=== PATIENT | female | born 1955 | race Caucasian/White ===

== ENCOUNTER → 2017-04-25 | Outpatient (CLI) | payer MEDICARE, SELFPAY | PROVIDERS: Visit Provider Nurse Practitioner Acute Care | DX: K74.60 Unspecified cirrhosis of liver (principal) | CPT/HCPCS: 76705 ==

== ENCOUNTER 2017-05-02 10:56 | Outpatient (CLI) | payer MEDICARE, SELFPAY | END 2017-05-02 13:00 | disposition home or self-care (01) | PROVIDERS: Visit Provider Internal Medicine | DX: D50.9 Iron deficiency anemia, unspecified; K74.60 Unspecified cirrhosis of liver; K76.6 Portal hypertension; T45.4X5A Adverse effect of iron and its compounds, initial encounter | CPT/HCPCS: 96365; J1756 ==

== ENCOUNTER 2017-05-08 11:00 | Outpatient (CLI) | payer MEDICARE, SELFPAY ==
[2017-05-08 13:15] VITALS: BMI 82.7
[2017-05-08 14:08] VITALS: BP 111/56; PULSE 83; RESP 18; TEMP 37.4; O2SAT 94
[2017-05-08 14:38] VITALS: BP 119/56; PULSE 84; RESP 18; O2SAT 95
[2017-05-08 15:00] VITALS: BP 105/57; PULSE 84; RESP 20; O2SAT 94
== END 2017-05-08 15:00 | disposition home or self-care (01) ==
LOC: INF 13:09
PROVIDERS: Family Provider Family Medicine; PCP Family Medicine; Visit Provider Internal Medicine
DX: D50.9 Iron deficiency anemia, unspecified (principal); K74.60 Unspecified cirrhosis of liver; T45.4X5A Adverse effect of iron and its compounds, initial encounter
CPT/HCPCS: 96365; J1756

== ENCOUNTER 2017-05-15 08:40 | Outpatient (CLI) | payer MEDICARE, SELFPAY ==
[2017-05-15 08:56] VITALS: BMI 37.5
[2017-05-15 09:00] VITALS: BP 114/60; PULSE 81; RESP 16; TEMP 37.1; O2SAT 98
[2017-05-15 09:30] VITALS: BP 129/55; PULSE 82; RESP 16
[2017-05-15 10:00] VITALS: BP 113/56; PULSE 79; RESP 18
[2017-05-15 10:15] VITALS: BP 123/55; PULSE 76; RESP 18
== END 2017-05-15 10:15 | disposition home or self-care (01) ==
PROVIDERS: Family Provider Family Medicine; PCP Family Medicine; Visit Provider Internal Medicine
DX: K74.69 Other cirrhosis of liver (principal); K76.6 Portal hypertension; T45.4X5A Adverse effect of iron and its compounds, initial encounter; D50.9 Iron deficiency anemia, unspecified
CPT/HCPCS: 96365; J1756

== ENCOUNTER 2017-05-22 11:05 | Outpatient (CLI) | payer MEDICARE, SELFPAY ==
[2017-05-22 12:00] VITALS: BP 134/75; PULSE 74; RESP 18; TEMP 36.6; O2SAT 93
[2017-05-22 12:25] VITALS: BP 136/76; PULSE 82; RESP 18; O2SAT 96
== END 2017-05-22 12:25 | disposition home or self-care (01) ==
LOC: INF 14:16
PROVIDERS: Family Provider Family Medicine; PCP Family Medicine; Visit Provider Internal Medicine
DX: K74.60 Unspecified cirrhosis of liver (principal); K76.6 Portal hypertension; D50.9 Iron deficiency anemia, unspecified
CPT/HCPCS: 96365; J1756

== ENCOUNTER 2017-05-30 10:20 | Outpatient (CLI) | payer MEDICARE, SELFPAY ==
--- NOTE | 2017-05-30 10:28 | MM_ITS ---
MM Dig screening mamm BI w/CAD CAD Screening COMPARISON: Digital mammograms 05/13/2014 and 05/28/2016 INDICATION: There is a history of breast cancer patient's sister diagnosed after menopause. TECHNIQUE: Standard CC and MLO images were obtained. R2 CAD reviewed. FINDINGS: The breasts are composed primarily of fat with minimal scattered fibroglandular densities throughout each breast. There is no suspicious lesion and there are no suspicious microcalcifications. There are small nodes in both axilla. IMPRESSION: Fatty type breast parenchyma with no suspicious lesion seen BI-RADS Category: 1 Negative RECOMMENDED FOLLOW-UP: 1YR - 1 YEAR FOLLOW-UP (A letter has been sent to the patient regarding results of the study.)
[2017-05-30 11:41] VITALS: BP 114/82; PULSE 93; RESP 18; TEMP 36.7; O2SAT 99
[2017-05-30 12:11] VITALS: BP 118/80; PULSE 91; RESP 18; O2SAT 98
[2017-05-30 12:20] VITALS: BP 116/80; PULSE 89; RESP 18; O2SAT 98
== END 2017-05-30 16:15 | disposition home or self-care (01) ==
LOC: RAD 10:22 → INF 13:02
PROVIDERS: Family Provider Family Medicine; PCP Family Medicine; Visit Provider Internal Medicine
DX: Z12.31 Encounter for screening mammogram for malignant neoplasm of breast (principal); K74.69 Other cirrhosis of liver; D50.0 Iron deficiency anemia secondary to blood loss (chronic); D61.818 Other pancytopenia
CPT/HCPCS: 77067; 96365; J1756

== ENCOUNTER 2017-06-03 13:10 | Day surgery (SDC) | payer MEDICARE, SELFPAY ==
[2017-05-30 11:33] VITALS: BMI 37.4
[2017-05-30 12:42] VITALS: BMI 37.4
[2017-06-03] VITALS (11 sets, daily range): BP systolic 90–157; BP diastolic 46–84; PULSE 63–83; RESP 16–20; TEMP 36.4–36.6; O2SAT 93–98
--- NOTE | 2017-06-03 13:44 | HMH.ANESCL ---
[facility] Anesthesia Checklist - Patient Identification Patient Identification: Arm Band, Verbal (Name & ) - Structural Data Admitted From: Home Planned Operative Procedure/s: egd Consent for Planned Operative Procedure(s) Verified: Yes Verified Documents: Surgical Consent - NPO Status Verified Time NPO: 00:00 - Chart Verification Results Verified: None, CBC, BMP - Additional verifications Patient : No Anesthesia Reactions: No Hx Blood Transfusions: No Blood Transfusion Reaction: No Cephalosporin Allergy: No Previous Colonoscopy: No - Cardiovascular Assessment Heart Sounds: S1 & S2 Pulse Strength: Strong Pulse Rhythm: Regular Peripheral Edema: No - Airway Assessment C-Spine Mobility Assessed: Yes TMJ Mobility Assessed: Yes Dentition: Good Dentition - Neurological Assessment Level of Consciousness: Awake, Alert, Appropriate Hx Seizures: No Numbness or tingling in extremities: No - Anesthesia Plan Anesthesia Risk discussed: Yes Anesthesia Plan: Verified ASA Class: III Anesthesia Type: MAC [facility] Anesthesia HX I have reviewed the patient's past medical history: Yes Medical History: Reports:: Depression, Diabetes Mellitus Type 2 (niddm), Hypertension, Lung Disease (asthma/emphesema), Kidney Stones, Migraine Denies:: Diabetes Mellitus Type 1, Internal Pacemaker, Seizures Other Medical History: Reports: Anemia, Arthritis, Fibromyalgia Laterality Cases: Right: Arthroscopy Shoulder, Bilateral: Carpal Tunnel Release, Tonsillectomy Other Surgeries: Yes: Appendectomy, Hysterectomy-Total, Other (kidney stone, back ). No: Pacemaker Amputation: No Fractures: No *Family Hx:: Cancer, Diabetes, Heart Attack
[2017-06-03 13:51] LABS: POC Glucose,Bedside 93 mg/dL
--- NOTE | 2017-06-03 14:12 | HMH.PROC ---
[facility] Procedure Note Procedure Note:: Upper Endoscopy Procedure Report: Esophagogastroduodenoscopy with cold biopsies Endoscopost: Dionisio Arzate II, MD Referring Physician: Sebas Sebastian MD Date of Procedure: June 03, 2017 Equipment: Olympus GIF 180 standard upper endoscope Sedation: MAC sedation Indications: Mrs. Aguilera is a 62-year-old female with dyspepsia. She reports discomfort across the upper abdomen with bloating, nausea and frequent functional diarrhea. The patient also has cirrhosis presumably secondary to FREGOSO. The patient also has thrombocytopenia secondary to portal hypertension. Her CT scan of the abdomen did show splenomegaly and cirrhotic liver with enlarged portal vein and enlarged splenic vein. There was portal venous collaterals and varicosities. EGD is performed to exclude esophageal varices but also to assess dyspepsia. Procedure: Prior to the procedure, a history and physical exam was performed, and patient's medications and allergies were reviewed. The risks, benefits and alternatives of the sedation and procedure were discussed with the patient. All questions were answered and informed consent was obtained. The patient was brought to the procedure room. Patient identification and proposed procedure were verified by the physician and the nurse. The patient was placed in a left lateral decubitus position and the scope was passed under direct vision. Throughout the procedure, the patient's blood pressure, pulse, and oxygen saturations were monitored continuously. The upper GI endoscopy was accomplished without difficulty. The patient tolerated the procedure well. Findings: The scope was passed directly into the upper esophagus and advanced to the third portion of the duodenum. The post bulbar duodenum and duodenal bulb were normal with normal mucosa and conniventes. The scope was withdrawn through a normal duodenal bulb and pylorus into the stomach. There was evidence of mosaic pattern to the mucosa in the body and fundus consistent with mild portal gastropathy. Upon retroflexion there was no gastric varices. There was moderate bowel reflux with evidence of linear reactive gastritis of the antrum and body. Cold biopsies were taken along the lesser curvature for histology. Upon retroflexion there was no hiatal hernia. The scope was then withdrawn into the esophagus. There was evidence of grade 1 esophageal varices without stigmata. There was no evidence of reflux esophagitis. The remainder of the esophageal mucosa was normal. Impression: 1. Bowel reflux with linear reactive gastritis 2. Mild portal gastropathy 3. Grade 1 esophageal sees Plan: I do feel that the patient has functional dyspepsia and we will discuss additional treatment options. The patient also has evidence of portal hypertension with small varices. I would recommend nonselective beta-clyde (nadolol) and will discuss additional evaluation. The patient does have microcytic anemia and I would like to determine etiology and will discuss colonoscopy. She has had intermittent bright red blood per rectum.
== END 2017-06-03 15:30 | disposition home or self-care (01) ==
LOC: OUTP 13:11
PROVIDERS: Family Provider Family Medicine; PCP Family Medicine; Visit Provider Internal Medicine Gastroenterology
PROC: 0DJ08ZZ Inspection of Upper Intestinal Tract, Via Natural or Artificial Opening Endoscopic (ICD-10-PCS; CPT 43235; principal; 2017-06-03 14:00)
DX: K92.1 Melena (principal); D50.9 Iron deficiency anemia, unspecified; K75.81 Nonalcoholic steatohepatitis (NASH); K76.6 Portal hypertension; K31.89 Other diseases of stomach and duodenum; I85.00 Esophageal varices without bleeding; R10.13 Epigastric pain
CPT/HCPCS: 43239; 82962; 88305; 96365; J1756

== ENCOUNTER → 2017-06-11 14:06 | Outpatient (CLI) | payer MEDICARE, SELFPAY ==
[2017-06-11 14:52] LABS: Basophils % 0.4 % (0.1-2.0); Eosinophils % 0.6 % (0.1-12.0); Hematocrit 41.1 % (37.0-47.0); Hemoglobin 12.6 g/dL (12.2-16.2); Lymphocytes # 0.7 K/mm3 (0.7-4.5); Lymphocytes % 26.9 K/mm3 (10-50); Mean Corpuscular HGB Conc 30.6 g/dL (31.8-35.4); Mean Corpuscular Hemoglobin 24.9 pg (27.0-31.2); Mean Corpuscular Volume 81.6 fl (81-99); Mean Platelet Volume 10.9 fl (7.4-10.4); Monocytes # 0.2 K/mm3 (0.1-1.0); Monocytes % 6.9 % (1.7-9.3); Neutrophils # 1.6 K/mm3 (1.8-7.8); Neutrophils % 65.2 % (37.0-80.0); Platelet Count 51 K/mm3 (142-424); Red Blood Count 5.03 M/mm3 (4.20-5.40); Red Cell Distribution Width 21.4 % (11.5-17.5); White Blood Count 2.5 K/mm3 (4.8-10.8)
[2017-06-11 15:59] LABS: Anion Gap 10.9 mEq/L (5-15); Blood Urea Nitrogen 5 mg/dL (7-18); Carbon Dioxide 33 mmol/L (21.0-32.0); Chloride 105 mmol/L (98-107); Creatinine,Serum 0.55 mg/dL (0.55-1.02); Estimated Glomerular Filt Rate 112 ml/min (>60); Ferritin 116 ng/mL (8-388); GFR (African American) 136 ML/MIN (>60); Glucose 68 mg/dL (74-106); Sodium 145 mmol/L (136-145)
[2017-06-11 16:07] LABS: Potassium 3.9 mmoL/L (3.5-5.1)
[2017-06-13 08:29] LABS: UIBC 262 ug/dL (118-369)
[2017-06-13 12:34] LABS: Iron 52 ug/dL (27-139); Iron Saturation 17 % (15-55)
== END ==
PROVIDERS: PCP Family Medicine; Visit Provider Nurse Practitioner
DX: D50.9 Iron deficiency anemia, unspecified (principal); D61.818 Other pancytopenia; K74.60 Unspecified cirrhosis of liver
CPT/HCPCS: 36415; 80048; 82728; 83550; 85025

== ENCOUNTER → 2017-08-26 13:12 | Outpatient (CLI) | payer MEDICARE, SELFPAY ==
--- NOTE | 2017-08-26 13:19 | XR_ITS ---
XR foot RT min 3V HISTORY: Lateral foot and ankle pain following injury ITS.REASON: FALL,RT ANKLE INJURY ORDERING PHYSICIAN: Say Sebastian MD PATIENT AGE: 62 years COMPARISON: None FINDINGS: There is a nondisplaced oblique fracture of the distal fibula. No obvious foot fracture or dislocation evident. A prominent osteophyte at the plantar surface of the calcaneus at 10 mm. IMPRESSION: Nondisplaced oblique fracture distal fibula. Otherwise negative right foot
--- NOTE | 2017-08-26 13:19 | XR_ITS ---
XR ankle RT min 3V HISTORY: ITS.REASON: FALL,RT ANKLE INJURY ORDERING PHYSICIAN: Say Sebastian MD PATIENT AGE: 62 years FINDINGS: Moderate soft tissue swelling is present. There is a nondisplaced oblique fracture present involving the distal aspect of the fibula best seen on the lateral view through the tibia. There is moderate soft tissue swelling of the lateral ankle. IMPRESSION: Nondisplaced oblique fracture of the distal fibula
== END ==
PROVIDERS: PCP Family Medicine; Visit Provider Family Medicine
DX: M79.671 Pain in right foot (principal); M25.571 Pain in right ankle and joints of right foot
CPT/HCPCS: 73610; 73630

== ENCOUNTER → 2017-08-28 11:51 | Outpatient (CLI) | payer MEDICARE, SELFPAY ==
--- NOTE | 2017-08-28 11:59 | XR_ITS ---
XR knee RT 3V HISTORY: ITS.REASON: RT KNEE PAIN ORDERING PHYSICIAN: Say Sebastian MD PATIENT AGE: 62 years FINDINGS: Mild osteoarthritic changes involving all 3 compartments greatest at the patellofemoral joint. No fracture or dislocation. No lytic or blastic change. There is a 1 cm calcific density along the posterior aspect of the distal the more at the proximal popliteal region and may represent a loose body. Otherwise negative. IMPRESSION: Osteoarthritis suspected loose body along the superior aspect of the popliteal fossa
== END ==
PROVIDERS: PCP Family Medicine; Visit Provider Family Medicine
DX: M25.561 Pain in right knee (principal)
CPT/HCPCS: 73562

== ENCOUNTER → 2017-09-19 10:38 | Outpatient (CLI) | payer MEDICARE, SELFPAY ==
--- NOTE | 2017-09-19 10:46 | XR_ITS ---
XR tibia fibula RT 2V CLINICAL INDICATION: ITS.REASON: right knee pain ORDERING PHYSICIAN: Liam Richey MD PATIENT AGE: 62 years Comparison: None FINDINGS: There are mild osteoarthritic changes of the knee joint. A nondisplaced oblique fracture involves the distal fibula as described in the ankle report. The proximal and mid aspect of the tibia and fibula have an unremarkable appearance. IMPRESSION: 1. Nondisplaced distal fibular fracture. 2. Mild osteoarthritis of the knee
--- NOTE | 2017-09-19 10:46 | XR_ITS ---
XR hip RT 2-3V w/pelvis HISTORY: ITS.REASON: right hip pain ORDERING PHYSICIAN: Liam Richey MD PATIENT AGE: 62 years COMPARISON: None FINDINGS: No fracture or dislocation is evident. Minimal osteoarthritic changes are present involving the right hip. No lytic or blastic change. IMPRESSION: Mild osteoarthritis of the right hip, no acute finding
--- NOTE | 2017-09-19 10:46 | XR_ITS ---
XR ankle RT min 3V HISTORY: Follow-up fracture ITS.REASON: right ankle pain ORDERING PHYSICIAN: Liam Richey MD PATIENT AGE: 62 years COMPARISON: 08/26/2017 FINDINGS: There is a nondisplaced oblique fracture involving the distal aspect of the fibula exiting medially at the level of the ankle joint. Ankle mortise is not widened. The fracture line is somewhat more prominent but may be due to underlying bony resorption from hyperemia. Calcaneal spur is present. Soft tissue swelling has reduced laterally IMPRESSION: 1. Overall no change nondisplaced fibular fracture. 2. Decreased soft tissue swelling laterally
--- NOTE | 2017-09-19 10:46 | XR_ITS ---
XR knee LT 4V HISTORY: ITS.REASON: left knee pain ORDERING PHYSICIAN: Liam Richey MD PATIENT AGE: 62 years COMPARISON: None FINDINGS: There are mild tricompartmental osteoarthritic changes. There is spurring along the superior aspect of the patella, tibial spines, and at the distal femur laterally. Calcification is present along the lateral aspect of the distal femur at the patellofemoral junction. No acute fracture or dislocation. No lytic or blastic change. IMPRESSION: Tricompartmental osteoarthritis with bony spurs as described above. No acute finding
== END ==
PROVIDERS: PCP Family Medicine; Visit Provider Orthopaedic Surgery
DX: M25.571 Pain in right ankle and joints of right foot (principal); M25.551 Pain in right hip; M25.562 Pain in left knee
CPT/HCPCS: 73502; 73564; 73590; 73610

== ENCOUNTER → 2017-10-04 14:01 | Outpatient (CLI) | payer MEDICARE, SELFPAY | PROVIDERS: Family Provider Family Medicine; PCP Family Medicine; Visit Provider Orthopaedic Surgery | DX: M25.561 Pain in right knee (principal) ==

== ENCOUNTER → 2017-11-12 13:49 | Outpatient (CLI) | payer MEDICARE, SELFPAY ==
--- NOTE | 2017-11-12 13:50 | MR_ITS ---
MR knee RT wo con HISTORY: Right knee pain, abnormal radiograph suggesting a loose body with osteoarthritis ITS.REASON: loose body/ rt knee pain ORDERING PHYSICIAN: Liam Richey MD PATIENT AGE: 62 years Comparison: None TECHNIQUE: Standard multiplanar multiecho sequences are performed without contrast. FINDINGS: The cruciate ligaments are intact. The collateral ligaments also appear intact. The patellar tendon and quadriceps tendon have an unremarkable appearance. No meniscal tear.. There are moderate osteoarthritic changes involving all 3 compartments with decrease in the joint spaces and osteophyte formation. Moderate osteoarthritic changes are present involving the patellofemoral joint with marked thinning of the patellar cartilage and bony hypertrophic change. Slight increased T2 signal involves the posterior patella superiorly. There is an oval hypointense region along the superior aspect of the popliteal fossa measuring 9 x 5 mm corresponding to the radiographic abnormality consistent with a loose body. This is dorsal medial aspect of the popliteal fossa and lies along the superior, posterior, and lateral aspect of the medial femoral condyle. A small amount of loculated fluid around this area. There is a small osteochondral defect involving the articular surface of the lateral femoral condyle measuring 6 mm. No other osteochondral defects are apparent. IMPRESSION: 1. Tricompartmental osteoarthritis. 2. 9 mm loose body in the superior popliteal region as described above associated with some small septated cystic areas and may be small bursa. 2. No internal derangement Moderate osteoarthritic changes
== END ==
PROVIDERS: Family Provider Family Medicine; PCP Family Medicine; Visit Provider Orthopaedic Surgery
DX: M25.561 Pain in right knee (principal)
CPT/HCPCS: 73721

== ENCOUNTER → 2018-01-01 10:47 | Outpatient (CLI) | payer MEDICARE, SELFPAY ==
--- NOTE | 2018-01-01 10:49 | XR_ITS ---
XR DEXA axial skeleton HISTORY: ITS.REASON: POST MENOPAUSAL HX FX ORDERING PHYSICIAN: Say Sebastian MD PATIENT AGE: 62 years COMPARISON: 04/22/2014 FINDINGS: The BMD measured at the Right femoral neck is 0.877 g/cm squared with a T score of -1.2. This is considered Osteopenic according to the World Health Organization criteria. Fracture risk is Moderate. Treatment is advised. L1 L4 density has a T score of 0.3 and has increased by approximately 3%. The hip density has decreased by 1% IMPRESSION: Osteopenia with moderate fracture risk. Treatment suggested. Recommend follow-up exam December 2019
== END ==
PROVIDERS: Family Provider Family Medicine; PCP Family Medicine; Visit Provider Family Medicine
DX: D50.9 Iron deficiency anemia, unspecified (principal); D61.818 Other pancytopenia; K74.60 Unspecified cirrhosis of liver; Z78.0 Asymptomatic menopausal state; Z87.81 Personal history of (healed) traumatic fracture
CPT/HCPCS: 77080

== ENCOUNTER → 2018-01-21 14:22 | Outpatient (CLI) | payer MEDICARE, SELFPAY ==
--- NOTE | 2018-01-21 14:27 | CA_ITS ---
PROCEDURE: 2-D M-mode and color Doppler study INDICATIONS FOR THE TEST: Chest pain COPD Heart Murmur Tobacco Smoking+ Palpitations Fatigue Syncope Edema+ Hypertension+Diabetes Mellitus+ Rheumatic Fever SOB+ABDUL Obesity+Hyperlipidemia Family History HD Additional History CIRRHOSIS PATIENT INFORMATION HEIGHT: 65 WEIGHT:241 GENDER: Female B/P:102/57 2-D/M-MODE INTERPRETATION: 2-D MEASUREMENTS OBSERVED VALUES IN CMS Right Ventricular Dimension (RVDd) 3.0 Interventricular Septum (Thickness)(IVsd) 1.3 Left Ventricular Internal Dimensions(LVIDd) 4.7 Left Ventricular Posterior Wall (Thickness)(LVPWd) 1.2 Aortic Root 3.2 Aortic Cusp Separation 2.0 Left Atrial Dimensions (LAD) 4.2 2D 1. Left atrium is mildly enlarged, left ventricle is normal size, mild concentric left ventricular hypertrophy, visually estimated ejection fraction of 55% with no obvious regional wall motion abnormality. 2. The right atrium and right ventricle are mildly enlarged with normal contractility. 3. The aortic valve is minimally thickened and fibrosed. 4. The mitral and tricuspid valve leaflets are minimally thickened. 5. The pulmonic valve is poorly visualized. 6. No significant pericardial effusion noted. DOPPLER INTERROGATION: Doppler interrogation of the aortic, mitral and tricuspid valvular presence of mild mitral and tricuspid regurgitation, tricuspid regurgitation jet velocity is insufficient for calculation of the right ventricular systolic pressure, diastolic parameters consistent with grade 1, with tissue Doppler evidence of raised left atrial pressure. CONCLUSION: 1. Mildly enlarged left atrium, normal left ventricular size, mild concentric left ventricular hypertrophy, visually estimated ejection fraction 55% with no obvious regional wall motion abnormality, grade 1 diastolic dysfunction seen with tissue Doppler evidence of raised left atrial pressure. 2. Mild mitral and tricuspid regurgitation 3. Mildly enlarged right ventricle with normal contractility. 4. No significant pericardial effusion noted.
== END ==
PROVIDERS: Family Provider Family Medicine; PCP Family Medicine; Visit Provider Emergency Medicine
DX: R06.02 Shortness of breath (principal); M79.89 Other specified soft tissue disorders; R53.83 Other fatigue
CPT/HCPCS: 93306

== ENCOUNTER → 2018-03-10 12:59 | Outpatient (CLI) | payer MEDICARE, SELFPAY ==
--- NOTE | 2018-03-10 13:01 | XR_ITS ---
XR knee LT 4V HISTORY: Knee pain ITS.REASON: 4 views weightbearing ORDERING PHYSICIAN: Kartik Bhakta MD PATIENT AGE: 63 years COMPARISON: 09/19/2017 FINDINGS: There are mild tricompartmental osteoarthritic changes. There is spurring along the superior aspect of the patella, tibial spines, and at the distal femur laterally. Calcification is present along the lateral aspect of the distal femur at the patellofemoral junction. No acute fracture or dislocation. No lytic or blastic change. Rounded calcific densities noted along the distal aspect of the femur posteriorly and anteriorly as seen on the lateral view which could be related to loose bodies. IMPRESSION: Tricompartmental osteoarthritis with bony spurs as described above. No acute finding with no significant change
== END ==
PROVIDERS: PCP Emergency Medicine; Visit Provider Orthopaedic Surgery
DX: M25.562 Pain in left knee (principal)
CPT/HCPCS: 73564

== ENCOUNTER → 2018-03-13 08:27 | Outpatient (CLI) | payer MEDICARE, SELFPAY ==
[2018-03-13 08:52] LABS: Blood Urea Nitrogen 6 mg/dL (7-18); Estimated Glomerular Filt Rate 101 ml/min (>60); GFR (African American) 123 ML/MIN (>60)
--- NOTE | 2018-03-13 09:29 | CT_ITS ---
CT abdomen pelvis wo/w con CLINICAL INDICATION: ITS.REASON: EPIGASTRIC PAIN,LYMPHADENOPATHY,WEIGHT LOSS ORDERING PHYSICIAN: Prabha Barajas MD PATIENT AGE: 63 years COMPARISON: None TECHNIQUE: Axial images obtained without and with contrast. Sagittal and coronal reformats. All CT scans at the facility use one or more dose reduction, viz: automated exposure control, ma/kV adjustment per patient size (including targeted exams where dose is matched to indication, i.e. head remains, or iterative reconstruction technique. PROCEDURE: Oral Contrast: None IV Contrast: 75 mL's Isovue-370. FINDINGS: Atelectatic or fibrotic changes are present in the lung bases. There are old fractures of the right ninth, eighth, and seventh ribs posteriorly. There is diffuse fatty liver infiltration. There is marked splenomegaly at 25 cm in AP dimension. Previously the spleen measured 22 cm AP. The liver has an irregular margin consistent with cirrhosis. There has been prior cholecystectomy. A small amount of perihepatic and perisplenic fluid. No biliary dilatation is evident. No space-occupying lesions of the liver are evident. No evidence of portal vein thrombosis. The portal vein is prominent at 1.9 cm transverse dimension. Scattered small perigastric and perisplenic varices are present. The adrenal glands, pancreas, and kidneys have an unremarkable appearance. There is stranding of the fat in the right paracolic gutter. This is of questionable etiology, which may be due to varices. No evidence of appendicitis or diverticulitis. No intestinal obstruction or free air. There is a mild amount of ascites in the pelvis. No pelvic mass abnormal fluid collection or focal inflammatory change. Prior hysterectomy. 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 Celiac lymph node once again noted at approximately 2 cm not significantly changed. No acute bony anomalies.. IMPRESSION: 1. The findings are consistent with portal hypertension with marked splenomegaly. The spleen does appear larger than when compared to the previous exam. There is ascites and enlarged portal vein with irregularity of the liver margin consistent with cirrhosis with scattered collateral vessels. 2. Persistent stranding of the mesenteric fat in the right lower quadrant and celiac region which could be due to sequela from portal hypertension. 3. No change small celiac lymph node 2 cm. 4. 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 The stenosis while incompletely evaluated is felt to be severe and may be better evaluated with CT angiography.
== END ==
PROVIDERS: Visit Provider Emergency Medicine
DX: R10.13 Epigastric pain (principal); R59.1 Generalized enlarged lymph nodes; R63.4 Abnormal weight loss
CPT/HCPCS: 36415; 74170; 74178; 82565; 84520; Q9967

== ENCOUNTER → 2018-03-24 09:54 | Outpatient (CLI) | payer MEDICARE, SELFPAY ==
--- NOTE | 2018-03-24 09:58 | CT_ITS ---
CT angio abdomen CLINICAL INDICATION: Abdominal pain ITS.REASON: STENOSIS OF CELIAC ARTERY ORDERING PHYSICIAN: Prabha Barajas MD PATIENT AGE: 63 years COMPARISON: CT abdomen and pelvis 03/13/2018 TECHNIQUE: Axial images obtained with sagittal and coronal reformats. All CT scans at the facility use one or more dose reduction, viz: automated exposure control, ma/kV adjustment per patient size (including targeted exams where dose is matched to indication, i.e. head), or iterative reconstruction technique. PROCEDURE: 100 cc Isovue-370 bolus followed x 40 mL normal saline CTA technique.No oral contrast utilized . Additional reconstruction images performed by Dr. Garber on the radiologist workstation including 3-D volume images with & CTA imaging. CTA or 77 CPT . FINDINGS: Excellent opacification of a slender of modest caliber aorta. Diffuse atherosclerotic calcification throughout the lower abdominal aorta and common iliac arteries. There is a high-grade stenosis at the celiac artery origin. Estimate estimate 80-90% diameter stenosis on sagittal views. Residual diameter measuring of this proximal narrowed celiac artery = 1.7 mm on sagittal image. Only slightly more generous diameter on axial slices. The remainder of the celiac artery and is branches appear satisfactory. Although would note hepatic artery is modest caliber appears to have some collateral circulation to the SMA branches. Larger caliber splenic artery remains robust. The SMA is widely patent and generous caliber throughout. It again noting the right subhepatic collaterals. The renal arteries widely patent bilaterally with minimal calcified plaque no high-grade stenosis. Good perfusion of kidneys. . Calcified plaque yield minor less than 15-20% stenosis at the common iliac arteries. External iliac artery is widely patent proximally. Very large spleen. Prominent splenomegaly again noted . Suspect developing cirrhotic changes of liver with prominent portal vein. Cholecystectomy. Pancreas unremarkable. Only would note prominent portal vein confluence just posterior to the head of pancreas.. Hazy appearance to the mesentery most evident towards right abdomen is again noted as seen on recent CT. There is a small umbilical hernia again noted slight hazy appearance in bleeding to this area but also seen throughout the mesentery, omentum.. Pelvis not included on today's study. Generous wall thickness at stomach. Appendix normal. Old posterior right rib lower fractures. IMPRESSION 1. 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 (Origin of celiac artery narrows to 1.7 mm on sagittal view and only slightly more generous caliber on axial slices). . Modest caliber hepatic artery branch from the celiac artery. This vessel receives additional collateral supply from SMA branches. 2. SMA generous caliber and widely patent 3.. Diffuse atherosclerotic calcification aorta & common iliac vessels, but no flow-limiting stenosis through these latter regions 4.. Other observations in text were noted on recent CT abdomen 03/13/2018 . These include including the marked splenomegaly and the hazy appearance of the mesentery element on particular towards the right lower quadrant
== END ==
PROVIDERS: PCP Emergency Medicine; Visit Provider Emergency Medicine
DX: I77.79 Dissection of other specified artery (principal); I77.4 Celiac artery compression syndrome
CPT/HCPCS: 74175; Q9967

== ENCOUNTER → 2018-05-26 12:59 | Outpatient (POV) | payer MEDICARE, SELFPAY | PROVIDERS: Visit Provider Nurse Practitioner Acute Care | DX: Z00.00 Encounter for general adult medical examination without abnormal findings (principal) ==

== ENCOUNTER → 2018-05-29 12:23 | Outpatient (CLI) | payer MEDICARE, SELFPAY ==
--- NOTE | 2018-05-29 | US_ITS ---
US abdomen limited History:Cirrhosis Ordering Physician:Moriah Tavera Patient Age: 63 years Comparison:None Findings: Pancreas:Unremarkable. No obvious mass or abnormal fluid collection. No ductal dilatation Liver:There is slight heterogeneous echogenicity of the liver with some minimal nodularity of the liver surface best detected on previous CT scan of 03/24/2018. No space-occupying lesions of the liver evident. There is appropriate directional blood flow within the portal vein. Portal vein is slightly prominent at 16 mm. There is splenomegaly at 23 cm. Right Kidney:Unremarkable. Normal size and echogenicity. No hydronephrosis Gallbladder: Status post cholecystectomy. Common bile duct normal 4 mm. Impression: Splenomegaly with heterogeneous echogenicity of the liver and mild nodular contour with prominent portal vein consistent with portal hypertension and cirrhosis
== END ==
PROVIDERS: PCP Emergency Medicine; Visit Provider Nurse Practitioner Acute Care
DX: K74.60 Unspecified cirrhosis of liver (principal); R19.4 Change in bowel habit
CPT/HCPCS: 76705

== ENCOUNTER 2018-08-25 11:26 | Observation (INO) ==
[2018-08-25 12:13] LABS: ABG Base Excess 3.3 mmol/L (-2.4-2.3); ABG HCO3 27.6 mmhg (22.0-26.0); ABG Oxygen Saturation 94 % (90-100); ABG PCO2 41.9 mmhg (35.0-45.0); ABG PH 7.44 mmol/L (7.35-7.45); ABG PO2 71.7 mmhg (80-100); ABG TCO2 28.9 mmhg (23-27)
[2018-08-25 12:15] LABS: Allen's Test Acceptable; Oxygen 2L %
--- NOTE | 2018-08-25 13:23 | History & Physical Report ---
*Admission Date: 08/25/18 <SamiaLuanne - 08/25/18 13:23> *Chief complaint: cough and shortness of breath <Luanne Gracia 08/25/18 13:23> *History of present illness: Ms. Aguilera is a 63-year-old female with a history of hypertension, neuropathy, fibromyalgia, collagen disease, asthma, COPD, depression, GERD, cirrhosis/fatty liver, type 2 diabetes mellitus and tobacco use disorder who presented to the office of [facility] with 5 days of worsening cough and shortness of breath. Patient was seen in the emergency room at [facility] 08/02/2018 with fever. Chest x-ray at that time revealed probable right perihilar right upper lobe bronchopneumonia lung with minimal left lower lobe atelectasis. She was noted to be 1 day post colonoscopy. She was placed on Levaquin at discharge to home. With evaluation in the office she was found to be hypoxic with a low-grade temperature of 99.5. Patient does have a history of neutropenia and thrombocytopenia as well. CBC in the office of [facility] revealed a white blood cell count 3.4 with 76.3% granulocytes and 19% lymphocytes. Hemoglobin and hematocrit were 11.8 and 37.1 respectively; platelet count was 35,000. She received a DuoNeb treatment while in the office. She demonstrated a frequent nonproductive cough. Due to her failure of improvement as an outpatient, she was admitted for further evaluation and treatment. <Luanne Gracia 08/25/18 14:01> [facility] History Medical History: Reports:: Anxiety, Asthma, Chronic Obstructive Pulmonary Disease (COPD), Depression, Diabetes Mellitus Type 2, Gastroesophageal Reflux Disease(GERD), Hepatitis, Hypertension, Lung Disease (copd), Kidney Stones, Migraine Denies:: Cancer, Diabetes Mellitus Type 1, Internal Pacemaker, MRSA, Seizures <Luanne Gracia 08/25/18 14:01> *Have you ever received a pneumonia vaccine?: Yes <Luanne Gracia 08/25/18 13:23> *Have you received a flu vaccine this season?: Yes <Luanne Gracia 08/25/18 13:23> Other Medical History: Reports: Anemia, Arthritis, Fibromyalgia, Other. Denies: Blood Transfusion Reaction <Luanne Gracia 08/25/18 13:23> Laterality Cases: Right: Arthroscopy Shoulder, Bilateral: Carpal Tunnel Release, Tonsillectomy <GraciauLanne 08/25/18 13:23> Other Surgeries: Yes: Appendectomy, Cholecystectomy, Hysterectomy-Total, Other (kidney stone, back ). No: Pacemaker <GraciaLuanne 08/25/18 14:01> Amputation: No <GraciaLuanne 08/25/18 13:23> Fractures: Yes <GraciaLuanne steele 08/25/18 13:23> - *Social History Educational Level: Completed High School <Gracia,Luanne 08/25/18 13:23> Smoking Status: Current every day smoker <Gracia,Luanne 08/25/18 13:23> Tobacco Type: cigarettes <GraciaLuanne steele 08/25/18 13:23> # Packs/Day (cigarettes): 1 <GraciaLuanne 08/25/18 13:23> #Yrs smoked (if former smoker): 45 <Gracia,Luanne 08/25/18 13:23> Alcohol Intake: never <GraciaLuanne 08/25/18 13:23> Substance Use Type: denies use <GraciaLuanne 08/25/18 13:23> *Occupational Status:: retired <Gracia,Luanne 08/25/18 13:23> Housing: house <SamiaLuanne 08/25/18 13:23> Household Members: significant other <GraciaLuanne steele 08/25/18 13:23> *Travel in the last 8 weeks: None <Luanne Gracia 08/25/18 13:23> - Psychiatric History Expresses thoughts of harming self/others: None <Luanne Gracia 08/25/18 13:23> Suicide Plan Description: No Plan <Luanne Gracia 08/25/18 13:23> Pschychiatric History:: Reports:: Anxiety, Depression <Luanne Gracia 08/25/18 13:23> Family Hx:: Cancer, Diabetes, Heart Attack <Luanne Gracia 08/25/18 13:23> Review of Systems - Constitutional Reports fever(s) <Luanne Gracia 08/25/18 14:01> - ENT Denies ear pain, Denies sore throat <GraciaLuanne 08/25/18 14:01> - *Cardiovascular Reports shortness of breath, Denies irregular heart rhythm <GraciaLuanne 08/25/18 14:01> Comments: Chest tightness <GraciaLuanne 08/25/18 14:01> - *Respiratory Reports cough, Reports shortness of breath, Reports wheezing, Denies coughing up blood <GraciaLuanne 08/25/18 14:01> - *Gastrointestinal Denies loose stools, Denies nausea, Denies vomiting <GraciaLuanne 08/25/18 14:01> - *Genitourinary Denies difficulty urinating <GraciaLuanne 08/25/18 14:01> - *Musculoskeletal Comments: Has been able to walk around in her house with some difficulty. She uses a walker or cane as needed. She presented to the office [facility] in a wheelchair. <SamiaLuanne 08/25/18 14:01> - Integumentary/Breasts Reports changing lesions <GraciaLuanne 08/25/18 14:01> Comments: Difficulty with walking due to shortness of breath <Gracia,Luanne 08/25/18 14:01> - *Neurologic Denies abnormal speech <GraciaLuanne 08/25/18 14:01> Meds Home Medications Medication Instructions Recorded Confirmed Type Albuterol Sulfate [Proair Hfa 2 puffs IH QID PRN 05/08/17 08/25/18 History 90mcg/puff Inh] Donepezil HCl [Donepezil HCl Odt] 10 mg PO HS 05/08/17 08/25/18 History Ipratropium/Albuterol Sulfate 3 ml INHALATION TID PRN 05/08/17 08/25/18 History [Duoneb 3mL neb] Metformin HCl [Metformin 500mg 500 mg PO BID 05/08/17 08/25/18 History Tablet] Quetiapine Fumarate [Quetiapine 150 mg PO HS 05/08/17 08/25/18 History Fumarate ER] RX: Duloxetine HCl 60 mg PO BID 05/08/17 08/25/18 History RX: Fluticasone/Vilanterol [Breo 1 pow INHALATION DAILY 05/08/17 08/25/18 History Ellipta 100-25 Mcg INH] Sucralfate [Carafate 1gm Tab] 1 gm PO BID 05/08/17 08/25/18 History fluticasone furoate 100 1 inh INHALATION ONCE 09/19/17 08/25/18 History mcg-vilanterol 25 mcg/dose inhalation powder Insulin Aspart [Novolog] 6 units SQ TID 07/29/18 08/25/18 History Montelukast Sodium [Montelukast 10 mg PO PM 07/29/18 08/25/18 History 10mg Tab] RX: Amiloride HCl [Midamor 5mg 5 mg PO DAILY 07/29/18 08/25/18 History tablet] RX: Pregabalin [Lyrica 225mg Cap] 225 mg PO BID 07/29/18 08/25/18 History RX: Losartan Potassium 100 mg PO DAILY 08/02/18 08/25/18 History RX: Nadolol [Corgard 20mg tablet] 10 mg PO DAILY 08/02/18 08/25/18 History Rifaximin [Xifaxan] 550 mg PO BID 08/02/18 08/25/18 History RX: levoFLOXacin [Levaquin 500mg 500 mg PO DAILY 08/07/18 08/25/18 History tab] Cholecalciferol (Vitamin D3) 5,000 unit PO DAILY 08/25/18 08/25/18 History [Vitamin D3] Insulin Degludec [Tresiba 20 units SQ HS 08/25/18 08/25/18 History Flextouch U-100] Pantoprazole Sodium [Protonix 40mg 40 mg PO DAILY 08/25/18 08/25/18 History tablet] Sitagliptin Phosphate [Januvia 100 mg PO DAILY 08/25/18 08/25/18 History 100mg tablet] Varenicline Tartrate [Chantix 1mg 1 mg PO DIRECTED 08/25/18 08/25/18 History tablet] <Prabha Talamantes - 08/25/18 16:05> Allergies Allergy/AdvReac Type Severity Reaction Status Date / Time salicylates Allergy Unknown AFFECTS Verified 08/12/18 08:29 CIRROHSIS Sulfa (Sulfonamide Allergy Unknown I-HIVES Verified 08/12/18 08:29 Antibiotics) [SULFA (SULFONAMIDE ANTIBIOTICS)] acetaminophen [From Tylenol] AdvReac Verified 08/12/18 08:29 <Prabha Talamantes - 08/25/18 16:05> Exam Vital signs and Labs for Last 24 Hours: Temp Pulse Resp BP Pulse Ox 98.3 F 78 17 154/76 H 93 L 08/25/18 15:05 08/25/18 15:05 08/25/18 15:05 08/25/18 15:05 08/25/18 15:05 Laboratory Results - last 24 hr 08/25/18 11:58: Specimen Source Left brachial, O2 % 2l, ABG pH 7.44, ABG pCO2 41.9, ABG pO2 71.7 L, ABG HCO3 27.6 H, ABG Total CO2 28.9 H, ABG O2 Saturation 94, ABG Base Excess 3.3 H, Kavin Test Acceptable 08/25/18 12:27: Magnesium 1.8, Triglycerides 74, Cholesterol 131 L, LDL Cholesterol 81, VLDL Cholesterol 15, HDL Cholesterol 35, Cholesterol/HDL Ratio 3.7 H 08/25/18 12:27: Mycoplasma pneumon IgM Reactive A 08/25/18 12:27: Lactate 2.3 H 08/25/18 12:27: Hemoglobin A1c 5.2 <Prabha Talamantes - 08/25/18 16:05> Temp Pulse Resp BP Pulse Ox 98.8 F 80 20 120/72 93 L 08/25/18 11:52 08/25/18 11:52 08/25/18 11:52 08/25/18 11:52 08/25/18 11:52 Laboratory Results - last 24 hr 08/25/18 11:58: Specimen Source Left brachial, O2 % 2l, ABG pH 7.44, ABG pCO2 41.9, ABG pO2 71.7 L, ABG HCO3 27.6 H, ABG Total CO2 28.9 H, ABG O2 Saturation 94, ABG Base Excess 3.3 H, Kavin Test Acceptable <Luanne Gracia - 08/25/18 13:23> I & O for Last 24 hours: Intake & Output 08/23/18 08/24/18 08/25/18 08/26/18 11:59 11:59 11:59 11:59 Weight 221 lb 7 oz <Prabha Talamantes 08/25/18 16:05> Intake & Output 08/23/18 08/24/18 08/25/18 08/26/18 11:59 11:59 11:59 11:59 Weight 221 lb 7 oz <Luanne Gracia 08/25/18 13:23> Radiology Reports for the Last 24 Hours: 08/25/2018 CXR Suggestion of minimal airspace disease and infiltrate at left lower lobe and left infrahilar region. Slight coarsening markings otherwise seen bilaterally mainly reflecting chronic changes. <GraciaLuanne 08/25/18 14:01> - Constitutional mild distress <GraciaLuanne 08/25/18 14:01> Comments: Sitting in wheelchair taking a neb treatment. Frequent dry cough noted <GraciaLuanen 08/25/18 14:01> - *Routine HEENT Exam Head: Present: normocephalic, atraumatic <GraciaLuanne 08/25/18 14:01> Eye: Present: PERRL. Absent: conjunctival icterus, scleral injection <GraciaLuanne 08/25/18 14:01> ENT: Present: mucous membranes moist, oropharynx clear <GraciaLuanne 08/25/18 14:01> - *Routine Neck Exam Present: supple. Absent: carotid bruit, lymphadenopathy, thyromegaly <GraciaLuanne 08/25/18 14:01> - *Routine Respiratory Exam Present: diminished air movement (In all lobes anteriorly and posteriorly) <GraciaLuanne 08/25/18 14:01> - *Routine Cardiovascular Exam Present: RRR <GraciaLuanne - 08/25/18 14:01> - *Routine Abdominal Exam Present: soft, normoactive bowel sounds. Absent: tenderness <GraciaLuanne 08/25/18 14:01> - *Routine Extremities Exam Absent: edema, calf tenderness <GraciaLuanne - 08/25/18 14:01> - *Routine Neurological Exam Present: alert, oriented X3 <GraciaLuanne 08/25/18 14:01> Assessment and Plan (1) Pneumonia Current visit: Yes Status: Acute Category: Medical Code(s): J18.9 - Pneumonia, unspecified organism (2) Acute respiratory failure with hypoxia Current visit: Yes Status: Acute Category: Medical Code(s): J96.01 - Acute respiratory failure with hypoxia (3) Hypertension Current visit: Yes Status: Acute Category: Medical Code(s): I10 - Essential (primary) hypertension (4) Type 2 diabetes mellitus Current visit: Yes Status: Acute Category: Medical Code(s): E11.9 - Type 2 diabetes mellitus without complications (5) Neutropenia Current visit: Yes Status: Acute Category: Medical Code(s): D70.9 - Neutropenia, unspecified (6) Thrombocytopenia Current visit: Yes Status: Acute Category: Medical Code(s): D69.6 - Thrombocytopenia, unspecified (7) COPD (chronic obstructive pulmonary disease) Current visit: Yes Status: Acute Category: Medical Code(s): J44.9 - Chronic obstructive pulmonary disease, unspecified <Luanne Gracia - 08/25/18 13:35> (1) Pneumonia Current visit: Yes Status: Acute Category: Medical Code(s): J18.9 - Pneumonia, unspecified organism (2) Acute respiratory failure with hypoxia Current visit: Yes Status: Acute Category: Medical Code(s): J96.01 - Acute respiratory failure with hypoxia (3) Hypertension Current visit: Yes Status: Acute Category: Medical Code(s): I10 - Essential (primary) hypertension (4) Type 2 diabetes mellitus Current visit: Yes Status: Acute Category: Medical Code(s): E11.9 - Type 2 diabetes mellitus without complications (5) Neutropenia Current visit: Yes Status: Acute Category: Medical Code(s): D70.9 - Neutropenia, unspecified (6) Thrombocytopenia Current visit: Yes Status: Acute Category: Medical Code(s): D69.6 - Thrombocytopenia, unspecified (7) COPD (chronic obstructive pulmonary disease) Current visit: Yes Status: Acute Category: Medical Code(s): J44.9 - Chronic obstructive pulmonary disease, unspecified <Prabha Talamantes - 08/25/18 16:05> - Assessment and plan all Dx Assessment and Plan for all problems:: patient is growing mycoplasma pneumonia - will continue cefepime and azithromycin given her thrombocytopenia. continue neb tx, steroids and oxygen. continue to f/u clinically. possible d/c 2-3 days. <Prabha Talamantes - 08/25/18 16:05> Patient has been admitted to acute care with IV fluids at 75 an hour, antibiotics of vancomycin and cefepime, duo nebs, steroids and oxygen. Home meds have been ordered. Smoking cessation was discussed with the patient <Luanne Gracia - 08/25/18 14:01>
[2018-08-25 13:24] LABS: Chol/HDL Ratio 3.7 (1-3.5)
--- NOTE | 2018-08-25 13:30 | Pharmacy Consult Notes ---
- Pharmacy Consult Date: 08/25/18 Time: 13:29 Referring provider: DR. HARRIS Reason for Consult:: VANCOMYCIN DOSING Allergies and ADEs:: Allergies Allergy/AdvReac Type Severity Reaction Status Date / Time salicylates Allergy Unknown AFFECTS Verified 08/12/18 08:29 CIRROHSIS Sulfa (Sulfonamide Allergy Unknown I-HIVES Verified 08/12/18 08:29 Antibiotics) [SULFA (SULFONAMIDE ANTIBIOTICS)] acetaminophen [From Tylenol] AdvReac Verified 08/12/18 08:29 Home Medications:: Home Medications Medication Instructions Recorded Confirmed Type Albuterol Sulfate [Proair Hfa 2 puffs IH QID PRN 05/08/17 08/25/18 History 90mcg/puff Inh] Cholecalciferol (Vitamin D3) 1,000 unit PO DAILY 05/08/17 08/25/18 History [Vitamin D3 1,000 Unit Tab] Donepezil HCl [Donepezil HCl Odt] 10 mg PO DAILY 05/08/17 08/25/18 History Duloxetine HCl 60 mg PO BID 05/08/17 08/25/18 History Fluticasone/Vilanterol [Breo 1 pow INHALATION DAILY 05/08/17 08/25/18 History Ellipta 100-25 Mcg INH] Ipratropium/Albuterol Sulfate 3 ml INHALATION TID PRN 05/08/17 08/25/18 History [Duoneb 3mL neb] Metformin HCl [Metformin 500mg 500 mg PO BID 05/08/17 08/25/18 History Tablet] Quetiapine Fumarate [Quetiapine 150 mg PO HS 05/08/17 08/25/18 History Fumarate ER] Sucralfate [Carafate 1gm Tab] 1 gm PO BID 05/08/17 08/25/18 History fluticasone furoate 100 1 inh INHALATION ONCE 09/19/17 08/25/18 History mcg-vilanterol 25 mcg/dose inhalation powder Amiloride HCl [Midamor 5mg tablet] 5 mg PO DAILY 07/29/18 08/25/18 History Insulin Aspart [Novolog] 6 units SQ TID 07/29/18 08/25/18 History Montelukast Sodium [Montelukast 10 mg PO DAILY 07/29/18 08/25/18 History 10mg Tab] Pregabalin [Lyrica 225mg Cap] 225 mg PO DAILY 07/29/18 08/25/18 History Insulin Glargine,Hum.rec.anlog 20 units PO DAILY 08/02/18 08/25/18 History [Insulin Glargine 100 Units/mL 3mL flexpen] Losartan Potassium 100 mg PO DAILY 08/02/18 08/25/18 History Nadolol [Corgard 20mg tablet] 10 mg PO DAILY 08/02/18 08/25/18 History Rifaximin [Xifaxan] 550 mg PO BID 08/02/18 08/25/18 History levoFLOXacin [Levaquin 500mg 500 mg PO DAILY 08/07/18 08/25/18 History tab] Height: 1.65 m Weight: 100.442 kg Laboratory Results:: Laboratory Results - last 24 hr 08/25/18 11:58: Specimen Source Left brachial, O2 % 2l, ABG pH 7.44, ABG pCO2 41.9, ABG pO2 71.7 L, ABG HCO3 27.6 H, ABG Total CO2 28.9 H, ABG O2 Saturation 94, ABG Base Excess 3.3 H, Kavin Test Acceptable 08/25/18 12:27: Magnesium 1.8, Triglycerides 74, Cholesterol 131 L, LDL Cholesterol 81, VLDL Cholesterol 15, HDL Cholesterol 35, Cholesterol/HDL Ratio 3.7 H Medical History: Reports:: Anxiety, Asthma, Chronic Obstructive Pulmonary Disease (COPD), Depression, Gastroesophageal Reflux Disease(GERD), Hepatitis, Hypertension, Lung Disease (copd), Kidney Stones, Migraine Denies:: Cancer, Diabetes Mellitus Type 1, Diabetes Mellitus Type 2, Internal Pacemaker, MRSA, Seizures Assessment and Plan - Assessment and plan all Dx Assessment and Plan for all problems:: BASED ON PATIENT'S FACTORS, RECOMMEND STARTING WITH VANCOMYCIN 2000 MG Q24H AT THIS TIME. PHARMACY WILL FOLLOW DAILY AND ADJUST APPROPRIATE. LARRY ROACH, KALPESHD
--- NOTE | 2018-08-25 14:44 | Pharmacy Consult Notes ---
[facility] [place] Pharmacy VTE Monitoring - Patient Demographics Admission date: 08/25/18 Report Date: 08/25/18 Time: 14:44 Allergies/Adverse Reactions: Patient Allergies salicylates Allergy (Unknown, Verified 08/12/18 08:29) AFFECTS CIRROHSIS Sulfa (Sulfonamide Antibiotics) [SULFA (SULFONAMIDE ANTIBIOTICS)] Allergy (Unknown, Verified 08/12/18 08:29) I-HIVES acetaminophen [From Tylenol] Adverse Reaction (Verified 08/12/18 08:29) Height: 1.65 m Weight: 100.442 kg Patient Problems: Current Active Problems (Updated 08/25/18 @ 14:01 by Luanne Gracia APRN) Pneumonia (Acute) Acute respiratory failure with hypoxia (Acute) Hypertension (Acute) Type 2 diabetes mellitus (Acute) Neutropenia (Acute) Thrombocytopenia (Acute) COPD (chronic obstructive pulmonary disease) (Acute) - VTE Risk Was VTE Risk Assessment Performed: Yes VTE Score: 6 VTE Risk Level: Moderate Risk Clinical Trial Participant: No - Prophylaxis VTE Prophylaxis Ordered?: Yes Types of VTE Prophylaxis: TEDS Knee High Location of Applied Device: Bilateral Lower Extremeties
[2018-08-26 06:30] LABS: Basophils % 0.4 % (0.1-2.0); Eosinophils % 0.4 % (0.1-12.0); Hematocrit 33.2 % (37.0-47.0); Hemoglobin 10.3 g/dL (12.2-16.2); Lymphocytes # 0.5 K/mm3 (0.7-4.5); Lymphocytes % 28.1 % (10-50); Mean Corpuscular HGB Conc 31.1 g/dL (31.8-35.4); Mean Corpuscular Hemoglobin 25.1 pg (27.0-31.2); Mean Corpuscular Volume 80.6 fl (81-99); Mean Platelet Volume 11.4 fl (7.4-10.4); Monocytes # 0.1 K/mm3 (0.1-1.0); Monocytes % 7.6 % (1.7-9.3); Neutrophils # 1.2 K/mm3 (1.8-7.8); Neutrophils % 63.6 % (37.0-80.0); Red Blood Count 4.12 M/mm3 (4.20-5.40); Red Cell Distribution Width 16.5 % (11.5-17.5); White Blood Count 1.8 K/mm3 (4.8-10.8)
[2018-08-26 06:53] LABS: Albumin Level 2.8 gm/dL (3.4-5.0); Albumin/Globulin Ratio 0.8 (1.1-1.8); Anion Gap 8.6 mEq/L (5-15); Bilirubin,Total 0.6 mg/dL (0.2-1.0); Calcium 8.6 mg/dL (8.5-10.1); Globulin 3.6 gm/dl (1.3-3.2); Potassium 4.6 mmoL/L (3.5-5.1); Total Protein,Serum 6.4 gm/dL (6.4-8.2)
[2018-08-26 07:19] LABS: Platelet Count 38 K/mm3 (142-424)
--- NOTE | 2018-08-26 08:10 | Progress Note ---
<Luanne Gracia - Last Filed: 08/26/18 08:07> Internal Medicine - PN: Subj *Date: 08/26/18 *Time: 08:07 Interval history: Patient felt better yesterday p.m. after admission. She then developed some lower abdominal discomfort and nausea. Denies reflux. She had some diarrhea early this a.m. She has not been able to eat due to the nausea. She never did vomit. Zofran did help. Breathing is better this a.m. A cough is less than yesterday in the office. The cough is nonproductive. She continues with shortness of breath. She denies chest pain. Exam Vital signs and Labs for Last 24 Hours: Temp Pulse Resp BP Pulse Ox 97.9 F 76 18 109/38 L 92 L 08/26/18 03:47 08/26/18 05:45 08/26/18 03:47 08/26/18 03:47 08/26/18 07:48 Laboratory Results - last 24 hr 08/25/18 11:58: Specimen Source Left brachial, O2 % 2l, ABG pH 7.44, ABG pCO2 41.9, ABG pO2 71.7 L, ABG HCO3 27.6 H, ABG Total CO2 28.9 H, ABG O2 Saturation 94, ABG Base Excess 3.3 H, Kavin Test Acceptable 08/25/18 12:27: Magnesium 1.8, Triglycerides 74, Cholesterol 131 L, LDL Cholesterol 81, VLDL Cholesterol 15, HDL Cholesterol 35, Cholesterol/HDL Ratio 3.7 H 08/25/18 12:27: Mycoplasma pneumon IgM Reactive A 08/25/18 12:27: Lactate 2.3 H 08/25/18 12:27: Hemoglobin A1c 5.2 08/25/18 16:28: POC Glucose 170 H 08/25/18 17:05: Lactate 2.7 H 08/25/18 19:30: Lactate 2.8 H 08/25/18 20:22: POC Glucose 246 H 08/26/18 06:05: WBC 1.8 L*, RBC 4.12 L, Hgb 10.3 L, Hct 33.2 L, MCV 80.6 L, MCH 25.1 L, MCHC 31.1 L, RDW 16.5, Plt Count 38 L*, MPV 11.4 H, Neut % (Auto) 63.6, Lymph % (Auto) 28.1, [place] % (Auto) 7.6, Eos % (Auto) 0.4, Baso % (Auto) 0.4, Neut # (Auto) 1.2 L, Lymph # (Auto) 0.5 L, [place] # (Auto) 0.1, Eos # (Auto) 0.0, Baso # (Auto) 0.0 08/26/18 06:05: Sodium 143, Potassium 4.6, Chloride 109 H, Carbon Dioxide 30, Anion Gap 8.6, BUN 9, Creatinine 0.61, Estimated Creat Clear 95, Estimated GFR 99, Est GFR ( Amer) 120, Glucose 133 H, Calcium 8.6, Total Bilirubin 0.6, AST 12 L, ALT 21, Alkaline Phosphatase 107, Total Protein 6.4, Albumin 2.8 L, Globulin 3.6 H, Albumin/Globulin Ratio 0.8 L 08/26/18 06:05: POC Glucose 142 H I & O for Last 24 hours: Intake & Output 08/23/18 08/24/18 08/25/18 08/26/18 11:59 11:59 11:59 11:59 Intake Total 3090 / 3090 Output Total 800 / 800 Balance 2290 / 2290 Weight 221 lb 7 oz 228 lb 1 oz Radiology Reports for the Last 24 Hours: 08/25/2018 chest x-ray IMPRESSION...... Suggestion of minimal airspace disease & infiltrate- at left lower lobe & left infrahilar region., Slight coarsening markings otherwise seen bilaterally mainly reflecting chronic changes, similar to previous studies - Constitutional no acute distress Comments: Respiratory effort less labored - *Routine Respiratory Exam Comments: Bilateral wheezing anteriorly. Diminished breath sounds in bases with faint wheezing and crackles on the left - *Routine Cardiovascular Exam Present: RRR - *Routine Abdominal Exam Present: soft, normoactive bowel sounds, tenderness (Left lower quadrant) - *Routine Extremities Exam Present: calf tenderness (Bilaterally sore calves). Absent: edema - *Routine Neurological Exam Present: alert, oriented X3 Assessment and Plan (1) Pneumonia Current visit: Yes Status: Acute Category: Medical Code(s): J18.9 - Pneumonia, unspecified organism (2) Acute respiratory failure with hypoxia Current visit: Yes Status: Acute Category: Medical Code(s): J96.01 - Acute respiratory failure with hypoxia (3) Hypertension Current visit: Yes Status: Acute Category: Medical Code(s): I10 - Essential (primary) hypertension (4) Type 2 diabetes mellitus Current visit: Yes Status: Acute Category: Medical Code(s): E11.9 - Type 2 diabetes mellitus without complications (5) Neutropenia Current visit: Yes Status: Acute Category: Medical Code(s): D70.9 - Neutropenia, unspecified (6) Thrombocytopenia Current visit: Yes Status: Acute Category: Medical Code(s): D69.6 - Thrombocytopenia, unspecified (7) COPD (chronic obstructive pulmonary disease) Current visit: Yes Status: Acute Category: Medical Code(s): J44.9 - Chronic obstructive pulmonary disease, unspecified (8) Nausea Current visit: Yes Status: Acute Category: Medical Code(s): R11.0 - Nausea (9) Diarrhea Current visit: Yes Status: Acute Category: Medical Code(s): R19.7 - Diarrhea, unspecified - Assessment and plan all Dx Assessment and Plan for all problems:: We will continue with antibiotics, duo nebs, and steroids. We will add a PPI. <Prabha Talamantes - Last Filed: 08/26/18 10:35> Internal Medicine - PN: Subj *Date: 08/26/18 *Time: 10:32 Exam Vital signs and Labs for Last 24 Hours: Temp Pulse Resp BP Pulse Ox 97.8 F 72 20 146/72 H 98 08/26/18 08:00 08/26/18 09:49 08/26/18 08:00 08/26/18 08:00 08/26/18 08:00 Laboratory Results - last 24 hr 08/25/18 11:58: Specimen Source Left brachial, O2 % 2l, ABG pH 7.44, ABG pCO2 41.9, ABG pO2 71.7 L, ABG HCO3 27.6 H, ABG Total CO2 28.9 H, ABG O2 Saturation 94, ABG Base Excess 3.3 H, Kavin Test Acceptable 08/25/18 12:27: Magnesium 1.8, Triglycerides 74, Cholesterol 131 L, LDL Cholesterol 81, VLDL Cholesterol 15, HDL Cholesterol 35, Cholesterol/HDL Ratio 3.7 H 08/25/18 12:27: Mycoplasma pneumon IgM Reactive A 08/25/18 12:27: Lactate 2.3 H 08/25/18 12:27: Hemoglobin A1c 5.2 08/25/18 16:28: POC Glucose 170 H 08/25/18 17:05: Lactate 2.7 H 08/25/18 19:30: Lactate 2.8 H 08/25/18 20:22: POC Glucose 246 H 08/26/18 06:05: WBC 1.8 L*, RBC 4.12 L, Hgb 10.3 L, Hct 33.2 L, MCV 80.6 L, MCH 25.1 L, MCHC 31.1 L, RDW 16.5, Plt Count 38 L*, MPV 11.4 H, Neut % (Auto) 63.6, Lymph % (Auto) 28.1, [place] % (Auto) 7.6, Eos % (Auto) 0.4, Baso % (Auto) 0.4, Neut # (Auto) 1.2 L, Lymph # (Auto) 0.5 L, [place] # (Auto) 0.1, Eos # (Auto) 0.0, Baso # (Auto) 0.0 08/26/18 06:05: Sodium 143, Potassium 4.6, Chloride 109 H, Carbon Dioxide 30, Anion Gap 8.6, BUN 9, Creatinine 0.61, Estimated Creat Clear 95, Estimated GFR 99, Est GFR ( Amer) 120, Glucose 133 H, Calcium 8.6, Total Bilirubin 0.6, AST 12 L, ALT 21, Alkaline Phosphatase 107, Total Protein 6.4, Albumin 2.8 L, Globulin 3.6 H, Albumin/Globulin Ratio 0.8 L 08/26/18 06:05: POC Glucose 142 H I & O for Last 24 hours: Intake & Output 08/23/18 08/24/18 08/25/18 08/26/18 11:59 11:59 11:59 11:59 Intake Total 3330 / 3330 Output Total 800 / 800 Balance 2530 / 2530 Weight 221 lb 7 oz 228 lb 1 oz Assessment and Plan (1) Sepsis Current visit: Yes Status: Acute Category: Medical Code(s): A41.9 - Sepsis, unspecified organism (2) Pneumonia Current visit: Yes Status: Acute Category: Medical Code(s): J18.9 - Pneumonia, unspecified organism (3) Acute respiratory failure with hypoxia Current visit: Yes Status: Acute Category: Medical Code(s): J96.01 - Acute respiratory failure with hypoxia (4) Hypertension Current visit: Yes Status: Acute Category: Medical Code(s): I10 - Essential (primary) hypertension (5) Type 2 diabetes mellitus Current visit: Yes Status: Acute Category: Medical Code(s): E11.9 - Type 2 diabetes mellitus without complications (6) Neutropenia Current visit: Yes Status: Acute Category: Medical Code(s): D70.9 - Neutropenia, unspecified (7) Thrombocytopenia Current visit: Yes Status: Acute Category: Medical Code(s): D69.6 - Throm bocytopenia, unspecified (8) COPD (chronic obstructive pulmonary disease) Current visit: Yes Status: Acute Category: Medical Code(s): J44.9 - Chronic obstructive pulmonary disease, unspecified (9) Nausea Current visit: Yes Status: Acute Category: Medical Code(s): R11.0 - Nausea (10) Diarrhea Current visit: Yes Status: Acute Category: Medical Code(s): R19.7 - Diarrhea, unspecified - Assessment and plan all Dx Assessment and Plan for all problems:: sepsis 2/2 mycoplasma pneumonia - sepsis resolved; pt doing well on abx; await blood Cx before de-escalating abx thrombocytopenia - will stop protonix and switch to pepid for now acute resp failure w/ hypoxia - will continue supplemental oxygen, neb tx, incentive spirometry and steroids continue home meds for other diagnosis Dvt prophylaxis: scd/teds
[2018-08-27 07:01] LABS: Basophils % 0.4 % (0.1-2.0); Eosinophils % 0.7 % (0.1-12.0); Hematocrit 32.9 % (37.0-47.0); Lymphocytes # 0.6 K/mm3 (0.7-4.5); Lymphocytes % 30.5 % (10-50); Mean Corpuscular HGB Conc 30.5 g/dL (31.8-35.4); Mean Corpuscular Hemoglobin 24.8 pg (27.0-31.2); Mean Corpuscular Volume 81.1 fl (81-99); Mean Platelet Volume 8.5 fl (7.4-10.4); Monocytes # 0.1 K/mm3 (0.1-1.0); Monocytes % 7.7 % (1.7-9.3); Neutrophils # 1.1 K/mm3 (1.8-7.8); Neutrophils % 60.7 % (37.0-80.0); Red Blood Count 4.05 M/mm3 (4.20-5.40); Red Cell Distribution Width 16.5 % (11.5-17.5); White Blood Count 1.8 K/mm3 (4.8-10.8)
[2018-08-27 07:19] LABS: Albumin Level 2.8 gm/dL (3.4-5.0); Albumin/Globulin Ratio 0.7 (1.1-1.8); Anion Gap 9.1 mEq/L (5-15); Bilirubin,Total 0.8 mg/dL (0.2-1.0); Calcium 8.4 mg/dL (8.5-10.1); Globulin 3.8 gm/dl (1.3-3.2); Potassium 4.1 mmoL/L (3.5-5.1); Total Protein,Serum 6.6 gm/dL (6.4-8.2)
--- NOTE | 2018-08-27 07:40 | Progress Note ---
<Luanne Gracia - Last Filed: 08/27/18 07:46> Internal Medicine - PN: Subj *Date: 08/27/18 *Time: 07:47 Interval history: Patient states she did not sleep well last night. She does have DuoNebs every 4 hours ordered. She feels her breathing is about the same. She continues with a nonproductive cough and has coughing spasms. She feels herself wheeze. She was out of bed to the bathroom yesterday without difficulty. She is voiding QS. She said no further diarrhea. She is nauseated and did not eat well yesterday. She is always nauseated in the morning. She will consider eating breakfast later. Patient was craving a cigarette. Discussed smoking cessation Exam Vital signs and Labs for Last 24 Hours: Temp Pulse Resp BP Pulse Ox 98.0 F 70 18 117/46 L 95 08/27/18 04:00 08/27/18 05:46 08/27/18 04:00 08/27/18 04:00 08/27/18 05:46 Laboratory Results - last 24 hr 08/26/18 10:52: POC Glucose 180 H 08/26/18 16:33: POC Glucose 276 H 08/26/18 20:03: POC Glucose 169 H 08/27/18 06:10: Sodium 143, Potassium 4.1, Chloride 109 H, Carbon Dioxide 29, Anion Gap 9.1, BUN 8, Creatinine 0.64, Estimated Creat Clear 96, Estimated GFR 94, Est GFR ( Amer) 114, Glucose 102, Calcium 8.4 L, Total Bilirubin 0.8, AST 13 L, ALT 22, Alkaline Phosphatase 88, Total Protein 6.6, Albumin 2.8 L, Globulin 3.8 H, Albumin/Globulin Ratio 0.7 L 08/27/18 06:37: POC Glucose 126 H I & O for Last 24 hours: Intake & Output 08/24/18 08/25/18 08/26/18 08/27/18 11:59 11:59 11:59 11:59 Intake Total 3330 / 3330 2783 / 2783 Output Total 800 / 800 600 / 600 Balance 2530 / 2530 2183 / 2183 Weight 221 lb 7 oz 228 lb 1 oz 229 lb 2 oz - Constitutional no acute distress Comments: Awakened for assessment - *Routine Respiratory Exam Comments: Scattered wheezing anteriorly and posteriorly. Poor inspiratory sounds - *Routine Cardiovascular Exam Present: RRR - *Routine Abdominal Exam Present: soft, normoactive bowel sounds. Absent: tenderness - *Routine Extremities Exam Absent: edema, calf tenderness Comments: BRANDON mickie on - *Routine Neurological Exam Present: alert, oriented X3 Assessment and Plan (1) Sepsis Current visit: Yes Status: Acute Category: Medical Code(s): A41.9 - Sepsis, unspecified organism (2) Pneumonia Current visit: Yes Status: Acute Category: Medical Code(s): J18.9 - Pneumonia, unspecified organism (3) Acute respiratory failure with hypoxia Current visit: Yes Status: Acute Category: Medical Code(s): J96.01 - Acute respiratory failure with hypoxia (4) Hypertension Current visit: Yes Status: Acute Category: Medical Code(s): I10 - Essential (primary) hypertension (5) Type 2 diabetes mellitus Current visit: Yes Status: Acute Category: Medical Code(s): E11.9 - Type 2 diabetes mellitus without complications (6) Neutropenia Current visit: Yes Status: Acute Category: Medical Code(s): D70.9 - Neutropenia, unspecified (7) Thrombocytopenia Current visit: Yes Status: Acute Category: Medical Code(s): D69.6 - Thrombocytopenia, unspecified (8) COPD (chronic obstructive pulmonary disease) Current visit: Yes Status: Acute Category: Medical Code(s): J44.9 - Chronic obstructive pulmonary disease, unspecified (9) Nausea Current visit: Yes Status: Acute Category: Medical Code(s): R11.0 - Nausea (10) Diarrhea Current visit: Yes Status: Acute Category: Medical Code(s): R19.7 - Diarrhea, unspecified - Assessment and plan all Dx Assessment and Plan for all problems:: Continue with antibiotics. Mycoplasma IgM was reactive and patient was started on Zithromax. Will start on NicoDerm pain which <Prabha Talamantes - Last Filed: 08/27/18 09:04> Internal Medicine - PN: Subj *Date: 08/27/18 *Time: 09:03 Exam Vital signs and Labs for Last 24 Hours: Temp Pulse Resp BP Pulse Ox 98.2 F 79 18 129/64 95 08/27/18 08:00 08/27/18 08:00 08/27/18 08:00 08/27/18 08:00 08/27/18 08:00 Laboratory Results - last 24 hr 08/26/18 10:52: POC Glucose 180 H 08/26/18 16:33: POC Glucose 276 H 08/26/18 20:03: POC Glucose 169 H 08/27/18 06:10: WBC 1.8 L*, RBC 4.05 L, Hgb 10.0 L, Hct 32.9 L, MCV 81.1, MCH 24.8 L, MCHC 30.5 L, RDW 16.5, Plt Count 37 L*, MPV 8.5, Neut % (Auto) 60.7, Lymph % (Auto) 30.5, [place] % (Auto) 7.7, Eos % (Auto) 0.7, Baso % (Auto) 0.4, Neut # (Auto) 1.1 L, Lymph # (Auto) 0.6 L, [place] # (Auto) 0.1, Eos # (Auto) 0.0, Baso # (Auto) 0.0 08/27/18 06:10: Sodium 143, Potassium 4.1, Chloride 109 H, Carbon Dioxide 29, Anion Gap 9.1, BUN 8, Creatinine 0.64, Estimated Creat Clear 96, Estimated GFR 94, Est GFR ( Amer) 114, Glucose 102, Calcium 8.4 L, Total Bilirubin 0.8, AST 13 L, ALT 22, Alkaline Phosphatase 88, Total Protein 6.6, Albumin 2.8 L, Globulin 3.8 H, Albumin/Globulin Ratio 0.7 L 08/27/18 06:37: POC Glucose 126 H I & O for Last 24 hours: Intake & Output 08/24/18 08/25/18 08/26/18 08/27/18 11:59 11:59 11:59 11:59 Intake Total 3330 / 3330 3023 / 3023 Output Total 800 / 800 600 / 600 Balance 2530 / 2530 2423 / 2423 Weight 221 lb 7 oz 228 lb 1 oz 229 lb 2 oz Assessment and Plan (1) Sepsis Current visit: Yes Status: Acute Category: Medical Code(s): A41.9 - Sepsis, unspecified organism (2) Pneumonia Current visit: Yes Status: Acute Category: Medical Code(s): J18.9 - Pneumonia, unspecified organism (3) Acute respiratory failure with hypoxia Current visit: Yes Status: Acute Category: Medical Code(s): J96.01 - Acute respiratory failure with hypoxia (4) Hypertension Current visit: Yes Status: Acute Category: Medical Code(s): I10 - Essential (primary) hypertension (5) Type 2 diabetes mellitus Current visit: Yes Status: Acute Category: Medical Code(s): E11.9 - Type 2 diabetes mellitus without complications (6) Neutropenia Current visit: Yes Status: Acute Category: Medical Code(s): D70.9 - Neutropenia, unspecified (7) Thrombocytopenia Current visit: Yes Status: Acute Category: Medical Code(s): D69.6 - Thrombocytopenia, unspecified (8) COPD (chronic obstructive pulmonary disease) Current visit: Yes Status: Acute Category: Medical Code(s): J44.9 - Chronic obstructive pulmonary disease, unspecified (9) Nausea Current visit: Yes Status: Acute Category: Medical Code(s): R11.0 - Nausea (10) Diarrhea Current visit: Yes Status: Acute Category: Medical Code(s): R19.7 - Diarrhea, unspecified - Assessment and plan all Dx Assessment and Plan for all problems:: will await blood cx, but so far her acute resp failure with hypoxia is due to mycoplasma. will get home oxygen approved today if necessary. Possible d/c tomorrow.
[2018-08-27 07:43] LABS: Platelet Count 37 K/mm3 (142-424)
[2018-08-28 06:35] LABS: Basophils % 0.4 % (0.1-2.0); Eosinophils % 0.8 % (0.1-12.0); Hematocrit 31.9 % (37.0-47.0); Lymphocytes # 0.6 K/mm3 (0.7-4.5); Lymphocytes % 38.5 % (10-50); Mean Corpuscular HGB Conc 31.2 g/dL (31.8-35.4); Mean Corpuscular Hemoglobin 25.1 pg (27.0-31.2); Mean Corpuscular Volume 80.3 fl (81-99); Mean Platelet Volume 10.4 fl (7.4-10.4); Monocytes # 0.1 K/mm3 (0.1-1.0); Monocytes % 7.7 % (1.7-9.3); Neutrophils # 0.8 K/mm3 (1.8-7.8); Neutrophils % 52.6 % (37.0-80.0); Red Blood Count 3.97 M/mm3 (4.20-5.40); Red Cell Distribution Width 16.7 % (11.5-17.5); White Blood Count 1.5 K/mm3 (4.8-10.8)
[2018-08-28 06:55] LABS: Albumin Level 2.7 gm/dL (3.4-5.0); Albumin/Globulin Ratio 0.8 (1.1-1.8); Anion Gap 11.6 mEq/L (5-15); Bilirubin,Total 0.7 mg/dL (0.2-1.0); Calcium 8.4 mg/dL (8.5-10.1); Globulin 3.6 gm/dl (1.3-3.2); Potassium 3.6 mmoL/L (3.5-5.1); Total Protein,Serum 6.3 gm/dL (6.4-8.2)
[2018-08-28 07:35] LABS: Platelet Count 34 K/mm3 (142-424)
--- NOTE | 2018-08-28 07:38 | Progress Note ---
Internal Medicine - PN: Subj *Date: 08/28/18 *Time: 07:38 Exam Vital signs and Labs for Last 24 Hours: Temp Pulse Resp BP Pulse Ox 97.4 F L 80 18 120/52 L 89 L 08/28/18 04:00 08/28/18 06:27 08/28/18 04:00 08/28/18 04:00 08/28/18 06:27 Laboratory Results - last 24 hr 08/27/18 06:10: WBC 1.8 L*, RBC 4.05 L, Hgb 10.0 L, Hct 32.9 L, MCV 81.1, MCH 24.8 L, MCHC 30.5 L, RDW 16.5, Plt Count 37 L*, MPV 8.5, Neut % (Auto) 60.7, Lymph % (Auto) 30.5, [place] % (Auto) 7.7, Eos % (Auto) 0.7, Baso % (Auto) 0.4, Neut # (Auto) 1.1 L, Lymph # (Auto) 0.6 L, [place] # (Auto) 0.1, Eos # (Auto) 0.0, Baso # (Auto) 0.0 08/27/18 11:11: POC Glucose 124 H 08/27/18 17:00: POC Glucose 264 H 08/27/18 21:31: POC Glucose 126 H 08/28/18 05:17: POC Glucose 124 H 08/28/18 05:58: WBC 1.5 L*, RBC 3.97 L, Hgb 10.0 L, Hct 31.9 L, MCV 80.3 L, MCH 25.1 L, MCHC 31.2 L, RDW 16.7, Plt Count 34 L*, MPV 10.4, Neut % (Auto) 52.6, Lymph % (Auto) 38.5, [place] % (Auto) 7.7, Eos % (Auto) 0.8, Baso % (Auto) 0.4, Neut # (Auto) 0.8 L*, Lymph # (Auto) 0.6 L, [place] # (Auto) 0.1, Eos # (Auto) 0.0, Baso # (Auto) 0.0 08/28/18 05:58: Sodium 143, Potassium 3.6, Chloride 107, Carbon Dioxide 28, Anion Gap 11.6, BUN 8, Creatinine 0.60, Estimated Creat Clear 96, Estimated GFR 101, Est GFR ( Amer) 123, Glucose 125 H D, Calcium 8.4 L, Total Bilirubin 0.7, AST 15, ALT 23, Alkaline Phosphatase 87, Total Protein 6.3 L, Albumin 2.7 L , Globulin 3.6 H, Albumin/Globulin Ratio 0.8 L I & O for Last 24 hours: Intake & Output 08/25/18 08/26/18 08/27/18 08/28/18 23:59 23:59 23:59 23:59 Intake Total 360 / 360 4204 / 4204 3298 / 3298 807 / 807 Output Total 800 / 1400 1200 / 1200 1300 / 1300 Balance 360 / 360 3404 / 2804 2098 / 2098 -493 / -493 Weight 100.442 kg 103.447 kg 103.929 kg 103.929 kg Microbiology Reports for the Last 24 Hours: Microbiology 08/25/18 12:27 Blood Blood Culture - Preliminary NO GROWTH AFTER 48 HOURS 08/25/18 12:27 Blood Blood Culture - Preliminary NO GROWTH AFTER 48 HOURS Assessment and Plan (1) Sepsis Current visit: Yes Status: Acute Category: Medical Code(s): A41.9 - Sepsis, unspecified organism (2) Pneumonia Current visit: Yes Status: Acute Category: Medical Code(s): J18.9 - Pneumonia, unspecified organism (3) Acute respiratory failure with hypoxia Current visit: Yes Status: Acute Category: Medical Code(s): J96.01 - Acute respiratory failure with hypoxia (4) Hypertension Current visit: Yes Status: Acute Category: Medical Code(s): I10 - Essential (primary) hypertension (5) Type 2 diabetes mellitus Current visit: Yes Status: Acute Category: Medical Code(s): E11.9 - Type 2 diabetes mellitus without complications (6) Neutropenia Current visit: Yes Status: Acute Category: Medical Code(s): D70.9 - Neutropenia, unspecified (7) Thrombocytopenia Current visit: Yes Status: Acute Category: Medical Code(s): D69.6 - Thrombocytopenia, unspecified (8) COPD (chronic obstructive pulmonary disease) Current visit: Yes Status: Acute Category: Medical Code(s): J44.9 - Chronic obstructive pulmonary disease, unspecified (9) Nausea Current visit: Yes Status: Acute Category: Medical Code(s): R11.0 - Nausea (10) Diarrhea Current visit: Yes Status: Acute Category: Medical Code(s): R19.7 - Diarrhea, unspecified The patient's infection will respond to the chosen ABx?: Yes Is the patient receiving the right drug, dose, and route?: Yes Could a more targeted ABx be ordered?: No
--- NOTE | 2018-08-28 10:01 | Progress Note ---
Internal Medicine - PN: Subj *Date: 08/28/18 *Time: 08:45 Interval history: Patient doing well compared to yesterday. She was off of her oxygen and is able to tolerate oxygen saturation > 90% on RA at rest. She was complaining of headache this am. Exam Vital signs and Labs for Last 24 Hours: Temp Pulse Resp BP Pulse Ox 98.3 F 79 20 151/79 H 93 L 08/28/18 07:55 08/28/18 07:55 08/28/18 07:55 08/28/18 07:55 08/28/18 07:55 Laboratory Results - last 24 hr 08/27/18 11:11: POC Glucose 124 H 08/27/18 17:00: POC Glucose 264 H 08/27/18 21:31: POC Glucose 126 H 08/28/18 05:17: POC Glucose 124 H 08/28/18 05:58: WBC 1.5 L*, RBC 3.97 L, Hgb 10.0 L, Hct 31.9 L, MCV 80.3 L, MCH 25.1 L, MCHC 31.2 L, RDW 16.7, Plt Count 34 L*, MPV 10.4, Neut % (Auto) 52.6, Lymph % (Auto) 38.5, [place] % (Auto) 7.7, Eos % (Auto) 0.8, Baso % (Auto) 0.4, Neut # (Auto) 0.8 L*, Lymph # (Auto) 0.6 L, [place] # (Auto) 0.1, Eos # (Auto) 0.0, Baso # (Auto) 0.0 08/28/18 05:58: Sodium 143, Potassium 3.6, Chloride 107, Carbon Dioxide 28, Anion Gap 11.6, BUN 8, Creatinine 0.60, Estimated Creat Clear 96, Estimated GFR 101, Est GFR ( Amer) 123, Glucose 125 H D, Calcium 8.4 L, Total Bilirubin 0.7, AST 15, ALT 23, Alkaline Phosphatase 87, Total Protein 6.3 L, Albumin 2.7 L , Globulin 3.6 H, Albumin/Globulin Ratio 0.8 L I & O for Last 24 hours: Intake & Output 08/25/18 08/26/18 08/27/18 08/28/18 11:59 11:59 11:59 11:59 Intake Total 3330 / 3330 3023 / 3023 2316 / 2316 Output Total 800 / 800 600 / 600 2200 / 2200 Balance 2530 / 2530 2423 / 2423 116 / 116 Weight 221 lb 7 oz 228 lb 1 oz 229 lb 2 oz 229 lb 2 oz Microbiology Reports for the Last 24 Hours: Microbiology 08/25/18 12:27 Blood Blood Culture - Preliminary NO GROWTH AFTER 48 HOURS 08/25/18 12:27 Blood Blood Culture - Preliminary NO GROWTH AFTER 48 HOURS - *Routine HEENT Exam Head: Present: normocephalic Eye: Present: EOMI, PERRL ENT: Present: mucous membranes moist - *Routine Neck Exam Present: supple. Absent: lymphadenopathy - *Routine Respiratory Exam Present: CTA bilaterally - *Routine Cardiovascular Exam Present: RRR - *Routine Abdominal Exam Present: soft, normoactive bowel sounds. Absent: tenderness - *Routine Extremities Exam Absent: cyanosis, clubbing, edema - *Routine Skin Exam Present: warm. Absent: rash - *Routine Neurological Exam Present: alert, oriented X3 Assessment and Plan (1) Sepsis Current visit: Yes Status: Acute Category: Medical Code(s): A41.9 - Sepsis, unspecified organism (2) Pneumonia Current visit: Yes Status: Acute Category: Medical Code(s): J18.9 - Pneumonia, unspecified organism (3) Acute respiratory failure with hypoxia Current visit: Yes Status: Acute Category: Medical Code(s): J96.01 - Acute respiratory failure with hypoxia (4) Hypertension Current visit: Yes Status: Acute Category: Medical Code(s): I10 - Essential (primary) hypertension (5) Type 2 diabetes mellitus Current visit: Yes Status: Acute Category: Medical Code(s): E11.9 - Type 2 diabetes mellitus without complications (6) Neutropenia Current visit: Yes Status: Acute Category: Medical Code(s): D70.9 - Neutropenia, unspecified (7) Thrombocytopenia Current visit: Yes Status: Acute Category: Medical Code(s): D69.6 - Thrombocytopenia, unspecified (8) COPD (chronic obstructive pulmonary disease) Current visit: Yes Status: Acute Category: Medical Code(s): J44.9 - Chronic obstructive pulmonary disease, unspecified (9) Nausea Current visit: Yes Status: Acute Category: Medical Code(s): R11.0 - Nausea (10) Diarrhea Current visit: Yes Status: Acute Category: Medical Code(s): R19.7 - Diarrhea, unspecified - Assessment and plan all Dx Assessment and Plan for all problems:: sepsis resolved; will dc cefepime given negative blood cultures at 48 hrs. possible dc today if maintains oxygen on RA.
[2018-08-29 06:45] LABS: Albumin Level 2.8 gm/dL (3.4-5.0); Albumin/Globulin Ratio 0.8 (1.1-1.8); Anion Gap 10.9 mEq/L (5-15); Bilirubin,Total 0.7 mg/dL (0.2-1.0); Calcium 8.2 mg/dL (8.5-10.1); Globulin 3.6 gm/dl (1.3-3.2); Potassium 3.9 mmoL/L (3.5-5.1); Total Protein,Serum 6.4 gm/dL (6.4-8.2)
[2018-08-29 06:49] LABS: Basophils % 0.4 % (0.1-2.0); Eosinophils % 0.5 % (0.1-12.0); Hematocrit 30.7 % (37.0-47.0); Hemoglobin 9.9 g/dL (12.2-16.2); Lymphocytes # 0.6 K/mm3 (0.7-4.5); Lymphocytes % 35.4 % (10-50); Mean Corpuscular HGB Conc 32.2 g/dL (31.8-35.4); Mean Corpuscular Hemoglobin 25.5 pg (27.0-31.2); Mean Corpuscular Volume 79.2 fl (81-99); Mean Platelet Volume 9.9 fl (7.4-10.4); Monocytes # 0.1 K/mm3 (0.1-1.0); Monocytes % 8.8 % (1.7-9.3); Neutrophils # 0.9 K/mm3 (1.8-7.8); Neutrophils % 54.9 % (37.0-80.0); Red Blood Count 3.87 M/mm3 (4.20-5.40); Red Cell Distribution Width 16.7 % (11.5-17.5); White Blood Count 1.6 K/mm3 (4.8-10.8)
[2018-08-29 07:44] LABS: Platelet Count 39 K/mm3 (142-424)
--- NOTE | 2018-08-29 08:38 | Progress Note ---
<Kayce Steven - Last Filed: 08/29/18 08:35> Internal Medicine - PN: Subj *Date: 08/29/18 *Time: 08:35 Interval history: Patient states she is feeling better today and wants to go home. She denies any pain and states she ate a decent breakfast. She did not rest well and thinks she was sleep better when she gets home. Her oxygen has been stable on room air. Exam Vital signs and Labs for Last 24 Hours: Temp Pulse Resp BP Pulse Ox 98.4 F 72 18 117/58 L 96 08/29/18 07:37 08/29/18 07:37 08/29/18 07:37 08/29/18 07:37 08/29/18 07:37 Laboratory Results - last 24 hr 08/27/18 06:10: Legionella pneumophila Ab 1.36 H 08/28/18 12:10: POC Glucose 107 08/28/18 16:55: POC Glucose 197 H 08/28/18 20:26: POC Glucose 154 H 08/29/18 05:53: WBC 1.6 L*, RBC 3.87 L, Hgb 9.9 L, Hct 30.7 L, MCV 79.2 L, MCH 25.5 L, MCHC 32.2, RDW 16.7, Plt Count 39 L*, MPV 9.9, Neut % (Auto) 54.9, Lymph % (Auto) 35.4, Kidder % (Auto) 8.8, Eos % (Auto) 0.5, Baso % (Auto) 0.4, Neut # (Auto) 0.9 L*, Lymph # (Auto) 0.6 L, Kidder # (Auto) 0.1, Eos # (Auto) 0.0, Baso # (Auto) 0.0 08/29/18 05:53: Sodium 144, Potassium 3.9, Chloride 108 H, Carbon Dioxide 29, Anion Gap 10.9, BUN 9, Creatinine 0.59, Estimated Creat Clear 97, Estimated GFR 103, Est GFR ( Amer) 125, Glucose 103, Calcium 8.2 L, Total Bilirubin 0.7, AST 21 D, ALT 29 D, Alkaline Phosphatase 90, Total Protein 6.4, Albumin 2.8 L, Globulin 3.6 H, Albumin/Globulin Ratio 0.8 L 08/29/18 06:12: POC Glucose 96 I & O for Last 24 hours: Intake & Output 08/26/18 08/27/18 08/28/18 08/29/18 11:59 11:59 11:59 11:59 Intake Total 3330 / 3330 3023 / 3023 2316 / 2316 1963 Output Total 800 / 800 600 / 600 2200 / 2200 1100 / 1100 Balance 2530 / 2530 2423 / 2423 116 / 116 864 / 864 Weight 228 lb 1 oz 229 lb 2 oz 229 lb 2 oz 232 lb 8 oz - Constitutional no acute distress - *Routine Respiratory Exam Present: wheezes (faint) - *Routine Cardiovascular Exam Present: RRR - *Routine Abdominal Exam Present: soft, normoactive bowel sounds. Absent: tenderness - *Routine Extremities Exam Absent: cyanosis, clubbing, edema - *Routine Skin Exam Present: warm. Absent: rash - *Routine Neurological Exam Present: alert, oriented X3 Assessment and Plan (1) Sepsis Current visit: Yes Status: Resolved Category: Medical Code(s): A41.9 - Sepsis, unspecified organism (2) Pneumonia Current visit: Yes Status: Acute Category: Medical Code(s): J18.9 - Pneumonia, unspecified organism (3) Acute respiratory failure with hypoxia Current visit: Yes Status: Acute Category: Medical Code(s): J96.01 - Acute respiratory failure with hypoxia (4) Hypertension Current visit: Yes Status: Acute Category: Medical Code(s): I10 - Essential (primary) hypertension (5) Type 2 diabetes mellitus Current visit: Yes Status: Acute Category: Medical Code(s): E11.9 - Type 2 diabetes mellitus without complications (6) Neutropenia Current visit: Yes Status: Acute Category: Medical Code(s): D70.9 - Neutropenia, unspecified (7) Thrombocytopenia Current visit: Yes Status: Acute Category: Medical Code(s): D69.6 - Thrombocytopenia, unspecified (8) COPD (chronic obstructive pulmonary disease) Current visit: Yes Status: Acute Category: Medical Code(s): J44.9 - Chronic obstructive pulmonary disease, unspecified (9) Nausea Current visit: Yes Status: Acute Category: Medical Code(s): R11.0 - Nausea (10) Diarrhea Current visit: Yes Status: Acute Category: Medical Code(s): R19.7 - Diarrhea, unspecified (11) Mycoplasma infection Current visit: Yes Status: Acute Category: Medical Code(s): A49.3 - Mycoplasma infection, unspecified site (12) Legionella infection Current visit: Yes Status: Acute Category: Medical Code(s): A48.1 - Legionnaires' disease - Assessment and plan all Dx Assessment and Plan for all problems:: Can likely be discharged home today on abx. Will discuss with Dr. Talamantes. <Prabha Talamantes - Last Filed: 08/29/18 09:42> Internal Medicine - PN: Subj *Date: 08/29/18 *Time: 09:40 Exam Vital signs and Labs for Last 24 Hours: Temp Pulse Resp BP Pulse Ox 98.4 F 72 18 117/58 L 96 08/29/18 07:37 08/29/18 07:37 08/29/18 07:37 08/29/18 07:37 08/29/18 09:18 Laboratory Results - last 24 hr 08/27/18 06:10: Legionella pneumophila Ab 1.36 H 08/28/18 12:10: POC Glucose 107 08/28/18 16:55: POC Glucose 197 H 08/28/18 20:26: POC Glucose 154 H 08/29/18 05:53: WBC 1.6 L*, RBC 3.87 L, Hgb 9.9 L, Hct 30.7 L, MCV 79.2 L, MCH 25.5 L, MCHC 32.2, RDW 16.7, Plt Count 39 L*, MPV 9.9, Neut % (Auto) 54.9, Lymph % (Auto) 35.4, Kidder % (Auto) 8.8, Eos % (Auto) 0.5, Baso % (Auto) 0.4, Neut # (Auto) 0.9 L*, Lymph # (Auto) 0.6 L, Kidder # (Auto) 0.1, Eos # (Auto) 0.0, Baso # (Auto) 0.0 08/29/18 05:53: Sodium 144, Potassium 3.9, Chloride 108 H, Carbon Dioxide 29, Anion Gap 10.9, BUN 9, Creatinine 0.59, Estimated Creat Clear 97, Estimated GFR 103, Est GFR ( Amer) 125, Glucose 103, Calcium 8.2 L, Total Bilirubin 0.7, AST 21 D, ALT 29 D, Alkaline Phosphatase 90, Total Protein 6.4, Albumin 2.8 L, Globulin 3.6 H, Albumin/Globulin Ratio 0.8 L 08/29/18 06:12: POC Glucose 96 I & O for Last 24 hours: Intake & Output 08/26/18 08/27/18 08/28/18 08/29/18 11:59 11:59 11:59 11:59 Intake Total 3330 / 3330 3023 / 3023 2316 / 2316 1963 / 1963 Output Total 800 / 800 600 / 600 2200 / 2200 1100 / 1100 Balance 2530 / 2530 2423 / 2423 116 / 116 864 / 864 Weight 228 lb 1 oz 229 lb 2 oz 229 lb 2 oz 232 lb 8 oz Assessment and Plan (1) Sepsis Current visit: Yes Status: Resolved Category: Medical Code(s): A41.9 - Sepsis, unspecified organism (2) Pneumonia Current visit: Yes Status: Acute Category: Medical Code(s): J18.9 - Pneumonia, unspecified organism (3) Acute respiratory failure with hypoxia Current visit: Yes Status: Acute Category: Medical Code(s): J96.01 - Acute respiratory failure with hypoxia (4) Hypertension Current visit: Yes Status: Acute Category: Medical Code(s): I10 - Es sential (primary) hypertension (5) Type 2 diabetes mellitus Current visit: Yes Status: Acute Category: Medical Code(s): E11.9 - Type 2 diabetes mellitus without complications (6) Neutropenia Current visit: Yes Status: Acute Category: Medical Code(s): D70.9 - Neutropenia, unspecified (7) Thrombocytopenia Current visit: Yes Status: Acute Category: Medical Code(s): D69.6 - Thrombocytopenia, unspecified (8) COPD (chronic obstructive pulmonary disease) Current visit: Yes Status: Acute Category: Medical Code(s): J44.9 - Chronic obstructive pulmonary disease, unspecified (9) Nausea Current visit: Yes Status: Acute Category: Medical Code(s): R11.0 - Nausea (10) Diarrhea Current visit: Yes Status: Acute Category: Medical Code(s): R19.7 - Diarrhea, unspecified (11) Mycoplasma infection Current visit: Yes Status: Acute Category: Medical Code(s): A49.3 - Mycoplasma infection, unspecified site (12) Legionella infection Current visit: Yes Status: Acute Category: Medical Code(s): A48.1 - Legionnaires' disease - Assessment and plan all Dx Assessment and Plan for all problems:: Even though patient was tolerating RA at rest any slight movement even in bed dropped her oxygen to 85% and she needs 2L of NC. Oxygen approved, advised to use 2L. Discussed extensively about the safety of oxygen and tobacco cessation counseling given today. Prefers to have nicotine patches. D/c home today, no abx needed as she finished 5 days IV course in the hospital.
--- NOTE | 2018-09-01 13:29 | Discharge Summary ---
General - General Admission date:: 08/25/18 Discharge date: 08/29/18 HPI HPI: Ms. Aguilera is a 63-year-old female with a history of hypertension, neuropathy, fibromyalgia, collagen disease, asthma, COPD, depression, GERD, cirrhosis/fatty liver, type 2 diabetes mellitus and tobacco use disorder who presented to the office of [facility] with 5 days of worsening cough and shortness of breath. Patient was seen in the emergency room at [facility] 08/02/2018 with fever. Chest x-ray at that time revealed probable right perihilar right upper lobe bronchopneumonia lung with minimal left lower lobe atelectasis. She was noted to be 1 day post colonoscopy. She was placed on Levaquin at discharge to home. With evaluation in the office she was found to be hypoxic with a low-grade temperature of 99.5. Patient does have a history of neutropenia and thrombocytopenia as well. CBC in the office of [facility] revealed a white blood cell count 3.4 with 76.3% granulocytes and 19% lymphocytes. Hemoglobin and hematocrit were 11.8 and 37.1 respectively; platelet count was 35,000. She received a DuoNeb treatment while in the office. She demonstrated a frequent nonproductive cough. Due to her failure of improvement as an outpatient, she was admitted for further evaluation and treatment. Hospital Course Hospital Course: The patient's chest x-ray suggested minimal airspace disease and infiltrate at the left lower lobe and left infrahilar region. Her mycoplasma pneumonia IgM was reactive. She was started on IV fluids at 75 mL an hour, antibiotics, duo nebs, steroids, and oxygen. Smoking cessation was discussed with the patient. The patient developed some lower abdominal discomfort and nausea during her admission. She also had some diarrhea. Zofran did help the nausea and her diarrhea resolved. A PPI was added as well. Her shortness of breath did improve. She did well on antibiotics. She was able to be weaned off of her oxygen and her room air sats were above 90 at rest. They did drop into the 80s with any activity. Her blood cultures were negative, therefore cefepime was discontinued. She did receive 5 days of Zithromax. Home oxygen was approved. The safety of oxygen and tobacco cessation was discussed with the patient. She preferred to have nicotine patches on discharge. She was stable to be discharged home with no further antibiotics as she had finished 5 days during her hospital stay. Of note, her legionella antibody was elevated. This was also covered by the Zithromax. She will f/u in the office of [facility]. Objective Vital signs: Temp Pulse Resp BP Pulse Ox 98.4 F 72 18 117/58 L 96 08/29/18 07:37 08/29/18 07:37 08/29/18 07:37 08/29/18 07:37 08/29/18 09:18 Narrative: - Constitutional mild distress Comments: Sitting in wheelchair taking a neb treatment. Frequent dry cough noted - *Routine HEENT Exam Head: Present: normocephalic, atraumatic Eye: Present: PERRL. Absent: conjunctival icterus, scleral injection ENT: Present: mucous membranes moist, oropharynx clear - *Routine Neck Exam Present: supple. Absent: carotid bruit, lymphadenopathy, thyromegaly - *Routine Respiratory Exam Present: diminished air movement (In all lobes anteriorly and posteriorly) - *Routine Cardiovascular Exam Present: RRR - *Routine Abdominal Exam Present: soft, normoactive bowel sounds. Absent: tenderness - *Routine Extremities Exam Absent: edema, calf tenderness - *Routine Neurological Exam Present: alert, oriented X3 DS: Diagnosis - Discharge Diagnosis (1) Sepsis Status: Resolved (2) Pneumonia Status: Acute (3) Acute respiratory failure with hypoxia Status: Acute (4) Hypertension Status: Acute (5) Type 2 diabetes mellitus Status: Acute (6) Neutropenia Status: Acute (7) Thrombocytopenia Status: Acute (8) COPD (chronic obstructive pulmonary disease) Status: Acute (9) Nausea Status: Acute (10) Diarrhea Status: Acute (11) Mycoplasma infection Status: Acute (12) Legionella infection Status: Acute Discharge Plan - Patient Discharge Instructions ACTIVITY: Continue current activity DIET: continue same diet Patient Instructions: DI for Chronic Obstructive Pulmonary Disease, DI for Pneumonia -- Adult, DI for Nausea -- Adult, DI for Sepsis -- Adult, DI for Respiratory Failure - Follow up Plan Follow up with: Prabha Talamantes MD [Primary Care Provider] - (On september 12 ) Disposition: Home, Self-Intermediate Medications: Home Medications Medication Instructions Recorded Confirmed Type Albuterol Sulfate [Proair Hfa 2 puffs IH QID PRN 05/08/17 08/25/18 History 90mcg/puff Inh] Donepezil HCl [Donepezil ODT 10mg] 10 mg PO HS 05/08/17 08/25/18 History Duloxetine HCl 60 mg PO BID 05/08/17 08/25/18 History Fluticasone/Vilanterol [Breo 1 pow INHALATION DAILY 05/08/17 08/25/18 History Ellipta 100-25 Mcg INH] Ipratropium/Albuterol Sulfate 3 ml INHALATION TID PRN 05/08/17 08/25/18 History [Duoneb 3mL neb] Metformin HCl [Glucophage 500mg 500 mg PO BID 05/08/17 08/25/18 History Tablet] Quetiapine Fumarate [Quetiapine 150 mg PO HS 05/08/17 08/25/18 History Fumarate ER] Sucralfate [Carafate 1gm Tab] 1 gm PO BID 05/08/17 08/25/18 History fluticasone furoate 100 1 inh INHALATION ONCE 09/19/17 08/25/18 History mcg-vilanterol 25 mcg/dose inhalation powder Amiloride HCl [Midamor 5mg tablet] 5 mg PO DAILY 07/29/18 08/25/18 History Insulin Aspart [Novolog] 6 units SQ TID 07/29/18 08/25/18 History Montelukast Sodium [Montelukast 10 mg PO PM 07/29/18 08/25/18 History 10mg Tab] Pregabalin [Lyrica 225mg Cap] 225 mg PO BID 07/29/18 08/25/18 History Losartan Potassium 100 mg PO DAILY 08/02/18 08/25/18 History Nadolol [Corgard 20mg tablet] 10 mg PO DAILY 08/02/18 08/25/18 History Rifaximin [Xifaxan] 550 mg PO BID 08/02/18 08/25/18 History Cholecalciferol (Vitamin D3) 5,000 unit PO DAILY 08/25/18 08/25/18 History [Vitamin D3] Insulin Degludec [Tresiba 20 units SQ HS 08/25/18 08/25/18 History Flextouch U-100] Pantoprazole Sodium [Protonix 40mg 40 mg PO DAILY 08/25/18 08/25/18 History tablet] Sitagliptin Phosphate [Januvia 100 mg PO DAILY 08/25/18 08/25/18 History 100mg tablet] Nicotine [Nicoderm 21mg/24hr 21 mg TD DAILY 30 Days #30 08/29/18 Rx patch] patch.td24 Nystatin [Nystatin Susp 500,000 500,000 unit PO BID 7 Days udc 08/29/18 Rx Units/5mL Udc] Trazodone HCl 50 mg PO HS 30 Days tab 08/29/18 Rx Prescriptions/Medication Reconciliation: New Nicotine [Nicoderm 21mg/24hr patch] 21 mg TD DAILY 30 Days #30 patch.td24 Nystatin [Nystatin Susp 500,000 Units/5mL Udc] 500,000 unit PO BID 7 Days udc Trazodone HCl 50 mg PO HS 30 Days tab Continued fluticasone furoate 100 mcg-vilanterol 25 mcg/dose inhalation powder 1 inh INHALATION ONCE Ipratropium/Albuterol Sulfate [Duoneb 3mL neb] 3 ml INHALATION TID PRN PRN Reason: breathing Quetiapine Fumarate [Quetiapine Fumarate ER] 150 mg PO HS Metformin HCl [Glucophage 500mg Tablet] 500 mg PO BID Duloxetine HCl 60 mg PO BID Donepezil HCl [Donepezil ODT 10mg] 10 mg PO HS Albuterol Sulfate [Proair Hfa 90mcg/puff Inh] 2 puffs IH QID PRN PRN Reason: Shortness Of Breath Amiloride HCl [Midamor 5mg tablet] 5 mg PO DAILY Montelukast Sodium [Montelukast 10mg Tab] 10 mg PO PM Pregabalin [Lyrica 225mg Cap] 225 mg PO BID Rifaximin [Xifaxan] 550 mg PO BID Nadolol [Corgard 20mg tablet] 10 mg PO DAILY Sitagliptin Phosphate [Januvia 100mg tablet] 100 mg PO DAILY Insulin Degludec [Tresiba Flextouch U-100] 20 units SQ HS Pantoprazole Sodium [Protonix 40mg tablet] 40 mg PO DAILY Sucralfate [Carafate 1gm Tab] 1 gm PO BID Fluticasone/Vilanterol [Breo Ellipta 100-25 Mcg INH] 1 pow INHALATION DAILY Insulin Aspart [Novolog] 6 units SQ TID Losartan Potassium 100 mg PO DAILY Cholecalciferol (Vitamin D3) [Vitamin D3] 5,000 unit PO DAILY Discontinued Varenicline Tartrate [Chantix 1mg tablet] 1 mg PO DIRECTED levoFLOXacin [Levaquin 500mg tab] 500 mg PO DAILY
== END 2018-08-29 13:25 | disposition home or self-care (01) ==
LOC: 2ND
PROVIDERS: ADMIT Emergency Medicine; ATTEND Emergency Medicine
DX: Z79.51 Long term (current) use of inhaled steroids; A41.9 Sepsis, unspecified organism; R51 Headache; J44.9 Chronic obstructive pulmonary disease, unspecified; A49.3 Mycoplasma infection, unspecified site; I10 Essential (primary) hypertension; A48.1 Legionnaires' disease; Z88.2 Allergy status to sulfonamides; Z79.01 Long term (current) use of anticoagulants; R11.0 Nausea; Z79.899 Other long term (current) drug therapy; E11.9 Type 2 diabetes mellitus without complications; Z72.0 Tobacco use; J96.01 Acute respiratory failure with hypoxia; Z79.4 Long term (current) use of insulin; D69.6 Thrombocytopenia, unspecified; R19.7 Diarrhea, unspecified; M79.18 Myalgia, other site; M35.9 Systemic involvement of connective tissue, unspecified; J18.9 Pneumonia, unspecified organism; D70.9 Neutropenia, unspecified; Z88.8 Allergy status to other drugs, medicaments and biological substances; R05 Cough
CPT/HCPCS: 36415; 71020; 71046; 80053; 80061; 82803; 82962; 83036; 83605; 83735; 85025; 86713; 86738; 87040; 87899; 93005; 94640; 94761; G0378; J0456; J2405; J3370

== ENCOUNTER → 2018-11-13 11:48 | Outpatient (CLI) | payer MEDICARE, SELFPAY ==
--- NOTE | 2018-11-13 11:54 | XR_ITS ---
XR knee LT 3V HISTORY: ITS.REASON: PAIN IN LEFT KNEE ORDERING PHYSICIAN: Prabha Talamantes MD PATIENT AGE: 63 years COMPARISON: 03/10/2018 FINDINGS: There are mild osteoarthritic changes involving all 3 compartments. In the suprapatellar region there are at least 3 calcific densities consistent with loose bodies the largest measuring 12 mm. Overall no significant change from the previous study. No fracture or dislocation. No lytic or blastic change. IMPRESSION Osteoarthritis with suprapatellar loose bodies
--- NOTE | 2018-11-13 11:55 | XR_ITS ---
XR knee RT 3V HISTORY: ITS.REASON: PAIN IN RIGHT KNEE ORDERING PHYSICIAN: Prabha Talamantes MD PATIENT AGE: 63 years COMPARISON: 08/28/2018 FINDINGS There are mild osteoarthritic changes of the medial compartment with moderate osteoarthritis of the patellofemoral joint. Prominent hypertrophic changes are present at the patellofemoral joint. A calcific density is once again noted popliteal fossa region along the posterior aspect of the distal femur consistent with a loose body. No fracture or dislocation. No lytic or blastic change. IMPRESSION: Osteoarthritis with loose body in the popliteal region overall not significant change
== END ==
PROVIDERS: PCP Emergency Medicine; Visit Provider Emergency Medicine
DX: M25.562 Pain in left knee (principal); M25.561 Pain in right knee
CPT/HCPCS: 73562

== ENCOUNTER → 2018-12-04 12:06 | Outpatient (CLI) | payer MEDICARE, SELFPAY ==
--- NOTE | 2018-12-04 12:11 | XR_ITS ---
XR knee RT 4V HISTORY: ITS.REASON: knee pain ORDERING PHYSICIAN: Any Esparza MD PATIENT AGE: 63 years COMPARISON: 11/13/2018 FINDINGS: There are mild osteoarthritic changes of the medial and lateral compartment with moderate to severe osteoarthritic change of the patellofemoral joint. No fracture or dislocation. No lytic or blastic change. No significant change. IMPRESSION: Osteoarthritis of the right knee
--- NOTE | 2018-12-04 12:11 | XR_ITS ---
XR knee LT 4V HISTORY: ITS.REASON: knee pain ORDERING PHYSICIAN: Any Esparza MD PATIENT AGE: 63 years COMPARISON: 11/13/2018 FINDINGS: There are mild osteoarthritic changes of the medial lateral compartment with moderate to severe osteoarthritis of the patellofemoral joint with loose bodies in the suprapatellar region. The patellar view shows prominent osteophyte laterally projecting off the patella. IMPRESSION: Osteoarthritis of the left knee with loose bodies in the suprapatellar region
== END ==
PROVIDERS: PCP Emergency Medicine; Visit Provider Orthopaedic Surgery
DX: M25.561 Pain in right knee (principal); M25.562 Pain in left knee
CPT/HCPCS: 73564

== ENCOUNTER → 2019-04-20 15:07 | Outpatient (CLI) | payer MEDICARE, SELFPAY ==
[2019-04-20 16:01] LABS: Basophils % 0.3 % (0.1-2.0); Eosinophils % 0.6 % (0.1-12.0); Hematocrit 32.1 % (37.0-47.0); Hemoglobin 9.5 g/dL (12.2-16.2); Lymphocytes # 0.9 K/mm3 (0.7-4.5); Lymphocytes % 28.3 % (10-50); Mean Corpuscular HGB Conc 29.4 g/dL (31.8-35.4); Mean Corpuscular Volume 78.3 fl (81-99); Mean Platelet Volume 12.5 fl (7.4-10.4); Monocytes # 0.3 K/mm3 (0.1-1.0); Monocytes % 10.6 % (1.7-9.3); Neutrophils # 1.8 K/mm3 (1.8-7.8); Neutrophils % 60.1 % (37.0-80.0); Red Blood Count 4.11 M/mm3 (4.20-5.40); Red Cell Distribution Width 17.7 % (11.5-17.5)
[2019-04-20 16:04] LABS: Platelet Count 45 K/mm3 (142-424)
[2019-04-20 16:09] LABS: Prothrombin Time 12.4 seconds (9.4-11.8)
[2019-04-20 16:32] LABS: Ammonia 62 umol/L (19-54)
[2019-04-20 18:30] LABS: Alanine Aminotransferase 17 U/L (12-78); Albumin Level 2.6 gm/dL (3.4-5.0); Albumin/Globulin Ratio 0.8 (1.1-1.8); Alkaline Phosphatase 99 U/L (46-116); Anion Gap 13.1 mEq/L (5-15); Aspartate Amino Transferase 21 U/L (15-37); Bilirubin,Total 0.9 mg/dL (0.2-1.0); Blood Urea Nitrogen 7 mg/dL (7-18); Calcium 8.4 mg/dL (8.5-10.1); Carbon Dioxide 29 mmol/L (21.0-32.0); Chloride 104 mmol/L (98-107); Creatinine,Serum 0.72 mg/dL (0.55-1.02); Estimated Glomerular Filt Rate 82 ml/min (>60); Ferritin 13 ng/mL (8-388); GFR (African American) 99 ML/MIN (>60); Globulin 3.4 gm/dl (1.3-3.2); Glucose 67 mg/dL (74-106); Potassium 4.1 mmoL/L (3.5-5.1); Sodium 142 mmol/L (136-145)
[2019-04-22 08:21] LABS: Iron 22 ug/dL (27-139); UIBC 325 ug/dL (118-369)
[2019-04-22 13:17] LABS: AFP, Tumor Marker 2.3 ng/mL (0.0-8.3); Iron Saturation 6 % (15-55)
== END ==
PROVIDERS: Visit Provider Nurse Practitioner Family
DX: D50.9 Iron deficiency anemia, unspecified (principal); K74.60 Unspecified cirrhosis of liver; D61.818 Other pancytopenia
CPT/HCPCS: 36415; 80053; 82105; 82140; 82728; 83540; 83550; 85025; 85610

== ENCOUNTER → 2019-04-21 10:12 | Outpatient (CLI) | payer MEDICARE, SELFPAY ==
--- NOTE | 2019-04-21 10:17 | CT_ITS ---
PROCEDURE: CT ABDOMEN PELVIS W CON CLINICAL INDICATION: CHANGE IN BOWEL HABIT, PAIN Known cirrhosis COMPARISON: ABDPELW CT abdomen pelvis w con from 08/02/2018 TECHNIQUE: IV Contrast: 75ML OPTIRAY 350 Oral Contrast 450ml Redicat Axial images obtained with sagittal and coronal reformats. All CT scans at the facility use one or more dose reduction, viz: automated exposure control, ma/kV adjustment per patient size (including targeted exams where dose is matched to indication, i.e. head), or iterative reconstruction technique. FINDINGS: LOWER THORAX: No acute finding ABDOMEN & PELVIS: Of the liver the liver has a cirrhotic appearance. There is severe splenomegaly measuring 23 cm in AP dimension. There has been interval development of moderate amount of abdominal and pelvic ascites. Small umbilical hernia is present containing fat. There is decreased attenuation of the liver. No focal liver lesion or enhancement is evident. Varices are present in the paraesophageal region and in the perisplenic area and perigastric region. The pancreas, adrenal glands, and kidneys have an unremarkable appearance. There is mild diffuse thickening of the small and large bowel which may be seen with cirrhosis/ascites/portal hypertensive enteropathy. No intestinal obstruction or free air. There are multiple old right-sided rib fractures. IMPRESSION: 1. Cirrhosis with portal hypertension and splenomegaly with varices and ascites. This site is has increased since the previous exam 2. Mild diffuse thickening of the small bowel and ascending colon which may be related to portal hypertensive enteropathy the Dictated by: Kavin Vazquez MD 04/22/2019 10:50 Electronically signed by Kavin Vazquez MD in [facility] 04/22/2019 10:50
== END ==
PROVIDERS: PCP Emergency Medicine; Visit Provider Nurse Practitioner Family
DX: D50.9 Iron deficiency anemia, unspecified (principal); K74.60 Unspecified cirrhosis of liver; D61.818 Other pancytopenia
CPT/HCPCS: 74177; Q9967

== ENCOUNTER → 2019-04-28 08:43 | Outpatient (CLI) | payer MEDICARE, SELFPAY ==
--- NOTE | 2019-04-28 08:50 | US_ITS ---
PROCEDURE: US PARACENTESIS CLINICAL INDICATION: ASCITES COMPARISON: No exams were available for comparison FINDINGS: The procedure and potential risks and complications such as bowel perforation, bleeding or infection have been explained to the patient. Ultrasound was used as guidance. Utilizing sterile technique and local anesthesia of the tip of the paracentesis catheter is positioned into a fluid collection along the right lower quadrant. A total of 4500 cc of clear yellowish fluid was removed without difficulty and without complication IMPRESSION: Status post ultrasound-guided paracentesis. Dictated by: Catalino Khan 04/28/2019 13:53 Electronically signed by Catalino Khan in [facility] 04/28/2019 13:53
[2019-04-28 11:40] VITALS: BP 157/61; PULSE 81; RESP 19; TEMP 36.7; O2SAT 96
[2019-04-28 12:40] VITALS: BP 139/53; PULSE 84; RESP 18; TEMP 36.4; O2SAT 94
[2019-04-28 12:50] LABS: RBC,Body Fluid < 10 cells/uL (< 10 X 10^3); TNC,Body Fluid 260 cells/uL (< 1000)
--- NOTE | 2019-04-28 13:10 | PC.NURSE ---
no specific dosing for albumin sent with patient. called radiology for order for albumin, no new orders received. spoke with pharmacy. paged dr wheeler. awaiting for call back
[2019-04-28 13:37] LABS: Appearance,Body Fld. Normal; Source, Body Fld. Paracentesis Fluid; Volume,Body Fld. 500 mL
[2019-04-28 13:38] VITALS: BP 157/61; PULSE 81; RESP 19; TEMP 36.7; O2SAT 99
--- NOTE | 2019-04-28 13:38 | PC.NURSE ---
1330: verbal order per Dr Arzate - pt does NOT get albumin replacement today as pt had less than 5L of fluid removed from paracentesis.
--- NOTE | 2019-04-28 13:38 | PC.NURSE ---
after speaking with house who verified with chief of nursing and md central office operator patient is not required to receive any albumin since only 4500cc was pulled. after speaking with patient she is in understanding of this.
[2019-04-28 16:08] LABS: Mononuclear WBCs,Body Fluid 62 %; Polynuclear WBC,Body Fluid 38 %
[2019-04-30 05:22] LABS: Albumin, Body Fluid 0.9 g/dL (Not Estab.); Protein, Body Fluid 1.4 g/dL (.)
[2019-05-08 08:44] LABS: Miscellaneous Test 10 U/L
== END ==
PROVIDERS: PCP Family Medicine; Visit Provider Internal Medicine Gastroenterology
DX: R18.8 Other ascites (principal); K74.60 Unspecified cirrhosis of liver
CPT/HCPCS: 49083; 82042; 84155; 87070; 87205; 88112; 88305; 89051

== ENCOUNTER 2019-05-12 13:13 | Outpatient (CLI) | payer MEDICARE, SELFPAY ==
[2019-05-12 13:36] VITALS: BP 130/74; PULSE 78; RESP 18; TEMP 36.6; O2SAT 97
[2019-05-12 13:55] VITALS: BP 129/69; PULSE 72; RESP 18; TEMP 36.6; O2SAT 96
[2019-05-12 14:15] VITALS: BP 125/68; PULSE 68; RESP 20; TEMP 36.6; O2SAT 96
== END 2019-05-12 14:20 | disposition home or self-care (01) ==
LOC: INF 13:13
PROVIDERS: Visit Provider Internal Medicine Gastroenterology
DX: D50.9 Iron deficiency anemia, unspecified (principal); D61.818 Other pancytopenia; K74.60 Unspecified cirrhosis of liver; R18.8 Other ascites; T45.4X5A Adverse effect of iron and its compounds, initial encounter
CPT/HCPCS: 96365; Q0138

== ENCOUNTER 2019-05-19 11:15 | Outpatient (CLI) | payer MEDICARE, SELFPAY ==
[2019-05-19 12:00] VITALS: BP 119/69; PULSE 87; RESP 18; TEMP 36.4; O2SAT 95
[2019-05-19 12:10] VITALS: BP 110/56; PULSE 79; RESP 18; TEMP 36.6; O2SAT 96
[2019-05-19 12:45] VITALS: BP 102/64; PULSE 74; RESP 20; TEMP 36.6; O2SAT 96
== END 2019-05-19 12:45 | disposition home or self-care (01) ==
LOC: INF 11:16
PROVIDERS: Visit Provider Nurse Practitioner Family
DX: K74.60 Unspecified cirrhosis of liver (principal); R18.8 Other ascites; D50.9 Iron deficiency anemia, unspecified; T45.4X5A Adverse effect of iron and its compounds, initial encounter
CPT/HCPCS: 96374; Q0138

== ENCOUNTER → 2019-07-06 15:57 | Outpatient (POV) | payer MEDICARE, SELFPAY | PROVIDERS: PCP Nurse Practitioner Family; Visit Provider Nurse Practitioner Family | DX: Z00.00 Encounter for general adult medical examination without abnormal findings (principal) ==

== ENCOUNTER 2019-07-07 21:16 | Inpatient (IN) ==
[2019-07-07 21:12] LABS: ABG Base Excess 2.2 mmol/L (-2.4-2.3); ABG HCO3 28.5 mmhg (22.0-26.0); ABG Oxygen Saturation 96 % (90-100); ABG PH 7.31 mmol/L (7.35-7.45); ABG PO2 95.2 mmhg (80-100); ABG TCO2 30.3 mmhg (23-27); Oxygen 50 %
[2019-07-07 21:13] LABS: Allen's Test ACCEPTABLE
[2019-07-07 21:15] LABS: ABG PCO2 58.5 mmhg (35.0-45.0)
--- NOTE | 2019-07-07 21:23 | Emergency Department Note ---
ED Disposition Clinical Impression: Shortness of breath, Left lower lobe pneumonia Disposition: Admitted as Observation Condition on Discharge: Good Additional Instructions: Spoke to Dr. Merritt about this patient to admit as observation. Referrals: Say Sebastian MD [Primary Care Provider] - - Critical Care Critical Care Time: No Attestation: On , the high probability of a clinically significant, sudden or life threatening deterioration of the following system(s) required my full and direct attention, intervention and personal management. The time I documented below is in addition to time spent performing reported procedures but includes the following listed in this critical care notation. Medical Decision Making - Medical Records Medical records reviewed: Yes: I reviewed the patient's medical records. - Boo Inquiry Pt receiving controlled substance: No Vital Signs: 07/07/19 21:07 Pulse Rate [Left Radial] 91 H Respiratory Rate 30 H Blood Pressure [Right Arm] 160/76 H Blood Pressure Mean [Right Arm] 104 Blood Pressure Source [Right Arm] Automatic Cuff Blood Pressure Position [Right Arm] Sitting 02 Sat by Pulse Oximetry 70 L Oxygen Delivery Method Room Air - Lab Data Lab results reviewed: Yes: I reviewed the patient's lab results. Lab Results 07/07/19 21:08: Specimen Source Right radial, O2 % 50, ABG pH 7.31 L, ABG pCO2 58.5 H, ABG pO2 95.2, ABG HCO3 28.5 H, ABG Total CO2 30.3 H, ABG O2 Saturation 96, ABG Base Excess 2.2, Kavin Test Acceptable, Vent Rate 18, Tidal Volume Bipap 16/7 07/07/19 21:15: NT-Pro-B Natriuret Pep 4970 H 07/07/19 21:15: Sodium 139, Potassium 4.3, Chloride 101, Carbon Dioxide 30, Anion Gap 12.3, BUN 12, Creatinine 0.70, Estimated Creat Clear 103, Estimated GFR 85, Est GFR ( Amer) 102, Glucose 121 H, Calcium 9.4, Total Bilirubin 1.9 H, AST 69 H, ALT 31, Alkaline Phosphatase 103, Troponin I 0.09 H, Total Protein 6.9, Albumin 3.4 L, Globulin 3.5 H, Albumin/Globulin Ratio 1.0 L 07/07/19 21:15: Lactate 2.0 07/07/19 21:15: WBC 7.7, RBC 4.50, Hgb 13.2, Hct 41.3, MCV 91.6, MCH 29.3, MCHC 32.0, RDW 18.0 H, Plt Count 31 L*, MPV 13.7 H, Neut % (Auto) 74.3, Lymph % (Auto) 11.3, [place] % (Auto) 13.8 H, Eos % (Auto) 0.1, Baso % (Auto) 0.5, Neut # (Auto) 5.7, Lymph # (Auto) 0.9, [place] # (Auto) 1.1 H, Eos # (Auto) 0.0, Baso # (Auto) 0.0 07/07/19 21:20: Influenza Type A Ag Negative, Influenza Type B Ag Negative Result diagrams: 07/07/19 21:15 07/07/19 21:15 Orders (Tests/Meds): ED MEDICATIONS Discontinued Medications Generic Name Dose Route Start Last Admin Trade Name Freq PRN Reason Stop Dose Admin Methylprednisolone Sodium Succinate 125 mg 07/07/19 21:23 07/07/19 21:57 Solu-Medrol 125mg/2ml Vial IV 07/07/19 21:24 Not Given ONCE ONE Methylprednisolone Sodium Succinate 125 mg 07/07/19 21:31 07/07/19 21:58 Solu-Medrol 125mg/2ml Vial IV 07/07/19 21:32 125 mg ONCE ONE Administration ORDERS Category Date Time Status XR chest portable Routine Exams 07/07/19 21:28 Taken Troponin I Q3H Lab 07/08/19 00:45 Ordered Troponin I Q3H Lab 07/08/19 03:45 Ordered Urinalysis and Microscopic Stat Lab 07/07/19 21:31 Ordered Blood Culture Stat Micro 07/07/19 21:15 Received Arterial Blood Gas Stat RT 07/07/19 21:31 Ordered - Radiology Data #1 Image(s): Chest Image Reviewed: Yes I reviewed the patient's radiology results Preliminary Findings: Abnormal, No Fracture Seen (For left lower lobe infiltrate), Normal Heart Size Resp/SOB HPI - General Chief Complaint: Shortness of Breath/Dyspnea Stated Complaint: SOB Time Seen by Provider: 07/07/19 21:20 Mode of Arrival: EMS Limitations: No Limitations Description of Symptoms (Recalled from ER Triage Doc. by RN): pt came in via [facility] c/o of SOB for the last month that has increasingly gotten worse over the last couple of days. - History of Present Illness 64-year-old female presents the ED with acute shortness of breath. Patient does state that she has been feeling more short of breath over the last month but progressively getting worse of the last couple of days. She states that she does have a cough that is nonproductive and she denies any current chest pain. She does have a history of COPD. Patient does state that she has not had any recent illness or any recent fever shakes or chills. When EMS came to pick her up her O2 sats were in the 70s and they went ahead and put her on BiPAP. Since she is been on BiPAP her sats have been 94 to 96% she does feel much more comfortable they did do 1 DuoNeb in route prior to arrival here to the ED patient does state that she does feel better. - Related Data Home Medications Medication Instructions Recorded Confirmed Donepezil HCl [Donepezil ODT 10mg] 10 mg PO HS 05/08/17 05/19/19 Metformin HCl [Glucophage 500mg 500 mg PO BID 05/08/17 05/19/19 Tablet] Amiloride HCl [Midamor 5mg tablet] 5 mg PO DAILY 07/29/18 05/19/19 Montelukast Sodium [Montelukast 10 mg PO PM 07/29/18 05/19/19 10mg Tab] Losartan Potassium 100 mg PO DAILY 08/02/18 05/19/19 nadoloL [Corgard 20mg tablet] 10 mg PO DAILY 08/02/18 05/19/19 Cholecalciferol (Vitamin D3) 5,000 unit PO DAILY 08/25/18 05/19/19 [Vitamin D3] Pantoprazole Sodium [Protonix 40mg 40 mg PO DAILY 08/25/18 05/19/19 tablet] budesonide-formoterol HFA 160 2 puff INHALATION BID 12/05/18 05/19/19 mcg-4.5 mcg/actuation aerosol inhaler duloxetine 60 mg capsule,delayed 60 mg PO BID 12/05/18 05/19/19 release furosemide 40 mg tablet 40 mg PO DAILY 12/05/18 12/05/18 pregabalin 225 mg capsule 225 mg PO BID 12/05/18 05/19/19 quetiapine 300 mg tablet 300 mg PO BID 12/05/18 05/19/19 sitagliptin 100 mg tablet 100 mg PO DAILY 12/05/18 05/19/19 tramadol 50 mg tablet 50 mg PO DAILY 12/05/18 05/19/19 trazodone 50 mg tablet 50 mg PO DAILY 12/05/18 05/19/19 varenicline 0.5 mg tablet 0.5 mg PO DAILY 12/05/18 05/19/19 Albuterol Sulfate [Albuterol HFA 1 inh INHALATION Q6H 05/19/19 05/19/19 Inhaler] Insulin Aspart [Novolog] 6 units SQ ACHS 05/19/19 05/19/19 Insulin Degludec [Tresiba 20 units SQ DAILY 05/19/19 05/19/19 Flextouch U-100] Rifaximin [Xifaxan] 1 tab PO BID 05/19/19 05/19/19 Spironolactone 100 mg PO DAILY 05/19/19 05/19/19 buPROPion HCL [Wellbutrin SR 150mg 150 mg PO DAILY 05/19/19 05/19/19 Tablet] Allergies Allergy/AdvReac Type Severity Reaction Status Date / Time salicylates Allergy Unknown AFFECTS Verified 05/19/19 12:19 CIRROHSIS Sulfa (Sulfonamide Allergy Unknown I-HIVES Verified 05/19/19 12:19 Antibiotics) [SULFA (SULFONAMIDE ANTIBIOTICS)] acetaminophen [From Tylenol] AdvReac Verified 05/19/19 12:[address] [facility] History - Hepatitis A Screen Drug use history?: No High risk sexual behaviors?: No History of sexually transmitted infection?: No Currently employed?: No Childcare worker?: No Do you have indoor plumbing?: Yes Do you have electricity?: Yes Attestation statement:: This patient has been screened for Hepatitis A risk factors. I have reviewed the patient's past medical history: Yes Medical History: Reports:: Anxiety, Asthma, Chronic Obstructive Pulmonary Disease (COPD), Depression, Diabetes Mellitus Type 2, Gastroesophageal Reflux Disease(GERD), Hepatitis, Hypertension, Lung Disease, Kidney Stones, Migraine Denies:: Cancer, Diabetes Mellitus Type 1, Internal Pacemaker, MRSA, Seizures Other Medical History: Reports: Anemia, Arthritis, Fibromyalgia, Other. Denies: Blood Transfusion Reaction Laterality Cases: Right: Arthroscopy Shoulder, Bilateral: Carpal Tunnel Release, Tonsillectomy Other Surgeries: Yes: Appendectomy, Cholecystectomy, Colonoscopy, Hysterectomy-Total, Other (kidney stone, back ). No: Pacemaker Amputation: No Fractures: Yes - Social History Smoking Status: Current every day smoker Tobacco Type: cigarettes # Packs/Day (cigarettes): 1 #Yrs smoked (if former smoker): 45 Alcohol Intake: current Alcohol Intake Frequency:: holidays/special occasions only Substance Use Type: denies use Occupational Status: retired Housing: house Household Members: significant other - Psychiatric History Pschychiatric History:: Reports:: Anxiety, Depression Family Hx:: Cancer, Diabetes, Heart Attack ROS Obtained: Yes All systems reviewed & no additional complaints - Constitutional Constitutional: Reports system reviewed and no additional complaints, except as docu - Eyes Eyes: Reports system reviewed and no additional complaints, except as docu - ENT Ears, Nose, Mouth, and Throat: Reports system reviewed and no additional complaints, except as docu - Cardiovascular Cardiovascular: Reports system reviewed and no additional complaints, except as docu - Respiratory Respiratory: Yes system reviewed and no additional complaints, except as docu - Gastrointestinal Gastrointestingal: Reports: system reviewed and no additional complaints, except as docu - Genitourinary Male Genitourinary: Reports system reviewed and no additional complaints, except as docu Female Genitourinary: Reports system reviewed and no additional complaints, except as docu - Musculoskeletal Musculoskeletal: Reports system reviewed and no additional complaints, except as docu - Integumentary/Breasts Skin/Breast: Reports system reviewed and no additional complaints, except as docu - Neurologic Neurologic: Reports system reviewed and no additional complaints, except as docu - Endocrine Endocrine: Reports system reviewed and no additional complaints, except as docu - Hematologic/Lymphatic Henatologic/Lymphatic: Reports system reviewed and no additional complaints, except as docu - Allergic/Immunologic Allergic/Immunologic: Reports system reviewed and no additional complaints, except as docu Physical Exam - General General appearance: alert, in no apparent distress - Head Head exam: atraumatic - Eye Eye exam: Present: normal appearance - ENT ENT exam: Present: normal exam - Neck Neck exam: Present: normal inspection - Chest Chest inspection: Present: normal inspection - Respiratory Respiratory exam: Present: normal lung sounds bilaterally - Cardiovascular Cardiovascular exam: Present: regular rate - Abdominal Exam Abdominal exam: Present: soft - Extremities Exam Extremities exam: Present: normal inspection, full ROM - Back Exam Back exam: Present: normal inspection - Neurological Exam Neurological exam: Present: alert, oriented X3 - Psychiatric Psychiatric exam: Present: normal affect - Skin Skin exam: Present: warm - Lymphatic Lymphatic Findings: no adenopathy
[2019-07-07 21:43] LABS: Albumin Level 3.4 g/dl (3.5-5.0); Anion Gap 12.3 mEq/L (5-15); Bilirubin,Total 1.9 mg/dl (0.2-1.3); Globulin 3.5 g/dL (1.3-3.2); Total Protein,Serum 6.9 g/dl (6.3-8.2)
[2019-07-07 21:44] LABS: Calcium 9.4 mg/dl (8.4-10.2)
[2019-07-07 22:42] LABS: Basophils % 0.5 % (0.1-2.0); Eosinophils % 0.1 % (0.1-12.0); Hematocrit 41.3 % (37.0-47.0); Hemoglobin 13.2 g/dL (12.2-16.2); Lymphocytes # 0.9 K/mm3 (0.7-4.5); Lymphocytes % 11.3 % (10-50); Mean Corpuscular Volume 91.6 fl (81-99); Mean Platelet Volume 13.7 fl (7.4-10.4); Monocytes # 1.1 K/mm3 (0.1-1.0); Monocytes % 13.8 % (1.7-9.3); Neutrophils # 5.7 K/mm3 (1.8-7.8); Neutrophils % 74.3 % (37.0-80.0); White Blood Count 7.7 K/mm3 (4.8-10.8)
[2019-07-07 22:50] LABS: Platelet Count 31 K/mm3 (142-424)
[2019-07-08 02:54] LABS: Microscopic, Urine URINE MICROSCOPIC (MICROSCOPIC)
[2019-07-08 03:11] LABS: Appearance,Urine CLEAR (Clear); Bilirubin,Urine Negative (Negative); Blood, Urine TRACE-L (Negative); Color,Urine YELLOW (Yellow); Glucose,Urine (UA) Negative (Negative); Ketones,Urine Negative (Negative); Leukocyte Esterase,Urine Negative (Negative); PH,Urine 5.5 (5.0-8.5); Protein,Urine TRACE (Negative); Specific Gravity, Urine >= 1.030 (1.005-1.030)
[2019-07-08 03:49] LABS: Amorphous Sediment,Urine 1+ /lpf; Bacteria,Urine 1+ /lpf; Squamous Epithelial Cell,Urine Occasional #/hpf (0-5)
--- NOTE | 2019-07-08 07:32 | Pharmacy Consult Notes ---
[facility] Pharmacy VTE Monitoring - Patient Demographics Admission date: 07/08/19 Report Date: 07/08/19 Time: 07:31 Allergies/Adverse Reactions: Patient Allergies salicylates Allergy (Unknown, Verified 05/19/19 12:19) AFFECTS CIRROHSIS Sulfa (Sulfonamide Antibiotics) [SULFA (SULFONAMIDE ANTIBIOTICS)] Allergy (Unknown, Verified 05/19/19 12:19) I-HIVES acetaminophen [From Tylenol] Adverse Reaction (Verified 05/19/19 12:19) Height: 1.7 m Weight: 100.896 kg Patient Problems: Current Active Problems (This Medical Record has been edited. Action required.) Shortness of breath (Acute) Left lower lobe pneumonia (Acute) - VTE Risk Labs: VTE Related Lab Results Hgb 13.2 g/dL (12.2-16.2) 07/07/19 21:15 Hct 41.3 % (37.0-47.0) 07/07/19 21:15 Plt Count 31 K/mm3 (142-424) L* 07/07/19 21:15 BUN 12 mg/dl (7-17) 07/07/19 21:15 Creatinine 0.70 mg/dl (0.52-1.04) 07/07/19 21:15 Estimated Creat Clear 103 mL/min (50-200) 07/07/19 21:15 Was VTE Risk Assessment Performed: No VTE Score: 5 VTE Risk Level: Low Risk - Prophylaxis VTE Prophylaxis Ordered?: Yes Types of VTE Prophylaxis: TEDS Knee High Location of Applied Device: Bilateral Lower Extremeties
--- NOTE | 2019-07-08 09:39 | History & Physical Report ---
*Admission Date: 07/08/19 <Kayce Steven 07/08/19 09:58> *Chief complaint: Shortness of breath <Kayce Steven 07/08/19 09:58> *History of present illness: Ms. Aguilera is a 64-year-old female with history of hypertension, neuropathy, fibromyalgia, collagen disease, asthma and COPD, migraines, thrombocytopenia, neutropenia, and cirrhosis with fatty liver. The patient states that she began having a cough around 3 to 4 weeks ago. 2 days ago she developed a fever and body aches along with extreme shortness of breath. She did have home oxygen but hadn't been using it until 2 days ago when her shortness of breath worsened. She states oxygen did not help and she was unable to breathe, therefore she presented to the emergency room for further evaluation and treatment. She was found to have cardiomegaly and chronic changes in the lungs and when is admitted. <Kayce Steven 07/08/19 09:58> [facility] History I have reviewed the patient's past medical history: Yes <Kayce Steven 07/08/19 09:58> Medical History: Reports:: Anxiety, Asthma, Chronic Obstructive Pulmonary Disease (COPD), Depression, Diabetes Mellitus Type 2, Gastroesophageal Reflux Disease(GERD), Hepatitis, Hypertension, Lung Disease, Kidney Stones, Migraine Denies:: Cancer, Diabetes Mellitus Type 1, Internal Pacemaker, MRSA, Seizures <Kayce Steven 07/08/19 09:58> *Have you ever received a pneumonia vaccine?: Yes <Kayce Steven 07/08/19 09:58> *Have you received a flu vaccine this season?: Yes <Kayce Steven 07/08/19 09:58> Other Medical History: Reports: Anemia, Arthritis, Fibromyalgia, Other (neuropathy, fibromyalgia, collagen disease, thrombocytopenia, cirrhosis). Denies: Blood Transfusion Reaction <Kayce Steven 07/08/19 09:58> Laterality Cases: Right: Arthroscopy Shoulder, Bilateral: Carpal Tunnel Release, Tonsillectomy <Kayce Steevn 07/08/19 09:58> Other Surgeries: Yes: Appendectomy, Cardiac Catheterization, Cholecystectomy, Colonoscopy, Hysterectomy-Total, Other (kidney stone, back ). No: Pacemaker <Kayce Steven 07/08/19 09:58> Amputation: No <Kayce Steven 07/08/19 09:58> Fractures: Yes <Kayce Steven 07/08/19 09:58> - *Social History Educational Level: Completed High School <Kayce Steven 07/08/19 09:58> Smoking Status: Current every day smoker <Kayce Steven 07/08/19 09:58> Tobacco Type: cigarettes <Kayce Steven 07/08/19 09:58> # Packs/Day (cigarettes): 1 <Kayce Steven 07/08/19 09:58> #Yrs smoked (if former smoker): 45 <Kayce Steven 07/08/19 09:58> Alcohol Intake: never <Kayce Steven 07/08/19 09:58> Alcohol Intake Frequency:: holidays/special occasions only <Kayce Steven 07/08/19 09:58> Substance Use Type: denies use <Kayce Steven 07/08/19 09:58> *Occupational Status:: disabled <Kayce Steven 07/08/19 09:58> Housing: house <Kayce Steven 07/08/19 09:58> Household Members: significant other <Kayec Steven 07/08/19 09:58> *Travel in the last 8 weeks: None <Kayce Steven 07/08/19 09:58> - Psychiatric History Pschychiatric History:: Reports:: Anxiety, Depression <Kayce Steven 07/08/19 09:58> Family Hx:: Cancer, Diabetes, Heart Attack <Kayce Steven 07/08/19 09:58> Review of Systems - Constitutional Reports body ache(s), Reports chills, Reports fever(s), Reports weakness <Kayce Steven 07/08/19 09:58> - Eyes Denies blurry vision, Denies double vision <Kayce Steven 07/08/19 09:58> - ENT Reports nasal congestion, Denies sore throat <Kayce Steven 07/08/19 09:58> - *Cardiovascular Reports shortness of breath, Reports leg swelling, Denies chest pain <Kayce Steven - 07/08/19 09:58> - *Respiratory Reports cough, Reports shortness of breath <Kayce Steven 07/08/19 09:58> - *Gastrointestinal Reports abdominal pain (diffuse), Reports constipation, Reports loose stools, Reports nausea, Reports vomiting <Kayce Steven 07/08/19 09:58> - *Genitourinary Denies difficulty urinating, Denies painful urination <Kayce Steven 07/08/19 09:58> - *Musculoskeletal Reports body aches, Denies joint pain <Kayce Steven 07/08/19 09:58> - *Neurologic Reports headache(s), Reports dizziness, Reports weakness <Kayce Steven 07/08/19 09:58> Meds Home Medications Medication Instructions Recorded Confirmed Type Metformin HCl [Glucophage 500mg 500 mg PO BID 05/08/17 07/08/19 History Tablet] Amiloride HCl [Midamor 5mg tablet] 5 mg PO DAILY 07/29/18 07/08/19 History Losartan Potassium 100 mg PO DAILY 08/02/18 07/08/19 History nadoloL [Corgard 20mg tablet] 10 mg PO DAILY 08/02/18 07/08/19 History Cholecalciferol (Vitamin D3) 5,000 unit PO DAILY 08/25/18 07/08/19 History [Vitamin D3] Pantoprazole Sodium [Protonix 40mg 40 mg PO DAILY 08/25/18 07/08/19 History tablet] budesonide-formoterol HFA 160 2 puff INHALATION BID 12/05/18 05/19/19 History mcg-4.5 mcg/actuation aerosol inhaler duloxetine 60 mg capsule,delayed 60 mg PO BID 12/05/18 07/08/19 History release furosemide 40 mg tablet 40 mg PO DAILY 12/05/18 12/05/18 History pregabalin 225 mg capsule 225 mg PO BID 12/05/18 07/08/19 History quetiapine 300 mg tablet 300 mg PO BID 12/05/18 05/19/19 History sitagliptin 100 mg tablet 100 mg PO DAILY 12/05/18 07/08/19 History tramadol 50 mg tablet 50 mg PO DAILY 12/05/18 05/19/19 History trazodone 50 mg tablet 50 mg PO DAILY 12/05/18 05/19/19 History varenicline 0.5 mg tablet 0.5 mg PO DAILY 12/05/18 05/19/19 History Albuterol Sulfate [Albuterol HFA 1 inh INHALATION Q6H 05/19/19 05/19/19 History Inhaler] Insulin Aspart [Novolog] 6 units SQ ACHS 05/19/19 05/19/19 History Insulin Degludec [Tresiba 20 units SQ DAILY 05/19/19 05/19/19 History Flextouch U-100] Rifaximin [Xifaxan] 550 mg PO BID 05/19/19 07/08/19 History Spironolactone 100 mg PO DAILY 05/19/19 07/08/19 History buPROPion HCL [Wellbutrin SR 150mg 150 mg PO DAILY 05/19/19 05/19/19 History Tablet] Donepezil HCl [Aricept 10mg 10 mg PO HS 07/08/19 07/08/19 History tablet] Montelukast Sodium 10 mg PO HS 07/08/19 07/08/19 History <Say Sebastian - 07/08/19 11:17> Allergies Allergy/AdvReac Type Severity Reaction Status Date / Time salicylates Allergy Unknown AFFECTS Verified 05/19/19 12:19 CIRROHSIS Sulfa (Sulfonamide Allergy Unknown I-HIVES Verified 05/19/19 12:19 Antibiotics) [SULFA (SULFONAMIDE ANTIBIOTICS)] acetaminophen [From Tylenol] AdvReac Verified 05/19/19 12:19 <Say Sebastian - 07/08/19 11:17> Exam Vital signs and Labs for Last 24 Hours: Temp Pulse Resp BP Pulse Ox 97.8 F 71 17 116/57 L 93 L 07/08/19 08:00 07/08/19 09:59 07/08/19 08:00 07/08/19 08:00 07/08/19 08:00 Laboratory Results - last 24 hr 07/07/19 21:08: Specimen Source Right radial, O2 % 50, ABG pH 7.31 L, ABG pCO2 58.5 H, ABG pO2 95.2, ABG HCO3 28.5 H, ABG Total CO2 30.3 H, ABG O2 Saturation 96, ABG Base Excess 2.2, Kavin Test Acceptable, Vent Rate 18, Tidal Volume Bipap 16/7 07/07/19 21:15: NT-Pro-B Natriuret Pep 4970 H 07/07/19 21:15: Sodium 139, Potassium 4.3, Chloride 101, Carbon Dioxide 30, Anion Gap 12.3, BUN 12, Creatinine 0.70, Estimated Creat Clear 103, Estimated GFR 85, Est GFR ( Amer) 102, Glucose 121 H, Calcium 9.4, Total Bilirubin 1.9 H, AST 69 H, ALT 31, Alkaline Phosphatase 103, Troponin I 0.09 H, Total Protein 6.9, Albumin 3.4 L, Globulin 3.5 H, Albumin/Globulin Ratio 1.0 L 07/07/19 21:15: Lactate 2.0 07/07/19 21:15: WBC 7.7, RBC 4.50, Hgb 13.2, Hct 41.3, MCV 91.6, MCH 29.3, MCHC 32.0, RDW 18.0 H, Plt Count 31 L*, MPV 13.7 H, Neut % (Auto) 74.3, Lymph % (Auto) 11.3, Terry % (Auto) 13.8 H, Eos % (Auto) 0.1, Baso % (Auto) 0.5, Neut # (Auto) 5.7, Lymph # (Auto) 0.9, Terry # (Auto) 1.1 H, Eos # (Auto) 0.0, Baso # (Auto) 0.0 07/07/19 21:20: Influenza Type A Ag Negative, Influenza Type B Ag Negative 07/08/19 00:31: Troponin I 0.26 H 07/08/19 00:37: Triglycerides 156 H, Cholesterol 150, VLDL Cholesterol 31, HDL Cholesterol 29 L, Cholesterol/HDL Ratio 5.2 H 07/08/19 02:30: Urine Color Yellow, Urine Appearance Clear, Urine pH 5.5, Ur Specific [place] >= 1.030, Urine Protein Trace, Urine Glucose (UA) Negative, Urine Ketones Negative, Urine Blood Trace-l, Urine Nitrate Negative, Urine Bilirubin Negative, Urine Urobilinogen 1.0, Ur Leukocyte Esterase Negative, Urine RBC 3-5, Urine WBC 3-5, Ur Squamous Epith Cells Occasional, Amorphous Sediment 1+, Urine Bacteria 1+ 07/08/19 03:35: Troponin I 0.24 H 07/08/19 05:24: POC Glucose 135 H <Say Sebastian - 07/08/19 11:17> Temp Pulse Resp BP Pulse Ox 97.8 F 68 17 116/57 L 92 L 07/08/19 08:00 07/08/19 08:00 07/08/19 08:00 07/08/19 08:00 07/08/19 08:00 Laboratory Results - last 24 hr 07/07/19 21:08: Specimen Source Right radial, O2 % 50, ABG pH 7.31 L, ABG pCO2 58.5 H, ABG pO2 95.2, ABG HCO3 28.5 H, ABG Total CO2 30.3 H, ABG O2 Saturation 96, ABG Base Excess 2.2, Kavin Test Acceptable, Vent Rate 18, Tidal Volume Bipap 16/7 07/07/19 21:15: NT-Pro-B Natriuret Pep 4970 H 07/07/19 21:15: Sodium 139, Potassium 4.3, Chloride 101, Carbon Dioxide 30, Anion Gap 12.3, BUN 12, Creatinine 0.70, Estimated Creat Clear 103, Estimated GFR 85, Est GFR ( Amer) 102, Glucose 121 H, Calcium 9.4, Total Bilirubin 1.9 H, AST 69 H, ALT 31, Alkaline Phosphatase 103, Troponin I 0.09 H, Total Protein 6.9, Albumin 3.4 L, Globulin 3.5 H, Albumin/Globulin Ratio 1.0 L 07/07/19 21:15: Lactate 2.0 07/07/19 21:15: WBC 7.7, RBC 4.50, Hgb 13.2, Hct 41.3, MCV 91.6, MCH 29.3, MCHC 32.0, RDW 18.0 H, Plt Count 31 L*, MPV 13.7 H, Neut % (Auto) 74.3, Lymph % (Auto) 11.3, Terry % (Auto) 13.8 H, Eos % (Auto) 0.1, Baso % (Auto) 0.5, Neut # (Auto) 5.7, Lymph # (Auto) 0.9, Terry # (Auto) 1.1 H, Eos # (Auto) 0.0, Baso # (Auto) 0.0 07/07/19 21:20: Influenza Type A Ag Negative, Influenza Type B Ag Negative 07/08/19 00:31: Troponin I 0.26 H 07/08/19 02:30: Urine Color Yellow, Urine Appearance Clear, Urine pH 5.5, Ur Specific [place] >= 1.030, Urine Protein Trace, Urine Glucose (UA) Negative, Urine Ketones Negative, Urine Blood Trace-l, Urine Nitrate Negative, Urine Bilirubin Negative, Urine Urobilinogen 1.0, Ur Leukocyte Esterase Negative, Urine RBC 3-5, Urine WBC 3-5, Ur Squamous Epith Cells Occasional, Amorphous Sediment 1+, Urine Bacteria 1+ 07/08/19 03:35: Troponin I 0.24 H 07/08/19 05:24: POC Glucose 135 H <Kayce Steven - 07/08/19 09:58> I & O for Last 24 hours: Intake & Output 07/05/19 07/06/19 07/07/19 07/08/19 11:59 11:59 11:59 11:59 Intake Total 360 / 360 Output Total 1200 / 1200 Balance -840 / -840 Weight 222 lb 7 oz <JazSay Sebas - 07/08/19 11:17> Intake & Output 07/05/19 07/06/19 07/07/19 07/08/19 11:59 11:59 11:59 11:59 Intake Total 360 / 360 Output Total 1200 / 1200 Balance -840 / -840 Weight 222 lb 7 oz <Kayce Steven - 07/08/19 09:58> - Constitutional no acute distress <Kayce Steven 07/08/19 09:58> - *Routine HEENT Exam Head: Present: normocephalic <Kayce Steven 07/08/19 09:58> Eye: Present: EOMI, PERRL <Kayce Steven 07/08/19 09:58> ENT: Present: mucous membranes dry <Kayce Steven 07/08/19 09:58> - *Routine Neck Exam Present: supple. Absent: lymphadenopathy <Kayce Steven 07/08/19 09:58> - *Routine Respiratory Exam Present: rhonchi, wheezes. Absent: rales <Kayce Steven 07/08/19 09:58> - *Routine Cardiovascular Exam Present: RRR <Kayce Steven 07/08/19 09:58> - *Routine Abdominal Exam Present: soft, normoactive bowel sounds, tenderness (diffuse), distended <Kayce Steven 07/08/19 09:58> - *Routine Extremities Exam Present: edema (1+ pretibial edema bilaterally). Absent: cyanosis, clubbing <Kayce Steven 07/08/19 09:58> - *Routine Skin Exam Present: warm. Absent: rash <Kayce Steven 07/08/19 09:58> - *Routine Neurological Exam Present: alert, oriented X3 <Kayce Steven 07/08/19 09:58> H&P: Result - Impressions CXR - Cardiomegaly with chronic changes with bibasilar airspace disease and p rominent left hilum. Follow-up recommended <Kayce Steven 07/08/19 09:58> Assessment and Plan (1) Pneumonia Current visit: No Status: Acute Category: Medical Code(s): J18.9 - Pneumonia, unspecified organism (2) Elevated troponin Current visit: Yes Status: Acute Category: Medical Code(s): R79.89 - Other specified abnormal findings of blood chemistry (3) Elevated brain natriuretic peptide (BNP) level Current visit: Yes Status: Acute Category: Medical Code(s): R79.89 - Other specified abnormal findings of blood chemistry (4) Hypercapnemia Current visit: Yes Status: Acute Category: Medical Code(s): R06.89 - Other abnormalities of breathing (5) Shortness of breath Current visit: Yes Status: Acute Category: Medical Code(s): R06.02 - Short ness of breath (6) Cirrhosis of liver Current visit: Yes Status: Chronic Category: Medical Code(s): K74.60 - Unspecified cirrhosis of liver (7) Fibromyalgia Current visit: Yes Status: Chronic Category: Medical Code(s): M79.7 - Fibromyalgia (8) Asthma Current visit: Yes Status: Chronic Category: Medical Code(s): J45.909 - Unspecified asthma, uncomplicated (9) COPD (chronic obstructive pulmonary disease) Current visit: No Status: Chronic Category: Medical Code(s): J44.9 - Chronic obstructive pulmonary disease, unspecified (10) Hypertension Current visit: No Status: Chronic Category: Medical Code(s): I10 - Essential (primary) hypertension (11) Thrombocytopenia Current visit: No Status: Chronic Category: Medical Code(s): D69.6 - Thrombocytopenia, unspecified <Kayce Steven - 07/08/19 09:34> (1) Non-STEMI (non-ST elevated myocardial infarction) Current visit: Yes Status: Acute Category: Medical Code(s): I21.4 - Non-ST elevation (NSTEMI) myocardial infarction (2) CHF (congestive heart failure) Current visit: Yes Status: Acute Category: Medical Code(s): I50.9 - Heart failure, unspecified (3) Pneumonia Current visit: No Status: Acute Category: Medical Code(s): J18.9 - Pneumonia, unspecified organism (4) Elevated troponin Current visit: Yes Status: Acute Category: Medical Code(s): R79.89 - Other specified abnormal findings of blood chemistry (5) Elevated brain natriuretic peptide (BNP) level Current visit: Yes Status: Acute Category: Medical Code(s): R79.89 - Other specified abnormal findings of blood chemistry (6) Hypercapnemia Current visit: Yes Status: Acute Category: Medical Code(s): R06.89 - Other abnormalities of breathing (7) Shortness of breath Current visit: Yes Status: Acute Category: Medical Code(s): R06.02 - Shortness of breath (8) Cirrhosis of liver Current visit: Yes Status: Chronic Category: Medical Code(s): K74.60 - Unspecified cirrhosis of liver (9) Fibromyalgia Current visit: Yes Status: Chronic Category: Medical Code(s): M79.7 - Fibromyalgia (10) Asthma Current visit: Yes Status: Chronic Category: Medical Code(s): J45.909 - Unspecified asthma, uncomplicated (11) COPD (chronic obstructive pulmonary disease) Current visit: No Status: Chronic Category: Medical Code(s): J44.9 - Chronic obstructive pulmonary disease, unspecified (12) Hypertension Current visit: No Status: Chronic Category: Medical Code(s): I10 - Essential (primary) hypertension (13) Thrombocytopenia Current visit: No Status: Chronic Category: Medical Code(s): D69.6 - Thrombocytopenia, unspecified <Say Sebastian - 07/08/19 11:17> - Assessment and plan all Dx Assessment and Plan for all problems:: Patient seen and examined this morning. She remains dyspneic and hypoxemic. Troponins are elevated consistent with possible non-STEMI. BNP also elevated. Will obtain echocardiogram and consult cardiology. Her cirrhosis is an ongoing comorbidity. Her last paracentesis was in April with removal of 4500 mL of fluid. She may require repeat paracentesis if dyspnea does not improve with treatment of her pneumonia and heart failure. <Say Sebastian Sebas - 07/08/19 11:17> Patient has been started on antibiotics, Duo nebs, and steroids. Her troponins have been elevated and her BNP is elevated as well. An echo has been ordered. We will get a cardiology consult as well. We will also check a PCR respiratory panel. <Kayce Steven - 07/08/19 09:58>
--- NOTE | 2019-07-08 10:25 | Consult Report ---
History of Present Illness Consult date: 07/08/19 Requesting physician: Sya Sebastian Consult reason: shortness of breath Chief complaint: SOB Additional Medical History:: 1. HTN 2. COPD 3. DM 4. asthma 5. anxiety 6. GERD History of present illness: This is a 64-year-old white female who presented to the hospital with complaints of shortness of breath and cough. The patient states that she has been having a cough for around 2 or 3 weeks and for the last 2 days she has been extremely short of breath with a fever and body aches. The patient states that she just has not felt well. She denies any chest pain or pressure. She states that she has been using home oxygen for the last 2 days because of her severe shortness of breath. Her shortness of breath is also associated with bilateral lower extremity edema. She states that she has had her diuretics increased recently due to her lower extremity edema. Her symptoms have continued to worsen and that is why she came to the emergency department. She denies any history of heart disease or MA. She was found to have an elevated troponin. Her troponin max is 0.24. And her BNP is elevated at 4970. She denies any chest pain or pressure. She states that she is unable to lie flat because of her shortness of breath. She states that her cough has been nonproductive. In addition to her leg swelling she states that she kind of feels swollen all over her entire body. [facility] History I have reviewed the patient's past medical history: Yes Medical History: Reports:: Anxiety, Asthma, Chronic Obstructive Pulmonary Disease (COPD), Depression, Diabetes Mellitus Type 2, Gastroesophageal Reflux Disease(GERD), Hepatitis, Hypertension, Lung Disease, Kidney Stones, Migraine Denies:: Cancer, Diabetes Mellitus Type 1, Internal Pacemaker, MRSA, Seizures *Have you ever received a pneumonia vaccine?: Yes *Have you received a flu vaccine this season?: Yes Other Medical History: Reports: Anemia, Arthritis, Fibromyalgia, Other (neuropathy, fibromyalgia, collagen disease, thrombocytopenia, cirrhosis). Denies: Blood Transfusion Reaction Laterality Cases: Right: Arthroscopy Shoulder, Bilateral: Carpal Tunnel Release, Tonsillectomy Other Surgeries: Yes: Appendectomy, Cardiac Catheterization, Cholecystectomy, Colonoscopy, Hysterectomy-Total, Other (kidney stone, back ). No: Pacemaker Amputation: No Fractures: Yes - *Social History Educational Level: Completed High School Smoking Status: Current every day smoker Tobacco Type: cigarettes # Packs/Day (cigarettes): 1 #Yrs smoked (if former smoker): 45 Alcohol Intake: never Alcohol Intake Frequency:: holidays/special occasions only Substance Use Type: denies use *Occupational Status:: disabled Housing: house Household Members: significant other *Travel in the last 8 weeks: None - Psychiatric History Pschychiatric History:: Reports:: Anxiety, Depression Family Hx:: Cancer, Diabetes, Heart Attack Meds Home Medications Medication Instructions Recorded Confirmed Type Donepezil HCl [Donepezil ODT 10mg] 10 mg PO HS 05/08/17 05/19/19 History Metformin HCl [Glucophage 500mg 500 mg PO BID 05/08/17 05/19/19 History Tablet] Amiloride HCl [Midamor 5mg tablet] 5 mg PO DAILY 07/29/18 05/19/19 History Montelukast Sodium [Montelukast 10 mg PO PM 07/29/18 05/19/19 History 10mg Tab] Losartan Potassium 100 mg PO DAILY 08/02/18 05/19/19 History nadoloL [Corgard 20mg tablet] 10 mg PO DAILY 08/02/18 05/19/19 History Cholecalciferol (Vitamin D3) 5,000 unit PO DAILY 08/25/18 05/19/19 History [Vitamin D3] Pantoprazole Sodium [Protonix 40mg 40 mg PO DAILY 08/25/18 07/08/19 History tablet] budesonide-formoterol HFA 160 2 puff INHALATION BID 12/05/18 05/19/19 History mcg-4.5 mcg/actuation aerosol inhaler duloxetine 60 mg capsule,delayed 60 mg PO BID 12/05/18 05/19/19 History release furosemide 40 mg tablet 40 mg PO DAILY 12/05/18 12/05/18 History pregabalin 225 mg capsule 225 mg PO BID 12/05/18 07/08/19 History quetiapine 300 mg tablet 300 mg PO BID 12/05/18 05/19/19 History sitagliptin 100 mg tablet 100 mg PO DAILY 12/05/18 05/19/19 History tramadol 50 mg tablet 50 mg PO DAILY 12/05/18 05/19/19 History trazodone 50 mg tablet 50 mg PO DAILY 12/05/18 05/19/19 History varenicline 0.5 mg tablet 0.5 mg PO DAILY 12/05/18 05/19/19 History Albuterol Sulfate [Albuterol HFA 1 inh INHALATION Q6H 05/19/19 05/19/19 History Inhaler] Insulin Aspart [Novolog] 6 units SQ ACHS 05/19/19 05/19/19 History Insulin Degludec [Tresiba 20 units SQ DAILY 05/19/19 05/19/19 History Flextouch U-100] Rifaximin [Xifaxan] 1 tab PO BID 05/19/19 05/19/19 History Spironolactone 100 mg PO DAILY 05/19/19 07/08/19 History buPROPion HCL [Wellbutrin SR 150mg 150 mg PO DAILY 05/19/19 05/19/19 History Tablet] Allergies Allergy/AdvReac Type Severity Reaction Status Date / Time salicylates Allergy Unknown AFFECTS Verified 05/19/19 12:19 CIRROHSIS Sulfa (Sulfonamide Allergy Unknown I-HIVES Verified 05/19/19 12:19 Antibiotics) [SULFA (SULFONAMIDE ANTIBIOTICS)] acetaminophen [From Tylenol] AdvReac Verified 05/19/19 12:19 Review of Systems - Review of Systems Review of systems:: pertinent systems reviewed and negative unless documented below - Constitutional Reports body ache(s), Reports fatigue, Reports fever(s), Reports weakness - *Cardiovascular Reports shortness of breath, Reports shortness of breath with activity, Reports generalized swelling, Reports leg swelling - *Respiratory Reports cough (Nonproductive), Reports shortness of breath, Reports shortness of breath with activity - *Neurologic Reports headache(s), Reports dizziness, Reports weakness Exam Vital signs and Labs for Last 24 Hours: Temp Pulse Resp BP Pulse Ox 97.8 F 71 17 116/57 L 93 L 07/08/19 08:00 07/08/19 09:59 07/08/19 08:00 07/08/19 08:00 07/08/19 08:00 Laboratory Results - last 24 hr 07/07/19 21:08: Specimen Source Right radial, O2 % 50, ABG pH 7.31 L, ABG pCO2 58.5 H, ABG pO2 95.2, ABG HCO3 28.5 H, ABG Total CO2 30.3 H, ABG O2 Saturation 96, ABG Base Excess 2.2, Kavin Test Acceptable, Vent Rate 18, Tidal Volume Bipap 16/7 07/07/19 21:15: NT-Pro-B Natriuret Pep 4970 H 07/07/19 21:15: Sodium 139, Potassium 4.3, Chloride 101, Carbon Dioxide 30, Anion Gap 12.3, BUN 12, Creatinine 0.70, Estimated Creat Clear 103, Estimated GFR 85, Est GFR ( Amer) 102, Glucose 121 H, Calcium 9.4, Total Bilirubin 1.9 H, AST 69 H, ALT 31, Alkaline Phosphatase 103, Troponin I 0.09 H, Total Protein 6.9, Albumin 3.4 L, Globulin 3.5 H, Albumin/Globulin Ratio 1.0 L 07/07/19 21:15: Lactate 2.0 07/07/19 21:15: WBC 7.7, RBC 4.50, Hgb 13.2, Hct 41.3, MCV 91.6, MCH 29.3, MCHC 32.0, RDW 18.0 H, Plt Count 31 L*, MPV 13.7 H, Neut % (Auto) 74.3, Lymph % (Auto) 11.3, [place] % (Auto) 13.8 H, Eos % (Auto) 0.1, Baso % (Auto) 0.5, Neut # (Auto) 5.7, Lymph # (Auto) 0.9, [place] # (Auto) 1.1 H, Eos # (Auto) 0.0, Baso # (Auto) 0.0 07/07/19 21:20: Influenza Type A Ag Negative, Influenza Type B Ag Negative 07/08/19 00:31: Troponin I 0.26 H 07/08/19 02:30: Urine Color Yellow, Urine Appearance Clear, Urine pH 5.5, Ur Specific [place] >= 1.030, Urine Protein Trace, Urine Glucose (UA) Negative, Urine Ketones Negative, Urine Blood Trace-l, Urine Nitrate Negative, Urine Bilirubin Negative, Urine Urobilinogen 1.0, Ur Leukocyte Esterase Negative, Urine RBC 3-5, Urine WBC 3-5, Ur Squamous Epith Cells Occasional, Amorphous Sediment 1+, Urine Bacteria 1+ 07/08/19 03:35: Troponin I 0.24 H 07/08/19 05:24: POC Glucose 135 H I & O for Last 24 hours: Intake & Output 07/05/19 07/06/19 07/07/19 07/08/19 23:59 23:59 23:59 23:59 Intake Total 360 / 360 Output Total 1200 / 1200 Balance -840 / -840 Weight 250 lb 222 lb 7 oz Narrative: Her EKG is sinus rhythm with a rate of 91 and diffuse wave abnormalities. - Constitutional no acute distress, average body habitus - *Routine HEENT Exam Head: Present: normocephalic, atraumatic Eye: Present: EOMI, PERRL ENT: Present: mucous membranes moist - *Routine Neck Exam Present: supple, full ROM. Absent: lymphadenopathy Comments: Unable to assess for JVD and her carotids due to coughing - *Routine Respiratory Exam Present: rales, wheezes (Expiratory and inspiratory), crackles, diminished air movement - *Routine Cardiovascular Exam Present: RRR, Normal S1, Normal S2. Absent: murmur - *Routine Abdominal Exam Present: soft, normoactive bowel sounds. Absent: tenderness, distended - *Routine Extremities Exam Present: edema (1-2+ bilateral lower extremity edema), full ROM, pulses intact, normal capillary refill. Absent: cyanosis, clubbing - *Routine Skin Exam Present: intact, warm. Absent: erythema, rash - *Routine Neurological Exam Present: alert, oriented X3, CN II-XII intact. Absent: sensory deficit, motor deficit - Routine Psychiatric Exam Present: normal affect, normal thought process Assessment and Plan (1) Non-STEMI (non-ST elevated myocardial infarction) Current visit: Yes Status: Acute Category: Medical Code(s): I21.4 - Non-ST elevation (NSTEMI) myocardial infarction (2) CHF (congestive heart failure) Current visit: Yes Status: Acute Category: Medical Code(s): I50.9 - Heart failure, unspecified (3) Pneumonia Current visit: No Status: Acute Category: Medical Code(s): J18.9 - Pneumonia, unspecified organism (4) Elevated troponin Current visit: Yes Status: Acute Category: Medical Code(s): R79.89 - Other specified abnormal findings of blood chemistry (5) Elevated brain natriuretic peptide (BNP) level Current visit: Yes Status: Acute Category: Medical Code(s): R79.89 - Other specified abnormal findings of blood chemistry (6) Hypercapnemia Current visit: Yes Status: Acute Category: Medical Code(s): R06.89 - Other abnormalities of breathing (7) Shortness of breath Current visit: Yes Status: Acute Category: Medical Code(s): R06.02 - Shortness of breath (8) Cirrhosis of liver Current visit: Yes Status: Chronic Category: Medical Code(s): K74.60 - Unspecified cirrhosis of liver (9) Fibromyalgia Current visit: Yes Status: Chronic Category: Medical Code(s): M79.7 - Fibromyalgia (10) Asthma Current visit: Yes Status: Chronic Category: Medical Code(s): J45.909 - Unspecified asthma, uncomplicated (11) COPD (chronic obstructive pulmonary disease) Current visit: No Status: Chronic Category: Medical Code(s): J44.9 - Chronic obstructive pulmonary disease, unspecified (12) Hypertension Current visit: No Status: Chronic Category: Medical Code(s): I10 - Essential (primary) hypertension (13) Thrombocytopenia Current visit: No Status: Chronic Category: Medical Code(s): D69.6 - Thrombocytopenia, unspecified - Assessment and plan all Dx Assessment and Plan for all problems:: Plan: 1. The patient was admitted to the hospital with shortness of breath and a cough. The patient has been diagnosed with left lower lobe pneumonia and has been started on antibiotics, steroids and duo nebs. Will defer treatment of this to her primary care provider. 2. The patient also has a elevated troponin consistent with a non-ST elevation myocardial infarction. The patient is having shortness of breath which is most likely atypical angina. Given her elevated troponin and current symptoms consistent with congestive heart failure, we will plan to proceed with left cardiac catheterization today to evaluate for coronary artery disease. 3. The patient does have a BNP over 4000, she is short of breath and has bilateral lower extremity edema. She is unable to lie flat. She has generaliz ed edema all over. This is consistent with congestive heart failure and likely pulmonary hypertension. We will plan to proceed with right cardiac catheterization at the time of her left cardiac catheterization to evaluate her intracardial pressures. 4. The patient has been educated on the risks and benefits of proceeding with right and left cardiac catheterization. The patient verbalizes understanding an is agreeable in proceeding with the procedures. 5. Her blood pressure is well controlled. 6. LDL goal is less than 100. 7. The patient is diabetic. She will need aggressive control of her diabetes. Will defer this to her primary care provider. 8. Echocardiogram to evaluate her LV function. 9. We will give her a one-time dose of Lasix 40 mg IV so she is able to lie flat during the right and left cardiac catheterization today. 10. We will get a lipid panel. 11. Further recommendations will be made pending the patient's response to treatment and the results of her right and left cardiac catheterization and echocardiogram today. Thank you for the opportunity to help participate in the care of this patient.
[2019-07-08 10:55] LABS: Chol/HDL Ratio 5.2 (1-3.5)
[2019-07-08 11:10] LABS: Coronavirus 229E Not Detected (NotDetected); Coronavirus NL63 Not Detected (NotDetected); Coronavirus OC43 Not Detected (NotDetected); Coronovirus HKU1,PCR Not Detected (NotDetected)
[2019-07-09 07:46] LABS: Anion Gap 9.8 mEq/L (5-15)
[2019-07-09 08:04] LABS: Basophils % 0.1 % (0.1-2.0); Hematocrit 37.1 % (37.0-47.0); Hemoglobin 11.6 g/dL (12.2-16.2); Lymphocytes # 0.4 K/mm3 (0.7-4.5); Lymphocytes % 12.1 % (10-50); Mean Corpuscular HGB Conc 31.2 g/dL (31.8-35.4); Mean Corpuscular Volume 92.2 fl (81-99); Mean Platelet Volume 12.1 fl (7.4-10.4); Monocytes # 0.2 K/mm3 (0.1-1.0); Neutrophils # 2.7 K/mm3 (1.8-7.8); Neutrophils % 80.8 % (37.0-80.0); Red Blood Count 4.03 M/mm3 (4.20-5.40); Red Cell Distribution Width 17.8 % (11.5-17.5); White Blood Count 3.4 K/mm3 (4.8-10.8)
[2019-07-09 08:10] LABS: Platelet Count 27 K/mm3 (142-424)
--- NOTE | 2019-07-09 09:06 | Progress Note ---
<Kayce Steven - Last Filed: 07/09/19 09:04> Internal Medicine - PN: Subj *Date: 07/09/19 *Time: 09:04 Interval history: Patient states she still feels bad this morning. She has a congested cough and shortness of breath along with wheezing. She did test positive for flu yesterday and was started on Tamiflu. Her heart cath was canceled due to her thrombocytopenia. Cardiology does recommend a stress test on an outpatient basis when she is feeling better. Exam Vital signs and Labs for Last 24 Hours: Temp Pulse Resp BP Pulse Ox 98.3 F 63 18 113/58 L 94 L 07/09/19 08:00 07/09/19 08:00 07/09/19 08:00 07/09/19 08:00 07/09/19 08:00 Laboratory Results - last 24 hr 07/08/19 00:37: Triglycerides 156 H, Cholesterol 150, LDL Cholesterol Direct 68.92 L, VLDL Cholesterol 31, HDL Cholesterol 29 L, Cholesterol/HDL Ratio 5.2 H 07/08/19 11:05: Chlamy pneumoniae PCR Not detected, Adenovirus (PCR) Not det ected, B. pertussis DNA (PCR) Not detected, Coronavirus OC43 (PCR) Not detected, Coronavirus HKU1 (PCR) Not detected, Coronavirus 229E (PCR) Not detected, Coronavirus NL63 (PCR) Not detected, Human Metapneumovir PCR Not detected, Influenza A (H1) PCR Not detected, Influ A (H1N1/09) PCR Detected A, Influenza A (H3) PCR Not detected, Influenza Type A (PCR) Not detected, Influenza Type B (PCR) Not detected, M. pneumoniae (PCR) Not detected, Parainfluenza 1 (PCR) Not detected, Parainfluenza 2 (PCR) Not detected, Parainfluenza 3 (PCR) Not detected, Parainfluenza 4 (PCR) Not detected, RSV (PCR) Not detected, Entero/Rhino (PCR) Not detected 07/08/19 11:50: POC Glucose 164 H 07/08/19 17:00: POC Glucose 189 H 07/08/19 22:15: POC Glucose 225 H 07/09/19 05:28: POC Glucose 123 H 07/09/19 07:02: WBC 3.4 L D, RBC 4.03 L, Hgb 11.6 L, Hct 37.1, MCV 92.2, MCH 28.8, MCHC 31.2 L, RDW 17.8 H, Plt Count 27 L*, MPV 12.1 H, Neut % (Auto) 80.8 H , Lymph % (Auto) 12.1, [place] % (Auto) 7.0, Eos % (Auto) 0.0 L, Baso % (Auto) 0.1, Neut # (Auto) 2.7, Lymph # (Auto) 0.4 L, [place] # (Auto) 0.2, Eos # (Auto) 0.0, Baso # (Auto) 0.0 07/09/19 07:02: Sodium 141, Potassium 3.8, Chloride 98, Carbon Dioxide 37 H D, Anion Gap 9.8, BUN 22 H D, Creatinine 0.50 L D, Estimated Creat Clear 93, Estimated GFR 125, Est GFR ( Amer) 151 D, Glucose 156 H, Calcium 9.0 I & O for Last 24 hours: Intake & Output 07/06/19 07/07/19 07/08/19 07/09/19 11:59 11:59 11:59 11:59 Intake Total 360 / 360 480 / 480 Output Total 1200 / 1200 1800 / 1800 Balance -840 / -840 -1320 / -1320 Weight 222 lb 7 oz 226 lb 6 oz - Constitutional no acute distress - *Routine Respiratory Exam Present: rhonchi, wheezes - *Routine Cardiovascular Exam Present: RRR - *Routine Abdominal Exam Present: soft, normoactive bowel sounds, tenderness (diffuse) - *Routine Extremities Exam Present: edema (1+ bilateral LE's). Absent: cyanosis, clubbing - *Routine Skin Exam Present: warm. Absent: rash - *Routine Neurological Exam Present: alert, oriented X3 Assessment and Plan (1) Non-STEMI (non-ST elevated myocardial infarction) Current visit: Yes Status: Acute Category: Medical Code(s): I21.4 - Non-ST elevation (NSTEMI) myocardial infarction (2) CHF (congestive heart failure) Current visit: Yes Status: Acute Category: Medical Code(s): I50.9 - Heart failure, unspecified (3) Pneumonia Current visit: No Status: Acute Category: Medical Code(s): J18.9 - Pneumonia, unspecified organism (4) Elevated troponin Current visit: Yes Status: Acute Category: Medical Code(s): R79.89 - Other specified abnormal findings of blood chemistry (5) Elevated brain natriuretic peptide (BNP) level Current visit: Yes Status: Acute Category: Medical Code(s): R79.89 - Other specified abnormal findings of blood chemistry (6) Hypercapnemia Current visit: Yes Status: Acute Category: Medical Code(s): R06.89 - Other abnormalities of breathing (7) Shortness of breath Current visit: Yes Status: Acute Category: Medical Code(s): R06.02 - Shortness of breath (8) Cirrhosis of liver Current visit: Yes Status: Chronic Category: Medical Code(s): K74.60 - Unspecified cirrhosis of liver (9) Fibromyalgia Current visit: Yes Status: Chronic Category: Medical Code(s): M79.7 - Fi bromyalgia (10) Asthma Current visit: Yes Status: Chronic Category: Medical Code(s): J45.909 - Unspecified asthma, uncomplicated (11) COPD (chronic obstructive pulmonary disease) Current visit: No Status: Chronic Category: Medical Code(s): J44.9 - Chronic obstructive pulmonary disease, unspecified (12) Hypertension Current visit: No Status: Chronic Category: Medical Code(s): I10 - Essential (primary) hypertension (13) Thrombocytopenia Current visit: No Status: Chronic Category: Medical Code(s): D69.6 - Thrombocytopenia, unspecified (14) Influenza A Current visit: Yes Status: Acute Category: Medical Code(s): J10.1 - Influenza due to other identified influenza virus with other respiratory manifestations - Assessment and plan all Dx Assessment and Plan for all problems:: We will continue to treat patient for flu and pneumonia. She will need a stress test on an outpatient basis. <Say Sebastian - Last Filed: 07/09/19 13:51> Internal Medicine - PN: Subj *Date: 07/09/19 *Time: 13:48 Exam Vital signs and Labs for Last 24 Hours: Temp Pulse Resp BP Pulse Ox 98.4 F 57 L 22 133/58 L 95 07/09/19 11:54 07/09/19 11:54 07/09/19 11:54 07/09/19 11:54 07/09/19 11:54 Laboratory Results - last 24 hr 07/08/19 17:00: POC Glucose 189 H 07/08/19 22:15: POC Glucose 225 H 07/09/19 05:28: POC Glucose 123 H 07/09/19 07:02: WBC 3.4 L D, RBC 4.03 L, Hgb 11.6 L, Hct 37.1, MCV 92.2, MCH 28.8, MCHC 31.2 L, RDW 17.8 H, Plt Count 27 L*, MPV 12.1 H, Neut % (Auto) 80.8 H , Lymph % (Auto) 12.1, [place] % (Auto) 7.0, Eos % (Auto) 0.0 L, Baso % (Auto) 0.1, Neut # (Auto) 2.7, Lymph # (Auto) 0.4 L, [place] # (Auto) 0.2, Eos # (Auto) 0.0, Baso # (Auto) 0.0 07/09/19 07:02: Sodium 141, Potassium 3.8, Chloride 98, Carbon Dioxide 37 H D, Anion Gap 9.8, BUN 22 H D, Creatinine 0.50 L D, Estimated Creat Clear 93, Estimated GFR 125, Est GFR ( Amer) 151 D, Glucose 156 H, Calcium 9.0 07/09/19 10:58: POC Glucose 149 H I & O for Last 24 hours: Intake & Output 07/07/19 07/08/19 07/09/19 07/10/19 11:59 11:59 11:59 11:59 Intake Total 360 / 360 480 / 480 Output Total 1200 / 1200 1800 / 1800 Balance -840 / -840 -1320 / -1320 Weight 222 lb 7 oz 226 lb 6 oz Assessment and Plan (1) Non-STEMI (non-ST elevated myocardial infarction) Current visit: Yes Status: Acute Category: Medical Code(s): I21.4 - Non-ST elevation (NSTEMI) myocardial infarction (2) CHF (congestive heart failure) Current visit: Yes Status: Acute Category: Medical Code(s): I50.9 - Heart failure, unspecified (3) Pneumonia Current visit: No Status: Acute Category: Medical Code(s): J18.9 - Pneumonia, unspecified organism (4) Elevated troponin Current visit: Yes Status: Acute Category: Medical Code(s): R79.89 - Other specified abnormal findings of blood chemistry (5) Elevated brain natriuretic peptide (BNP) level Current visit: Yes Status: Acute Category: Medical Code(s): R79.89 - Other specified abnormal findings of blood chemistry (6) Hypercapnemia Current visit: Yes Status: Acute Category: Medical Code(s): R06.89 - Other abnormalities of breathing (7) Shortness of breath Current visit: Yes Status: Acute Category: Medical Code(s): R06.02 - Shortness of breath (8) Cirrhosis of liver Current visit: Yes Status: Chronic Category: Medical Code(s): K74.60 - Unspecified cirrhosis of liver (9) Fibromyalgia Current visit: Yes Status: Chronic Category: Medical Code(s): M79.7 - Fibromyalgia (10) Asthma Current visit: Yes Status: Chronic Category: Medical Code(s): J45.909 - Unspecified asthma, uncomplicated (11) COPD (chronic obstructive pulmonary disease) Current visit: No Status: Chronic Category: Medical Code(s): J44.9 - Chronic obstructive pulmonary disease, unspecified (12) Hypertension Current visit: No Status: Chronic Category: Medical Code(s): I10 - Essential (primary) hypertension (13) Thrombocytopenia Current visit: No Status: Chronic Category: Medical Code(s): D69.6 - Thrombocytopenia, unspecified (14) Influenza A Current visit: Yes Status: Acute Category: Medical Code(s): J10.1 - Influenza due to other identified influenza virus with other respiratory manifestations - Assessment and plan all Dx Assessment and Plan for all problems:: Patient seen and examined this morning. She is more alert and oriented but still feels miserable. Still dyspneic with exertion. O2 sats are stable when she is wearing her oxygen. She has been started on Tamiflu for the positive flu test. Cardiology consult noted plan to defer invasive procedures until she is feeling better. Plan to proceed with abdominal ultrasound as recommended by her outpatient GI consultation.
[2019-07-10 06:55] LABS: Basophils % 0.2 % (0.1-2.0); Hematocrit 36.6 % (37.0-47.0); Hemoglobin 11.7 g/dL (12.2-16.2); Lymphocytes # 0.5 K/mm3 (0.7-4.5); Lymphocytes % 11.3 % (10-50); Mean Platelet Volume 10.7 fl (7.4-10.4); Monocytes # 0.4 K/mm3 (0.1-1.0); Monocytes % 8.2 % (1.7-9.3); Neutrophils # 3.5 K/mm3 (1.8-7.8); Neutrophils % 80.3 % (37.0-80.0); Red Blood Count 4.07 M/mm3 (4.20-5.40); Red Cell Distribution Width 17.6 % (11.5-17.5); White Blood Count 4.4 K/mm3 (4.8-10.8)
[2019-07-10 06:58] LABS: Anion Gap 10.7 mEq/L (5-15); Platelet Count 47 K/mm3 (142-424)
--- NOTE | 2019-07-10 08:51 | Electrocardiograph Report ---
APPROVED REPORT Exam: Resting ECG HR:91 bpm ECG Measurements Heart Rate 91 AXES VA 136 P 45 QRSd 82 QRS 58 QT 356 T-57 QTc 437 <Conclusion> Normal sinus rhythm Nonspecific ST abnormality Abnormal QRS-T angle, consider primary T wave abnormality Abnormal ECG Electronically signed by : Balta Costello, 07/10/2019 08:51:09
--- NOTE | 2019-07-10 12:33 | Progress Note ---
Internal Medicine - PN: Subj *Date: 07/10/19 *Time: 08:35 Interval history: States she feels better this morning. She rested better last night. Still has some cough which is mostly nonproductive. She is less short of breath. She is tolerating her diet. Exam Vital signs and Labs for Last 24 Hours: Temp Pulse Resp BP Pulse Ox 98.7 F 63 22 132/78 93 L 07/10/19 08:00 07/10/19 08:00 07/10/19 08:00 07/10/19 08:00 07/10/19 08:00 Laboratory Results - last 24 hr 07/09/19 15:57: POC Glucose 141 H 07/09/19 20:17: POC Glucose 164 H 07/10/19 05:24: POC Glucose 151 H 07/10/19 06:30: WBC 4.4 L D, RBC 4.07 L, Hgb 11.7 L, Hct 36.6 L, MCV 90.0, MCH 28.8, MCHC 32.0, RDW 17.6 H, Plt Count 47 L* D, MPV 10.7 H, Neut % (Auto) 80.3 H , Lymph % (Auto) 11.3, [place] % (Auto) 8.2, Eos % (Auto) 0.0 L, Baso % (Auto) 0.2, Neut # (Auto) 3.5, Lymph # (Auto) 0.5 L, [place] # (Auto) 0.4, Eos # (Auto) 0.0, Baso # (Auto) 0.0 07/10/19 06:30: Sodium 141, Potassium 3.7, Chloride 96 L, Carbon Dioxide 38 H, Anion Gap 10.7, BUN 28 H D, Creatinine 0.60, Estimated Creat Clear 93, Estimated GFR 101, Est GFR ( Amer) 122, Glucose 138 H, Calcium 9.0 07/10/19 11:34: POC Glucose 142 H I & O for Last 24 hours: Intake & Output 07/08/19 07/09/19 07/10/19 07/11/19 11:59 11:59 11:59 11:59 Intake Total 360 / 360 630 / 630 510 / 510 Output Total 1200 / 1200 1800 / 1800 375 / 375 Balance -840 / -840 -1170 / -1170 135 / 135 Weight 222 lb 7 oz 226 lb 6 oz 226 lb 5.93 oz Microbiology Reports for the Last 24 Hours: Microbiology 07/07/19 21:15 Blood Blood Culture - Preliminary NO GROWTH AFTER 48 HOURS 07/07/19 21:15 Blood Blood Culture - Preliminary NO GROWTH AFTER 48 HOURS Narrative: She is lying comfortably in bed wearing supplemental oxygen. She is alert and oriented. Color is normal. Chest reveals coarse breath sounds but no rales or wheezes. Heart tones are distant but regular. Abdomen is obese and slightly distended but soft with minimal diffuse tenderness. No rebound or guarding. Remedies show no edema. Assessment and Plan (1) Non-STEMI (non-ST elevated myocardial infarction) Current visit: Yes Status: Acute Category: Medical Code(s): I21.4 - Non-ST elevation (NSTEMI) myocardial infarction (2) CHF (congestive heart failure) Current visit: Yes Status: Acute Category: Medical Code(s): I50.9 - Heart failure, unspecified (3) Pneumonia Current visit: No Status: Acute Category: Medical Code(s): J18.9 - Pneumonia, unspecified organism (4) Elevated troponin Current visit: Yes Status: Acute Category: Medical Code(s): R79.89 - Other specified abnormal findings of blood chemistry (5) Elevated brain natriuretic peptide (BNP) level Current visit: Yes Status: Acute Category: Medical Code(s): R79.89 - Other specified abnormal findings of blood chemistry (6) Hypercapnemia Current visit: Yes Status: Acute Category: Medical Code(s): R06.89 - Other abnormalities of breathing (7) Shortness of breath Current visit: Yes Status: Acute Category: Medical Code(s): R06.02 - Shortness of breath (8) Cirrhosis of liver Current visit: Yes Status: Chronic Category: Medical Code(s): K74.60 - Unspecified cirrhosis of liver (9) Fibromyalgia Current visit: Yes Status: Chronic Category: Medical Code(s): M79.7 - Fibromyalgia (10) Asthma Current visit: Yes Status: Chronic Category: Medical Code(s): J45.909 - Unspecified asthma, uncomplicated (11) COPD (chronic obstructive pulmonary disease) Current visit: No Status: Chronic Category: Medical Code(s): J44.9 - C hronic obstructive pulmonary disease, unspecified (12) Hypertension Current visit: No Status: Chronic Category: Medical Code(s): I10 - Essential (primary) hypertension (13) Thrombocytopenia Current visit: No Status: Chronic Category: Medical Code(s): D69.6 - Thrombocytopenia, unspecified (14) Influenza A Current visit: Yes Status: Acute Category: Medical Code(s): J10.1 - Influenza due to other identified influenza virus with other respiratory manifestations - Assessment and plan all Dx Assessment and Plan for all problems:: Continue current treatment. Repeat chest x-ray today. Discontinue Damon catheter. PT eval for strength and balance.
--- NOTE | 2019-07-11 09:23 | Progress Note ---
Internal Medicine - PN: Subj *Date: 07/11/19 *Time: 09:23 Interval history: Better the day yesterday but did not sleep as well last night. Her cough is much better and she is less short of breath. Chest x-ray yesterday showed improvement. Exam Vital signs and Labs for Last 24 Hours: Temp Pulse Resp BP Pulse Ox 98.1 F 87 18 158/72 H 97 07/11/19 08:00 07/11/19 08:00 07/11/19 08:00 07/11/19 08:00 07/11/19 08:00 Laboratory Results - last 24 hr 07/10/19 11:34: POC Glucose 142 H 07/10/19 17:06: POC Glucose 194 H 07/10/19 20:28: POC Glucose 141 H 07/10/19 21:08: POC Glucose 150 H 07/11/19 06:00: POC Glucose 140 H I & O for Last 24 hours: Intake & Output 07/08/19 07/09/19 07/10/19 07/11/19 11:59 11:59 11:59 11:59 Intake Total 360 / 360 630 / 630 660 / 660 1690 / 1690 Output Total 1200 / 1200 1800 / 1800 375 / 375 Balance -840 / -840 -1170 / -1170 285 / 285 1689 / 1689 Weight 222 lb 7 oz 226 lb 6 oz 226 lb 5.93 oz 219 lb 4 oz Narrative: She is sitting up in bed and is conversant and oriented. In no respiratory distress. She is wearing her supplemental oxygen. Color is good. Chest re veals coarse breath sounds which are generally diminished. No rales or wheezes. Extremities show no edema. Abdomen is soft and mildly distended with no tenderness. Assessment and Plan (1) Non-STEMI (non-ST elevated myocardial infarction) Current visit: Yes Status: Acute Category: Medical Code(s): I21.4 - Non-ST elevation (NSTEMI) myocardial infarction (2) CHF (congestive heart failure) Current visit: Yes Status: Acute Category: Medical Code(s): I50.9 - Heart failure, unspecified (3) Pneumonia Current visit: No Status: Acute Category: Medical Code(s): J18.9 - Pneumonia, unspecified organism (4) Elevated troponin Current visit: Yes Status: Acute Category: Medical Code(s): R79.89 - Other specified abnormal findings of blood chemistry (5) Elevated brain natriuretic peptide (BNP) level Current visit: Yes Status: Acute Category: Medical Code(s): R79.89 - Other specified abnormal findings of blood chemistry (6) Hypercapnemia Current visit: Yes Status: Acute Category: Medical Code(s): R06.89 - Other abnormalities of breathing (7) Shortness of breath Current visit: Yes Status: Acute Category: Medical Code(s): R06.02 - Shortness of breath (8) Cirrhosis of liver Current visit: Yes Status: Chronic Category: Medical Code(s): K74.60 - Unspecified cirrhosis of liver (9) Fibromyalgia Current visit: Yes Status: Chronic Category: Medical Code(s): M79.7 - Fibromyalgia (10) Asthma Current visit: Yes Status: Chronic Category: Medical Code(s): J45.909 - Unspecified asthma, uncomplicated (11) COPD (chronic obstructive pulmonary disease) Current visit: No Status: Chronic Category: Medical Code(s): J44.9 - Chronic obstructive pulmonary disease, unspecified (12) Hypertension Current visit: No Status: Chronic Category: Medical Code(s): I10 - Essential (primary) hypertension (13) Thrombocytopenia Current visit: No Status: Chronic Category: Medical Code(s): D69.6 - Thrombocytopenia, unspecified (14) Influenza A Current visit: Yes Status: Acute Category: Medical Code(s): J10.1 - Influenza due to other identified influenza virus with other respiratory manife stations - Assessment and plan all Dx Assessment and Plan for all problems:: Chest x-ray is improved and she clinically looks and feels much better. She is stable for discharge home. She will finish her course of Tamiflu and Levaquin. We will plan to arrange cardiology follow-up after her acute illness resolves.
--- NOTE | 2019-07-13 13:02 | Discharge Summary ---
General - General Admission date:: 07/08/19 <Say Sebastian - 07/18/19 11:51> 07/08/19 <Kayce Steven - 07/13/19 13:03> Discharge date: 07/11/19 <Kayce Steven - 07/13/19 13:03> HPI HPI: Ms. Aguilera is a 64-year-old female with history of hypertension, neuropathy, fibromyalgia, collagen disease, asthma and COPD, migraines, thrombocytopenia, neutropenia, and cirrhosis with fatty liver. The patient states that she began having a cough around 3 to 4 weeks ago. 2 days ago she developed a fever and body aches along with extreme shortness of breath. She did have home oxygen but hadn't been using it until 2 days ago when her shortness of breath worsened. She states oxygen did not help and she was unable to breathe, therefore she presented to the emergency room for further evaluation and treatment. She was found to have cardiomegaly and chronic changes in the lungs and was admitted. <Kayce Steven - 07/13/19 13:03> Hospital Course Hospital Course: The patient was started on antibiotics, duo nebs, and steroids. Her troponins were elevated and her BNP was elevated as well. An echo and cardiology consult were ordered. A PCR respiratory panel was ordered. Her cirrhosis was an ongoing comorbidity and her last paracentesis was in April with removal of 4500 mL of fluid. It was felt she might require repeat paracentesis if dyspnea did not improve with treatment of her pneumonia and heart failure. Cardiology saw the patient and due to patient's low platelet count, they were unable to do a heart catheterization. They felt she would need further cardiac testing on an outpatient basis. She was given a dose of Lasix for the swelling and CHF. She had an abdominal ultrasound as well showing cirrhosis and suspected portal hypertension. There was a small amount of perihepatic fluid. The patient's PCR respiratory panel came back positive for influenza A. She was therefore started on Tamiflu. She began feeling slightly better, but continued with a cough and shortness of breath. She was finally able to rest a little bit better and was able to tolerate a diet. Her blood cul ture showed no growth. A repeat chest x-ray was ordered and PT was consulted. Her repeat chest x-ray showed almost completely resolved bibasilar pneumonic infiltrates. Physical therapy felt the patient was appropriate to return home once medically stable. By 07/11/19 her cough was much better and she was less short of breath. She was wearing supplemental oxygen with satisfactory oxygen saturations. She was stable to be discharged home and will finish her course of Tamiflu and Levaquin at home. A cardiology follow-up will be arranged once her acute illness resolves. <Kayce Steven - 07/13/19 13:03> Objective Vital signs: Temp Pulse Resp BP Pulse Ox 98.1 F 87 18 158/72 H 96 07/11/19 08:00 07/11/19 08:00 07/11/19 08:00 07/11/19 08:00 07/11/19 08:00 <JazSay Sebas - 07/18/19 11:51> Temp Pulse Resp BP Pulse Ox 98.1 F 87 18 158/72 H 96 07/11/19 08:00 07/11/19 08:00 07/11/19 08:00 07/11/19 08:00 07/11/19 08:00 <Kayce Steven - 07/13/19 13:03> Narrative: She is sitting up in bed and is conversant and oriented. In no respiratory distress. She is wearing her supplemental oxygen. Color is good. Chest reveals coarse breath sounds which are generally diminished. No rales or wheezes. Extremities show no edema. Abdomen is soft and mildly distended with no tenderness. <Kayce Steven - 07/13/19 13:03> DS: Diagnosis - Discharge Diagnosis (1) Non-STEMI (non-ST elevated myocardial infarction) Status: Acute (2) CHF (congestive heart failure) Status: Acute (3) Pneumonia Status: Acute (4) Elevated troponin Status: Acute (5) Elevated brain natriuretic peptide (BNP) level Status: Acute (6) Hypercapnemia Status: Acute (7) Shortness of breath Status: Acute (8) Cirrhosis of liver Status: Chronic (9) Fibromyalgia Status: Chronic (10) Asthma Status: Chronic (11) COPD (chronic obstructive pulmonary disease) Status: Chronic (12) Hypertension Status: Chronic (13) Thrombocytopenia Status: Chronic (14) Influenza A Status: Acute <Kayce Steven - 07/13/19 12:56> (1) Non-STEMI (non-ST elevated myocardial infarction) Status: Acute (2) CHF (congestive heart failure) Status: Acute (3) Pneumonia Status: Acute (4) Elevated troponin Status: Acute (5) Elevated brain natriuretic peptide (BNP) level Status: Acute (6) Hypercapnemia Status: Acute (7) Shortness of breath Status: Acute (8) Cirrhosis of liver Status: Chronic (9) Fibromyalgia Status: Chronic (10) Asthma Status: Chronic (11) COPD (chronic obstructive pulmonary disease) Status: Chronic (12) Hypertension Status: Chronic (13) Thrombocytopenia Status: Chronic (14) Influenza A Status: Acute <Say Sebastian - 07/18/19 11:51> Discharge Plan - Patient Discharge Instructions ACTIVITY: Continue current activity <Kayce Steven - 07/13/19 13:03> DIET: continue same diet <Kayce Steven - 07/13/19 13:03> Patient Instructions: Pneumonia-Adult, DI for Pneumonia -- Adult, DI for Influenza -- Adult <Say Sebastian - 07/18/19 11:51> Forms: <Say Sebastian - 07/18/19 11:51> - Follow up Plan Follow up with: Say Sebastian MD [Primary Care Provider] - 07/20/19 3:45 pm <Say Sebastian - 07/18/19 11:51> Disposition: Home, Self-Care <Say Sebastian - 07/18/19 11:51> Home Medications: Home Medications Medication Instructions Recorded Confirmed Type Metformin HCl [Glucophage 500mg 500 mg PO BID 05/08/17 07/08/19 History Tablet] Amiloride HCl [Midamor 5mg tablet] 5 mg PO DAILY 07/29/18 07/08/19 History Losartan Potassium 100 mg PO DAILY 08/02/18 07/08/19 History nadoloL [Corgard 20mg tablet] 10 mg PO DAILY 08/02/18 07/08/19 History Cholecalciferol (Vitamin D3) 5,000 unit PO DAILY 08/25/18 07/08/19 History [Vitamin D3] Pantoprazole Sodium [Protonix 40mg 40 mg PO DAILY 08/25/18 07/08/19 History tablet] budesonide-formoterol HFA 160 2 puff INHALATION BID 12/05/18 07/08/19 History mcg-4.5 mcg/actuation aerosol inhaler duloxetine 60 mg capsule,delayed 60 mg PO BID 12/05/18 07/08/19 History release furosemide 40 mg tablet 40 mg PO DAILY 12/05/18 07/08/19 History pregabalin 225 mg capsule 225 mg PO BID 12/05/18 07/08/19 History quetiapine 300 mg tablet 150 mg PO HS 12/05/18 07/08/19 History sitagliptin 100 mg tablet 100 mg PO DAILY 12/05/18 07/08/19 History trazodone 50 mg tablet 50 mg PO HS 12/05/18 07/08/19 History Albuterol Sulfate [Albuterol HFA 2 inh INHALATION QIDP PRN 05/19/19 07/08/19 History Inhaler] Insulin Aspart [Novolog] 6 units SQ AC 05/19/19 07/08/19 History Insulin Degludec [Tresiba 20 units SQ HS 05/19/19 07/08/19 History Flextouch U-100] Rifaximin [Xifaxan] 550 mg PO BID 05/19/19 07/08/19 History Spironolactone 100 mg PO DAILY 05/19/19 07/08/19 History Donepezil HCl [Aricept 10mg 10 mg PO HS 07/08/19 07/08/19 History tablet] Montelukast Sodium 10 mg PO HS 07/08/19 07/08/19 History buPROPion HCL [Bupropion Xl] 150 mg PO DAILY 07/08/19 07/08/19 History Oseltamivir Phosphate [Tamiflu 75 mg PO BID #6 cap 07/11/19 Rx 75mg Capsule] levoFLOXacin [Levaquin 500mg 500 mg PO DAILY #7 tab 07/11/19 Rx tab] <Say Sebastian - 07/18/19 11:51> Prescriptions/Medication Reconciliation: New Oseltamivir Phosphate [Tamiflu 75mg Capsule] 75 mg PO BID #6 cap levoFLOXacin [Levaquin 500mg tab] 500 mg PO DAILY #7 tab Continued furosemide 40 mg tablet 40 mg PO DAILY trazodone 50 mg tablet 50 mg PO HS duloxetine 60 mg capsule,delayed release 60 mg PO BID pregabalin 225 mg capsule 225 mg PO BID sitagliptin 100 mg tablet 100 mg PO DAILY quetiapine 300 mg tablet 150 mg PO HS budesonide-formoterol HFA 160 mcg-4.5 mcg/actuation aerosol inhaler 2 puff INHALATION BID Metformin HCl [Glucophage 500mg Tablet] 500 mg PO BID Amiloride HCl [Midamor 5mg tablet] 5 mg PO DAILY nadoloL [Corgard 20mg tablet] 10 mg PO DAILY Pantoprazole Sodium [Protonix 40mg tablet] 40 mg PO DAILY Rifaximin [Xifaxan] 550 mg PO BID Insulin Degludec [Tresiba Flextouch U-100] 20 units SQ HS Losartan Potassium 100 mg PO DAILY Cholecalciferol (Vitamin D3) [Vitamin D3] 5,000 unit PO DAILY Spironolactone 100 mg PO DAILY Insulin Aspart [Novolog] 6 units SQ AC Albuterol Sulfate [Albuterol HFA Inhaler] 2 inh INHALATION QIDP PRN PRN Reason: Shortness of Air Donepezil HCl [Aricept 10mg tablet] 10 mg PO HS Montelukast Sodium 10 mg PO HS buPROPion HCL [Bupropion Xl] 150 mg PO DAILY <Say Sebastian - 07/18/19 11:51> - Problem Reconciliation Problems Reviewed?: Yes <Say Sebastian - 07/18/19 11:51> Yes <Kayce Steven - 07/13/19 13:03> - Additional Information Additional Information: Concur with plan for discharge as outlined above. <Say Sebastian - 07/18/19 11:51>
== END 2019-07-11 10:21 | disposition home or self-care (01) | DRG 280 ==
LOC: 2ND 21:16 → ER 21:16 → OBSVTOIN 07-08 00:55 → 2ND 07-08 01:00
PROVIDERS: ADMIT Family Medicine; ATTEND Family Medicine
DX: K74.60 Unspecified cirrhosis of liver; D69.6 Thrombocytopenia, unspecified; Z72.0 Tobacco use; Z90.710 Acquired absence of both cervix and uterus; I21.4 Non-ST elevation (NSTEMI) myocardial infarction; M79.7 Fibromyalgia; J45.909 Unspecified asthma, uncomplicated; I11.0 Hypertensive heart disease with heart failure; J10.00 Influenza due to other identified influenza virus with unspecified type of pneumonia; Z79.4 Long term (current) use of insulin; Z79.51 Long term (current) use of inhaled steroids; Z90.49 Acquired absence of other specified parts of digestive tract; Z88.2 Allergy status to sulfonamides; E11.9 Type 2 diabetes mellitus without complications; Z88.8 Allergy status to other drugs, medicaments and biological substances; D64.9 Anemia, unspecified; I50.9 Heart failure, unspecified; Z79.899 Other long term (current) drug therapy; Z96.1 Presence of intraocular lens
CPT/HCPCS: 36415; 71010; 71020; 71045; 71046; 76705; 80048; 80053; 80061; 81001; 82803; 82962; 83605; 83880; 84484; 85025; 87040; 87275; 87276; 87486; 87581; 87633; 87798; 93005; 93306; 94640; 94660; 94761; 96374; 97162; 97530; 99285; J1956

== ENCOUNTER → 2019-10-22 16:35 | Outpatient (CLI) | payer MEDICARE, SELFPAY ==
--- NOTE | 2019-10-22 16:43 | MM_ITS ---
PROCEDURE: MM DIG SCREENING MAMM BI W/CAD Digital Breast Tomosynthesis Included CLINICAL INDICATION: screening There is a history of breast cancer in the patient's sister diagnosed in her 60s. COMPARISON: [facility] DIG MAMM-SCREEN [facility] from 05/13/2014 [facility] DIG MAMM-SCREEN [facility] W/CAD from 05/28/2016 [facility] MM Dig screening mamm BI w/CAD from 05/30/2017 TECHNIQUE: Standard CC and MLO images and 3D Tomosynthesis was obtained. R2 CAD reviewed. FINDINGS: Moderate diffuse scattered fibroglandular densities are seen in both breasts. Findings are bilateral and symmetrical. There is no new or suspicious lesion in either breast and no suspicious microcalcifications. IMPRESSION: Fibrofatty parenchyma with no suspicious lesions seen BI-RAD Category: 1 Negative FOLLOW-UP: 1YR 1 Year Follow-up (A letter has been sent to the patient regarding results of the study.) Dictated by: Dr. Vivek Francisco MD 10/23/2019 12:[address] Vivek Francisco MD in [place] 10/23/2019 12:30
== END ==
PROVIDERS: PCP Family Medicine; Visit Provider Family Medicine
DX: Z12.31 Encounter for screening mammogram for malignant neoplasm of breast (principal)
CPT/HCPCS: 77063; 77067

== ENCOUNTER 2019-10-26 09:06 | Day surgery (SDC) | payer MEDICARE, SELFPAY ==
[2019-10-26] VITALS (14 sets, daily range): BP systolic 79–110; BP diastolic 38–69; PULSE 60–72; RESP 16–18; TEMP 36.4–36.8; O2SAT 90–98; BMI 38.9
[2019-10-26 09:49] LABS: Basophils % 0.5 % (0.1-2.0); Eosinophils % 1.1 % (0.1-12.0); Hematocrit 30.3 % (37.0-47.0); Hemoglobin 10.1 g/dL (12.2-16.2); Lymphocytes # 0.8 K/mm3 (0.7-4.5); Lymphocytes % 34.7 % (10-50); Mean Corpuscular HGB Conc 33.2 g/dL (31.8-35.4); Mean Corpuscular Hemoglobin 29.8 pg (27.0-31.2); Mean Corpuscular Volume 89.7 fl (81-99); Monocytes # 0.2 K/mm3 (0.1-1.0); Monocytes % 6.4 % (1.7-9.3); Neutrophils # 1.3 K/mm3 (1.8-7.8); Neutrophils % 57.3 % (37.0-80.0); Red Blood Count 3.38 M/mm3 (4.20-5.40); Red Cell Distribution Width 14.8 % (11.5-17.5); White Blood Count 2.3 K/mm3 (4.8-10.8)
--- NOTE | 2019-10-26 10:00 | IR_ITS ---
APPROVED REPORT Patient Location: Outpatient [facility] Scaler: ARVIN Craig RT (R) PROCEDURES Left heart catheterization Left ventriculogram Selective coronary angiogram INDICATION Recent non-ST elevation myocardial infarction Informed consent was obtained prior to the procedure. COMPLICATIONS NONE Estimated Blood Loss: LESS THAN 10 ML TECHNIQUE One percent lidocaine used to anesthetize the right anterior aspect of the wrist. The right radial artery was accessed via the Seldinger technique. A 6 [place]alt[place] sheath was placed in the right radial artery. 2.5 mg of verapamil, 800 mcg of nitroglycerin, 1mg Lidocaine and 5000 U Heparin were given through the arterial sheath. The trap catheter was also used to perform left heart catheterization, left ventriculogram and selective coronary angiogram. At the end of the procedure the sheath was removed good hemostasis was achieved using Traclet band, patient was transferred to the postop holding area in stable condition. ANGIOGRAPHIC RESULTS The left main artery Normal The left anterior descending artery Normal The circumflex artery Dominant and normal The right coronary artery Normal The CONNER ventriculogram reveals Normal 65% The left ventricular end-diastolic pressure 10 mmHg IMPRESSION Normal coronary arteries Normal ejection fraction Normal left ventricular end-diastolic pressure PLAN 1. Medical management Electronically signed by : Syd Stafford, 10/26/2019 13:24:53
[2019-10-26 10:09] LABS: Platelet Count 37 K/mm3 (142-424)
[2019-10-26 10:59] LABS: Anion Gap 10.1 mEq/L (5-15); Blood Urea Nitrogen 13 mg/dl (7-17); Calcium 9.1 mg/dl (8.4-10.2); Carbon Dioxide 29 mmol/L (22.0-30.0); Chloride 106 mmol/L (98-107); Creatinine Clearance Estimated 90 mL/min (50-200); Estimated Glomerular Filt Rate 50 ml/min (>60); GFR (African American) 61 ML/MIN (>60); Glucose 106 mg/dl (74-100); Potassium 5.1 mmoL/L (3.5-5.1); Sodium 140 mmol/L (136-145)
[2019-10-26 11:07] LABS: NT Pro Brain Natriuretic Pep. 285 pg/mL (0-125)
== END 2019-10-26 18:00 | disposition home or self-care (01) ==
LOC: CATHLAB 09:14 → 2ND 14:49
PROVIDERS: Nurse Practitioner Family; PCP Family Medicine; Visit Provider Internal Medicine
DX: E11.69 Type 2 diabetes mellitus with other specified complication (principal); J44.9 Chronic obstructive pulmonary disease, unspecified; R06.02 Shortness of breath; R79.89 Other specified abnormal findings of blood chemistry; I25.118 Atherosclerotic heart disease of native coronary artery with other forms of angina pectoris; I11.0 Hypertensive heart disease with heart failure; I25.2 Old myocardial infarction; I50.33 Acute on chronic diastolic (congestive) heart failure; Z79.4 Long term (current) use of insulin; Z79.51 Long term (current) use of inhaled steroids; Z79.82 Long term (current) use of aspirin; Z79.899 Other long term (current) drug therapy; I27.20 Pulmonary hypertension, unspecified; Z72.0 Tobacco use
CPT/HCPCS: 36415; 80048; 83880; 85025; 93458; 99152; C1725; C1769; J1644; Q9967

== ENCOUNTER → 2019-11-16 11:21 | Outpatient (CLI) | payer MEDICARE, SELFPAY ==
[2019-11-16 12:52] LABS: Coronavirus 19 IgG Antibody Negative (Negative); Coronavirus 19 IgM Antibody Negative (Negative)
== END ==
PROVIDERS: Visit Provider Ophthalmology
DX: Z01.818 Encounter for other preprocedural examination (principal)
CPT/HCPCS: 36415; 86328

== ENCOUNTER 2019-11-17 09:18 | Day surgery (SDC) | payer MEDICARE, SELFPAY ==
[2019-11-17 10:07] VITALS: BP 100/40; PULSE 79; RESP 16; TEMP 36.2; O2SAT 95; BMI 39.9
[2019-11-17 10:15] LABS: POC Glucose,Bedside 106 (70-110)
[2019-11-17 10:50] VITALS: BP 95/40; PULSE 68; RESP 18; O2SAT 96
== END 2019-11-17 11:00 | disposition home or self-care (01) ==
LOC: OUTP 09:20
PROVIDERS: PCP Family Medicine; Visit Provider Ophthalmology
PROC: (CPT 66821; principal; 2019-11-17 09:00)
DX: H26.491 Other secondary cataract, right eye (principal); E11.9 Type 2 diabetes mellitus without complications; Z88.2 Allergy status to sulfonamides; I11.0 Hypertensive heart disease with heart failure; I50.9 Heart failure, unspecified; I27.20 Pulmonary hypertension, unspecified; E78.5 Hyperlipidemia, unspecified; K74.60 Unspecified cirrhosis of liver; J45.909 Unspecified asthma, uncomplicated; I21.4 Non-ST elevation (NSTEMI) myocardial infarction; Z79.4 Long term (current) use of insulin; Z79.899 Other long term (current) drug therapy
CPT/HCPCS: 66821; 82962

== ENCOUNTER → 2019-12-07 14:03 | Outpatient (POV) | payer MEDICARE, SELFPAY ==
[2019-12-07 16:48] LABS: Chloride 106 mmol/L (98-107); Potassium 4.5 mmoL/L (3.5-5.1); Sodium 140 mmol/L (136-145)
[2019-12-07 16:50] LABS: Alanine Aminotransferase 18 U/L (12-78); Aspartate Amino Transferase 35 U/L (14-36); Blood Urea Nitrogen 8 mg/dl (7-17); Estimated Glomerular Filt Rate 85 ml/min (>60); GFR (African American) 102 ML/MIN (>60)
[2019-12-07 16:51] LABS: Albumin Level 3.2 g/dl (3.5-5.0); Albumin/Globulin Ratio 1.1 (1.1-1.8); Alkaline Phosphatase 82 U/L (38-126); Anion Gap 9.5 mEq/L (5-15); Bilirubin,Total 1.2 mg/dl (0.2-1.3); Calcium 9.1 mg/dl (8.4-10.2); Carbon Dioxide 29 mmol/L (22.0-30.0); Glucose 70 mg/dl (74-100); Iron 33 ug/dL (37-170); Total Protein,Serum 6.2 g/dl (6.3-8.2)
[2019-12-07 16:55] LABS: Basophils % 0.3 % (0.1-2.0); Eosinophils % 0.9 % (0.1-12.0); Hemoglobin 9.1 g/dL (12.2-16.2); Lymphocytes # 0.9 K/mm3 (0.7-4.5); Mean Corpuscular HGB Conc 32.5 g/dL (31.8-35.4); Mean Corpuscular Hemoglobin 28.3 pg (27.0-31.2); Mean Corpuscular Volume 86.9 fl (81-99); Mean Platelet Volume 11.1 fl (7.4-10.4); Monocytes # 0.3 K/mm3 (0.1-1.0); Monocytes % 8.8 % (1.7-9.3); Neutrophils # 2.2 K/mm3 (1.8-7.8); Neutrophils % 63.9 % (37.0-80.0); Red Blood Count 3.23 M/mm3 (4.20-5.40); Red Cell Distribution Width 16.1 % (11.5-17.5); White Blood Count 3.5 K/mm3 (4.8-10.8)
[2019-12-07 17:02] LABS: Total Iron Binding Capacity 402 ug/dL (265-497)
[2019-12-07 17:26] LABS: Ferritin 8.98 ng/ml (11.1-264)
[2019-12-07 17:37] LABS: Platelet Count 40 K/mm3 (142-424)
[2019-12-07 19:56] LABS: Prothrombin Time 12.1 seconds (9.4-11.8)
[2019-12-07 19:57] LABS: INR 1.18 (0.9-1.1)
[2019-12-10 08:56] LABS: AFP, Tumor Marker 2.8 ng/mL (0.0-8.3)
== END ==
PROVIDERS: Visit Provider Nurse Practitioner Family
DX: R18.8 Other ascites (principal); K74.60 Unspecified cirrhosis of liver; R14.0 Abdominal distension (gaseous); K59.00 Constipation, unspecified; K72.90 Hepatic failure, unspecified without coma; D50.9 Iron deficiency anemia, unspecified; D61.818 Other pancytopenia
CPT/HCPCS: 36415; 80053; 82105; 82728; 83540; 83550; 85025; 85610

== ENCOUNTER → 2019-12-10 12:27 | Outpatient (CLI) | payer MEDICARE, SELFPAY ==
[2019-12-10 12:50] LABS: Ammonia 16 umol/L (9-30)
== END ==
PROVIDERS: Visit Provider Nurse Practitioner Family
DX: R18.8 Other ascites (principal); K74.60 Unspecified cirrhosis of liver; R14.0 Abdominal distension (gaseous); K59.00 Constipation, unspecified; K72.90 Hepatic failure, unspecified without coma
CPT/HCPCS: 36415; 82140

== ENCOUNTER → 2019-12-11 09:39 | Outpatient (CLI) | payer MEDICARE, SELFPAY ==
--- NOTE | 2019-12-11 09:47 | US_ITS ---
PROCEDURE: US ABDOMEN LIMITED CLINICAL INDICATION: ASCITES,CIRRHOSIS,BLOATING,CONSTIPATION COMPARISON: US US ABDOMEN LIMITED from 07/09/2019 FINDINGS: PANCREAS: Pancreas is not well delineated due to overlying bowel gas. CT or MRI without and with contrast with pancreatic protocol may provide further evaluation if clinically desired. LIVER: The liver is irregular in nature with coarse hypoechogenicity consistent with cirrhosis. There is some ascites noted around the liver. There is appropriate direction of blood flow within a mildly dilated portal vein. Portal vein measures 15 mm. No focal liver lesions are demonstrated. RIGHT KIDNEY: Unremarkable. Normal size and echogenicity. No hydronephrosis GALLBLADDER: Status post cholecystectomy. Common bile duct is normal at 4 mm. IMPRESSION: Cirrhotic appearing liver with perihepatic fluid/ascites. Prominent portal vein at 15 mm with appropriate direction of blood flow within the portal vein. Pancreas is not well delineated due to overlying bowel gas. CT or MRI without and with contrast with pancreatic protocol may provide further evaluation if clinically desired. Dictated b Kavin Vazquez MD 12/11/2019 11:04 Kavin Vazquez MD in [facility] 12/11/2019 11:04
== END ==
PROVIDERS: PCP Family Medicine; Visit Provider Nurse Practitioner Family
DX: R18.8 Other ascites (principal); K74.60 Unspecified cirrhosis of liver; R14.0 Abdominal distension (gaseous); K59.00 Constipation, unspecified; K72.90 Hepatic failure, unspecified without coma
CPT/HCPCS: 76705

== ENCOUNTER 2020-01-13 12:53 | Emergency (ER) | payer MEDICARE, SELFPAY ==
[2020-01-13] VITALS (7 sets, daily range): BP systolic 91–171; BP diastolic 50–72; PULSE 71–81; RESP 18–20; TEMP 36.8–37.2; O2SAT 93–100; BMI 39.9
--- NOTE | 2020-01-13 | ECG_ITS ---
APPROVED REPORT Exam: Resting ECG HR:75 bpm ECG Measurements Heart Rate 75 AXES ME 152 P 58 QRSd 82 QRS 72 QT 406 T 48 QTc 453 <Conclusion> Normal sinus rhythm Low voltage QRS Borderline ECG Electronically signed by : Balta Costello, 01/17/2020 15:07:29
--- NOTE | 2020-01-13 13:18 | XR_ITS ---
PROCEDURE: XR CHEST PORTABLE CLINICAL HISTORY: soa Shortness of air and smoker COMPARISON: CR CXR2V XR chest 2V from 08/25/2018 CR XR CHEST PORTABLE from 07/07/2019 CR XR CHEST 2V from 07/10/2019 FINDINGS: The cardiomediastinal silhouette and pulmonary vascularity are within normal limits. Patchy density is present in the left mid and lower lung zone consistent with atelectasis or infiltrate. Increased markings are present in the right infrahilar region No acute bony abnormalities. IMPRESSION: Left lower lobe atelectasis or infiltrate. Increased density right infrahilar region. This may only be due to vasculature but more prominent compared to previous exam. Cannot exclude underlying developing parenchymal lesion. Suggest follow-up PA and lateral chest for further evaluation. Dictated by: Kavin Vazquez MD 01/13/2020 15:42 Kavin Vazquez MD in [facility] 01/13/2020 15:42
[2020-01-13 13:38] LABS: Basophils % 0.6 % (0.1-2.0); Eosinophils # 0.1 K/mm3 (0.0-0.4); Eosinophils % 1.5 % (0.1-12.0); Hematocrit 29.5 % (37.0-47.0); Hemoglobin 9.2 g/dL (12.2-16.2); Lymphocytes # 1.5 K/mm3 (0.7-4.5); Lymphocytes % 22.8 % (10-50); Mean Corpuscular HGB Conc 31.3 g/dL (31.8-35.4); Mean Corpuscular Hemoglobin 25.4 pg (27.0-31.2); Mean Corpuscular Volume 81.1 fl (81-99); Mean Platelet Volume 9.1 fl (7.4-10.4); Monocytes # 0.7 K/mm3 (0.1-1.0); Monocytes % 11.1 % (1.7-9.3); Neutrophils # 4.2 K/mm3 (1.8-7.8); Red Blood Count 3.64 M/mm3 (4.20-5.40); White Blood Count 6.6 K/mm3 (4.8-10.8)
--- NOTE | 2020-01-13 13:43 | HMH.EDGENADL ---
ED Disposition Clinical Impression: Thrombocytopenia Dyspnea Qualifiers: Dyspnea type: other forms of dyspnea Qualified Code(s): R06.09 - Other forms of dyspnea Cirrhosis of liver with ascites Qualifiers: Hepatic cirrhosis type: unspecified hepatic cirrhosis Qualified Code(s): K74.60 - Unspecified cirrhosis of liver; R18.8 - Other ascites Cellulitis of leg Qualifiers: Laterality: left Qualified Code(s): L03.116 - Cellulitis of left lower limb Disposition: Home, Self-Care Condition on Discharge: Good Additional Instructions: You were seen on an emergency basis. It is very important that you follow up with your primary care provider and/or specialist as we discussed within 2 days. All labs and imaging were obtained and interpreted here to rule out life threatening emergencies, but your final results should be reviewed by your primary doctor at your follow up appointment. Please return to the emergency department if any of your symptoms worsen, or if they do not improve as we discussed. Prescriptions: Doxycycline Hyclate [Doxycycline 100mg Capsule] 100 mg PO BID 10 Days #20 cap Prescription Printed Referrals: Say Sebastian MD [Primary Care Provider] - - Critical Care Critical Care Time: No Attestation: On 01/13/20, the high probability of a clinically significant, sudden or life threatening deterioration of the following system(s) required my full and direct attention, intervention and personal management. The time I documented below is in addition to time spent performing reported procedures but includes the following listed in this critical care notation. Medical Decision Making - Medical Records Medical records reviewed: Yes: I reviewed the patient's medical records. - Boo Inquiry Pt receiving controlled substance: No Vital Signs: 01/13/20 13:16 01/13/20 14:07 01/13/20 14:40 Temperature 98.9 F Temperature Source Oral Pulse Rate Pulse Rate [Right Radial] 77 75 75 Respiratory Rate 20 20 18 Blood Pressure [Right Arm] 115/64 133/59 L 91/72 L Blood Pressure Mean [Right Arm] 81 83 78 Blood Pressure Source [Right Arm] Automatic Cuff Blood Pressure Position [Right Arm] Sitting 02 Sat by Pulse Oximetry 98 97 97 Oxygen Delivery Method Room Air Room Air Room Air 01/13/20 14:48 01/13/20 15:40 01/13/20 16:19 Temperature Temperature Source Pulse Rate 71 Pulse Rate [Right Radial] 75 81 Respiratory Rate 20 20 Blood Pressure [Right Arm] 171/69 H 118/50 L Blood Pressure Mean [Right Arm] 103 72 Blood Pressure Source [Right Arm] Automatic Cuff Automatic Cuff Blood Pressure Position [Right Arm] Sitting Sitting 02 Sat by Pulse Oximetry 93 L 97 Oxygen Delivery Method Room Air - Lab Data Lab Results 01/13/20 13:15: WBC 6.6, RBC 3.64 L, Hgb 9.2 L, Hct 29.5 L, MCV 81.1, MCH 25.4 L, MCHC 31.3 L, RDW 17.0, Plt Count 39 L*, MPV 9.1, Neut % (Auto) 64.0, Lymph % (Auto) 22.8, Coos % (Auto) 11.1 H, Eos % (Auto) 1.5, Baso % (Auto) 0.6, Neut # (Auto) 4.2, Lymph # (Auto) 1.5, Coos # (Auto) 0.7, Eos # (Auto) 0.1, Baso # (Auto) 0.0 01/13/20 13:15: Sodium 137, Potassium 3.4 L, Chloride 99, Carbon Dioxide 33 H, Anion Gap 8.4, BUN 11, Creatinine 0.70, Estimated Creat Clear 99, Estimated GFR 85, Est GFR ( Amer) 102, Glucose 101 H, Calcium 8.9, Total Bilirubin 1.0, AST 36, ALT 21, Alkaline Phosphatase 101, Total Protein 6.4, Albumin 3.1 L, Globulin 3.3 H, Albumin/Globulin Ratio 0.9 L 01/13/20 13:15: Lactate 2.5 H 01/13/20 13:15: Troponin I < 0.01 01/13/20 13:15: Fluid Source Peritoneal fluid, Fluid Volume 24, Fluid Appearance Slightly hazy, Fluid RBC (Auto) < 10, Fld Tot Nucleated Cell 354, Fld Polynuclear WBCs % 55, Fld Mononuclear WBCs % 45 01/13/20 16:30: Troponin I < 0.01 Result diagrams: 01/13/20 13:15 01/13/20 13:15 Orders (Tests/Meds): ED MEDICATIONS Discontinued Medications Generic Name Dose Route Start Last Admin Trade Name Freq PRN Reason Stop Dose A
[2020-01-13 13:46] LABS: Alanine Aminotransferase 21 U/L (12-78); Albumin Level 3.1 g/dl (3.5-5.0); Albumin/Globulin Ratio 0.9 (1.1-1.8); Alkaline Phosphatase 101 U/L (38-126); Anion Gap 8.4 mEq/L (5-15); Aspartate Amino Transferase 36 U/L (14-36); Blood Urea Nitrogen 11 mg/dl (7-17); Calcium 8.9 mg/dl (8.4-10.2); Carbon Dioxide 33 mmol/L (22.0-30.0); Chloride 99 mmol/L (98-107); Creatinine Clearance Estimated 99 mL/min (50-200); Estimated Glomerular Filt Rate 85 ml/min (>60); GFR (African American) 102 ML/MIN (>60); Globulin 3.3 g/dL (1.3-3.2); Glucose 101 mg/dl (74-100); Lactic Acid 2.5 mmol/L (0.7-2.1); Potassium 3.4 mmoL/L (3.5-5.1); Sodium 137 mmol/L (136-145); Total Protein,Serum 6.4 g/dl (6.3-8.2)
[2020-01-13 13:56] LABS: Platelet Count 39 K/mm3 (142-424)
--- NOTE | 2020-01-13 14:07 | PC.NURSE ---
CASIMIRO CRUZ notified of critical Platelet result
[2020-01-13 14:22] LABS: Troponin I < 0.01 ng/ml (0.00-0.034)
[2020-01-13 14:40] LABS: Appearance,Body Fld. Slightly hazy; Source, Body Fld. Peritoneal Fluid; Volume,Body Fld. 24 mL
[2020-01-13 14:41] LABS: RBC,Body Fluid < 10 cells/uL (< 10 X 10^3); TNC,Body Fluid 354 cells/uL (< 1000)
--- NOTE | 2020-01-13 15:12 | PC.NURSE ---
dr ruiz performed bedside pericentesis removing 3200 ml off patient abdomen. pt tolerated procedure well with minimal discomfort. pressure dressing applied to procedure site. vitals stable. will continue to monitor.
[2020-01-13 15:26] LABS: Mononuclear WBCs,Body Fluid 45 %; Polynuclear WBC,Body Fluid 55 %
--- NOTE | 2020-01-13 16:30 | PC.NURSE ---
2nd troponin drawn and to lab for resulting.
[2020-01-13 17:00] LABS: Troponin I < 0.01 ng/ml (0.00-0.034)
[2020-01-13 17:29] LABS: Reflex Lactic Add Lactic Reflex
[2020-01-14 15:05] LABS: Glucose, Body Fluid 112 mg/dL (.); Protein, Body Fluid 1.2 g/dL (.)
== END 2020-01-13 18:30 | disposition home or self-care (01) ==
PROVIDERS: Emergency Provider Physician Assistant; PCP Family Medicine
DX: K74.60 Unspecified cirrhosis of liver (principal); L03.116 Cellulitis of left lower limb; D69.6 Thrombocytopenia, unspecified; R18.8 Other ascites; K21.9 Gastro-esophageal reflux disease without esophagitis; J44.9 Chronic obstructive pulmonary disease, unspecified; G43.709 Chronic migraine without aura, not intractable, without status migrainosus; I10 Essential (primary) hypertension; M79.7 Fibromyalgia; E78.5 Hyperlipidemia, unspecified; F41.8 Other specified anxiety disorders; Z88.2 Allergy status to sulfonamides; Z87.442 Personal history of urinary calculi; Z79.899 Other long term (current) drug therapy
CPT/HCPCS: 49082; 71045; 80053; 82945; 83605; 84155; 84484; 85025; 87040; 87070; 87205; 89051; 93005; 99285

== ENCOUNTER → 2020-02-24 13:01 | Outpatient (CLI) | payer MEDICARE, MEDICAID, SELFPAY ==
--- NOTE | 2020-02-24 13:08 | MR_ITS ---
PROCEDURE: MR KNEE LT WO CON CLINICAL INDICATION: BILATERAL KNEE PAIN WITH NO KNOWN TRAUMA Pt. c/o chronic bilateral knee pain with no known trauma or injury. COMPARISON: None TECHNIQUE: Routine multiplanar multi echo sequences are performed without gadolinium enhancement. FINDINGS: The cruciate ligaments are intact. The collateral ligaments also appear intact. No meniscal tear is apparent. The patellar tendon and quadriceps tendon have an unremarkable appearance. There are moderate osteoarthritic changes involving all 3 compartments. There is marked thinning of the patellar cartilage. There is a small knee joint effusion and there is mild diffuse subcutaneous edema about the knee. No obvious fracture or dislocation. No bone bruise. Small subchondral cyst is present in the interspinous region of the proximal tibia. Hypertrophic changes are present involving the tibial spines and intercondylar notch of the femur. There is a well-circumscribed loose body in the popliteal region superiorly measuring approximately 12 by 7 mm. Along the superior and lateral aspect patella there is an additional area of ossification measuring 11 mm and may represent an old patellar fracture versus ununited ossification center. IMPRESSION: 1. Moderate osteoarthritic changes involving all 3 compartments with knee joint effusion and diffuse subcutaneous edema with loose body in the popliteal fossa and suprapatellar region. 2. No internal derangement. Dictated by: Kavin Vazquez MD 02/25/2020 11:34 Kavin Vazquez MD in [place] 02/25/2020 11:34
--- NOTE | 2020-02-24 13:08 | MR_ITS ---
PROCEDURE: MR KNEE RT WO CON CLINICAL INDICATION: BILATERAL KNEE PAIN WITH NO KNOWN TRAUMA Pt. c/o chronic bilateral knee pain with no known trauma or injury. prior xray left knee done 03/10/2018 and prior rt knee xray done 08/28/2017 COMPARISON: No exams were available for comparison TECHNIQUE: Routine multiplanar multi echo sequences are performed without gadolinium enhancement. FINDINGS: There are moderate osteoarthritic changes. The cruciate ligaments, collateral ligaments, patellar tendon, and quadriceps tendon are intact. No meniscal tear is evident. The patellar cartilage is markedly thinned. There is a small knee joint effusion and there is diffuse subcutaneous edema about the knee. Increased T2 signal involves the posterior aspect of the lateral femoral condyle somewhat linear in nature. Small sub chondral area of increased T2 signal involves the lateral femoral condyle distally. There is also some increased T2 signal involving the superior aspect of the patella posteriorly. Prominent spurring is present at the knee joint and patellofemoral joint. There is an irregular loose body along the posterior aspect of the knee joint medially along the posterior medial aspect of the medial. This measures approximately 9 mm. An additional loose body versus prominent osteophyte noted along the posterior aspect of the distal femur at the diaphyseal metaphyseal junction also medial. This area measures 12 mm. Ununited ossification center versus prominent osteophyte noted along the superior patella. IMPRESSION: 1. Moderate osteoarthritic changes with knee joint effusion and loose bodies. 2. No internal derangement. 3. There is an area of osteochondrosis involving the sub chondral region of the distal femur along the lateral femoral condyle with an additional area of increased T2 signal posterior to this which could also be due to developing osteochondrosis Dictated by: Kavin Vazquez MD 02/25/2020 11:46 Kavin Vazquez MD in [place] 02/25/2020 11:46
== END ==
PROVIDERS: PCP Family Medicine; Visit Provider Orthopaedic Surgery
DX: M25.562 Pain in left knee (principal); M25.561 Pain in right knee
CPT/HCPCS: 73721

== ENCOUNTER → 2020-03-19 13:32 | Outpatient (CLI) | payer MEDICARE, SELFPAY ==
[2020-03-19 15:58] LABS: Coronavirus 19 IgG Antibody Positive (Negative); Coronavirus 19 IgM Antibody Negative (Negative)
== END ==
PROVIDERS: PCP Family Medicine; Visit Provider Internal Medicine Gastroenterology
DX: Z01.818 Encounter for other preprocedural examination (principal); Z13.810 Encounter for screening for upper gastrointestinal disorder
CPT/HCPCS: 36415; 86328

== ENCOUNTER 2020-03-21 07:27 | Day surgery (SDC) | payer MEDICARE, MEDICAID, SELFPAY ==
[2020-03-15 14:02] VITALS: BMI 40.1
[2020-03-21 07:54] VITALS: BP 111/67; PULSE 74; RESP 20; TEMP 36.4; O2SAT 97
[2020-03-21 08:26] LABS: POC Glucose,Bedside 84 (70-110)
--- NOTE | 2020-03-21 08:32 | P.PCN_ITS ---
[facility] Procedure Note Procedure Note:: Upper Endoscopy Procedure Report: Esophagogastroduodenoscopy with cold biopsies Endoscopost: Dionisio Arzate II, MD Referring Physician: Sebas Sebastian MD Date of Procedure: March 21, 2020 Equipment: Olympus GIF 180 standard upper endoscope Sedation: MAC sedation Indications: Mrs. Aguilera is a 65-year-old female with cirrhosis with some decompensation and ascites. The patient also has moderate anemia and her lab work from December 07, 2019 showed hemoglobin 9.1 and hematocrit 28.0. Her AST 35, ALT 18 and alkaline phosphatase 82 were normal. Her total bilirubin was 1.2. She had a normal ammonia 16 and normal alpha-fetoprotein 2.8. The patient does report some left upper quadrant and epigastric discomfort with increased abdominal girth. She does have some constipation and bloating. She had a colonoscopy with me in July 2018 showing 3 small polyps (tubular adenoma x1/small serrated adenoma x1 and hyperplastic polyp x1) which were removed. The patient did have prior paracentesis. Her recent ultrasound of the abdomen did show a cirrhotic appearing liver with ascites and prominent portal vein. The patient reports no hematemesis or melena. Procedure: Prior to the procedure, a history and physical exam was performed, and patient's medications and allergies were reviewed. The risks, benefits and alternatives of the sedation and procedure were discussed with the patient. All questions were answered and informed consent was obtained. The patient was brought to the procedure room. Patient identification and proposed procedure were verified by the physician and the nurse. The patient was placed in a left lateral decubitus position and the scope was passed under direct vision. Throughout the procedure, the patient's blood pressure, pulse, and oxygen saturations were monitored continuously. The upper GI endoscopy was accomplished without difficulty. The patient tolerated the procedure well. Findings: The scope was passed directly into the upper esophagus and advanced to the third portion of the duodenum. The post bulbar duodenum and duodenal bulb were normal with normal mucosa and conniventes. There was very mild peptic duodenitis. The scope was withdrawn through a normal duodenal bulb and pylorus into the stomach. There was some mild reactive gastropathy of the antrum. There was mild to moderate portal gastropathy of the body and fundus of the stomach. Cold biopsies were taken from the antrum as well as cold biopsies taken from the body of the stomach. Upon retroflexion there was no hiatal hernia and no gastric varices. The scope was then withdrawn into the esophagus. There was no evidence of reflux esophagitis or Turcios's. There were grade 2 esophageal varices without stigmata. The remainder of the esophageal mucosa was normal. Impression: 1. Grade 2 esophageal varices without stigmata 2. Mild to moderate portal gastropathy Plan: The patient did not have any evidence of GAVE or gastric ulceration. I do feel that her anemia may be from the portal hypertension and portal gastropathy. The patient will be due today for same-day paracentesis. I would continue nonselective beta-clyde. I do feel that her left upper quadrant abdominal discomfort is secondary to splenic flexure syndrome. She does have splenomegaly but she also has obstipation/constipation. I do feel that this is functional abdominal pain.
--- NOTE | 2020-03-21 08:41 | P.PN_ITS ---
[facility] Anesthesia Checklist - Patient Identification Patient Identification: Arm Band, Verbal (Name & ) - Structural Data Admitted From: Home Planned Operative Procedure/s: EGD Consent for Planned Operative Procedure(s) Verified: Yes Verified Documents: Surgical Consent, History and Physical - NPO Status Verified Time NPO: 00:00 - Additional verifications Fingerstick Blood Glucose: 84 Anesthesia Reactions: No Hx Blood Transfusions: No Blood Transfusion Reaction: No - Airway Assessment C-Spine Mobility Assessed: Yes TMJ Mobility Assessed: Yes Dentition: Edentulous - Neurological Assessment Level of Consciousness: Awake, Alert, Appropriate, Follows Commands Hx Seizures: No Numbness or tingling in extremities: No - Anesthesia Plan Anesthesia Risk discussed: Yes Anesthesia Plan: Verified ASA Class: III Anesthesia Type: MAC [facility] History I have reviewed the patient's past medical history: Yes Medical History: Reports:: Anxiety, Asthma, Chronic Obstructive Pulmonary Disease (COPD), Cerebrovascular Accident, Depression, Diabetes Mellitus Type 2, Gastroesophageal Reflux Disease(GERD), Hepatitis, Hyperlipidemia, Hypertension, Lung Disease, Kidney Stones, Migraine Denies:: Cancer, Diabetes Mellitus Type 1, Internal Pacemaker, MRSA, Seizures *Have you ever received a pneumonia vaccine?: Yes *Have you received a flu vaccine this season?: Yes Other Medical History: Reports: Anemia, Arthritis, Fibromyalgia, Liver Disease, Other. Denies: Blood Transfusion Reaction Anesthesia experience/problems:: none Laterality Cases: Right: Arthroscopy Shoulder, Bilateral: Carpal Tunnel Release, Tonsillectomy Other Surgeries: Yes: Appendectomy, Cardiac Catheterization, Cholecystectomy, Colonoscopy, Hysterectomy-Total, Other (kidney stone, back ). No: Pacemaker Amputation: No Fractures: Yes - *Social History Smoking Status: Current every day smoker Tobacco Type: cigarettes # Packs/Day (cigarettes): 1 #Yrs smoked (if former smoker): 45 Alcohol Intake: never Alcohol Intake Frequency:: holidays/special occasions only Substance Use Type: denies use *Occupational Status:: retired Housing: house Household Members: spouse *Travel in the last 8 weeks: None - Psychiatric History Pschychiatric History:: Reports:: Anxiety, Depression Family Hx:: Unable to obtain
[2020-03-21 08:45] VITALS: BP 105/64; PULSE 82; RESP 16; TEMP 36.4; O2SAT 97
[2020-03-21 08:55] VITALS: BP 110/58; PULSE 77; RESP 18; TEMP 36.4; O2SAT 97
[2020-03-21 09:05] VITALS: BP 141/55; PULSE 81; RESP 18; TEMP 36.4; O2SAT 97
[2020-03-21 09:15] VITALS: BP 134/62; PULSE 74; RESP 18; TEMP 36.4; O2SAT 98
[2020-03-21 09:50] VITALS: BP 131/71; PULSE 72; RESP 18; TEMP 36.4; O2SAT 95
--- NOTE | 2020-03-21 09:53 | US_ITS ---
PROCEDURE: US PARACENTESIS CLINICAL INDICATION: ASCITES COMPARISON: No exams were available for comparison TECHNIQUE: Informed consent was obtain prior to procedure. After appropriate Time out, under aseptic conditions and local anesthesia with 1% buffered lidocaine using sonographic guidance a 6 Persian [id number] catheter was inserted into the largest pocket of fluid localized in the right lower quadrant. Approximately 5060 mL volume of Serosanguineous fluid was drained. Fluid was sent to the lab for analysis. The patient tolerated the procedure well and left the radiology suite in stable condition. FINDINGS: Diffuse ascites IMPRESSION: Successful sonographic guided paracentesis without complication. Dictated by: Kavin Vazquez MD 03/21/2020 17:14 Kavin Vazquez MD in [place] 03/21/2020 17:14
[2020-03-21 11:31] LABS: Blood Urea Nitrogen 17 mg/dl (7-17); Creatinine Clearance Estimated 98 mL/min (50-200); Estimated Glomerular Filt Rate 56 ml/min (>60); GFR (African American) 68 ML/MIN (>60)
[2020-03-21 11:49] LABS: Appearance,Body Fld. Normal; Source, Body Fld. Peritoneal Fluid
[2020-03-21 11:50] LABS: TNC,Body Fluid 257 cells/uL (< 1000)
[2020-03-21 11:51] LABS: RBC,Body Fluid < 10 cells/uL (< 10 X 10^3); Volume,Body Fld. 500 mL
[2020-03-21 12:32] LABS: Mononuclear WBCs,Body Fluid 68 %; Polynuclear WBC,Body Fluid 32 %
[2020-03-22 15:21] LABS: Albumin, Body Fluid 0.4 g/dL (Not Estab.); Protein, Body Fluid 1.2 g/dL (.)
== END 2020-03-21 09:50 | disposition home or self-care (01) ==
LOC: OUTP 07:28
PROVIDERS: PCP Family Medicine; Visit Provider Internal Medicine Gastroenterology
PROC: 0DJ08ZZ Inspection of Upper Intestinal Tract, Via Natural or Artificial Opening Endoscopic (ICD-10-PCS; CPT 43235; principal; 2020-03-21 08:30)
DX: I85.10 Secondary esophageal varices without bleeding (principal); K76.6 Portal hypertension; K31.89 Other diseases of stomach and duodenum; D64.9 Anemia, unspecified; K59.89 Other specified functional intestinal disorders; R16.1 Splenomegaly, not elsewhere classified; E11.9 Type 2 diabetes mellitus without complications; J44.9 Chronic obstructive pulmonary disease, unspecified; I11.0 Hypertensive heart disease with heart failure; I50.9 Heart failure, unspecified; Z86.010 Personal history of colon polyps
CPT/HCPCS: 43239; 49083; 82042; 82565; 82962; 84155; 84520; 87070; 87205; 88305; 89051

== ENCOUNTER 2020-04-20 18:05 | Observation (INO) | payer MEDICARE, MEDICAID, SELFPAY ==
[2020-04-20] VITALS (8 sets, daily range): BP systolic 99–121; BP diastolic 45–97; PULSE 70–76; RESP 12–16; TEMP 37.1; O2SAT 92–98; BMI 36.5
--- NOTE | 2020-04-20 18:27 | XR_ITS ---
PROCEDURE: XR CHEST PORTABLE CLINICAL HISTORY: soa COMPARISON: CR XR CHEST PORTABLE from 07/07/2019 CR XR CHEST 2V from 07/10/2019 CR XR CHEST PORTABLE from 01/13/2020 FINDINGS: The cardiomediastinal silhouette and pulmonary vascularity are within normal limits. No lobar consolidation or collapse. There is some mild fibrotic change noted in the left lower lobe No acute bony abnormalities. IMPRESSION: No acute findings. Dictated by: Kavin Vazquez MD 04/21/2020 05:31 Kavin Vazquez MD in [facility] 04/21/2020 05:31
[2020-04-20 18:37] LABS: Basophils # 0.1 K/mm3 (0-0.2); Basophils % 0.8 % (0.1-2.0); Eosinophils # 0.1 K/mm3 (0.0-0.4); Eosinophils % 1.3 % (0.1-12.0); Hematocrit 31.6 % (37.0-47.0); Hemoglobin 10.2 g/dL (12.2-16.2); Lymphocytes # 1.9 K/mm3 (0.7-4.5); Lymphocytes % 26.2 % (10-50); Mean Corpuscular HGB Conc 32.4 g/dL (31.8-35.4); Mean Corpuscular Hemoglobin 29.9 pg (27.0-31.2); Mean Corpuscular Volume 92.4 fl (81-99); Mean Platelet Volume 13.9 fl (7.4-10.4); Monocytes # 0.6 K/mm3 (0.1-1.0); Monocytes % 8.9 % (1.7-9.3); Neutrophils # 4.5 K/mm3 (1.8-7.8); Neutrophils % 62.9 % (37.0-80.0); Red Blood Count 3.42 M/mm3 (4.20-5.40); Red Cell Distribution Width 17.5 % (11.5-17.5); White Blood Count 7.2 K/mm3 (4.8-10.8)
--- NOTE | 2020-04-20 18:38 | HMH.EDGENADL ---
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 Diabetes mellitus complication status: with other specified complication Qualified Code(s): E11.69 - Type 2 diabetes mellitus with other specified complication Cirrhosis of liver with ascites Qualifiers: Hepatic cirrhosis type: unspecified hepatic cirrhosis Qualified Code(s): K74.60 - Unspecified cirrhosis of liver; R18.8 - Other ascites Disposition: Admitted As Inpatient Referrals: Say Sebastian MD [Primary Care Provider] - Attestation: On 04/20/20, the high probability of a clinically significant, sudden or life threatening deterioration of the following system(s) required my full and direct attention, intervention and personal management. The time I documented below is in addition to time spent performing reported procedures but includes the following listed in this critical care notation. Medical Decision Making - Medical Records Medical records reviewed: Yes: I reviewed the patient's medical records. - Boo Inquiry Pt receiving controlled substance: No - Lab Data Result diagrams: 04/20/20 18:17 04/20/20 18:17 <Teo Ames - Last Filed: 04/20/20 19:47> - Lab Data Lab results reviewed: Yes: I reviewed the patient's lab results. Result diagrams: 04/20/20 18:17 04/20/20 18:17 - CT Data CT Scan: Abdomen, Pelvis Time Received: 01:[address] Reviewed: Yes: I have viewed the radiologist's interpretation Preliminary Findings: Abnormal - Physician Consults Physician Consulted: ruben Reason -: Admission <Sandeep Garcia - Last Filed: 04/21/20 01:38> Vital Signs: 04/20/20 18:22 04/20/20 19:00 04/20/20 19:30 Temperature 98.7 F Temperature Source Oral Pulse Rate [Left] 76 75 74 Respiratory Rate 15 16 Blood Pressure [Right Arm] 121/97 H 99/52 L 100/57 L Blood Pressure Mean [Right Arm] 105 67 71 Blood Pressure Source [Right Arm] Automatic Cuff Automatic Cuff Automatic Cuff Blood Pressure Position [Right Arm] Supine Supine Supine 02 Sat by Pulse Oximetry 98 98 92 L Oxygen Delivery Method Room Air Room Air Room Air 04/20/20 20:00 04/20/20 20:30 04/20/20 22:00 Temperature Temperature Source Pulse Rate [Left] 73 73 71 Respiratory Rate 15 16 12 Blood Pressure [Right Arm] 105/45 L 111/53 L 106/50 L Blood Pressure Mean [Right Arm] 65 72 68 Blood Pressure Source [Right Arm] Automatic Cuff Automatic Cuff Automatic Cuff Blood Pressure Position [Right Arm] Supine Supine Supine 02 Sat by Pulse Oximetry 96 94 L 97 Oxygen Delivery Method Room Air Room Air Room Air 04/20/20 23:00 04/20/20 23:29 04/20/20 23:50 Temperature Temperature Source Pulse Rate [Left] 70 71 Respiratory Rate 14 14 Blood Pressure [Right Arm] 105/54 L 101/56 L Blood Pressure Mean [Right Arm] 71 71 Blood Pressure Source [Right Arm] Automatic Cuff Automatic Cuff Blood Pressure Position [Right Arm] Supine Supine 02 Sat by Pulse Oximetry 96 96 Oxygen Delivery Method Room Air Room Air Room Air 04/21/20 00:00 04/21/20 00:30 04/21/20 01:00 Temperature Temperature Source Pulse Rate [Left] 73 72 73 Respiratory Rate 12 14 15 Blood Pressure [Right Arm] 102/57 L 108/58 L 98/65 L Blood Pressure Mean [Right Arm] 72 74 76 Blood Pressure Source [Right Arm] Automatic Cuff Automatic Cuff Automatic Cuff Blood Pressure Position [Right Arm] Supine Supine Sitting 02 Sat by Pulse Oximetry 96 96 94 L Oxygen Delivery Method Room Air Room Air Room Air 04/21/20 01:30 Temperature Temperature Source Pulse Rate [Left] 73 Respiratory Rate 15 Blood Pr
--- NOTE | 2020-04-20 18:47 | CT_ITS ---
PROCEDURE: CT ABDOMEN PELVIS W CON CLINICAL INDICATION: LUQ pain Left upper quadrant pain, bloating ascites, abdominal swelling, cirrhosis COMPARISON: CT CT ABDOMEN PELVIS W CON from 04/21/2019 TECHNIQUE: IV Contrast: 75ML Isovue 370 Oral Contrast None Axial images obtained with sagittal and coronal reformats. All CT scans at the facility use one or more dose reduction, viz: automated exposure control, ma/kV adjustment per patient size (including targeted exams where dose is matched to indication, i.e. head), or iterative reconstruction technique. FINDINGS: LOWER THORAX: There are mild atelectatic changes in the lung bases. ABDOMEN & PELVIS: Cirrhosis with portal hypertension. The liver is shrunken with irregular margins. There has been a prior cholecystectomy. Spleen is enlarged measuring 21 cm in AP dimension. Florencia soft Jewel and perigastric varices and perisplenic and peritoneal varices are present. The portal vein is enlarged at 16 mm. There are few mildly prominent periportal lymph nodes. The the adrenal glands and kidneys have an unremarkable appearance. There is thickening of the gastric mucosa which could be due to nondistention or gastritis. There is a mild amount ascites. There is diffuse subcutaneous edema consistent with anasarca. There is a minimal amount of free air within the abdomen and could be due to the recent paracentesis. There is mild wall thickening involving small bowel loops and large bowel loops which could be seen with portal hypertension and ascites. Enterocolitis is also consideration. There is reported prior appendectomy. Prior hysterectomy. No acute bony findings. IMPRESSION: 1. Cirrhosis with splenomegaly and portal hypertension with varices and mild abdominal peritoneal ascites. There is a small amount of free air noted anteriorly but could be related to the recent paracentesis. 2. Wall thickening of small and large bowel which could be seen with the portal hypertension and varices versus enterocolitis. 3. Mild diffuse anasarca Dictated by: Kavin Vazquez MD 04/21/2020 05:55 Kavin Vazquez MD in [place] 04/21/2020 05:55
[2020-04-20 18:56] LABS: Platelet Count 35 K/mm3 (142-424)
[2020-04-20 18:57] LABS: Chloride 105 mmol/L (98-107)
[2020-04-20 18:58] LABS: Potassium 4.1 mmoL/L (3.5-5.1); Sodium 136 mmol/L (136-145)
[2020-04-20 19:00] LABS: Blood Urea Nitrogen 22 mg/dl (7-17); Creatinine Clearance Estimated 81 mL/min (50-200); Estimated Glomerular Filt Rate 45 ml/min (>60); GFR (African American) 55 ML/MIN (>60)
--- NOTE | 2020-04-20 19:00 | PC.NURSE ---
CASIMIRO CRUZ notified of critical platelet count per kim,rn
[2020-04-20 19:01] LABS: Anion Gap 11.1 mEq/L (5-15); Calcium 9.1 mg/dl (8.4-10.2); Carbon Dioxide 24 mmol/L (22.0-30.0); Glucose 114 mg/dl (74-100); Magnesium 1.6 mg/dl (1.6-2.3)
[2020-04-20 19:10] LABS: NT Pro Brain Natriuretic Pep. 254 pg/mL (0-125)
[2020-04-20 19:22] LABS: Troponin I < 0.01 ng/ml (0.00-0.034)
[2020-04-20 20:05] LABS: Source, Body Fld. Peritoneal Fluid
[2020-04-20 20:11] LABS: Appearance,Body Fld. Cloudy; Volume,Body Fld. 24 mL
[2020-04-20 20:12] LABS: RBC,Body Fluid < 10 cells/uL (< 10 X 10^3); TNC,Body Fluid 260 cells/uL (< 1000)
[2020-04-20 20:20] LABS: Alanine Aminotransferase 22 U/L (12-78); Alkaline Phosphatase 106 U/L (38-126); Aspartate Amino Transferase 39 U/L (14-36); Bilirubin,Direct 0.5 mg/dl (0.0-0.4); Bilirubin,Indirect 0.7 mg/dL (0.0-0.9); Bilirubin,Total 1.2 mg/dl (0.2-1.3); Bilirubin,Unconjugated 0.7 mg/dL (0.0-1.1)
[2020-04-20 20:21] LABS: Albumin Level 2.8 g/dl (3.5-5.0); Total Protein,Serum 6.3 g/dl (6.3-8.2)
[2020-04-20 20:30] LABS: Activated Partial Thrombo Time 26.8 seconds (23.6-34.0); INR 1.13 (0.9-1.1); Prothrombin Time 12.4 seconds (9.4-11.8)
--- NOTE | 2020-04-20 21:04 | PC.NURSE ---
Addendum entered by Keyshawn Byrd RN 04/20/20 21:15: Drain removed and drsg placed using sterile non-adherent dressing and tegaderm. Original Note: Pt has drained 5L from paracentesis
[2020-04-20 21:26] LABS: Mononuclear WBCs,Body Fluid 82 %; Polynuclear WBC,Body Fluid 28 %
[2020-04-20 22:13] LABS: Coronavirus 19 IgG Antibody Positive (Negative)
[2020-04-20 22:15] LABS: Coronavirus 19 IgM Antibody Positive (Negative)
[2020-04-20 22:15] LABS: Troponin I < 0.01 ng/ml (0.00-0.034)
[2020-04-21] VITALS (12 sets, daily range): BP systolic 92–112; BP diastolic 52–65; PULSE 60–74; RESP 12–22; TEMP 36.5–37; O2SAT 93–98; BMI 37.8
[2020-04-21 00:58] LABS: Troponin I < 0.01 ng/ml (0.00-0.034)
--- NOTE | 2020-04-21 01:31 | PC.NURSE ---
Dr Garcia on phone with Dr Merritt for admission
--- NOTE | 2020-04-21 02:25 | PC.NURSE ---
patient up to floor via wheelchair.
[2020-04-21 04:18] LABS: POC Glucose,Bedside 71 (70-110)
--- NOTE | 2020-04-21 05:46 | PC.NURSE ---
PT IS RESTING IN BED. NO COMPLAINTS OF DISCOMFORT OR SOA. ALERT AND ORIENTED X4. PT HAS AMBULATED TO THE BATHROOM WITH 1 ASSIST. DRESSING NOTED TO THE LEFT SIDE OF THE ABDOMEN. ABDOMINAL DISTENTION/TENDERNESS NOTED TO THE LUQ. 2+ PITTING EDEMA NOTED TO BLE. SCATTERED BRUISING. PT STATES SHE HAS BEEN FALLING AT HOME. CALL LIGHT WITHIN REACH.
[2020-04-21 06:08] LABS: Chloride 106 mmol/L (98-107); Potassium 4.2 mmoL/L (3.5-5.1); Sodium 137 mmol/L (136-145)
[2020-04-21 06:09] LABS: Basophils % 0.8 % (0.1-2.0); Eosinophils # 0.1 K/mm3 (0.0-0.4); Eosinophils % 1.9 % (0.1-12.0); Hematocrit 29.4 % (37.0-47.0); Hemoglobin 9.5 g/dL (12.2-16.2); Lymphocytes # 1.3 K/mm3 (0.7-4.5); Lymphocytes % 34.5 % (10-50); Mean Corpuscular HGB Conc 32.4 g/dL (31.8-35.4); Mean Corpuscular Hemoglobin 29.7 pg (27.0-31.2); Mean Corpuscular Volume 91.6 fl (81-99); Monocytes # 0.4 K/mm3 (0.1-1.0); Monocytes % 11.1 % (1.7-9.3); Neutrophils % 51.8 % (37.0-80.0); Red Blood Count 3.21 M/mm3 (4.20-5.40); Red Cell Distribution Width 17.7 % (11.5-17.5); White Blood Count 3.9 K/mm3 (4.8-10.8)
[2020-04-21 06:11] LABS: Anion Gap 5.2 mEq/L (5-15); Blood Urea Nitrogen 19 mg/dl (7-17); Calcium 8.9 mg/dl (8.4-10.2); Carbon Dioxide 30 mmol/L (22.0-30.0); Creatinine Clearance Estimated 92 mL/min (50-200); Estimated Glomerular Filt Rate 50 ml/min (>60); GFR (African American) 61 ML/MIN (>60); Glucose 74 mg/dl (74-100); Magnesium 1.6 mg/dl (1.6-2.3)
[2020-04-21 06:19] LABS: INR 1.17 (0.9-1.1); Prothrombin Time 12.8 seconds (9.4-11.8)
[2020-04-21 06:44] LABS: Platelet Count 30 K/mm3 (142-424)
--- NOTE | 2020-04-21 08:38 | HMH.HP ---
*Admission Date: 04/20/20 <Kayce Steven 04/21/20 08:56> *Chief complaint: SOA, abdominal swelling <Kayce Steven 04/21/20 08:56> *History of present illness: Ms. Aguilera is a 65yo female with a history of [place], cirrhosis, hypertension, COPD, thrombocytopenia, neutropenia, and type 2 diabetes who called the office yesterday for a telehealth visit complaining of shortness of breath. She stated her abdomen was extremely distended and she had swelling in both her legs and her arms. She stated she had a paracentesis in March and she thought she may need another one. She was directed to the emergency room. The patient's chest x-ray showed nothing acute. She had an abdominal/pelvic CT showing cirrhosis with splenomegaly and portal hypertension with varices and mild abdominal peritoneal ascites. There is a small amount of free fluid noted. There was also wall thickening of the small and large bowel. The CT also showed a mild diffuse anasarca. The patient had a diagnostic paracentesis performed and was then transferred to the floor. She states she feels much better this morning and her shortness of breath has resolved since having the paracentesis. <Kayce Steven 04/21/20 08:56> [facility] History I have reviewed the patient's past medical history: Yes <Kayce Steven 04/21/20 08:56> Medical History: Reports:: Anxiety, Asthma, Congestive Heart Failure, Chronic Obstructive Pulmonary Disease (COPD), Cerebrovascular Accident, Depression, Diabetes Mellitus Type 2, Gastroesophageal Reflux Disease(GERD), Hepatitis, Home Oxygen, Hyperlipidemia, Hypertension, Lung Disease, Kidney Stones, Migraine Denies:: Cancer, Diabetes Mellitus Type 1, Internal Pacemaker, MRSA, Seizures <Kayce Steven 04/21/20 08:56> *Have you ever received a pneumonia vaccine?: Yes <Kayce Steven 04/21/20 08:56> *Have you received a flu vaccine this season?: Yes <Kayce Steven 04/21/20 08:56> Other Medical History: Reports: Anemia, Arthritis, Fibromyalgia, Liver Disease, Other. Denies: Blood Transfusion Reaction <Kayce Steven 04/21/20 08:56> Laterality Cases: Right: Arthroscopy Shoulder, Bilateral: Carpal Tunnel Release, Tonsillectomy <Kayce Steven 04/21/20 08:56> Other Surgeries: Yes: Appendectomy, Cardiac Catheterization, Cholecystectomy, Colonoscopy, EGD, Hysterectomy-Total, Tubal Ligation, Other (kidney stone, back ). No: Pacemaker <Kayce Steven 04/21/20 08:56> Amputation: No <Kayce Steven 04/21/20 08:56> Fractures: Yes <Kayce Steven 04/21/20 08:56> - *Social History Last grade of school completed: High school graduate <Kayce Steven 04/21/20 08:56> Smoking Status: Current every day smoker <Kayce Steven 04/21/20 08:56> Tobacco Type: cigarettes <Kayce Steven 04/21/20 08:56> # Packs/Day (cigarettes): 1 <Kayce Steven 04/21/20 08:56> #Yrs smoked (if former smoker): 45 <Kayce Steven 04/21/20 08:56> Alcohol Intake: never <Kayce Steven 04/21/20 08:56> Alcohol Intake Frequency:: holidays/special occasions only <Kayce Steven 04/21/20 08:56> Substance Use Type: denies use <Kayce Steven 04/21/20 08:56> *Occupational Status:: disabled <Kayce Steven 04/21/20 08:56> Housing: apartment <Kayce Steven 04/21/20 08:56> Household Members: spouse <Kayce Steven 04/21/20 08:56> *Travel in the last 8 weeks: None <Kayce Steven 04/21/20 08:56> - Psychiatric History Pschychiatric History:: Reports:: Anxiety, Depression <Kayce Steven 04/21/20 08:56> Family Hx:: Unable to obtain <Kayce Steven 04/21/20 08:56> Review of Systems - Constitutional Denies chills, Denies fever(s), Denies weakness <Kayce Steven 04/21/20 08:56> - Eyes Denies blurry vision, Denies double vision <Kayce Steven - 04/21/20 08:56> - ENT Reports nasal congestion, Denies sore throat <Kayce Steven - 04/21/20 08:56> - *Cardiovascular Reports shortness of breath, Denies chest pain <Kayce Steven - 04/21/20 08:56> - *Re
[2020-04-21 12:26] LABS: POC Glucose,Bedside 106 (70-110)
--- NOTE | 2020-04-21 15:24 | HMH.DCSUM ---
General - General Admission date:: 04/21/20 <Say Sebastian - 05/08/20 21:56> 04/21/20 <Kayce Steven - 04/21/20 15:26> Discharge date: 04/21/20 <Kayce Steven - 04/21/20 15:26> HPI HPI: Ms. Aguilera is a 65yo female with a history of [place], cirrhosis, hypertension, COPD, thrombocytopenia, neutropenia, and type 2 diabetes who called the office yesterday for a telehealth visit complaining of shortness of breath. She stated her abdomen was extremely distended and she had swelling in both her legs and her arms. She stated she had a paracentesis in March and she thought she may need another one. She was directed to the emergency room. The patient's chest x-ray showed nothing acute. She had an abdominal/pelvic CT showing cirrhosis with splenomegaly and portal hypertension with varices and mild abdominal peritoneal ascites. There is a small amount of free fluid noted. There was also wall thickening of the small and large bowel. The CT also showed a mild diffuse anasarca. The patient had a diagnostic paracentesis performed and was then transferred to the floor. She states she feels much better this morning and her shortness of breath has resolved since having the paracentesis. <Kayce Steven - 04/21/20 15:26> Hospital Course Hospital Course: The patient did well after her paracentesis and her shortness of breath resolved. Her swelling improved greatly. Her labs were relatively unremarkable aside from her thrombocytopenia, which was a chronic issue. Her troponins were all negative. Her Covid IgG and IgM were both positive, however her nasal swab was negative. The patient has fluid cultures pending. She is stable to be discharged home and will follow up with both Dr. Sebastian and Janet lund. <Kayce Steven - 04/21/20 15:26> Objective Vital signs: Temp Pulse Resp BP Pulse Ox 97.7 F 66 18 112/55 L 97 04/21/20 12:00 04/21/20 12:00 04/21/20 12:00 04/21/20 12:00 04/21/20 12:00 <Say Sebastian - 05/08/20 21:56> Temp Pulse Resp BP Pulse Ox 97.7 F 66 18 112/55 L 97 04/21/20 12:00 04/21/20 12:00 04/21/20 12:00 04/21/20 12:00 04/21/20 12:00 <Kayce Steven - 04/21/20 15:26> Narrative: - Constitutional no acute distress - *Routine HEENT Exam Head: Present: normocephalic Eye: Present: EOMI, PERRL ENT: Present: mucous membranes dry - *Routine Neck Exam Present: supple. Absent: lymphadenopathy - *Routine Respiratory Exam Present: decreased breath sounds, rhonchi (bilaterally) - *Routine Cardiovascular Exam Present: RRR - *Routine Abdominal Exam Present: soft, normoactive bowel sounds. Absent: tenderness, distended - *Routine Extremities Exam Present: edema (2+ pretibial edema bilaterally). Absent: cyanosis, clubbing - *Routine Skin Exam Present: warm. Absent: rash - *Routine Neurological Exam Present: alert, oriented X3 <Kayce Steven - 04/21/20 15:26> Results Labs on day of discharge: Labs from last 24 hours 04/21/20 04/21/20 04/21/20 12:12 05:35 05:35 WBC RBC Hgb Hct MCV MCH MCHC RDW Plt Count MPV Neut % (Auto) Lymph % (Auto) Fleming % (Auto) Eos % (Auto) Baso % (Auto) Neut # (Auto) Lymph # (Auto) Fleming # (Auto) Eos # (Auto) Baso # (Auto) PT 12.8 H INR 1.17 H APTT Sodium 137 Potassium 4.2 Chloride 106 Carbon Dioxide 30 D Anion Gap 5.2 BUN 19 H Creatinine 1.10 H Estimated Creat Clear 92 Estimated GFR 50 L Est GFR ( Amer) 61 Glucose 74 D POC Glucose 106 Calcium 8.9 Magnesium 1.6 Total Bilirubin Direct Bilirubin Conjugated Bilirubin Indirect Bilirubin Unconjugated Bilirubin AST ALT Alkaline Phosphatase Troponin I NT-Pro-B Natriuret Pep Total Protein Albumin Fluid Source Fluid Volume Fluid Appearance Fluid RBC (Auto) Fld
== END 2020-04-21 15:26 | disposition home or self-care (01) ==
LOC: ER 04-21 01:38 → 2ND 04-21 02:27
PROVIDERS: Emergency Medicine; Admitting Provider Family Medicine; Emergency Provider Emergency Medicine; PCP Family Medicine; Visit Provider Family Medicine
DX: K75.81 Nonalcoholic steatohepatitis (NASH) (principal); I10 Essential (primary) hypertension; J44.9 Chronic obstructive pulmonary disease, unspecified; Z99.81 Dependence on supplemental oxygen; E11.9 Type 2 diabetes mellitus without complications; Z72.0 Tobacco use; Z86.19 Personal history of other infectious and parasitic diseases; I27.20 Pulmonary hypertension, unspecified; M79.7 Fibromyalgia; D69.6 Thrombocytopenia, unspecified; R18.8 Other ascites; Z88.2 Allergy status to sulfonamides; Z88.8 Allergy status to other drugs, medicaments and biological substances; Z79.51 Long term (current) use of inhaled steroids; Z79.4 Long term (current) use of insulin; Z79.899 Other long term (current) drug therapy; R06.9 Unspecified abnormalities of breathing
CPT/HCPCS: 36415; 49083; 71045; 74177; 80048; 80076; 82962; 83735; 83880; 84484; 85025; 85610; 85730; 86328; 87070; 87077; 87186; 87205; 89051; 96374; 99285; G0378; Q9967; U0003

== ENCOUNTER 2020-05-06 09:15 | Observation (INO) | payer MEDICARE, MEDICAID, SELFPAY ==
[2020-05-06] VITALS (12 sets, daily range): BP systolic 97–143; BP diastolic 40–84; PULSE 53–95; RESP 16–20; TEMP 36.6–37.2; O2SAT 96–99; BMI 37.4; BMI 40.9
--- NOTE | 2020-05-06 09:18 | CT_ITS ---
PROCEDURE: CT HEAD/BRAIN WO CON CLINICAL INDICATION: confusion COMPARISON: CT HEADWO CT head/brain wo con from 09/23/2017 TECHNIQUE: Axial images obtained. All CT scans at the facility use one or more dose reduction, viz: automated exposure control, ma/kV adjustment per patient size (including targeted exams where dose is matched to indication, i.e. head), or iterative reconstruction technique. FINDINGS: No midline shift, mass effect, intracranial hemorrhage, hydrocephalus, or extra-axial fluid collection is evident. Ob in fissures and cortical sulci are mildly prominent. There are mild periventricular hypodensities consistent with chronic ischemic white matter changes. . The calvarium has an unremarkable appearance except for a small radiolucency outer table right posterior parietal location. This could be a small epidermoid. The mastoids are clear and the visualized paranasal sinuses are clear. IMPRESSION: Findings of mild age-appropriate cortical atrophy and mild chronic ischemic white matter changes, no acute intracranial pathology noted Dictated by: Dr. Vivek Francisco MD 05/06/2020 10:09 Dr. Vivek Francisco MD in [place] 05/06/2020 10:09
--- NOTE | 2020-05-06 09:20 | ECG_ITS ---
APPROVED REPORT Exam: Resting ECG HR:71 bpm ECG Measurements Heart Rate 71 AXES MA 140 P 64 QRSd 82 QRS 85 QT 412 T 61 QTc 447 Conclusion Normal sinus rhythm Low voltage QRS Nonspecific ST and T wave abnormality Abnormal ECG Electronically signed by : Balta Costello, 05/06/2020 19:35:11
--- NOTE | 2020-05-06 09:22 | HMH.EDAMS ---
ED Disposition Clinical Impression: Encephalopathy, Thrombocytopenia Disposition: Admitted As Inpatient Condition on Discharge: Good Referrals: PCP,No [Primary Care Provider] - - Critical Care Critical Care Time: No Attestation: On , the high probability of a clinically significant, sudden or life threatening deterioration of the following system(s) required my full and direct attention, intervention and personal management. The time I documented below is in addition to time spent performing reported procedures but includes the following listed in this critical care notation. Medical Decision Making - Boo Inquiry Pt receiving controlled substance: No Vital Signs: 05/06/20 09:15 05/06/20 09:42 05/06/20 10:04 Temperature 98.4 F Temperature Source Oral Pulse Rate [Radial] 77 53 L 76 Respiratory Rate 20 18 18 Blood Pressure [Right Arm] 142/61 H 97/64 L 114/60 Blood Pressure Mean [Right Arm] 88 75 78 Blood Pressure Source [Right Arm] Automatic Cuff Automatic Cuff Blood Pressure Position [Right Arm] Sitting Sitting Supine 02 Sat by Pulse Oximetry 98 99 96 Oxygen Delivery Method Room Air 05/06/20 10:42 05/06/20 12:19 05/06/20 13:47 Temperature Temperature Source Pulse Rate [Radial] 87 79 81 Respiratory Rate 16 18 18 Blood Pressure [Right Arm] 141/63 H 111/61 114/47 L Blood Pressure Mean [Right Arm] 89 77 69 Blood Pressure Source [Right Arm] Automatic Cuff Automatic Cuff Automatic Cuff Blood Pressure Position [Right Arm] Supine Supine 02 Sat by Pulse Oximetry 97 97 97 Oxygen Delivery Method Room Air 05/06/20 14:04 Temperature Temperature Source Pulse Rate [Radial] 84 Respiratory Rate 16 Blood Pressure [Right Arm] 101/55 L Blood Pressure Mean [Right Arm] 70 Blood Pressure Source [Right Arm] Automatic Cuff Blood Pressure Position [Right Arm] 02 Sat by Pulse Oximetry 97 Oxygen Delivery Method - Lab Data Lab Results 05/06/20 09:37: WBC 5.5, RBC 3.59 L, Hgb 10.8 L, Hct 32.9 L, MCV 91.6, MCH 30.0, MCHC 32.7, RDW 16.6, Plt Count 35 L*, MPV 12.8 H, Neut % (Auto) 70.0, Lymph % (Auto) 18.8, Wells % (Auto) 9.7 H, Eos % (Auto) 0.7, Baso % (Auto) 0.8, Neut # (Auto) 3.9, Lymph # (Auto) 1.0, Wells # (Auto) 0.5, Eos # (Auto) 0.0, Baso # (Auto) 0.0 05/06/20 09:37: Sodium 141, Potassium 4.6, Chloride 108 H, Carbon Dioxide 30, Anion Gap 7.6, BUN 25 H, Creatinine 1.10 H, Estimated Creat Clear 83, Estimated GFR 50 L, Est GFR ( Amer) 61, Glucose 146 H, Calcium 9.4, Total Bilirubin 1.8 H, AST 52 H, ALT 28, Alkaline Phosphatase 139 H, Troponin I < 0.01, Total Protein 6.9, Albumin 3.0 L, Globulin 3.9 H, Albumin/Globulin Ratio 0.8 L, Lipase 115 05/06/20 09:37: Ammonia 14 05/06/20 09:37: Lactate 1.5 05/06/20 09:37: NT-Pro-B Natriuret Pep 577 H 05/06/20 09:37: SARS-CoV-2 IgG Ab (Rapid) Positive A, SARS-CoV-2 IgM Ab (Rapid) Positive A 05/06/20 11:20: Chlamy pneumoniae PCR Not detected, Adenovirus (PCR) Not detected, B. pertussis DNA (PCR) Not detected, Coronavirus OC43 (PCR) Not detected, Coronavirus HKU1 (PCR) Not detected, Coronavirus 229E (PCR) Not detected, SARS-CoV-2 (PCR) Not detected, Coronavirus NL63 (PCR) Not detected, Human Metapneumovir PCR Not detected, Influenza A (H1) PCR Not detected, Influ A (H1N1/09) PCR Not detected, Influenza A (H3) PCR Not detected, Influenza Type A (PCR) Not detected, Influenza Type B (PCR) Not detected, M. pneumoniae (PCR) Not detected, Parainfluenza 1 (PCR) Not detected, Parainfluenza 2 (PCR) Not detected, Parainfluenza 3 (PCR) Not detected, Parainfluenza 4 (PCR) Not detected, RSV (PCR) Not detected, Entero/Rhino (PCR) Not detected Result diagrams: 05/06/20 09:37 05/06/20 09:37 Orders (Tests/Meds): ED MEDICATIONS Generic Name Dose Route Start Last Admin Trade Name Freq PRN Reason Stop Dose Admin Sodium Chloride 1,000 mls @ 150 mls/hr 05/06/20 09:30 05/06/20 09:28 Sod Chlor 0.9% 1000ml Bag IV 06/05/20 09:29 150 mls/hr .[id number] JULIO Administration
[2020-05-06 09:53] LABS: Basophils % 0.8 % (0.1-2.0); Eosinophils % 0.7 % (0.1-12.0); Hematocrit 32.9 % (37.0-47.0); Hemoglobin 10.8 g/dL (12.2-16.2); Lymphocytes % 18.8 % (10-50); Mean Corpuscular HGB Conc 32.7 g/dL (31.8-35.4); Mean Corpuscular Volume 91.6 fl (81-99); Mean Platelet Volume 12.8 fl (7.4-10.4); Monocytes # 0.5 K/mm3 (0.1-1.0); Monocytes % 9.7 % (1.7-9.3); Neutrophils # 3.9 K/mm3 (1.8-7.8); Red Blood Count 3.59 M/mm3 (4.20-5.40); Red Cell Distribution Width 16.6 % (11.5-17.5); White Blood Count 5.5 K/mm3 (4.8-10.8)
[2020-05-06 09:54] LABS: Platelet Count 35 K/mm3 (142-424)
[2020-05-06 09:56] LABS: Chloride 108 mmol/L (98-107); Potassium 4.6 mmoL/L (3.5-5.1); Sodium 141 mmol/L (136-145)
--- NOTE | 2020-05-06 09:58 | PC.NURSE ---
DR COLEMAN INFORMED OF CRITICAL PLT OF 35
[2020-05-06 09:59] LABS: Alanine Aminotransferase 28 U/L (12-78); Albumin/Globulin Ratio 0.8 (1.1-1.8); Alkaline Phosphatase 139 U/L (38-126); Ammonia 14 umol/L (9-30); Anion Gap 7.6 mEq/L (5-15); Aspartate Amino Transferase 52 U/L (14-36); Bilirubin,Total 1.8 mg/dl (0.2-1.3); Blood Urea Nitrogen 25 mg/dl (7-17); Calcium 9.4 mg/dl (8.4-10.2); Carbon Dioxide 30 mmol/L (22.0-30.0); Creatinine Clearance Estimated 83 mL/min (50-200); Estimated Glomerular Filt Rate 50 ml/min (>60); GFR (African American) 61 ML/MIN (>60); Globulin 3.9 g/dL (1.3-3.2); Glucose 146 mg/dl (74-100); Lipase 115 U/L (23-300); Total Protein,Serum 6.9 g/dl (6.3-8.2)
[2020-05-06 10:00] LABS: Lactic Acid 1.5 mmol/L (0.7-2.1)
[2020-05-06 10:08] LABS: NT Pro Brain Natriuretic Pep. 577 pg/mL (0-125)
[2020-05-06 10:16] LABS: Troponin I < 0.01 ng/ml (0.00-0.034)
[2020-05-06 10:24] LABS: Coronavirus 19 IgG Antibody Positive (Negative); Coronavirus 19 IgM Antibody Positive (Negative)
--- NOTE | 2020-05-06 10:58 | PC.NURSE ---
PT'S NEIGHBOR CALLED STATING PT HAS FALLEN 3XS YESTERDAY
[2020-05-06 11:26] LABS: Adenovirus,PCR Not Detected (NotDetected); Bordetella Pertussis Not Detected (NotDetected); Chlamydophila Pneumoniae, PCR Not Detected (NotDetected); Coronavirus 19, PCR Not Detected (NotDetected); Coronavirus 229E Not Detected (NotDetected); Coronavirus NL63 Not Detected (NotDetected); Coronavirus OC43 Not Detected (NotDetected); Coronovirus HKU1,PCR Not Detected (NotDetected); Human Metapneumovirus Not Detected (NotDetected); Influenza A, PCR Not Detected (NotDetected); Influenza AH1, 2009 Not Detected (NotDetected); Influenza AH1, PCR Not Detected (NotDetected); Influenza AH3,PCR Not Detected (NotDetected); Influenza B, PCR Not Detected (NotDetected); Mycoplasma Pneumoniae, PCR Not Detected (NotDetected); Parainfluenza 1, PCR Not Detected (NotDetected); Parainfluenza 2, PCR Not Detected (NotDetected); Parainfluenza 3, PCR Not Detected (NotDetected); Parainfluenza 4, PCR Not Detected (NotDetected); Respiratory Syncytial Virus Not Detected (NotDetected); Rhinovirus/Enterovirus Not Detected (NotDetected)
--- NOTE | 2020-05-06 12:00 | PC.NURSE ---
PT RESTING OFFERS NO C/O AT PRESENT
--- NOTE | 2020-05-06 13:00 | PC.NURSE ---
PT RESTING OFFERS NO C/O AT PRESENT
--- NOTE | 2020-05-06 14:06 | PC.NURSE ---
DR Iverson speaking to Dr Torres
--- NOTE | 2020-05-06 14:57 | PC.NURSE ---
REPORT TO CARMEN BURGOS RN
--- NOTE | 2020-05-06 15:50 | HMH.PHAVTE ---
[facility] Pharmacy VTE Monitoring - Patient Demographics Admission date: 05/06/20 Report Date: 05/06/20 Time: 15:50 Allergies/Adverse Reactions: Patient Allergies salicylates Allergy (Unknown, Verified 04/20/20 18:34) AFFECTS CIRROHSIS Sulfa (Sulfonamide Antibiotics) [SULFA (SULFONAMIDE ANTIBIOTICS)] Allergy (Unknown, Verified 04/20/20 18:34) I-HIVES acetaminophen [From Tylenol] Adverse Reaction (Verified 04/20/20 18:34) Height: 1.65 m Weight: 111.697 kg Patient Problems: Current Active Problems (This Medical Record has been edited. Action required.) Thrombocytopenia (Chronic) Encephalopathy (Acute) - VTE Risk Labs: VTE Related Lab Results Hgb 10.8 g/dL (12.2-16.2) L 05/06/20 09:37 Hct 32.9 % (37.0-47.0) L 05/06/20 09:37 Plt Count 35 K/mm3 (142-424) L* 05/06/20 09:37 BUN 25 mg/dl (7-17) H 05/06/20 09:37 Creatinine 1.10 mg/dl (0.52-1.04) H 05/06/20 09:37 Estimated Creat Clear 83 mL/min (50-200) 05/06/20 09:37 Was VTE Risk Assessment Performed: Yes VTE Score: 7 VTE Risk Level: Moderate Risk - Prophylaxis Types of VTE Prophylaxis: IPCS Knee High ( PLACED ORDER FOR SCUDS.)
--- NOTE | 2020-05-06 17:00 | PC.NURSE ---
Pt refused to eat anything for dinner. Offered to get her something different also. Continued to refuse anything.
--- NOTE | 2020-05-06 17:34 | PC.NURSE ---
Pt's IV beeping with occlusion (located in left a/c). Turned off at this time d/t pt sleeping soundly on the arm of the IV site
[2020-05-06 21:04] LABS: POC Glucose,Bedside 101 (70-110)
--- NOTE | 2020-05-06 22:39 | PC.NURSE ---
PT CONFUSED AND UNABLE TO GIVE CONSENT. NEXT OF KIN NOTIFIED FOR VERBAL CONSENT TO OBTAIN SKIN ASSESSMENT PHOTOS FOR CHART AT THIS TIME.
--- NOTE | 2020-05-06 23:27 | PC.WOUNDNOTE ---
Wound Location: right upper back Length:4 cm Width: Depth: Undermining Y/N: Tunneling cm: Granulation %: Slough/necrotic tissue %: Inflammation/swelling Y/N:n Pain and/or tenderness Y/N:n Exudate: Serosanguinous Sanguinous Serosanguinous Seropurulent Purulent Color: Clear [place] Cloudy/milky [place] Red Green Yellow Brown Kapoor Blue Consistency: Thick Thin Amount: None Scant Small Moderate Large Odor Y/N:n
--- NOTE | 2020-05-07 03:54 | PC.WOUNDNOTE ---
Wound Location: bilateral legs Length: Width: Depth: Undermining Y/N: Tunneling cm: Granulation %: Slough/necrotic tissue %: Inflammation/swelling Y/N: Pain and/or tenderness Y/N: Exudate: Serosanguinous Sanguinous Serosanguinous Seropurulent Purulent Color: Clear [place] Cloudy/milky [place] Red Green Yellow Brown Kapoor Blue Consistency: Thick Thin Amount: None Scant Small Moderate Large Odor Y/N:n scattered blood blisters
--- NOTE | 2020-05-07 03:56 | PC.WOUNDNOTE ---
Wound Location: abdominal folds and danica area Length: Width: Depth: Undermining Y/N: Tunneling cm: Granulation %: Slough/necrotic tissue %: Inflammation/swelling Y/N: Pain and/or tenderness Y/N: Exudate: Serosanguinous Sanguinous Serosanguinous Seropurulent Purulent Color: Clear [place]ierra Cloudy/milky [place] Red Green Yellow Brown Kapoor Blue Consistency: Thick Thin Amount: None Scant Small Moderate Large Odor Y/N: y
--- NOTE | 2020-05-07 03:57 | PC.WOUNDNOTE ---
Wound Location: buttocks Length: Width: Depth: Undermining Y/N: Tunneling cm: Granulation %: Slough/necrotic tissue %: Inflammation/swelling Y/N: Pain and/or tenderness Y/N: Exudate: Serosanguinous Sanguinous Serosanguinous Seropurulent Purulent Color: Clear [place] Cloudy/milky [place] Red Green Yellow Brown Kapoor Blue Consistency: Thick Thin Amount: None Scant Small Moderate Large Odor Y/N:
[2020-05-07 04:00] VITALS: BP 110/53; PULSE 106; RESP 19; TEMP 37.9; O2SAT 91
--- NOTE | 2020-05-07 04:17 | PC.NURSE ---
pt has slept well tonight. iv patent and infusing per order. abdomen is distended and firm. pt has voiced no complaints. remains confused. able to answer name and birthday when asked. pt has voided x1 this shift. encourage pt to try and go to bathroom but pt refused. call light in reach. bed in lowest position. teds on. non slip socks on. temp was 100.2 at last vital check and blanket was removed. hr is elevated and blood pressure has decreased since last check. will continue to monitor pt condition.
[2020-05-07 05:10] VITALS: BMI 41.3
[2020-05-07 05:29] VITALS: TEMP 36.9
[2020-05-07 07:05] LABS: Basophils % 0.4 % (0.1-2.0); Eosinophils % 0.5 % (0.1-12.0); Hematocrit 28.4 % (37.0-47.0); Lymphocytes # 0.8 K/mm3 (0.7-4.5); Lymphocytes % 32.3 % (10-50); Mean Corpuscular HGB Conc 32.3 g/dL (31.8-35.4); Mean Corpuscular Hemoglobin 29.9 pg (27.0-31.2); Mean Corpuscular Volume 92.4 fl (81-99); Mean Platelet Volume 12.9 fl (7.4-10.4); Monocytes # 0.3 K/mm3 (0.1-1.0); Monocytes % 9.7 % (1.7-9.3); Neutrophils # 1.5 K/mm3 (1.8-7.8); Neutrophils % 57.1 % (37.0-80.0); Red Blood Count 3.08 M/mm3 (4.20-5.40); Red Cell Distribution Width 16.7 % (11.5-17.5); White Blood Count 2.6 K/mm3 (4.8-10.8)
[2020-05-07 07:18] LABS: Anion Gap 8.1 mEq/L (5-15); Blood Urea Nitrogen 20 mg/dl (7-17); Calcium 8.7 mg/dl (8.4-10.2); Carbon Dioxide 27 mmol/L (22.0-30.0); Chloride 111 mmol/L (98-107); Chol/HDL Ratio 4.7 (1-3.5); Cholesterol 127 mg/dl (140-200); Creatinine Clearance Estimated 45 mL/min (50-200); Estimated Glomerular Filt Rate 50 ml/min (>60); GFR (African American) 61 ML/MIN (>60); Glucose 101 mg/dl (74-100); HDL Cholesterol 27 mg/dl (40-60); Phosphorous 3.2 mg/dl (2.5-4.5); Potassium 4.1 mmoL/L (3.5-5.1); Sodium 142 mmol/L (136-145); Triglycerides 100 mg/dl (30-150); VLDL Cholesterol 20 mg/dL (0-40)
[2020-05-07 07:28] LABS: Hemoglobin 9.2 g/dL (12.2-16.2); Platelet Count 25 K/mm3 (142-424)
[2020-05-07 07:29] LABS: Direct LDL Cholesterol 63.08 mg/dL (100-129)
[2020-05-07 08:00] VITALS: BP 114/85; PULSE 92; RESP 20; TEMP 36.8; O2SAT 95
--- NOTE | 2020-05-07 08:22 | PC.NURSE ---
Notified Dr. Torres of 25 plt count. NNO [id number]
--- NOTE | 2020-05-07 09:50 | HMH.PHAINT ---
COMPLETED HOME MEDICAITON LIST USING LIST FROM HOME PHARMACY
[2020-05-07 11:21] LABS: POC Glucose,Bedside 116 (70-110)
--- NOTE | 2020-05-07 14:50 | PC.NURSE ---
Pt is alert to self and place this shift. Pt has ns at 100 ML/HR. CB in reach. Pt has slept a lot this shift, does wake easily. Has had no c/o of pain or distress. BS x 4, ascites to abd noted, it is non tender. S1,S2, audible wheezes and fine crackles in bilateral upper lobes. Skin is jaundiced and has petechia to ble. Pt is able to independently turn self in bed. VSS. Will cont to mx. Remains safe.
[2020-05-07 15:30] VITALS: BP 117/69; PULSE 77; RESP 18; TEMP 36.7; O2SAT 97
[2020-05-07 15:39] LABS: POC Glucose,Bedside 104 (70-110)
--- NOTE | 2020-05-07 15:58 | HMH.HP ---
*Admission Date: 05/06/20 *History of present illness: 65yo F brought in by EMS secondary to confusion. Possibly some abdominal pain as well. Patient is a very poor historian at this time. She is unable to leave the day, date, month, year. She knows her name, date of , who the president is. When I asked her why she is here, she states she does not know. She reports that she called the ambulance to bring her to the hospital because she just did not feel good. She is unable to further quantify that and has very delayed responses to simple questions regarding any possible pain, shortness of breath, chest pain. A very poor historian. She relays that she has longstanding cirrhosis caused by a fatty liver. He denies a history of alcohol ingestion. Gives a history of gallbladder surgery. Gives a history of paracentesis but is very vague. Has seen a gastro here, and previously saw hematology, presumably for her thrombocytopenia. He is experiencing an increasing level of debility, changes in mentation, and those that know her are concerned for her ability to take care of herself at home. She relays having trouble with ADLs and frequent falls at home. CT brain was performed in the ER, unremarkable. [facility] History Medical History: Reports:: Anxiety, Asthma, Congestive Heart Failure, Chronic Obstructive Pulmonary Disease (COPD), Cerebrovascular Accident, Depression, Diabetes Mellitus Type 2, Gastroesophageal Reflux Disease(GERD), Hepatitis, Home Oxygen, Hyperlipidemia, Hypertension, Lung Disease, Kidney Stones, Migraine Denies:: Cancer, Diabetes Mellitus Type 1, Internal Pacemaker, MRSA, Seizures *Have you ever received a pneumonia vaccine?: No *Have you received a flu vaccine this season?: No Other Medical History: Reports: Anemia, Arthritis, Fibromyalgia, Liver Disease, Other. Denies: Blood Transfusion Reaction Laterality Cases: Right: Arthroscopy Shoulder, Bilateral: Carpal Tunnel Release, Tonsillectomy Other Surgeries: Yes: Appendectomy, Cardiac Catheterization, Cholecystectomy, Colonoscopy, EGD, Hysterectomy-Total, Tubal Ligation, Other (kidney stone, back ). No: Pacemaker Amputation: No Fractures: Yes - *Social History Smoking Status: Current every day smoker Tobacco Type: cigarettes # Packs/Day (cigarettes): 1 #Yrs smoked (if former smoker): 45 Alcohol Intake: former Alcohol Intake Frequency:: holidays/special occasions only Substance Use Type: denies use *Occupational Status:: other Housing: apartment Household Members: spouse *Travel in the last 8 weeks: None - Psychiatric History Pschychiatric History:: Reports:: Anxiety, Depression Family Hx:: Unable to obtain Review of Systems - Constitutional Reports lack of energy, Reports malaise - Eyes Reports pain, Denies change in vision - ENT Denies bleeding gums - *Cardiovascular Reports shortness of breath with activity, Denies chest pain - *Respiratory Reports chest congestion, Reports shortness of breath with activity, Denies change in phlegm color - *Gastrointestinal Reports abdominal pain, Reports bloating, Denies coffee ground vomit, Denies difficulty swallowing, Denies vomiting blood - *Genitourinary Reports side pain, Denies painful urination - *Musculoskeletal Reports abnormal walking, Reports decreased muscle mass, Reports joint swelling - Integumentary/Breasts Reports yellowing of the skin - *Neurologic Reports abnormal walking, Reports confusion, Reports memory loss, Denies seizure-like activity - Psychiatric Reports confusion, Reports memory loss, Reports mood swings - Endocrine Denies cold intolerance, Denies heat intolerance - Hematologic/Lymphatic Denies easy bleeding - Allergic/Immunologic Denies wheezing Meds Home Medications Medication Instructions Recorded Confirmed Type Metformin HCl [Glucophage 500mg 500 mg PO BID 05/08/17 05/06/20 History Tablet] Amiloride HCl [Midamor 5mg tablet] 5 mg PO DAILY 07/29/18 05/06/20
--- NOTE | 2020-05-07 16:14 | CT_ITS ---
PROCEDURE: CT ABDOMEN PELVIS WO/W CON CLINICAL INDICATION: pain Left-sided abdominal pain COMPARISON: CT CT ABDOMEN PELVIS W CON from 04/21/[address] ABDOMEN PELVIS W CON from 04/20/2020 TECHNIQUE: IV Contrast: 75ML Isovue 370 Oral Contrast None Axial images obtained with sagittal and coronal reformats. All CT scans at the facility use one or more dose reduction, viz: automated exposure control, ma/kV adjustment per patient size (including targeted exams where dose is matched to indication, i.e. head), or iterative reconstruction technique. FINDINGS: LOWER THORAX: No acute finding ABDOMEN & PELVIS: Small liver with micronodular contour consistent with cirrhosis. Splenomegaly at 20 cm. There is diffuse ascites. Paraesophageal varices and perisplenic varices are noted. Amber renal varices also noted on the left. The adrenal glands, kidneys, and pancreas have an unremarkable appearance. There has been a prior cholecystectomy. No intestinal obstruction or free air. No renal or ureteral calculi. No hydronephrosis. No evidence of appendicitis or diverticulitis. There is diffuse subcutaneous edema of the abdominal wall. No acute bony findings. 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 Probable small duodenal diverticulum. IMPRESSION: 1. Cirrhosis with splenomegaly and diffuse ascites. The ascites has increased in volume compared to the previous exam. 2. Splenomegaly with varices consistent with portal hypertension. 3. 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
[2020-05-07 16:58] LABS: Ammonia 34 umol/L (9-30)
[2020-05-07 17:00] LABS: INR 1.19 (0.9-1.1)
--- NOTE | 2020-05-07 19:04 | PC.NURSE ---
Pt drinking oral contrast slowly, have educated pt need for contrast for imaging. Pt states its nasty and she doesn't to drink it but she is trying.
[2020-05-07 19:56] VITALS: BP 117/53; PULSE 76; RESP 18; TEMP 36.8; O2SAT 98
--- NOTE | 2020-05-07 20:03 | PC.NURSE ---
pt transported to ct at this time
--- NOTE | 2020-05-07 20:05 | PC.NURSE ---
Called and clarified with Dr. Beatty industrial gas production operator to decrease fluids iv to ns 75ml/hr. Faxed to pharm.
[2020-05-07 21:48] LABS: POC Glucose,Bedside 99 (70-110)
[2020-05-08 04:00] VITALS: BP 102/55; PULSE 85; RESP 18; TEMP 36.8; O2SAT 92
[2020-05-08 05:01] VITALS: BMI 42.0
--- NOTE | 2020-05-08 05:58 | PC.NURSE ---
crackles and wheezes still noted on assessment. pt is alert and oriented. transfer with assist. iv patent and infusing per order. no complaints of soa or pain. ct completed this shift and per radiology pt needed to be encouraged more fluids to flush contrast out related to labs. vss. call light in reach. will continue to monitor pt condition.
[2020-05-08 07:09] LABS: POC Glucose,Bedside 84 (70-110)
--- NOTE | 2020-05-08 07:38 | PC.NURSE ---
SCANNED MEDS FOR SE[facility] FOLEY THIS AM AT APPX 0700.
[2020-05-08 07:56] VITALS: BP 98/56; PULSE 80; RESP 19; TEMP 36.8; O2SAT 93
--- NOTE | 2020-05-08 08:52 | HMH.ACPN2 ---
Internal Medicine - PN: Subj *Date: 05/08/20 *Time: 09:04 Interval history: I am assuming care of this patient who was inadvertently admitted to Dr. Torres's service. She is known to me from my practice and previous hospital admissions. She was admitted 2 days ago with increasing confusion and abdominal pain. She apparently has been weaker and more debilitated at home and has had several falls. Her laboratory data appears to be at baseline. She had a CT scan of the abdomen yesterday which is pending. This morning, her only complaint is some left upper quadrant abdominal pain. She has been n.p.o. from her CT scan yesterday. She would like to try diet but admits to not feeling hungry. Denies nausea. She reports her bowel movements have been normal. She states she has been compliant with her medication at home. She does not recall her last visit with Dr. Arzate. She had a paracentesis last month. Exam Vital signs and Labs for Last 24 Hours: Temp Pulse Resp BP Pulse Ox 98.2 F 80 19 98/56 L 93 L 05/08/20 07:56 05/08/20 07:56 05/08/20 07:56 05/08/20 07:56 05/08/20 07:56 Laboratory Results - last 24 hr 05/07/20 11:13: POC Glucose 116 H 05/07/20 15:28: POC Glucose 104 05/07/20 16:43: Ammonia 34 H 05/07/20 16:43: PT 13.0 H, INR 1.19 H 05/07/20 21:34: POC Glucose 99 05/08/20 07:02: POC Glucose 84 I & O for Last 24 hours: Intake & Output 05/05/20 05/06/20 05/07/20 05/08/20 11:59 11:59 11:59 11:59 Intake Total 1890 Balance 1890 Weight 225 lb 248 lb 4 oz 252 lb 7 oz Narrative: She is awakened from sleep. She responds appropriate to questions. She is oriented to name name and place. Appears in no respiratory distress. Color is good. Chest reveals coarse breath sounds. Heart is regular. Abdomen is obese and distended. There is some mild left upper quadrant tenderness and diffuse low abdominal tenderness. No rebound or guarding. Extremities show 1+ pretibial edema. 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 Qualifiers: Hepatic cirrhosis type: unspecified hepatic cirrhosis Qualified Code(s): K74.60 - Unspecified cirrhosis of liver; R18.8 - Other ascites Category: Medical Code(s): K74.60 - Unspecified cirrhosis of liver; R18.8 - Other ascites (4) Splenomegaly Status: Chronic Category: Medical Code(s): R16.1 - Splenomegaly, not elsewhere classified (5) COPD (chronic obstructive pulmonary disease) Status: Chronic Qualifiers: COPD type: unspecified COPD Qualified Code(s): J44.9 - Chronic obstructive pulmonary disease, unspecified Category: Medical Code(s): J44.9 - Chronic obstructive pulmonary disease, unspecified (6) Type 2 diabetes mellitus Status: Chronic Qualifiers: Diabetes mellitus fdc insulin use: unspecified fdc insulin use status Diabetes mellitus complication status: with other specified complication Qualified Code(s): E11.69 - Type 2 diabetes mellitus with other specified complication Category: Medical Code(s): E11.9 - Type 2 diabetes mellitus without complications - Assessment and plan all Dx Assessment and Plan for all problems:: CT of abdomen and pelvis is pending. She will likely need repeat paracentesis. Blood pressure has been running low. We will hold her irbesartan. She will be offered a diet today. PT and OT eval's are pending. Her functional status at home has been marginal for a while and she would likely benefit from long-term care placement. Care management has been consulted.
[2020-05-08 12:57] LABS: POC Glucose,Bedside 78 (70-110)
[2020-05-08 14:15] VITALS: BP 115/70; PULSE 85; RESP 20; TEMP 36.7; O2SAT 93
[2020-05-08 17:22] LABS: POC Glucose,Bedside 125 (70-110)
[2020-05-08 20:00] VITALS: BP 102/59; PULSE 68; RESP 18; TEMP 36.7; O2SAT 98
--- NOTE | 2020-05-08 20:07 | PC.NURSE ---
No acute changes this evening. Exp wheezes and crackles upon auscultation. Denies soa. CB in reach. Denies pain at this time. Has been up to bsc. Abd ascitic. VSS. NAD. Pt alert and oriented. Blood sugars have been under control. Have educated pt importance of low sod diet. Plus one edema to ble and petechiae. Dsg to back.
[2020-05-08 21:18] LABS: POC Glucose,Bedside 133 (70-110)
[2020-05-09 04:00] VITALS: BP 107/53; PULSE 69; RESP 19; TEMP 36.4; O2SAT 95
--- NOTE | 2020-05-09 04:28 | PC.NURSE ---
pt has slept well throughout the shift. iv patent and infusing. no acute changes from previous assessment. pt transferred to bsc with standby assist. call light in reach. vss. will continue to monitor
[2020-05-09 05:29] VITALS: BMI 42.9
[2020-05-09 06:47] LABS: POC Glucose,Bedside 103 (70-110)
[2020-05-09 07:11] LABS: Basophils % 0.7 % (0.1-2.0); Eosinophils % 1.4 % (0.1-12.0); Hematocrit 26.1 % (37.0-47.0); Hemoglobin 8.5 g/dL (12.2-16.2); Lymphocytes # 0.8 K/mm3 (0.7-4.5); Lymphocytes % 38.3 % (10-50); Mean Corpuscular HGB Conc 32.5 g/dL (31.8-35.4); Mean Corpuscular Volume 92.2 fl (81-99); Mean Platelet Volume 11.5 fl (7.4-10.4); Monocytes # 0.2 K/mm3 (0.1-1.0); Monocytes % 11.1 % (1.7-9.3); Neutrophils # 1.1 K/mm3 (1.8-7.8); Neutrophils % 48.4 % (37.0-80.0); Red Blood Count 2.83 M/mm3 (4.20-5.40); Red Cell Distribution Width 16.8 % (11.5-17.5); White Blood Count 2.2 K/mm3 (4.8-10.8)
[2020-05-09 07:30] LABS: Anion Gap 6.7 mEq/L (5-15); Blood Urea Nitrogen 23 mg/dl (7-17); Calcium 8.2 mg/dl (8.4-10.2); Carbon Dioxide 26 mmol/L (22.0-30.0); Chloride 109 mmol/L (98-107); Creatinine Clearance Estimated 35 mL/min (50-200); Estimated Glomerular Filt Rate 38 ml/min (>60); GFR (African American) 46 ML/MIN (>60); Glucose 98 mg/dl (74-100); Potassium 3.7 mmoL/L (3.5-5.1); Sodium 138 mmol/L (136-145)
[2020-05-09 07:37] LABS: Platelet Count 25 K/mm3 (142-424)
--- NOTE | 2020-05-09 07:41 | HMH.ACPN2 ---
Internal Medicine - PN: Subj *Date: 05/09/20 *Time: 07:44 Interval history: She rested well last night. Continues to complain of mild left upper quadrant pain. She is tolerating her diet. Stools are loose. CT scan report is still pending. Exam Vital signs and Labs for Last 24 Hours: Temp Pulse Resp BP Pulse Ox 97.5 F L 69 19 107/53 L 95 05/09/20 04:00 05/09/20 04:00 05/09/20 04:00 05/09/20 04:00 05/09/20 04:00 Laboratory Results - last 24 hr 05/08/20 11:43: POC Glucose 78 05/08/20 16:59: POC Glucose 125 H 05/08/20 20:46: POC Glucose 133 H 05/09/20 06:34: POC Glucose 103 05/09/20 06:35: WBC 2.2 L, RBC 2.83 L, Hgb 8.5 L, Hct 26.1 L, MCV 92.2, MCH 30.0, MCHC 32.5, RDW 16.8, Plt Count 25 L*, MPV 11.5 H, Neut % (Auto) 48.4, Lymph % (Auto) 38.3, [place] % (Auto) 11.1 H, Eos % (Auto) 1.4, Baso % (Auto) 0.7, Neut # (Auto) 1.1 L, Lymph # (Auto) 0.8, [place]ell # (Auto) 0.2, Eos # (Auto) 0.0, Baso # (Auto) 0.0 05/09/20 06:35: Sodium 138, Potassium 3.7, Chloride 109 H, Carbon Dioxide 26, Anion Gap 6.7, BUN 23 H, Creatinine 1.40 H D, Estimated Creat Clear 35, Estimated GFR 38 L, Est GFR ( Amer) 46 L D, Glucose 98, Calcium 8.2 L I & O for Last 24 hours: Intake & Output 05/06/20 05/07/20 05/08/20 05/09/20 11:59 11:59 11:59 11:59 Intake Total 1890 3497 / 3497 Output Total 300 / 300 Balance 1890 3197 / 3197 Weight 225 lb 248 lb 4 oz 252 lb 7 oz 257 lb 7 oz Narrative: She is alert and appears in no distress. Chest with coarse upper airway rhonchi. Heart is regular. Abdomen is obese and distended with mild left upper quadrant tenderness. Extremities with 1+ pretibial edema. 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 Qualifiers: Hepatic cirrhosis type: unspecified hepatic cirrhosis Qualified Code(s): K74.60 - Unspecified cirrhosis of liver; R18.8 - Other ascites Category: Medical Code(s): K74.60 - Unspecified cirrhosis of liver; R18.8 - Other ascites (4) Splenomegaly Status: Chronic Category: Medical Code(s): R16.1 - Splenomegaly, not elsewhere classified (5) COPD (chronic obstructive pulmonary disease) Status: Chronic Qualifiers: COPD type: unspecified COPD Qualified Code(s): J44.9 - Chronic obstructive pulmonary disease, unspecified Category: Medical Code(s): J44.9 - Chronic obstructive pulmonary disease, unspecified (6) Type 2 diabetes mellitus Status: Chronic Qualifiers: Diabetes mellitus remote computer terminal operator insulin use: unspecified remote computer terminal operator insulin use status Diabetes mellitus complication status: with other specified complication Qualified Code(s): E11.69 - Type 2 diabetes mellitus with other specified complication Category: Medical Code(s): E11.9 - Type 2 diabetes mellitus without complications (7) Fibromyalgia Status: Chronic Category: Medical Code(s): M79.7 - Fibromyalgia (8) Hypertension Status: Chronic Qualifiers: Hypertension type: essential hypertension Qualified Code(s): I10 - Essential (primary) hypertension Category: Medical Code(s): I10 - Essential (primary) hypertension (9) Pulmonary HTN Status: Chronic Category: Medical Code(s): I27.20 - Pulmonary hypertension, unspecified - Assessment and plan all Dx Assessment and Plan for all problems:: Still awaiting results of CT scan from the weekend. Likely will need paracentesis. AM labs still pending. Blood pressure is improved with holding her ARB. PT eval today and care management consult for possible placement.
[2020-05-09 08:00] VITALS: BP 108/67; PULSE 71; RESP 20; TEMP 36.7; O2SAT 98
--- NOTE | 2020-05-09 09:20 | HMH.OTEV ---
OT Inpatient Evaluation Rehab OT IP Evaluation Start: 05/09/20 08:46 Freq: ONCE Status: Complete Protocol: Document 05/09/20 09:15 MATTSOUMYA (Rec: 05/09/20 09:20 MATTSOUMYA [id number]) Rehab OT IP Assessment Subjective History 65yo F brought in by EMS secondary to confusion. Possibly some abdominal pain as well. Patient is a very poor historian at this time. She is unable to leave the day , date, month, year. She knows her name, date of , who the president is. When I asked her why she is here, she states she does not know. She reports that she called the ambulance to bring her to the hospital because she just did not feel good. She is unable to further quantify that and has very delayed responses to simple questions regarding any possible pain, shortness of breath, chest pain. A very poor historian. She relays that she has longstanding cirrhosis caused by a fatty liver. He denies a history of alcohol ingestion. Gives a history of gallbladder surgery. Gives a history of paracentesis but is very vague. Has seen a gastro here, and previously saw hematology, presumably for her thrombocytopenia. He is experiencing an increasing level of debility, changes in mentation, and those that know her are concerned for her ability to take care of herself at home. She relays having trouble with ADLs and frequent falls at home. CT brain was performed in the ER, unremarkable. PMH: Anxiety, Asthma, Congestive Heart Failure, Chronic Obstructive Pulmonary
--- NOTE | 2020-05-09 10:00 | HMH.PTEV ---
Physical Therapy Evaluation Rehab PT IP Evaluation Start: 05/09/20 08:45 Freq: ONCE Status: Active Protocol: Document 05/09/20 08:45 PHOKIKE (Rec: 05/09/20 10:00 PHORNE [id number]) Subjective/History History History 65 yowf adm with general weakness and AMS. She reports living alone, 4 steps to enter the home and she uses a cane for ambulation. She reports, I fall about 2 or 3 times a week at home. Subjective Subjective Pt reports no c/o pain this am , just stiffness and general soreness all over. Rehab PT IP Eval Objective Appearance Patient Behavior Appropriate Patient Orientation Person,Place,Time Difficulty following instructions none Speech Pattern Clear Ambulation Patient Able to Ambulate Yes Ambulation Observation IP General Gait Pattern Observation Wide Based Gait,Shuffling Step ,Decrease Stride Lngth (R), Decrease Stride Lngth (L) Ambulation Distance (feet) 15 Ambulation Assistive Device Rolling Walker Ambulation Ability Contact Guard/Hand Hold Balance Ability to Arise Able, uses arms to help Sitting Balance Steady, safe Standing Balance Steady, wide stance Dynamic Sitting Balance Ability Fair Dynamic Standing Balance Ability Fair Transfers Bed Transfer Ability Contact Guard/Hand Hold Chair Transfer Ability Contact Guard/Hand Hold Sit to Stand Bed Transfer Ability Contact Guard/Hand Hold Sit to Stand Chair Transfer Ability Contact Guard/Hand Hold ROM All Extremities PT ROM Status WFL MMT All Extremities PT MMT WFL Abnormal MMT Grade grossly 3/5 Rehab PT IP prob,goals,plan Problems Date of Evaluation: 05/09/20 PT IP Problems Bed Mobility,Transfers,Gait, Self care,Safety Rehab Potential Rehab Potential Fair Plan PT Intervention Plan Bed Mobility,Transfers,Gait, Self care,Safety,Therapeutic Exercise PT Plan Frequency BID Duration LOS Discharge Goals Bed Transfer Ability Supervision/Stand by Sit to Stand Chair Transfer Ability Supervision/Stand by Ambulation Assistive Device Rolling Walker Ambulation Distance (feet) 30 Discharge Plan PT Discharge Plan Currently pt is most appropriate for rehab
--- NOTE | 2020-05-09 11:09 | SW/DCPLANNER ---
Addendum entered by Ledy Paris 05/11/20 14:59: PATIENT HAS BEEN DISCHARGED TO GO TO [facility]... I HAVE SENT THE D/C SUMMARY BUT THE COVID IS STILL PENDING. I HAVE SENT THE BOTTLING ROOM WORKER A MESSAGE TO INFORM HER THAT IT MAY BE LATER BEFORE SHE CAN GET THERE. WAITING TO HEAR BACK TO SEE IF SHE CAN STILL COME IF ITS LATER IN THE AFTERNOON... Addendum entered by Dayana Moy 05/10/20 16:46: This patient has chose for Dr Sanchez to see her at [facility]. I have relayed messaged to Tierra with [facility]. Addendum entered by Dayana Moy 05/10/20 10:54: I have informed Tierra with [facility] that this patient will need a paracentesis today and patient will not discharge till tomorrow. I will follow up with patient after para. regarding MD at [facility]. Addendum entered by Dayana Moy 05/09/20 13:43: Tierra with [facility] has stated that she can accept this patient once medically stable for discharge pending NEGATIVE COVID results. I will inform this patient and Dr Sebastian of plan. Original Note: I have spoke with this patient regarding discharge plans. Patient stated that she resides at home alone and has been having several falls. I have informed patient that PT/OT has recommended placement at time of discharge. After a lengthy discussion patient is agreeable to placement: [facility] or [facility]. Amanda with [facility] has stated they are not accepting any new patients at this time. I have spoke with Tierra at [facility] and she has stated that they are accepting patients and do have female beds available. Patient information has been faxed to [facility]. I will follow up with [facility] and Dr Sebastian once patient information is reviewed.
[2020-05-09 11:22] LABS: POC Glucose,Bedside 102 (70-110)
--- NOTE | 2020-05-09 13:57 | DIET.NUTRFU ---
Pt noted to have 12pack of coca cola in room. Pt is a diabetic, on low sodium diet with sugar free beverages/desserts. Pt requests regular diet stating I eat whatever I want at home anyway. Informed pt she is on a partially liberalized diet as her BG are WNL, and educated about need for low sodium diet. Diet education/counseling given for Cirrhosis, CHF, DM, and weight loss. Pt voiced understanding need low sodium diet and stated she will continue to drink coca cola and eat sweets. Pt to dc to [facility]. Will continue to monitor/educate t/o stay.
[2020-05-09 16:00] VITALS: BP 120/70; PULSE 85; RESP 20; TEMP 36.8; O2SAT 98
[2020-05-09 16:01] LABS: POC Glucose,Bedside 129 (70-110)
--- NOTE | 2020-05-09 18:34 | PC.NURSE ---
Pt has been pleasant and cooperative this shift. A&O X4. No complaints of pain. Pt is on room air with sats. >90%. Lung sounds reveal expiratory rhonchi. 1+ pitting edema noted to BLE. Excoriation noted to buttocks and danica-area, barrier cream applied frequently this shift. Pt has occasional episodes of incontinence and brief is in place. No BM this shift. Pt ambulates with stand-by assistance and the use of a walker. Pt worked with PT/OT this shift and sat up in the chair for a few hours today. Appetite is good and pt eats the majority of all meals. FSBS results have been 102 and 129. 20 G peripheral IV in the RT forearm is patent and infusing NS @ 75 ML/HR. VSS. Call light within reach. Will continue to monitor.
[2020-05-09 20:00] VITALS: BP 109/67; PULSE 71; RESP 20; TEMP 36.7; O2SAT 97
[2020-05-09 21:38] LABS: POC Glucose,Bedside 100 (70-110)
[2020-05-10 04:00] VITALS: BP 93/63; PULSE 66; RESP 20; TEMP 36.5; O2SAT 93
[2020-05-10 05:00] VITALS: BMI 43.0
[2020-05-10 06:14] LABS: POC Glucose,Bedside 87 (70-110)
--- NOTE | 2020-05-10 06:14 | PC.NURSE ---
Pt diabetes medications will be given closer to breakfast being served. fsbs 87, pt offered snack and/or juice and refused at the time of the fingerstick.
--- NOTE | 2020-05-10 06:25 | PC.NURSE ---
pt has rested well this shift. no distress noted when entering room for q2 checks. upon awakening for fsbs pt appeared groggy. This cleared, during conversation with pt. fsbs noted to be 87, pt meds to be held until pt eats breakfast. pt was offered snack/juice. pt declined at this time.
[2020-05-10 08:00] VITALS: BP 129/63; PULSE 68; RESP 20; TEMP 36.4; O2SAT 98
--- NOTE | 2020-05-10 08:21 | HMH.ACPN2 ---
<Luanne Gracia - Last Filed: 05/10/20 08:21> Internal Medicine - PN: Subj *Date: 05/10/20 *Time: 08:21 Interval history: Patient states she does not feel well. She slept very little last night. She does not want to eat. She has no appetite. She was nauseated last night but did not vomit. She has reflux into her throat which she cannot expectorate. She denies shortness of breath and chest pain. Her abdomen hurts as usual. She does not think it has gotten any larger. She was out of the bed in a chair yesterday most of the day and tolerated well. She has diarrhea. She is voiding QS. . CT of abdomen pelvis continues to be pending. Discussed with radiology. Radiologist will report results to Dr. Sebastian. Patient is noted on H&P to have hepatitis. She does not have hepatitis but a noninfectious fatty liver with liver cirrhosis Exam Vital signs and Labs for Last 24 Hours: Temp Pulse Resp BP Pulse Ox 97.7 F 66 20 93/63 L 93 L 05/10/20 04:00 05/10/20 04:00 05/10/20 04:00 05/10/20 04:00 05/10/20 04:00 Laboratory Results - last 24 hr 05/09/20 11:14: POC Glucose 102 05/09/20 15:52: POC Glucose 129 H 05/09/20 21:28: POC Glucose 100 05/10/20 05:59: POC Glucose 87 I & O for Last 24 hours: Intake & Output 05/07/20 05/08/20 05/09/20 05/10/20 11:59 11:59 11:59 11:59 Intake Total 1890 / 1890 3737 / 3737 2039 Output Total 300 / 300 Balance 1890 3437 / 3437 2039 Weight 248 lb 4 oz 252 lb 7 oz 257 lb 7 oz 258 lb - Constitutional no acute distress - *Routine Respiratory Exam Present: CTA bilaterally (Anteriorly and posteriorly) - *Routine Cardiovascular Exam Present: RRR - *Routine Abdominal Exam Present: normoactive bowel sounds, tenderness (Left upper quadrant), distended - *Routine Extremities Exam Present: edema. 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 Qualifiers: Hepatic cirrhosis type: unspecified hepatic cirrhosis Qualified Code(s): K74.60 - Unspecified cirrhosis of liver; R18.8 - Other ascites Category: Medical Code(s): K74.60 - Unspecified cirrhosis of liver; R18.8 - Other ascites (4) Splenomegaly Status: Chronic Category: Medical Code(s): R16.1 - Splenomegaly, not elsewhere classified (5) COPD (chronic obstructive pulmonary disease) Status: Chronic Qualifiers: COPD type: unspecified COPD Qualified Code(s): J44.9 - Chronic obstructive pulmonary disease, unspecified Category: Medical Code(s): J44.9 - Chronic obstructive pulmonary disease, unspecified (6) Type 2 diabetes mellitus Status: Chronic Qualifiers: Diabetes mellitus roasterman insulin use: unspecified chcf insulin use status Diabetes mellitus complication status: with other specified complication Qualified Code(s): E11.69 - Type 2 diabetes mellitus with other specified complication Category: Medical Code(s): E11.9 - Type 2 diabetes mellitus without complications (7) Fibromyalgia Status: Chronic Category: Medical Code(s): M79.7 - Fibromyalgia (8) Hypertension Status: Chronic Qualifiers: Hypertension type: essential hypertension Qualified Code(s): I10 - Essential (primary) hypertension Category: Medical Code(s): I10 - Essential (primary) hypertension (9) Pulmonary HTN Status: Chronic Category: Medical Code(s): I27.20 - Pulmonary hypertension, unspecified - Assessment and plan all Dx Assessment and Plan for all problems:: Awaiting results of CT of the abdomen. Radiologist will discuss with Dr. Sebastian. Otherwise continue current care. <Sirena
--- NOTE | 2020-05-10 09:25 | US_ITS ---
PROCEDURE: US PARACENTESIS CLINICAL INDICATION: ascites with increase in fluid COMPARISON: No exams were available for comparison TECHNIQUE: Informed consent was obtain prior to procedure. After appropriate Time out, under aseptic conditions and local anesthesia with 1% buffered lidocaine using sonographic guidance a 6 Wolof Iexw-Z-Nzhydyfo catheter was inserted into the largest pocket of fluid localized in the right lower quadrant. 8600 mL of serous fluid was drained. A portion of the fluid was sent to the lab for analysis. The patient tolerated the procedure well and left the radiology suite in stable condition. FINDINGS: Diffuse ascites IMPRESSION: Successful sonographic guided paracentesis without complication. Dictated by: Kavin Vazquez MD 05/10/2020 14:23 Kavin Vazquez MD in [facility] 05/10/2020 14:23
[2020-05-10 11:30] LABS: Chloride 110 mmol/L (98-107)
[2020-05-10 11:31] LABS: Potassium 4.3 mmoL/L (3.5-5.1); Sodium 138 mmol/L (136-145)
[2020-05-10 11:33] LABS: Alanine Aminotransferase 23 U/L (12-78); Aspartate Amino Transferase 48 U/L (14-36); Blood Urea Nitrogen 23 mg/dl (7-17); Creatinine Clearance Estimated 35 mL/min (50-200); Estimated Glomerular Filt Rate 38 ml/min (>60); GFR (African American) 46 ML/MIN (>60)
[2020-05-10 11:34] LABS: Albumin Level 2.4 g/dl (3.5-5.0); Albumin/Globulin Ratio 0.7 (1.1-1.8); Alkaline Phosphatase 103 U/L (38-126); Anion Gap 10.3 mEq/L (5-15); Bilirubin,Total 1.4 mg/dl (0.2-1.3); Calcium 8.5 mg/dl (8.4-10.2); Carbon Dioxide 22 mmol/L (22.0-30.0); Globulin 3.5 g/dL (1.3-3.2); Glucose 107 mg/dl (74-100); Total Protein,Serum 5.9 g/dl (6.3-8.2)
--- NOTE | 2020-05-10 11:42 | PC.NURSE ---
REPORTED RESULTS OF PARACENTESIS TO DR CRISOSTOMO OFFICE 8600 ML REMOVED.
[2020-05-10 11:54] LABS: Lactate Dehydrogenase 274 U/L (313-618)
[2020-05-10 12:41] LABS: Appearance,Body Fld. Normal; Source, Body Fld. Paracentesis Fluid; Volume,Body Fld. 8600 mL
[2020-05-10 12:42] LABS: RBC,Body Fluid < 10 cells/uL (< 10 X 10^3); TNC,Body Fluid 324 cells/uL (< 1000)
[2020-05-10 12:44] LABS: Mononuclear WBCs,Body Fluid 89 %; Polynuclear WBC,Body Fluid 11 %
[2020-05-10 15:30] VITALS: BP 118/67; PULSE 69; RESP 20; TEMP 36.1; O2SAT 98
[2020-05-10 17:58] LABS: POC Glucose,Bedside 239 (70-110)
[2020-05-10 17:58] LABS: POC Glucose,Bedside 118 (70-110)
--- NOTE | 2020-05-10 18:10 | PC.NURSE ---
SHE IS AOX4, ABLE TO MAKE NEEDS KNOWN TO STAFF, HAS BEEN UP TO CHAIR FOR MOST OF THE SHIFT, SHE HAS TOLERATED RA WELL, NO COMPLAINTS OF PAIN THIS SHIFT. PARACENTESIS TODAY WITH 8600 ML REMOVED, ALBUMIN INFUSION ADMIN. NO NEEDS AT THIS TIME.
[2020-05-10 19:59] VITALS: PULSE 71; O2SAT 99
[2020-05-10 20:00] VITALS: BP 139/74; PULSE 71; RESP 19; TEMP 36.6; O2SAT 99
[2020-05-10 22:25] LABS: POC Glucose,Bedside 91 (70-110)
[2020-05-11 04:00] VITALS: BP 105/53; PULSE 65; RESP 16; TEMP 36.8; O2SAT 97
--- NOTE | 2020-05-11 05:39 | PC.NURSE ---
Pt has rested well off and on this shift. pt has not appeared confused during assessments or conversations. lung sounds contain scattered rhonchi. pt is incontinent and will inform staff when she has had an accident. pt states that she feels much better after having 8600ml of fluid removed previous shift. nad noted will continue to monitor.
[2020-05-11 05:54] VITALS: BMI 40.5
[2020-05-11 06:58] LABS: POC Glucose,Bedside 94 (70-110)
--- NOTE | 2020-05-11 07:55 | HMH.ACPN2 ---
<Luanne Gracia - Last Filed: 05/11/20 07:55> Internal Medicine - PN: Subj *Date: 05/11/20 *Time: 07:55 Interval history: Patient does feel better today. She did sleep better. She ate some breakfast. She has had no further diarrhea. She denies shortness of breath. She states her abdomen does feel better after removal of the fluid yesterday. Her biggest complaint is congestion/fluid in the back of her throat. She is unable to cough or spit this up. She set up most of the day which made her very tired. Patient did have a Paracentesis yesterday with removal of 8600 milliliters of fluid. She did receive albumin after this. Weight is noted to have gone from 257 pounds down to 243 pounds and 3 ounces this morning. Exam Vital signs and Labs for Last 24 Hours: Temp Pulse Resp BP Pulse Ox 98.3 F 65 16 105/53 L 97 05/11/20 04:00 05/11/20 04:00 05/11/20 04:00 05/11/20 04:00 05/11/20 04:00 Laboratory Results - last 24 hr 05/10/20 09:58: Sodium 138, Potassium 4.3, Chloride 110 H, Carbon Dioxide 22, Anion Gap 10.3, BUN 23 H, Creatinine 1.40 H, Estimated Creat Clear 35, Estimated GFR 38 L, Est GFR ( Amer) 46 L, Glucose 107 H, Calcium 8.5, Total Bilirubin 1.4 H, AST 48 H, ALT 23, Alkaline Phosphatase 103, Lactate Dehydrogenase 274 L, Total Protein 5.9 L, Albumin 2.4 L, Globulin 3.5 H, Albumin/Globulin Ratio 0.7 L 05/10/20 10:42: Fluid Source Paracentesis fluid, Fluid Volume 8600, Fluid Appearance Normal, Fluid RBC (Auto) < 10, Fld Tot Nucleated Cell 324, Fld Polynuclear WBCs % 11, Fld Mononuclear WBCs % 89 05/10/20 12:09: POC Glucose 118 H 05/10/20 16:55: POC Glucose 239 H 05/10/20 22:15: POC Glucose 91 05/11/20 06:47: POC Glucose 94 I & O for Last 24 hours: Intake & Output 05/08/20 05/09/20 05/10/2006/21 11:59 11:59 11:59 11:59 Intake Total 1979 3737 / 3737 2039 600 / 600 Output Total 300 / 300 0 / 0 Balance 1979 3437 / 3437 2039 600 / 600 Weight 252 lb 7 oz 257 lb 7 oz 258 lb 243 lb 3 oz - Constitutional no acute distress Comments: Sitting up in the bed completing her breakfast. Rattling heard in the back of her throat. 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 Qualifiers: Hepatic cirrhosis type: unspecified hepatic cirrhosis Qualified Code(s): K74.60 - Unspecified cirrhosis of liver; R18.8 - Other ascites Category: Medical Code(s): K74.60 - Unspecified cirrhosis of liver; R18.8 - Other ascites (4) Splenomegaly Status: Chronic Category: Medical Code(s): R16.1 - Splenomegaly, not elsewhere classified (5) COPD (chronic obstructive pulmonary disease) Status: Chronic Qualifiers: COPD type: unspecified COPD Qualified Code(s): J44.9 - Chronic obstructive pulmonary disease, unspecified Category: Medical Code(s): J44.9 - Chronic obstructive pulmonary disease, unspecified (6) Type 2 diabetes mellitus Status: Chronic Qualifiers: Diabetes mellitus call worker person insulin use: unspecified detention insulin use status Diabetes mellitus complication status: with other specified complication Qualified Code(s): E11.69 - Type 2 diabetes mellitus with other specified complication Category: Medical Code(s): E11.9 - Type 2 diabetes mellitus without complications (7) Fibromyalgia Status: Chronic Category: Medical Code(s): M79.7 - Fibromy
[2020-05-11 08:00] VITALS: BP 102/58; PULSE 71; RESP 19; TEMP 36.7; O2SAT 98
[2020-05-11 08:24] LABS: Eosinophils % 1.3 % (0.1-12.0); Hematocrit 28.4 % (37.0-47.0); Hemoglobin 9.2 g/dL (12.2-16.2); Lymphocytes # 0.9 K/mm3 (0.7-4.5); Mean Corpuscular HGB Conc 32.5 g/dL (31.8-35.4); Mean Corpuscular Hemoglobin 30.2 pg (27.0-31.2); Mean Corpuscular Volume 92.8 fl (81-99); Monocytes # 0.3 K/mm3 (0.1-1.0); Monocytes % 10.9 % (1.7-9.3); Neutrophils # 1.2 K/mm3 (1.8-7.8); Neutrophils % 50.7 % (37.0-80.0); Red Blood Count 3.06 M/mm3 (4.20-5.40); Red Cell Distribution Width 17.3 % (11.5-17.5); White Blood Count 2.4 K/mm3 (4.8-10.8)
[2020-05-11 08:25] LABS: Platelet Count 20 K/mm3 (142-424)
--- NOTE | 2020-05-11 08:26 | HMH.DCSUM ---
General - General Admission date:: 05/06/20 <Say Sebastian - 06/06/20 15:50> 05/06/20 <Kayce Steven - 05/11/20 08:37> Discharge date: 05/11/20 <Kayce Steven - 05/11/20 08:37> HPI HPI: 65yo F brought in by EMS secondary to confusion. Possibly some abdominal pain as well. Patient is a very poor historian at this time. She is unable to leave the day, date, month, year. She knows her name, date of , who the president is. When I asked her why she is here, she states she does not know. She reports that she called the ambulance to bring her to the hospital because she just did not feel good. She is unable to further quantify that and has very delayed responses to simple questions regarding any possible pain, shortness of breath, chest pain. A very poor historian. She relays that she has longstanding cirrhosis caused by a fatty liver. She denies a history of alcohol ingestion. Gives a history of gallbladder surgery. Gives a history of paracentesis but is very vague. Has seen a gastro here, and previously saw hematology, presumably for her thrombocytopenia. She is experiencing an increasing level of debility, changes in mentation, and those that know her are concerned for her ability to take care of herself at home. She relays having trouble with ADLs and frequent falls at home. CT brain was performed in the ER, unremarkable. <Kayce Steven - 05/11/20 08:37> Hospital Course Hospital Course: She had a head CT showing nothing acute. Her laboratory data was at baseline. Her blood pressure was low, therefore her losartan was held. PT and OT were ordered. Her functional status at home had been marginal for a while and it was felt she would benefit from long-term care placement, therefore care management was consulted. She tolerated a diet. Her blood pressure improved with holding her ARB. The patient had an abdominal and pelvic CT showing cirrhosis with splenomegaly and diffuse ascites. The ascites had increased in volume compared to previous exam. 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 The patient had a paracentesis with 8600 mL of serous fluid drained. By 05/11/2020 she felt better and was able to sleep and eat. She had had diarrhea, but this resolved. Her shortness of breath improved. She did complain of some congestion in the back of her throat, therefore Mucinex was added. Her weight decreased from 257 pounds to 243 pounds. A bed was found at her [facility] facility she is stable to be discharged. Glucose has been normal while in the hospital. Will discharge on metformin and stop insulin. If glucose increases, insulin may need to be initiated again. <Kayce Steven - 05/11/20 12:25> Objective Vital signs: Temp Pulse Resp BP Pulse Ox 98.4 F 71 17 102/60 L 99 05/11/20 16:00 05/11/20 16:00 05/11/20 16:00 05/11/20 16:00 05/11/20 16:00 <JazSay Sebas - 06/06/20 15:50> Temp Pulse Resp BP Pulse Ox 98.3 F 65 16 105/53 L 97 05/11/20 04:00 05/11/20 04:00 05/11/20 04:00 05/11/20 04:00 05/11/20 04:00 <Kayce Steven - 05/11/20 08:37> Results Labs on day of discharge: Labs from last 24 hours 05/11/20 05/11/20 05/10/20 08:14 06:47 22:15 WBC 2.4 L RBC 3.06 L Hgb 9.2 L Hct 28.4 L MCV 92.8 MCH 30.2 MCHC 32.5 RDW 17.3 Plt Count 20 L* MPV 13.0 H Neut % (Auto) 50.7 Lymph % (Auto) 36.0 [place] % (Auto) 10.9 H Eos % (Auto) 1.3 Baso % (Auto) 1.0 Neut # (Auto) 1.2 L Lymph # (Auto) 0.9 [place] # (Auto) 0.3 Eos # (Auto) 0.0 Baso # (Auto) 0.0 Sodium Potassium Chloride Carbon Dioxide Anion Gap BUN Creatinine Estimated Creat Clear Estimated GFR Est GFR ( Amer) Glucose POC Glucose 94 91 Calcium Total Bilirubin AST ALT Alkaline Phosphatase Lactate Dehydrogenas
[2020-05-11 08:38] LABS: Alanine Aminotransferase 20 U/L (12-78); Albumin Level 2.8 g/dl (3.5-5.0); Albumin/Globulin Ratio 0.9 (1.1-1.8); Alkaline Phosphatase 75 U/L (38-126); Anion Gap 8.8 mEq/L (5-15); Aspartate Amino Transferase 35 U/L (14-36); Bilirubin,Total 1.4 mg/dl (0.2-1.3); Blood Urea Nitrogen 20 mg/dl (7-17); Calcium 8.6 mg/dl (8.4-10.2); Carbon Dioxide 27 mmol/L (22.0-30.0); Chloride 107 mmol/L (98-107); Creatinine Clearance Estimated 41 mL/min (50-200); Estimated Glomerular Filt Rate 45 ml/min (>60); GFR (African American) 55 ML/MIN (>60); Globulin 3.1 g/dL (1.3-3.2); Glucose 109 mg/dl (74-100); Potassium 3.8 mmoL/L (3.5-5.1); Sodium 139 mmol/L (136-145); Total Protein,Serum 5.9 g/dl (6.3-8.2)
[2020-05-11 16:00] VITALS: BP 102/60; PULSE 71; RESP 17; TEMP 36.9; O2SAT 99
[2020-05-11 16:16] LABS: Albumin, Body Fluid 0.4 g/dL (Not Estab.); Glucose, Body Fluid 102 mg/dL (.); LD, Body Fluid 50 IU/L (.)
[2020-05-11 21:56] LABS: POC Glucose,Bedside 102 (70-110)
== END 2020-05-11 19:00 ==
LOC: ER 14:17 → 2ND 05-07 17:11
PROVIDERS: Nurse Practitioner Family; Admitting Provider Family Medicine; Emergency Provider Family Medicine; Visit Provider Family Medicine
DX: G93.40 Encephalopathy, unspecified (principal); K74.69 Other cirrhosis of liver; R18.8 Other ascites; R16.1 Splenomegaly, not elsewhere classified; E11.9 Type 2 diabetes mellitus without complications; I11.0 Hypertensive heart disease with heart failure; J44.9 Chronic obstructive pulmonary disease, unspecified; Z99.81 Dependence on supplemental oxygen; I27.20 Pulmonary hypertension, unspecified; I50.9 Heart failure, unspecified; Z72.0 Tobacco use; D69.6 Thrombocytopenia, unspecified; Z88.2 Allergy status to sulfonamides; Z88.8 Allergy status to other drugs, medicaments and biological substances; M79.7 Fibromyalgia; Z79.51 Long term (current) use of inhaled steroids; Z79.84 Long term (current) use of oral hypoglycemic drugs; Z79.899 Other long term (current) drug therapy; K76.0 Fatty (change of) liver, not elsewhere classified; Z91.81 History of falling; R29.6 Repeated falls
CPT/HCPCS: 36415; 49083; 70450; 74178; 80048; 80053; 80061; 82042; 82140; 82945; 82962; 83605; 83615; 83690; 83880; 84100; 84155; 84484; 85025; 85610; 86328; 87070; 87205; 87581; 87633; 87798; 89051; 93005; 96365; 97110; 97116; 97162; 97165; 97530; 97535; 99285; G0378; P9047; Q9967; U0003

== ENCOUNTER 2020-05-22 11:32 | Emergency (ER) | payer MEDICARE, SELFPAY ==
[2020-05-22 11:32] VITALS: BP 125/93; PULSE 84; RESP 20; TEMP 37.2; O2SAT 98; BMI 38.0
[2020-05-22 11:37] VITALS: BMI 38.0
--- NOTE | 2020-05-22 11:37 | XR_ITS ---
PROCEDURE: XR CHEST PORTABLE Referring Doctor: Ulises Loving Patient Age:65Y CLINICAL HISTORY: AMS AP portable upright chest COMPARISON: CR XR CHEST 2V from 07/10/2019 CR XR CHEST PORTABLE from 01/13/2020 CR XR CHEST PORTABLE from 04/20/[address] ABDOMEN PELVIS WO/W CON from 05/07/[address] ABDOMEN PELVIS WO CON from 05/22/2020 FINDINGS: AP portable upright chest performed today. Low lung volumes compared to prior studies. Diaphragm only down to the anterior 4th-5th rib on right.. Additional elevation right hemidiaphragm seen today.-This correlates segmental area of atelectasis at the far medial aspect of the right lung base, just medial to the right infrahilar region.. This as 2 density behind the right heart of but this areas seen on the CT abdomen study from today but favor atelectasis and doubt infiltrate . There is also a area of subtle increased density at the left lung base projected over the left anterior fifth rib end. On today's CT this most likely reflected a linear area of atelectasis towards the left base. Doubt infiltrate. The heart is normal in size but there is some minimal stranding from the lateral aspect of the right suprahilar region which is been seen previously on April study and may benefit from a follow-up chest study at least a PA and lateral chest when can be tolerated by patient to better evaluate this region IMPRESSION: Elevation right hemidiaphragm with additional region atelectasis at the far medial right lung base Very subtle density towards left base most likely reflecting a linear band of atelectasis seen here on today's CT Slight stranding extending laterally from the right right suprahilar region is similar to April study, but will benefit from more optimal PA and lateral chest in follow-up with patient returns and can tolerate such Dictated by: Andre Garber MD 05/22/2020 15:07 Andre Garber MD in [place] 05/22/2020 15:07
[2020-05-22 11:50] LABS: Occult Blood,Stool Positive (Negative)
--- NOTE | 2020-05-22 11:55 | CT_ITS ---
Procedure: CT ABDOMEN PELVIS WO CON Referring Doctor: Ulises Loving Patient Age:65Y CLINICAL INDICATION: pain Abdominal pain; patient had paracentesis 05/10/2020 with 8600 cc of serous fluid drained COMPARISON: CT CT ABDOMEN PELVIS WO/W CON from 05/07/2020 TECHNIQUE: No IV contrast utilized today Helical axial images obtained with sagittal and coronal reformats. All CT scans at the facility use one or more dose reduction, viz: automated exposure control, ma/kV adjustment per patient size (including targeted exams where dose is matched to indication, i.e. head), or iterative reconstruction technique. FINDINGS: Lower thorax: - at medial aspect of the right lower lobe at right lung base there is additional segment of the airspace disease and consolidation which mainly reflects segmental atelectasis. Crowding of lung markings and airways along with elevation right hemidiaphragm reflect reflecting associated volume loss from the atelectasis. A difficult to exclude associated pneumonic infiltrate but this appears to be mainly atelectasis in this partially imaged region on today's CT abdomen The other other areas of some linear scarring and atelectasis at lung bases bilaterally additionally noted today Heart of normal size but with slight additional enlargement of the left atrium in the interval ABDOMEN/pelvis Extensive ascites. When compared to May 07 CT, there is decreased fluid here mid/lower abdomen and pelvis and gutters however there is increased fluid superior to the liver and spleen. This is best appreciated on comparing coronal images. Additional elevation of the right hemidiaphragm more so than left in the interval. Liver: Small micronodular liver again seen-compatible with longstanding cirrhosis.. The portal venous collaterals again noted on with varices perisplenic unlikely Florencia off a BRAYAN region. These are better appreciated on the previous postcontrast study Gallbladder: Surgically removed. Pancreas: Stable appearance no masses. Fluid above the pancreas most likely related to the ascites. Spleen: . splenomegaly but actually spleen appears incrementally smaller than on 05/07/2020 l (previously measuring 20 cm AP today 18 cm. Previously measuring 17 cm height today measuring 15 cm). There is slight increased ascites overlying the spleen Adrenals: unremarkable ----- tract----- Kidneys/ureters: Unremarkable . Urinary bladder unremarkable.. Small prostate --GI tract -------- Large bowel. Generous gaseous distension seen throughout the entire colon with liquid stool throughout colon and particularly evident rectum suggesting diarrhea... The right colon measures up over 9 cm transverse diameter. This bowel dilatation is nicely seen on the bed setter view. And does involve the entire colon. No wall thickening involving large bowel However there is suggestion some minimal early pneumatosis coli involving the posterior wall of the right colon. This is a concerning but nonspecific finding although can be ominous feature. The clinical correlation required. Consider surgical a consult Small bowel. A increased fluid throughout with some borderline wall thickening of small bowel. . No good evidence of appendicitis history states appendectomy Reproductive: unremarkable Bladder: Nondistended. No obvious stones or masses. Appendix: Unremarkable. No distention or periappendiceal phlegmonous change. Lymph nodes: No significant enlarged lymph nodes apparent. Scattered small nodes retroperitoneal, mesentery, pelvis Vasculature: Atherosclerotic calcification aorta and iliacs. No aneurysm.. Bones: No acute fracture. No lesion. Degenerative changes spine Soft tissues ther
[2020-05-22 12:02] VITALS: BP 139/68; PULSE 85; RESP 16; O2SAT 96
[2020-05-22 12:02] LABS: Basophils # 0.1 K/mm3 (0-0.2); Basophils % 0.8 % (0.1-2.0); Eosinophils # 0.1 K/mm3 (0.0-0.4); Eosinophils % 0.9 % (0.1-12.0); Hematocrit 35.6 % (37.0-47.0); Hemoglobin 11.2 g/dL (12.2-16.2); Lymphocytes # 1.9 K/mm3 (0.7-4.5); Lymphocytes % 17.2 % (10-50); Mean Corpuscular HGB Conc 31.5 g/dL (31.8-35.4); Mean Corpuscular Hemoglobin 29.6 pg (27.0-31.2); Mean Corpuscular Volume 93.9 fl (81-99); Mean Platelet Volume 12.7 fl (7.4-10.4); Neutrophils # 8.1 K/mm3 (1.8-7.8); Neutrophils % 72.1 % (37.0-80.0); Platelet Count 41 K/mm3 (142-424); Red Blood Count 3.79 M/mm3 (4.20-5.40); Red Cell Distribution Width 17.6 % (11.5-17.5); White Blood Count 11.2 K/mm3 (4.8-10.8)
[2020-05-22 12:05] LABS: Chloride 106 mmol/L (98-107); Potassium 3.5 mmoL/L (3.5-5.1); Sodium 141 mmol/L (136-145)
--- NOTE | 2020-05-22 12:05 | HMH.EDABDPAI ---
ED Disposition Clinical Impression: Lower GI bleed, Thrombocytopenia Cirrhosis of liver with ascites Qualifiers: Hepatic cirrhosis type: alcoholic cirrhosis Qualified Code(s): K70.31 - Alcoholic cirrhosis of liver with ascites Disposition: Xfer SNF Condition on Discharge: Good Instructions: DI for Ascites Referrals: Say Sebastian MD [Primary Care Provider] - Dionisio Arzate MD [Staff Physician] - - Critical Care Critical Care Time: No Attestation: On 05/22/20, the high probability of a clinically significant, sudden or life threatening deterioration of the following system(s) required my full and direct attention, intervention and personal management. The time I documented below is in addition to time spent performing reported procedures but includes the following listed in this critical care notation. Medical Decision Making - Medical Records Medical records reviewed: Yes: I reviewed the patient's medical records. - Boo Inquiry Pt receiving controlled substance: No Vital Signs: 05/22/20 11:32 05/22/20 12:02 05/22/20 13:18 Temperature 99 F Temperature Source Rectal Pulse Rate [Radial] 84 85 85 Respiratory Rate 20 16 16 Blood Pressure [Right Radial Artery] 125/93 H 139/68 111/78 Blood Pressure Mean [Right Radial Artery] 103 91 89 Blood Pressure Position [Right Radial Artery] Sitting 02 Sat by Pulse Oximetry 98 96 96 Oxygen Delivery Method Room Air Nasal Cannula Oxygen Flow Rate (LPM) 2 - Lab Data Lab Results 05/22/20 11:40: Stool Occult Blood Positive A 05/22/20 11:42: WBC 11.2 H, RBC 3.79 L, Hgb 11.2 L, Hct 35.6 L, MCV 93.9, MCH 29.6, MCHC 31.5 L, RDW 17.6 H, Plt Count 41 L*, MPV 12.7 H, Neut % (Auto) 72.1, Lymph % (Auto) 17.2, [place] % (Auto) 9.0, Eos % (Auto) 0.9, Baso % (Auto) 0.8, Neut # (Auto) 8.1 H, Lymph # (Auto) 1.9, [place] # (Auto) 1.0, Eos # (Auto) 0.1, Baso # (Auto) 0.1 05/22/20 11:42: Sodium 141, Potassium 3.5, Chloride 106, Carbon Dioxide 29, Anion Gap 9.5, BUN 29 H, Creatinine 1.40 H, Estimated Creat Clear 73, Estimated GFR 38 L, Est GFR ( Amer) 46 L, Glucose 122 H, Calcium 9.2, Total Bilirubin 2.5 H, Direct Bilirubin 1.1 H, Conjugated Bilirubin 0.0, Indirect Bilirubin 1.4 H, Unconjugated Bilirubin 1.4 H, AST 40 H, ALT 26, Alkaline Phosphatase 87, Troponin I < 0.01, Total Protein 6.6, Albumin 2.9 L 05/22/20 11:42: Ammonia < 9 L 05/22/20 11:42: Lactate 2.6 H 05/22/20 11:42: Lipase 102 Result diagrams: 05/22/20 11:42 05/22/20 11:42 Orders (Tests/Meds): ORDERS Category Date Time Status XR chest portable Stat Exams 05/22/20 11:37 Taken Full Resp Panel w/COVID ([facility]) Routine Lab 05/22/20 11:40 Received Troponin I Q3H Lab 05/22/20 14:45 Ordered Troponin I Q3H Lab 05/22/20 17:45 Ordered Urinalysis-Acute [Urinalysis and Microscopic] Stat Lab 05/22/20 11:38 Ordered - CT Data CT Scan: Abdomen, Pelvis Time Received: 14:[address] Reviewed: Yes: I have reviewed the patient's CT results, I have viewed the radiologist's interpretation Findings Narrative: IMPRESSION: 1.Diffuse gaseous distention of large bowel with liquid stool/air-fluid levels throughout large bowel suggesting diarrhea.. (This gaseous distention of colon is nicely seen on the lumber planer CT abdomen) . Also suggestion of developing pneumatosis coli at the posterior wall right colon see comments in text. Requires close clinical correlation 2..Cirrhosis with extensive ascites. Ascites overall has decreased slightly in volume since May 07 CT- Ascites has decreased in amount at the mid and lower abdomen and pelvis as well as flanks, however note slight increase ascites overlying the spleen and liver here at the upper most abdomen. 3.. Focal airspace disease medial posterior aspect RLL--rather segmental/and linear in character. I suspect this mainly reflect atelectasis with associated volume loss but difficult to exclude early pneumonic infiltrate associated - R
[2020-05-22 12:07] LABS: Bilirubin,Unconjugated 1.4 mg/dL (0.0-1.1); Blood Urea Nitrogen 29 mg/dl (7-17); Creatinine Clearance Estimated 73 mL/min (50-200); Estimated Glomerular Filt Rate 38 ml/min (>60); GFR (African American) 46 ML/MIN (>60); Lipase 102 U/L (23-300)
[2020-05-22 12:08] LABS: Alanine Aminotransferase 26 U/L (12-78); Albumin Level 2.9 g/dl (3.5-5.0); Alkaline Phosphatase 87 U/L (38-126); Anion Gap 9.5 mEq/L (5-15); Aspartate Amino Transferase 40 U/L (14-36); Bilirubin,Direct 1.1 mg/dl (0.0-0.4); Bilirubin,Indirect 1.4 mg/dL (0.0-0.9); Bilirubin,Total 2.5 mg/dl (0.2-1.3); Calcium 9.2 mg/dl (8.4-10.2); Carbon Dioxide 29 mmol/L (22.0-30.0); Glucose 122 mg/dl (74-100); Total Protein,Serum 6.6 g/dl (6.3-8.2)
[2020-05-22 12:09] LABS: Ammonia < 9 umol/L (9-30)
[2020-05-22 12:17] LABS: Lactic Acid 2.6 mmol/L (0.7-2.1)
[2020-05-22 12:49] LABS: Troponin I < 0.01 ng/ml (0.00-0.034)
[2020-05-22 13:18] VITALS: BP 111/78; PULSE 85; RESP 16; O2SAT 96
[2020-05-22 13:57] LABS: Adenovirus,PCR Not Detected (NotDetected); Bordetella Pertussis Not Detected (NotDetected); Chlamydophila Pneumoniae, PCR Not Detected (NotDetected); Coronavirus 19, PCR Not Detected (NotDetected); Coronavirus 229E Not Detected (NotDetected); Coronavirus NL63 Not Detected (NotDetected); Coronavirus OC43 Not Detected (NotDetected); Coronovirus HKU1,PCR Not Detected (NotDetected); Human Metapneumovirus Not Detected (NotDetected); Influenza A, PCR Not Detected (NotDetected); Influenza AH1, 2009 Not Detected (NotDetected); Influenza AH1, PCR Not Detected (NotDetected); Influenza AH3,PCR Not Detected (NotDetected); Influenza B, PCR Not Detected (NotDetected); Mycoplasma Pneumoniae, PCR Not Detected (NotDetected); Parainfluenza 1, PCR Not Detected (NotDetected); Parainfluenza 2, PCR Not Detected (NotDetected); Parainfluenza 3, PCR Not Detected (NotDetected); Parainfluenza 4, PCR Not Detected (NotDetected); Respiratory Syncytial Virus Not Detected (NotDetected); Rhinovirus/Enterovirus Not Detected (NotDetected)
[2020-05-22 14:30] VITALS: BP 103/44; PULSE 79; RESP 20; O2SAT 98
--- NOTE | 2020-05-22 14:54 | PC.NURSE ---
Notified family and [facility] that pt would be returning
[2020-05-22 15:06] VITALS: BP 138/72; PULSE 83; RESP 16; O2SAT 96
[2020-05-22 15:51] LABS: Reflex Lactic Add Lactic Reflex
[2020-05-22 16:30] VITALS: BP 136/70; PULSE 80; RESP 16; TEMP 36.6; O2SAT 98
== END 2020-05-22 16:32 ==
PROVIDERS: Emergency Provider Emergency Medicine; PCP Family Medicine
DX: K70.31 Alcoholic cirrhosis of liver with ascites (principal); D69.6 Thrombocytopenia, unspecified; E11.9 Type 2 diabetes mellitus without complications; I10 Essential (primary) hypertension; E78.5 Hyperlipidemia, unspecified; J44.9 Chronic obstructive pulmonary disease, unspecified; F41.8 Other specified anxiety disorders; Z79.899 Other long term (current) drug therapy; Z88.2 Allergy status to sulfonamides
CPT/HCPCS: 71045; 74176; 80048; 80076; 82140; 82272; 83605; 83690; 84484; 85025; 87581; 87633; 87798; 99283; G0328; U0003

== ENCOUNTER 2020-05-30 04:54 | Inpatient (IN) | payer MEDICARE, MEDICAID, SELFPAY ==
[2020-05-30] VITALS (16 sets, daily range): BP systolic 121–147; BP diastolic 54–89; PULSE 81–105; RESP 15–18; TEMP 36.2–39.3; O2SAT 94–99; BMI 42.9; BMI 44.6; BMI 43.2; BMI 43.3
[2020-05-30 04:59] LABS: ABG Base Excess 6.6 mmol/L (-2.4-2.3); ABG Oxygen Saturation 94 % (90-100); ABG PCO2 34.4 mmhg (35.0-45.0); ABG PH 7.54 mmol/L (7.35-7.45); ABG PO2 68.2 mmhg (80-100); ABG TCO2 30.1 mmhg (23-27)
[2020-05-30 05:00] LABS: Allen's Test Acceptable; Oxygen 3L NC %; Source Right Radial
--- NOTE | 2020-05-30 05:13 | XR_ITS ---
PROCEDURE: XR CHEST PORTABLE CLINICAL HISTORY: SOA w/ AMS Shortness of air COMPARISON: CR XR CHEST PORTABLE from 01/13/2020 CR XR CHEST PORTABLE from 04/20/2020 CR XR CHEST PORTABLE from 05/22/2020 FINDINGS: The cardiomediastinal silhouette and pulmonary vascularity are within normal limits. There are low lung volumes with atelectatic changes in the left lower lung zone. Patchy density is present in the right suprahilar region may be due to an area of atelectasis or infiltrate. The remaining lungs are clear. There is some cortical regularity with subchondral lucency of the right humeral head which may be related to avascular necrosis or developing sub chondral cystic changes. Shoulder films may provide further evaluation IMPRESSION: Atelectatic change in the left lower lobe/lingula with atelectasis or infiltrate in the right suprahilar region. Dictated by: Kavin Vazquez MD 05/30/2020 06:00 Kavin Vazquez MD in [place] 05/30/2020 06:00
[2020-05-30 05:19] LABS: Adenovirus,PCR Not Detected (NotDetected); Bordetella Pertussis Not Detected (NotDetected); Chlamydophila Pneumoniae, PCR Not Detected (NotDetected); Coronavirus 19, PCR Not Detected (NotDetected); Coronavirus 229E Not Detected (NotDetected); Coronavirus NL63 Not Detected (NotDetected); Coronavirus OC43 Not Detected (NotDetected); Coronovirus HKU1,PCR Not Detected (NotDetected); Human Metapneumovirus Not Detected (NotDetected); Influenza A, PCR Not Detected (NotDetected); Influenza AH1, 2009 Not Detected (NotDetected); Influenza AH1, PCR Not Detected (NotDetected); Influenza AH3,PCR Not Detected (NotDetected); Influenza B, PCR Not Detected (NotDetected); Microscopic, Urine URINE MICROSCOPIC (MICROSCOPIC); Mycoplasma Pneumoniae, PCR Not Detected (NotDetected); Parainfluenza 1, PCR Not Detected (NotDetected); Parainfluenza 2, PCR Not Detected (NotDetected); Parainfluenza 3, PCR Not Detected (NotDetected); Parainfluenza 4, PCR Not Detected (NotDetected); Respiratory Syncytial Virus Not Detected (NotDetected); Rhinovirus/Enterovirus Not Detected (NotDetected)
[2020-05-30 05:25] LABS: Basophils # 0.1 K/mm3 (0-0.2); Basophils % 0.6 % (0.1-2.0); Eosinophils % 0.1 % (0.1-12.0); Hematocrit 40.9 % (37.0-47.0); Hemoglobin 12.7 g/dL (12.2-16.2); Lymphocytes % 11.2 % (10-50); Mean Corpuscular Hemoglobin 29.4 pg (27.0-31.2); Mean Corpuscular Volume 94.7 fl (81-99); Mean Platelet Volume 12.9 fl (7.4-10.4); Monocytes # 1.5 K/mm3 (0.1-1.0); Monocytes % 8.7 % (1.7-9.3); Neutrophils # 13.9 K/mm3 (1.8-7.8); Neutrophils % 79.5 % (37.0-80.0); Red Blood Count 4.31 M/mm3 (4.20-5.40); Red Cell Distribution Width 18.3 % (11.5-17.5); White Blood Count 17.5 K/mm3 (4.8-10.8)
--- NOTE | 2020-05-30 05:26 | ECG_ITS ---
APPROVED REPORT Exam: Resting ECG HR:103 bpm ECG Measurements Heart Rate 103 AXES MS 104 P QRSd 82 QRS 76 QT 526 T 57 QTc 689 Conclusion Sinus tachycardia with short MS Nonspecific ST and T wave abnormality Abnormal ECG Electronically signed by : Balta Costello, 05/31/2020 07:09:32
[2020-05-30 05:27] LABS: Platelet Count 44 K/mm3 (142-424)
--- NOTE | 2020-05-30 05:28 | PC.NURSE ---
notified of critical platelet count
[2020-05-30 05:29] LABS: Alanine Aminotransferase 44 U/L (12-78); Albumin/Globulin Ratio 0.7 (1.1-1.8); Alkaline Phosphatase 95 U/L (38-126); Amylase 72 U/L (30-110); Anion Gap 9.7 mEq/L (5-15); Aspartate Amino Transferase 135 U/L (14-36); Bilirubin,Total 3.4 mg/dl (0.2-1.3); Blood Urea Nitrogen 36 mg/dl (7-17); Calcium 9.8 mg/dl (8.4-10.2); Carbon Dioxide 35 mmol/L (22.0-30.0); Chloride 112 mmol/L (98-107); Creatinine Clearance Estimated 31 mL/min (50-200); Estimated Glomerular Filt Rate 32 ml/min (>60); GFR (African American) 39 ML/MIN (>60); Globulin 4.1 g/dL (1.3-3.2); Glucose 128 mg/dl (74-100); Lipase 320 U/L (23-300); MANUAL DIFFERENTIAL MANUAL DIFFERENTIAL (MANUAL DIFF); Total Protein,Serum 7.1 g/dl (6.3-8.2)
--- NOTE | 2020-05-30 05:32 | HMH.EDAMS ---
ED Disposition Clinical Impression: Severe sepsis with acute organ dysfunction, Non-ST elevated myocardial infarction (non-STEMI), Hypokalemia, Hypernatremia Type 2 diabetes mellitus Qualifiers: Diabetes mellitus buttermaker continuous churn insulin use: unspecified intermediate insulin use status Diabetes mellitus complication status: with other specified complication Qualified Code(s): E11.69 - Type 2 diabetes mellitus with other specified complication Cirrhosis of liver with ascites Qualifiers: Hepatic cirrhosis type: unspecified hepatic cirrhosis Qualified Code(s): K74.60 - Unspecified cirrhosis of liver; R18.8 - Other ascites Disposition: Admitted As Inpatient Condition on Discharge: Fair Instructions: DI for Altered Mental Status Referrals: Sandeep Sanchez [Primary Care Provider] - - Critical Care Critical Care Time: No Attestation: On 05/30/20, the high probability of a clinically significant, sudden or life threatening deterioration of the following system(s) required my full and direct attention, intervention and personal management. The time I documented below is in addition to time spent performing reported procedures but includes the following listed in this critical care notation. Medical Decision Making - Medical Records Medical records reviewed: Yes: I reviewed the patient's medical records. - Boo Inquiry Pt receiving controlled substance: No Vital Signs: 05/30/20 04:53 05/30/20 05:30 05/30/20 06:00 Temperature 102.8 F H Temperature Source Rectal Pulse Rate [Apical] 101 H 101 H 105 H Respiratory Rate 18 18 18 Blood Pressure [Right Arm] 136/88 142/89 H 144/76 H Blood Pressure Mean [Right Arm] 104 106 98 Blood Pressure Source [Right Arm] Automatic Cuff Automatic Cuff Automatic Cuff Blood Pressure Position [Right Arm] Supine Supine Supine 02 Sat by Pulse Oximetry 95 95 96 Oxygen Delivery Method Nasal Cannula Room Air Room Air Oxygen Flow Rate (LPM) 3 05/30/20 06:30 05/30/20 07:07 05/30/20 07:30 Temperature 101.6 F H Temperature Source Rectal Pulse Rate [Apical] 101 H 102 H Respiratory Rate 18 16 Blood Pressure [Right Arm] 121/69 138/61 Blood Pressure Mean [Right Arm] 86 86 Blood Pressure Source [Right Arm] Automatic Cuff Automatic Cuff Blood Pressure Position [Right Arm] Supine Supine 02 Sat by Pulse Oximetry 94 L 96 Oxygen Delivery Method Room Air Oxygen Flow Rate (LPM) 05/30/20 08:00 Temperature Temperature Source Pulse Rate [Apical] 104 H Respiratory Rate Blood Pressure [Right Arm] 142/75 H Blood Pressure Mean [Right Arm] 97 Blood Pressure Source [Right Arm] Automatic Cuff Blood Pressure Position [Right Arm] Supine 02 Sat by Pulse Oximetry 95 Oxygen Delivery Method Nasal Cannula Oxygen Flow Rate (LPM) - Lab Data Lab results reviewed: Yes: I reviewed the patient's lab results. Lab Results 05/30/20 04:55: Specimen Source Right radial, O2 % 3l nc, ABG pH 7.54 H, ABG pCO2 34.4 L, ABG pO2 68.2 L, ABG HCO3 29.0 H, ABG Total CO2 30.1 H, ABG O2 Saturation 94, ABG Base Excess 6.6 H, Kvain Test Acceptable 05/30/20 05:00: Urine Color Dk yellow, Urine Appearance Clear, Urine pH 6.0, Ur Specific [place] 1.020, Urine Protein Negative, Urine Glucose (UA) Negative, Urine Ketones Negative, Urine Blood Negative, Urine Nitrate Positive, Urine Bilirubin Negative, Urine Urobilinogen 0.2, Ur Leukocyte Esterase Negative, Ur Squamous Epith Cells 5-10, Urine Bacteria 2+ 05/30/20 05:00: Chlamy pneumoniae PCR Not detected, Adenovirus (PCR) Not detected, B. pertussis DNA (PCR) Not detected, Coronavirus OC43 (PCR) Not detected, Coronavirus HKU1 (PCR) Not detected, Coronavirus 229E (PCR) Not detected, SARS-CoV-2 (PCR) Not detected, Coronavirus NL63 (PCR) Not detected, Human Metapneumovir PCR Not detected, Influenza A (H1) PCR Not detected, Influ A (H1N1/09) PCR Not detected, Influenza A (H3) PCR Not detected, Influenza Type A (PCR) Not detected, Influenza Type B (PCR) Not detected, M. pneumoniae (PCR) Not d
[2020-05-30 05:33] LABS: Appearance,Urine CLEAR (Clear); Bilirubin,Urine Negative (Negative); Blood, Urine Negative (Negative); Color,Urine DK YELLOW (Yellow); Glucose,Urine (UA) Negative (Negative); Ketones,Urine Negative (Negative); Leukocyte Esterase,Urine Negative (Negative); Nitrate,Urine POSITIVE (Negative); Protein,Urine Negative (Negative); Urobilinogen,Urine 0.2 EU/dl (0.2)
[2020-05-30 05:39] LABS: Activated Partial Thrombo Time 27.6 seconds (23.6-34.0); INR 1.44 (0.9-1.1); Prothrombin Time 15.5 seconds (9.4-11.8)
[2020-05-30 05:40] LABS: NT Pro Brain Natriuretic Pep. 20900 pg/mL (0-125)
[2020-05-30 05:43] LABS: Bacteria,Urine 2+ /lpf
[2020-05-30 05:48] LABS: Ammonia < 9 umol/L (9-30); Procalcitonin 0.412 ng/mL (0.0-2.0)
[2020-05-30 06:04] LABS: Lactic Acid 2.9 mmol/L (0.7-2.1)
[2020-05-30 06:06] LABS: Potassium 2.7 mmoL/L (3.5-5.1); Sodium 154 mmol/L (136-145)
[2020-05-30 06:12] LABS: Erythrocyte Sedimentation Rate 46 mm/hr (0-30)
[2020-05-30 06:19] LABS: Anisocytosis 2+; Hypochromasia 1+; Lymphocytes % 15 % (10-50); Neutrophils % 79 % (42-76); Platelet Estimate Marked Decrease; Total Cells Counted 100
[2020-05-30 06:20] LABS: Rouleaux 1+
[2020-05-30 06:31] LABS: Magnesium 2.1 mg/dl (1.6-2.3)
[2020-05-30 06:42] LABS: Coronavirus 19 IgG Antibody Positive (Negative); Coronavirus 19 IgM Antibody Positive (Negative)
--- NOTE | 2020-05-30 08:04 | PC.NURSE ---
speaking with Dr Sebastian at this time.
--- NOTE | 2020-05-30 08:17 | PC.NURSE ---
notified of elevated lactic. States patient is sepsis with acute organ dysfuction, and with severely elevated BNP. No fluid bolus at this time, BP stable with MAP >65.
--- NOTE | 2020-05-30 08:20 | PC.NURSE ---
Notified Care Management for admission.
--- NOTE | 2020-05-30 09:06 | CA_ITS ---
APPROVED REPORT EXAM: Comprehensive 2D, Doppler, and color-flow Echocardiogram First Breaker Feeder: Vivian Mack CRT Ht: 5 ft 4 in Wt: 260lbs BSA: 2.19 BP: 144/76 mmHg Indications: COPD, smoker, HTN, hyperlipidemia, DM, hyperlipidemia, hx IN, anxiety, CHF, GERD, migraine. Study was technically diffcult and limited scanning performed due to poor patient compliance. Patient combative throughout exam. 2D Dimensions LVOT 1.79 cm (M/F) 1.5-2.5 M-Mode Dimensions RVDd 2.77 cm (0.9-2.6) LA Diam 4.35 cm (1.9-4.0) LVDd 4.10 cm (3.5-5.7) Ao Diam 2.84 cm (2.0-3.7) LVDs 2.81 cm (3.5-5.7) IVSd 1.10 cm (0.6-1.1) PWd 0.80 cm (0.6-1.1) EF (Teich) 59.80% FS 31.50% EDV (Teich) 74.20 mL ESV (Teich) 29.80 mL Left Ventricle Technically difficult study because of the patient factors and poor acoustic windows. Endocardial surfaces are very poorly visualized, repeat study with Definity contrast is recommended. Left atrium is moderately enlarged, left ventricle is mildly dilated, visually estimated ejection fraction is probably 45%, there appears to be marked hypokinesis involving the basal septum and inferior basal wall. Diastolic parameters are inconclusive. Right Ventricle Right atrium and right ventricle mildly enlarged with normal contractility. Aortic Valve Aortic valve is minimally thickened and fibrosed, there is no aortic stenosis or aortic insufficiency. Mitral Valve Mitral valve leaflets are minimally thickened, there is mild to moderate mitral regurgitation. Tricuspid Valve Tricuspid valve is grossly normal, there is mild tricuspid regurgitation. Tricuspid regurgitation jet velocity is inadequate for calculation of the right ventricular systolic pressure. Pulmonic Valve Pulmonic valve is poorly visualized. Great Vessels Aortic root is normal size. Pericardium No significant pericardial effusion noted. Conclusion 1. Technically very difficult study as described above, repeat study with Definity contrast is recommended. 2. Biatrial enlargement, mildly dilated left ventricle, visually estimated ejection fraction 45% with multiple segmental wall motion abnormality described above, diastolic parameters are inconclusive. 3. Mildly enlarged right ventricle with normal contractility. 4. Mild to moderate mitral and mild tricuspid regurgitation. 5. No significant pericardial effusion noted. Electronically signed by : Jsoé Klein, 05/31/2020 05:10:18
--- NOTE | 2020-05-30 09:08 | PC.NURSE ---
notified CV lab of echo
[2020-05-30 09:09] LABS: Troponin I 7.66 ng/ml (0.00-0.034)
--- NOTE | 2020-05-30 09:09 | PC.NURSE ---
Addendum entered by Sinai Nuñez RN 05/30/20 09:09: Ordered for Cardiology consult at this time. Original Note: Notified Dr Garcia of Troponin level.
[2020-05-30 09:18] LABS: Reflex Lactic Add Lactic Reflex
--- NOTE | 2020-05-30 09:36 | PC.NURSE ---
rectal temp 100.4
--- NOTE | 2020-05-30 09:40 | PC.NURSE ---
Patient had a loose mucousy orange bm noted. Patient cleaned up and changed. CV lab staff at bedside to do echo.
--- NOTE | 2020-05-30 09:50 | PC.NURSE ---
Lab at bedside
[2020-05-30 10:04] LABS: Lactic Acid Follow Up (RFLX 1) 2.7 mmol/L (0.7-2.1)
--- NOTE | 2020-05-30 10:20 | PC.NURSE ---
Informed 2nd floor patient was ready for admission
--- NOTE | 2020-05-30 10:40 | P.CONPHA_ITS ---
[facility] Pharmacy VTE Monitoring - Patient Demographics Admission date: 05/30/20 Report Date: 05/30/20 Time: 10:40 Allergies/Adverse Reactions: Patient Allergies salicylates Allergy (Unknown, Verified 04/20/20 18:34) AFFECTS CIRROHSIS Sulfa (Sulfonamide Antibiotics) [SULFA (SULFONAMIDE ANTIBIOTICS)] Allergy (Unknown, Verified 04/20/20 18:34) I-HIVES acetaminophen [From Tylenol] Adverse Reaction (Verified 04/20/20 18:34) Height: 1.63 m Weight: 117.934 kg Patient Problems: Current Active Problems (This Medical Record has been edited. Action required.) Type 2 diabetes mellitus (Chronic) Non-STEMI (non-ST elevated myocardial infarction) (Acute) Cirrhosis of liver with ascites (Chronic) Severe sepsis with acute organ dysfunction (Acute) Hypokalemia (Acute) Hypernatremia (Acute) - VTE Risk Labs: VTE Related Lab Results Hgb 12.7 g/dL (12.2-16.2) 05/30/20 05:00 Hct 40.9 % (37.0-47.0) 05/30/20 05:00 Plt Count 44 K/mm3 (142-424) L* 05/30/20 05:00 PT 15.5 seconds (9.4-11.8) H 05/30/20 05:00 INR 1.44 (0.9-1.1) H 05/30/20 05:00 APTT 27.6 seconds (23.6-34.0) 05/30/20 05:00 BUN 36 mg/dl (7-17) H 05/30/20 05:00 Creatinine 1.60 mg/dl (0.52-1.04) H 05/30/20 05:00 Estimated Creat Clear 31 mL/min (50-200) 05/30/20 05:00 - Prophylaxis VTE Prophylaxis Ordered?: Yes Types of VTE Prophylaxis: TEDS Knee High Location of Applied Device: Bilateral Lower Extremeties
--- NOTE | 2020-05-30 10:57 | PC.NURSE ---
2nd floor here to transport patient to floor
--- NOTE | 2020-05-30 11:02 | PC.NURSE ---
patient arrived to the floor
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
[2020-05-30 11:52] LABS: Reflex Lactic (2 hrs) Add Lactic Reflex
[2020-05-30 12:31] LABS: Lactic Acid Follow up (RFLX 2) 2.5 mmol/L (0.7-2.1)
--- NOTE | 2020-05-30 12:54 | SW/DCPLANNER ---
Addendum entered by Dayana Moy 06/08/20 11:18: COVID swab is NEGATIVE and has been faxed to Tierra at [facility]. I have informed patients nurse (Claudette) that patient is ready for discharge and [facility] will follow at [facility]. Addendum entered by Dayana Moy 06/08/20 09:54: This patient will discharge to [facility] today and [facility] will admit patient once she returns. I have updated Tierra with [facility] that patient will return along with Maria Ines with [facility]. Patient will discharge today pending COVID swab results. Addendum entered by Dayana Sutter 06/07/20 14:16: After lengthy conversation with patients family, [facility] (Maria Ines), Tierra with [facility] and Dr Sebastian the plan for this patient is to return to [facility] under Hospice Care (Medicaid) tomorrow. Family agrees with this plan. Addendum entered by Dayana Sutter 06/07/20 09:33: Dr Sebastian has ordered a Hospice consult for this patient. I have spoke with patients son (Herb) and he is agreeable to Hospice services. Patient information has been faxed to [facility]. I have spoke with Dana from [facility] and she has stated that patient information is being reviewed and she will arrange a time to meet with family and evaluate this patient. Dana will contact Herb to arrange time to meet. Dr Sebastian stated that patient could be ready for discharge tomorrow. I will also keep Tierra with [facility] up to date. Addendum entered by Dayana Moy 06/03/20 10:35: I have updated Tierra at [facility] regarding this patient. MRI has been ordered for today. Addendum entered by Dayana Moy 06/02/20 11:01: I have updated Tierra with [facility] regarding this patient. Discharge date is unknown at this time. Addendum entered by Dayana Moy 05/31/20 09:43: Updated patient information has been faxed to Tierra at [facility]. Original Note: This patient currently resides at [facility]. I have spoke with Tierra at [facility] and she has stated that patient is SNF level of care and they will accept her back at time of discharge. I will continue to follow up with Tierra until patient is medically stable for discharge.
[2020-05-30 12:56] LABS: POC Glucose,Bedside 109 (70-110)
--- NOTE | 2020-05-30 13:59 | HMH.HP ---
*Admission Date: 05/30/20 <Luanne Gracia - 05/30/20 14:41> *Chief complaint: Altered mental status: Fever. <Luanne Gracia - 05/30/20 15:07> *History of present illness: Ms. Aguilera is a 65-year-old female who has been residing at [facility] for rehab. She was noted to have a decline in her mental status with abnormal laboratory work. She was sent to the emergency room for evaluation. Patient has a rather extensive medical history to include hypertension, neuropathy, fibromyalgia, asthma, COPD, depression, esophageal reflux, chronic back pain, migraine headaches problem, kidney stones, thrombocytopenia, Cirrhosis/fatty liver, type 2 diabetes mellitus, and hepatic encephalopathy. She was hospitalized last 05/06/2020 to 05/11/2020. During that hospitalization she did have repeated ascites with paracentesis removal of 8600 mL of fluid. She was debilitated and was thus transferred to the nursing facility for ongoing rehab. Emergency rooms evaluation she was felt to have severe sepsis with acute organ dysfunction and a non-ST elevated myocardial infarction.She was noted to have a fever of 102.8 on admission . ABG showed a pH of 7.54 PCO2 of 34.4 PO2 of 68.2 and a bicarb of 29.And was 154 with a potassium of 2.7. BUN 36 and creatinine 1.6. Bilirubin was 3.4 with an AST elevated at 135 and ALT at 44. Alkaline phosphatase was 95. Troponin I was 8.50.Lactate was 2.9 . Ammonia is less than 9. BNP was 20,900.Covid IgG and IgM were positive but with a negative PCR. It did reveal 2+ bacteria. CBC with a white blood cell count of 17,500, hemoglobin of 12.7 and hematocrit of 40.9. Platelet count of 44,000. Neutrophils were 79.5%.Cultures at this time are pending. She was thus admitted Cardiology was consultedAnd plan: 1. Obtain echocardiogram to assess LV function and valve status. 2. Will defer forming left heart catheterization at this time due to altered mental status change and respiratory status. 3. Management of cirrhosis of the liver deferred to PCP. 4. Management of COPD deferred to PCP. 5. Management of sepsis deferred to PCP. 6. Pending on the results of the echocardiogram may recommend medication or treatment changes. 7. Please notify cardiology of any changes in patient's condition. Chest x-ray showed atelectatic change in the left lower lobe/lingula with atelectasis or infiltrate in the right suprahilar region <Luanne Gracia 05/30/20 14:41> [facility] History Medical History: Reports:: Anxiety, Asthma, Congestive Heart Failure, Chronic Obstructive Pulmonary Disease (COPD), Cerebrovascular Accident, Depression, Diabetes Mellitus Type 2, Gastroesophageal Reflux Disease(GERD), Home Oxygen, Hyperlipidemia, Hypertension, Lung Disease, Kidney Stones, Migraine Denies:: Cancer, Diabetes Mellitus Type 1, Internal Pacemaker, MRSA, Seizures <Luanne Gracia 05/30/20 14:41> *Have you ever received a pneumonia vaccine?: Yes <Luanne Gracia 05/30/20 14:41> *Have you received a flu vaccine this season?: Yes <Luanne Gracia 05/30/20 14:41> Other Medical History: Reports: Anemia, Arthritis, Fibromyalgia, Liver Disease (Hepatic failure.), Other. Denies: Blood Transfusion Reaction <Luanne Gracia 05/30/20 14:41> Laterality Cases: Right: Arthroscopy Shoulder, Bilateral: Carpal Tunnel Release, Tonsillectomy <Luanne Gracia 05/30/20 14:41> Other Surgeries: Yes: Appendectomy, Cardiac Catheterization, Cholecystectomy, Colonoscopy, EGD, Hysterectomy-Total, Tubal Ligation, Other (kidney stone, back ). No: Pacemaker <Luanne Gracia 05/30/20 14:41> Amputation: No <Luanne Gracia 05/30/20 14:41> Fractures: Yes <Luanne Gracia 05/30/20 14:41> - *Social History Smoking Status: Smoker, status unknown <Luanne Gracia 05/30/20 14:41> Tobacco Type: cigarettes <Luanne Gracia 05/30/20 14:41> # Packs/Day (cigarettes): 1 <Luanne Gracia 05/30/20 14:41> #Yrs smoked (if former smoker): 45 <Luanne Gracia 05/30/20 14:41> Alcohol
[2020-05-30 15:06] LABS: Troponin I 5.95 ng/ml (0.00-0.034)
--- NOTE | 2020-05-30 15:14 | PC.NURSE ---
Maria Ines notified of critical troponin 5.[address] Sebastian office.
--- NOTE | 2020-05-30 19:51 | PC.NURSE ---
Pt has ams. Remains on 2 L NC. Pt unable to answer questions. Have made Dr. Sebastian aware pt hasn't taken in po intake. Cb in reach and bed alarm on r/t safety.
[2020-05-30 21:05] LABS: POC Glucose,Bedside 121 (70-110)
--- NOTE | 2020-05-30 21:15 | PC.WOUNDNOTE ---
Wound Location: sarah buttocks Length: 2x2 Width: Depth: Undermining Y/N: Tunneling cm: Granulation %: Slough/necrotic tissue %: Inflammation/swelling Y/N: Pain and/or tenderness Y/N: Exudate: Serosanguinous Sanguinous Serosanguinous Seropurulent Purulent Color: Clear [place] Cloudy/milky [place] Red Green Yellow Brown Kapoor Blue Consistency: Thick Thin Amount: None None Scant Small Moderate Large Odor Y/N:
--- NOTE | 2020-05-30 21:17 | PC.WOUNDNOTE ---
Wound Location: L buttock Length:2 Width:1 Depth: Undermining Y/N: Tunneling cm: Granulation %: Slough/necrotic tissue %: Inflammation/swelling Y/N: Pain and/or tenderness Y/N: Exudate: Serosanguinous Sanguinous Serosanguinous Seropurulent Purulent Color: Clear Tierra Cloudy/milky [place] Red Green Yellow Brown Kapoor Blue Consistency: Thick Thin Amount: No drainage None Scant Small Moderate Large Odor Y/N:
[2020-05-30 22:03] LABS: POC Glucose,Bedside 121 (70-110)
[2020-05-31] VITALS (12 sets, daily range): BP systolic 130–157; BP diastolic 74–89; PULSE 80–105; RESP 14–21; TEMP 35.6–37.3; O2SAT 95–100
--- NOTE | 2020-05-31 04:30 | PC.NURSE ---
0044- 96.5 RECTAL TEMP; WARM BLANKETS APPLIED 0130- 96.0 RECTAL TEMP; WARM BLANKETS APPLIED, ROOM TEMP INCREASED 0200- 98.1 SHIFT SUMMARY: PT. UNABLE TO STATE NAME, , PLACE OR YEAR. PT. ABLE TO FOLLOW SOME COMMANDS SUCH RAISE ARMS/LEGS. PT. OPENS EYES TO NAME. O2 SAT 95-96% ON 2L NC. FC DRAINING DARK YELLOW URINE, SMALL UO NOTED. PT/. Q2H T/R.
--- NOTE | 2020-05-31 05:12 | PC.NURSE ---
Unable to weigh patient due to patient being in an non-weighing bed. Patient is unable to mobilize.
[2020-05-31 06:24] LABS: Basophils # 0.1 K/mm3 (0-0.2); Basophils % 0.3 % (0.1-2.0); Hematocrit 40.6 % (37.0-47.0); Hemoglobin 12.4 g/dL (12.2-16.2); Lymphocytes # 2.1 K/mm3 (0.7-4.5); Lymphocytes % 8.2 % (10-50); Mean Corpuscular HGB Conc 30.6 g/dL (31.8-35.4); Mean Corpuscular Hemoglobin 29.6 pg (27.0-31.2); Mean Corpuscular Volume 96.8 fl (81-99); Monocytes # 1.8 K/mm3 (0.1-1.0); Monocytes % 7.2 % (1.7-9.3); Neutrophils # 21.1 K/mm3 (1.8-7.8); Neutrophils % 84.2 % (37.0-80.0); Platelet Count 57 K/mm3 (142-424); Red Cell Distribution Width 18.3 % (11.5-17.5)
[2020-05-31 06:34] LABS: MANUAL DIFFERENTIAL MANUAL DIFFERENTIAL (MANUAL DIFF)
[2020-05-31 06:37] LABS: Anion Gap 10.6 mEq/L (5-15); Blood Urea Nitrogen 37 mg/dl (7-17); Calcium 9.5 mg/dl (8.4-10.2); Carbon Dioxide 31 mmol/L (22.0-30.0); Chloride 116 mmol/L (98-107); Creatinine Clearance Estimated 35 mL/min (50-200); Estimated Glomerular Filt Rate 38 ml/min (>60); GFR (African American) 46 ML/MIN (>60); Glucose 125 mg/dl (74-100)
[2020-05-31 07:10] LABS: Potassium 2.6 mmoL/L (3.5-5.1); Sodium 155 mmol/L (136-145)
--- NOTE | 2020-05-31 08:55 | HMH.ACPN2 ---
<Luanne Gracia - Last Filed: 05/31/20 08:55> Internal Medicine - PN: Subj *Date: 05/31/20 *Time: 08:55 Interval history: Patient unable to give verbal response. Nursing states patient slept well and snored loudly. She continues to be nonverbal. She has had a low-grade fever fever. O2 sats have been stable. Laboratory data this morning reveal a white blood cell count of 25,000 with 84.2% neutrophils. Blood chemistries show a sodium of 155, potassium 2.6. BUN is 37 and creatinine is 1.4. Troponin I is one 8.5, 7.6, 5.95. With a downward trend. Cardiology continues to follow. Exam Vital signs and Labs for Last 24 Hours: Temp Pulse Resp BP Pulse Ox 99.2 F 102 H 18 145/79 H 98 05/31/20 07:56 05/31/20 07:56 05/31/20 07:56 05/31/20 07:56 05/31/20 07:56 Laboratory Results - last 24 hr 05/30/20 08:20: Troponin I 7.66 H 05/30/20 09:45: Lactate 2.7 H 05/30/20 11:25: Troponin I 5.95 H 05/30/20 11:50: POC Glucose 109 05/30/20 12:00: Lactate 2.5 H 05/30/20 16:34: POC Glucose 121 H 05/30/20 20:57: POC Glucose 121 H 05/31/20 06:03: WBC 25.0 H* D, RBC 4.20, Hgb 12.4, Hct 40.6, MCV 96.8, MCH 29.6, MCHC 30.6 L, RDW 18.3 H, Plt Count 57 L D, MPV 14.0 H, Neut % (Auto) 84.2 H, Lymph % (Auto) 8.2 L, Placer % (Auto) 7.2, Eos % (Auto) 0.0 L, Baso % (Auto) 0.3, Neut # (Auto) 21.1 H, Lymph # (Auto) 2.1, Placer # (Auto) 1.8 H, Eos # (Auto) 0.0, Baso # (Auto) 0.1 05/31/20 06:03: Sodium 155 H*, Potassium 2.6 L*, Chloride 116 H, Carbon Dioxide 31 H, Anion Gap 10.6, BUN 37 H, Creatinine 1.40 H, Estimated Creat Clear 35, Estimated GFR 38 L, Est GFR ( Amer) 46 L, Glucose 125 H, Calcium 9.5 I & O for Last 24 hours: Intake & Output 05/28/20 05/29/20 05/30/20 05/31/20 11:59 11:59 11:59 11:59 Intake Total 650 / 650 0 / 0 Output Total 700 / 700 Balance 650 / 650 -700 / -700 Weight 259 lb 15.999 oz 260 lb 2.327 oz Microbiology Reports for the Last 24 Hours: Microbiology 05/30/20 05:00 Urine,Catheterized Urine Culture - Preliminary NO GROWTH AFTER 24 HOURS - Constitutional no acute distress Comments: Opens eyes at demand. No verbal response although she seems to try to speak. - *Routine Respiratory Exam Present: CTA bilaterally (Anteriorly and posteriorly) - *Routine Cardiovascular Exam Present: RRR - *Routine Abdominal Exam Present: soft, normoactive bowel sounds, distended. Absent: tenderness - *Routine Extremities Exam Absent: edema - *Routine Neurological Exam Present: motor deficit. Absent: moving all extremities, normal speech Right arm is flaccid this morning. Nurses states she did put it above her head during the night. Assessment and Plan (1) Pneumonia Status: Acute Category: Medical Code(s): J18.9 - Pneumonia, unspecified organism (2) Acute respiratory failure with hypoxia Start date: 05/30/20 Status: Acute Category: Medical Code(s): J96.01 - Acute respiratory failure with hypoxia (3) Non-STEMI (non-ST elevated myocardial infarction) Status: Acute Category: Medical Code(s): I21.4 - Non-ST elevation (NSTEMI) myocardial infarction (4) Altered mental state Status: Acute Category: Medical Code(s): R41.82 - Altered mental status, unspecified (5) Hypertension Status: Chronic Qualifiers: Hypertension type: essential hypertension Qualified Code(s): I10 - Essential (primary) hypertension Category: Medical Code(s): I10 - Essential (primary) hypertension (6) Type 2 diabetes mellitus Status: Chronic Qualifiers: Diabetes mellitus terminal gauger insulin use: unspecified terminal gauger insulin use status Diabetes mellitus complication status: with other specified complication Qualified Code(s): E11.69 - Type 2 diabetes mellitus with other specified complication Category: Medical Code(s): E11.9 - Type 2 diabetes mellitus without complications (7) COPD (chronic obstructive pulmonary disease) Status:
[2020-05-31 09:04] LABS: Lymphocytes % 22 % (10-50); Monocytes % 3 % (2-9); Neutrophils % 75 % (42-76); Platelet Estimate Marked Decrease; RBC Morphology Normal; Total Cells Counted 100
--- NOTE | 2020-05-31 09:35 | HMH.PNCARD ---
Subjective Date: 05/31/20 Time: 09:00 Principal diagnosis: Cirrhosis of the liver Interval history: 65-year-old female admitted with non-STEMI and cirrhosis of the liver with ascites. Patient also noted to have severe sepsis with acute organ dysfunction. Patient has recurrent hospital visits due to cirrhosis of the liver and COPD. Patient noted with altered mental status change today. Troponins are noted to be narrowing down. Pt remains nonverbal. Patient is noted to be on 2 L of O2 by nasal cannula. Patient does have history of COPD. Patient noted with extended abdomen. Plan is to have paracentesis performed today. Slight swelling noted of the lower extremities. Patient has had a history of a CVA. In 10/23, patient underwent left heart catheterization due to elevated troponins. LHC revealed normal coronaries with a normal EF. Echo revealed EF 45% with multiple segmental wall motion abnormality with mild to moderate mitral and mild tricuspid regurgitation. Patient noted with Damon intact and draining dark yellow urine. Discussed plan of care with Dr. Stafford. Will defer left heart catheterization at this time due to patient's mental status change and severity of her cirrhosis of the liver. Patient did have an normal heart catheterization in 10/23. Even though patient does have elevated troponins, which are now trending down. Feel that this is more related to her cirrhosis of the liver with ascites. Will defer management of cirrhosis of the liver and COPD to PCP. We will continue to monitor patient. If patient's health status changes please notify cardiology. Once patient becomes more stable, may consider left heart catheterization at that time. Thank you for letting cardiology participate in the care of this patient. Conclusion 1. Technically very difficult study as described above, repeat study with Definity contrast is recommended. 2. Biatrial enlargement, mildly dilated left ventricle, visually estimated ejection fraction 45% with multiple segmental wall motion abnormality described above, diastolic parameters are inconclusive. 3. Mildly enlarged right ventricle with normal contractility. 4. Mild to moderate mitral and mild tricuspid regurgitation. 5. No significant pericardial effusion noted. Exam Vital signs and Labs for Last 24 Hours: Temp Pulse Resp BP Pulse Ox 99.2 F 102 H 18 145/79 H 98 05/31/20 07:56 05/31/20 07:56 05/31/20 07:56 05/31/20 07:56 05/31/20 07:56 Laboratory Results - last 24 hr 05/30/20 05:00: Urine Color Dk yellow, Urine Appearance Clear, Urine pH 6.0, Ur Specific [place] 1.020, Urine Protein Negative, Urine Glucose (UA) Negative, Urine Ketones Negative, Urine Blood Negative, Urine Nitrate Positive, Urine Bilirubin Negative, Urine Urobilinogen 0.2, Ur Leukocyte Esterase Negative, Ur Squamous Epith Cells 5-10, Urine Bacteria 2+ 05/30/20 09:45: Lactate 2.7 H 05/30/20 11:25: Troponin I 5.95 H 05/30/20 11:50: POC Glucose 109 05/30/20 12:00: Lactate 2.5 H 05/30/20 16:34: POC Glucose 121 H 05/30/20 20:57: POC Glucose 121 H 05/31/20 06:03: WBC 25.0 H* D, RBC 4.20, Hgb 12.4, Hct 40.6, MCV 96.8, MCH 29.6, MCHC 30.6 L, RDW 18.3 H, Plt Count 57 L D, MPV 14.0 H, Neut % (Auto) 84.2 H, Lymph % (Auto) 8.2 L, [place] % (Auto) 7.2, Eos % (Auto) 0.0 L, Baso % (Auto) 0.3, Neut # (Auto) 21.1 H, Lymph # (Auto) 2.1, [place] # (Auto) 1.8 H, Eos # (Auto) 0.0, Baso # (Auto) 0.1, Total Counted 100, Neutrophils % (Manual) 75, Lymphocytes % (Manual) 22, Monocytes % (Manual) 3, Platelet Estimate Marked decrease, RBC Morphology Normal 05/31/20 06:03: Sodium 155 H*, Potassium 2.6 L*, Chloride 116 H, Carbon Dioxide 31 H, Anion Gap 10.6, BUN 37 H, Creatinine 1.40 H, Estimated Creat Clear 35, Estimated GFR 38 L, Est GFR ( Amer) 46 L, Glucose 125 H, Calcium 9.5 I & O for Last 24 hours: Intake & Output 05/28/20 05/29/20 05/30/20 05/31/20 23:59 23:59 23:59 23:59 Intake Total 650 / 650 Output Total 400 /
--- NOTE | 2020-05-31 10:08 | US_ITS ---
PROCEDURE: US PARACENTESIS CLINICAL INDICATION: cirrhosis with ascites COMPARISON: No exams were available for comparison TECHNIQUE: Phone consent was obtained from the patient's son. Exam was performed bedside in the patient's room. Informed consent was obtain prior to procedure. After appropriate Time out, under aseptic conditions and local anesthesia with 1% buffered lidocaine using sonographic guidance a 6 [place] Uwcr-[place]io catheter was inserted into the largest pocket of fluid localized in the left lower quadrant. Approximately 7600 mL of serous fluid was drained. The patient tolerated the procedure well and left the radiology suite in stable condition. FINDINGS: Diffuse ascites IMPRESSION: Successful sonographic guided paracentesis without complication. Dictated by: Kavin Vazquez MD 05/31/2020 16:23 Kavin Vazquez MD in [facility] 05/31/2020 16:23
[2020-05-31 12:35] LABS: POC Glucose,Bedside 118 (70-110)
[2020-05-31 12:35] LABS: POC Glucose,Bedside 120 (70-110)
[2020-05-31 12:39] LABS: Appearance,Body Fld. Normal; RBC,Body Fluid < 10 cells/uL (< 10 X 10^3); Source, Body Fld. Paracentesis Fluid; TNC,Body Fluid 500 cells/uL (< 1000); Volume,Body Fld. 7600 mL
[2020-05-31 14:30] LABS: Mononuclear WBCs,Body Fluid 90 %; Polynuclear WBC,Body Fluid 10 %
[2020-05-31 15:53] LABS: POC Glucose,Bedside 121 (70-110)
--- NOTE | 2020-05-31 21:46 | PC.NURSE ---
PATIENT IS NOT ALERT TO SELF, LUNGS ARE DIMINISHED, PULSES ARE EQUAL AND PATIENT CONTINUES TO NOT SPEAK. PATIENT WILL MUMBLE. PATIENT HAS AREAS OF PETECHIAE THROUGHOUT HER BODY. PATIENT TOLERATED 3 RUNS OF POTASSIUM AND ALBUMIN ADMINISTRATION.
[2020-05-31 23:12] LABS: POC Glucose,Bedside 126 (70-110)
[2020-06-01] VITALS: BP 132/64; PULSE 98; RESP 18; TEMP 36.6; O2SAT 98
[2020-06-01 04:00] VITALS: BP 140/75; PULSE 90; RESP 18; TEMP 36.5; O2SAT 97
[2020-06-01 05:17] LABS: POC Glucose,Bedside 166 (70-110)
[2020-06-01 06:31] LABS: Basophils % 0.1 % (0.1-2.0); Hematocrit 33.4 % (37.0-47.0); Lymphocytes # 1.4 K/mm3 (0.7-4.5); Lymphocytes % 10.5 % (10-50); Mean Corpuscular HGB Conc 29.1 g/dL (31.8-35.4); Mean Corpuscular Hemoglobin 28.7 pg (27.0-31.2); Mean Corpuscular Volume 98.6 fl (81-99); Mean Platelet Volume 14.3 fl (7.4-10.4); Monocytes # 1.1 K/mm3 (0.1-1.0); Monocytes % 8.2 % (1.7-9.3); Neutrophils # 10.5 K/mm3 (1.8-7.8); Neutrophils % 81.1 % (37.0-80.0); Red Blood Count 3.38 M/mm3 (4.20-5.40); Red Cell Distribution Width 18.3 % (11.5-17.5)
--- NOTE | 2020-06-01 06:32 | PC.NURSE ---
pt has layed awake most of night. grumbling and moaning. when asked questions answer yes and no. states no pain. jaundice. briones in place. iv patent and infusing. 2LNC. call light in reach. vss. will continue to monitor
[2020-06-01 06:59] LABS: Alanine Aminotransferase 51 U/L (12-78); Albumin Level 2.8 g/dl (3.5-5.0); Albumin/Globulin Ratio 0.8 (1.1-1.8); Alkaline Phosphatase 78 U/L (38-126); Anion Gap 10.1 mEq/L (5-15); Aspartate Amino Transferase 105 U/L (14-36); Bilirubin,Total 3.3 mg/dl (0.2-1.3); Blood Urea Nitrogen 39 mg/dl (7-17); Calcium 9.2 mg/dl (8.4-10.2); Carbon Dioxide 30 mmol/L (22.0-30.0); Chloride 118 mmol/L (98-107); Creatinine Clearance Estimated 38 mL/min (50-200); Estimated Glomerular Filt Rate 41 ml/min (>60); GFR (African American) 50 ML/MIN (>60); Globulin 3.3 g/dL (1.3-3.2); Glucose 174 mg/dl (74-100); Potassium 3.1 mmoL/L (3.5-5.1); Total Protein,Serum 6.1 g/dl (6.3-8.2)
--- NOTE | 2020-06-01 07:28 | XR_ITS ---
PROCEDURE: XR CHEST PORTABLE CLINICAL HISTORY: f/u Shortness of air with altered mental status COMPARISON: CR XR CHEST PORTABLE from 04/20/2020 CR XR CHEST PORTABLE from 05/22/2020 CR XR CHEST PORTABLE from 05/30/2020 FINDINGS: The cardiomediastinal silhouette and pulmonary vascularity are within normal limits. Increased density is present in the right upper lobe consistent with pneumonia. There is minimal blunting of the left CP angle. No acute bony abnormalities. IMPRESSION: Right upper lobe pneumonia Dictated by: Kavin Vazquez MD 06/01/2020 08:36 Kavin Vazquez MD in [facility] 06/01/2020 08:36
[2020-06-01 07:32] LABS: Platelet Count 58 K/mm3 (142-424)
[2020-06-01 07:34] LABS: Hemoglobin 9.7 g/dL (12.2-16.2)
--- NOTE | 2020-06-01 07:46 | CT_ITS ---
PROCEDURE: CT HEAD/BRAIN WO CON CLINICAL INDICATION: AMS Altered mental status, altered level of consciousness, confusion, disorientation COMPARISON: CT CT HEAD/BRAIN WO CON from 05/06/2020 TECHNIQUE: Axial images obtained. All CT scans at the facility use one or more dose reduction, viz: automated exposure control, ma/kV adjustment per patient size (including targeted exams where dose is matched to indication, i.e. head), or iterative reconstruction technique. FINDINGS: No midline shift, mass effect, intracranial hemorrhage, hydrocephalus, or extra-axial fluid collection is evident. There is generalized atrophy with hypoattenuation of the periventricular white matter consistent with microangiopathic changes. The calvarium has an unremarkable appearance. No mastoid effusion. No sinus air-fluid level. IMPRESSION: No acute intracranial finding Dictated by: Kavin Vazquez MD 06/01/2020 08:33 Kavin Vazquez MD in [facility] 06/01/2020 08:33
[2020-06-01 07:52] LABS: Sodium 155 mmol/L (136-145)
[2020-06-01 08:00] VITALS: BP 146/75; PULSE 91; RESP 18; TEMP 36.6; O2SAT 97
--- NOTE | 2020-06-01 09:11 | HMH.ACPN2 ---
<Luanne Gracia - Last Filed: 06/01/20 09:11> Internal Medicine - PN: Subj *Date: 06/01/20 *Time: 09:11 Interval history: Patient moans and tries to talk. Per nursing: She is unable to to swallow pills. She did have a paracentesis yesterday removing greater than 7 L of fluid. She will have a CT scan of her head today. O2 sats are 97% on room air. She is afebrile. Heart rate remains in the 90s. Laboratory data show white count decreased to 13,000 with a hemoglobin of 9.7 and hematocrit of 33.4. Blood chemistries show continued high sodium at 155. Her potassium was increased to 3.1. Chlorides are 118 and CO2 30. BUN is 39 and creatinine is 1.3. Bilirubin remains elevated at 3.3 with an AST of 105 and an ALT of 51 and alkaline phosphatase of 78 Exam Vital signs and Labs for Last 24 Hours: Temp Pulse Resp BP Pulse Ox 97.8 F 91 H 18 146/75 H 97 06/01/20 08:00 06/01/20 08:00 06/01/20 08:00 06/01/20 08:00 06/01/20 08:00 Laboratory Results - last 24 hr 05/31/20 06:48: POC Glucose 120 H 05/31/20 11:20: Fluid Source Paracentesis fluid, Fluid Volume 7600, Fluid Appearance Normal, Fluid RBC (Auto) < 10, Fld Tot Nucleated Cell 500, Fld Polynuclear WBCs % 10, Fld Mononuclear WBCs % 90 05/31/20 12:16: POC Glucose 118 H 05/31/20 15:39: POC Glucose 121 H 05/31/20 23:02: POC Glucose 126 H 06/01/20 05:01: POC Glucose 166 H 06/01/20 05:51: WBC 13.0 H D, RBC 3.38 L, Hgb 9.7 L D, Hct 33.4 L, MCV 98.6, MCH 28.7, MCHC 29.1 L, RDW 18.3 H, Plt Count 58 L, MPV 14.3 H, Neut % (Auto) 81.1 H, Lymph % (Auto) 10.5, [place] % (Auto) 8.2, Eos % (Auto) 0.0 L, Baso % (Auto) 0.1, Neut # (Auto) 10.5 H, Lymph # (Auto) 1.4, [place] # (Auto) 1.1 H, Eos # (Auto) 0.0, Baso # (Auto) 0.0 06/01/20 05:51: Sodium 155 H*, Potassium 3.1 L, Chloride 118 H, Carbon Dioxide 30, Anion Gap 10.1, BUN 39 H, Creatinine 1.30 H, Estimated Creat Clear 38, Estimated GFR 41 L, Est GFR ( Amer) 50 L, Glucose 174 H D, Calcium 9.2, Total Bilirubin 3.3 H, AST 105 H, ALT 51, Alkaline Phosphatase 78, Total Protein 6.1 L, Albumin 2.8 L, Globulin 3.3 H, Albumin/Globulin Ratio 0.8 L I & O for Last 24 hours: Intake & Output 05/29/20 05/30/20 05/31/20 06/01/20 11:59 11:59 11:59 11:59 Intake Total 650 / 650 0 / 0 1177 / 1177 Output Total 700 / 700 Balance 650 / 650 -700 / -700 1177 / 1177 Weight 259 lb 15.999 oz 260 lb 2.327 oz Microbiology Reports for the Last 24 Hours: Microbiology 05/30/20 05:00 Urine,Catheterized Urine Culture - Final Klebsiella pneumoniae 05/30/20 05:00 Blood Blood Culture - Preliminary NO GROWTH AFTER 48 HOURS 05/30/20 05:00 Blood Blood Culture - Preliminary NO GROWTH AFTER 48 HOURS - Constitutional no acute distress Comments: Moaning type verbal response to questions. She can focus with her eyes. - *Routine Respiratory Exam Present: CTA bilaterally - *Routine Cardiovascular Exam Present: RRR - *Routine Abdominal Exam Present: soft, normoactive bowel sounds Comments: Abdomen feels less full since paracentesis yesterday. - *Routine Exam Comments: Damon catheter patent and to bedside drainage. - *Routine Extremities Exam Absent: edema - *Routine Skin Exam Comments: Legs with wrinkled skin. No leg edema. - *Routine Neurological Exam Nonverbal. Difficult to tell if she is alert. Assessment and Plan (1) Pneumonia Status: Acute Category: Medical Code(s): J18.9 - Pneumonia, unspecified organism (2) Acute respiratory failure with hypoxia Start date: 05/30/20 Status: Acute Category: Medical Code(s): J96.01 - Acute respiratory failure with hypoxia (3) Non-STEMI (non-ST elevated myocardial infarction) Status: Acute Category: Medical Code(s): I21.4 - Non-ST elevation (NSTEMI) myocardial infarction (4) Altered mental state Status: Acute Category: Medical Code(s): R41.82 - Al
[2020-06-01 11:27] LABS: POC Glucose,Bedside 179 (70-110)
[2020-06-01 12:00] VITALS: BP 121/74; PULSE 93; RESP 18; TEMP 36.3; O2SAT 98
[2020-06-01 15:43] LABS: Albumin, Body Fluid 0.4 g/dL (Not Estab.); Glucose, Body Fluid 119 mg/dL (.); Protein, Body Fluid 0.8 g/dL (.)
[2020-06-01 16:00] VITALS: BP 123/81; PULSE 104; RESP 20; TEMP 36.9; O2SAT 94
--- NOTE | 2020-06-01 16:26 | PC.NURSE ---
Pt has been restless this shift. Pt moans, but does not attempt to speak. Pt unable to take anything PO at this time. Lung sounds reveal expiratory wheezing. No edema noted. Abdomen is large, round, soft, and non-tender. Pt is on room air with sats. >90%. F/C is patent and draining clear, dark, yellow urine without issue. No BM this shift. Redness/Excoriation noted to bilateral buttocks. Moisture barrier cream has been applied and a pressure-relief dressing is in place. Pt has been turned/repositioned and provided oral care Q2H this shift. 22 G peripheral IV in the LT wrist is patent and infusing D5W 0.20% NS w/ 20 K+ @ 100 ML/HR. VSS. Call light within reach. Will continue to monitor.
[2020-06-01 16:53] LABS: POC Glucose,Bedside 176 (70-110)
--- NOTE | 2020-06-01 17:32 | DIET.NUTRFU ---
Addendum entered by Christiane Zhu 06/06/20 09:03: Continues with severe confusion and poor prognosis, not tolerating PO intake/unable to follow commands, not cooperative with attempted bedside swallows. Pt is 7 days with minimal nourishment, worsening renal function, continued hypernatremia. BG remain moderate- avg. 140. Weight fluctuations unknown rt nursing unable to weigh. Possible hospice consult/discussion with family noted, GI consult noted, following further care plans/findings to provide MNT as indicated. Addendum entered by Christiane Zhu 06/03/20 14:26: Mentation remains altered but with slight improvement, not following commands, day 5 NPO. BG remain moderate avg. 140. Continued Hypernatremia. Renal function stable. Unfortunately pt is in a non weight bed, so unknown if/how much weight has fluctuated at this time. She had 1 BM on 05/31. Hopefully mentation will improve enough over the weekend to advance diet..if not nutritional support may be indicated..continuing to monitor. Original Note: Pt NPO for safety day 3. Mentation remains altered, she is nonverbal. Nursing reported swallowing difficulty with meds. BG moderate- avg. 150. Renal function stable. Weight stable, however not able to be taken today. Recommend speech eval upon mentation improvement for diet advancement, will meet nutritional needs as indicated. Continuing to monitor.
[2020-06-01 20:00] VITALS: BP 117/69; PULSE 98; RESP 23; TEMP 36.6; O2SAT 97
[2020-06-01 21:09] LABS: POC Glucose,Bedside 186 (70-110)
[2020-06-02] VITALS (8 sets, daily range): BP systolic 134–152; BP diastolic 47–74; PULSE 86–98; RESP 16–22; TEMP 36.2–36.8; O2SAT 94–98
--- NOTE | 2020-06-02 04:58 | PC.NURSE ---
lungs are diminished. pt continues to groan throughout shift. no pain reported. does respond to name and follows commands. has spoken when talked to but only a very few words and is garbled. oral care given hourly. attempted to turn but pt has been restless throughout night and repositions self. new dressing applied to bottom. bath given. iv patent and infusing per order. briones draining clear, orange urine. vss. call light in reach. will continue to monitor
--- NOTE | 2020-06-02 05:14 | PC.NURSE ---
unable to obtain weight related to pt ams and unable to stand. pt in a nonweigh bed
--- NOTE | 2020-06-02 05:35 | PC.NURSE ---
Weight not completed at this time. Patient is not in a weigh bed and unable to stand on a standing scale.
[2020-06-02 05:47] LABS: POC Glucose,Bedside 202 (70-110)
[2020-06-02 06:49] LABS: Basophils % 0.2 % (0.1-2.0); Eosinophils # 0.1 K/mm3 (0.0-0.4); Eosinophils % 0.4 % (0.1-12.0); Hematocrit 34.5 % (37.0-47.0); Hemoglobin 10.8 g/dL (12.2-16.2); Lymphocytes # 1.8 K/mm3 (0.7-4.5); Lymphocytes % 12.6 % (10-50); Mean Corpuscular HGB Conc 31.4 g/dL (31.8-35.4); Mean Corpuscular Hemoglobin 30.4 pg (27.0-31.2); Mean Corpuscular Volume 96.8 fl (81-99); Mean Platelet Volume 14.5 fl (7.4-10.4); Monocytes # 0.9 K/mm3 (0.1-1.0); Monocytes % 6.7 % (1.7-9.3); Neutrophils # 11.1 K/mm3 (1.8-7.8); Neutrophils % 80.1 % (37.0-80.0); Red Blood Count 3.56 M/mm3 (4.20-5.40); White Blood Count 13.9 K/mm3 (4.8-10.8)
[2020-06-02 07:04] LABS: Anion Gap 7.2 mEq/L (5-15); Blood Urea Nitrogen 37 mg/dl (7-17); Calcium 9.1 mg/dl (8.4-10.2); Carbon Dioxide 31 mmol/L (22.0-30.0); Chloride 117 mmol/L (98-107); Creatinine Clearance Estimated 41 mL/min (50-200); Estimated Glomerular Filt Rate 45 ml/min (>60); GFR (African American) 55 ML/MIN (>60); Glucose 199 mg/dl (74-100); Potassium 3.2 mmoL/L (3.5-5.1)
[2020-06-02 07:05] LABS: Platelet Count 31 K/mm3 (142-424)
[2020-06-02 07:08] LABS: Sodium 152 mmol/L (136-145)
--- NOTE | 2020-06-02 08:23 | HMH.ACPN2 ---
<Kayce Steven - Last Filed: 06/02/20 08:23> Internal Medicine - PN: Subj *Date: 06/02/20 *Time: 08:23 Interval history: Patient was moving her arms around Dr. Sebastian was in the room. She cannot follow any commands but does grunt when questions are asked. She does open her eyes and track. Exam Vital signs and Labs for Last 24 Hours: Temp Pulse Resp BP Pulse Ox 97.6 F 91 H 18 134/47 L 98 06/02/20 07:55 06/02/20 07:55 06/02/20 07:55 06/02/20 07:55 06/02/20 07:55 Laboratory Results - last 24 hr 05/31/20 11:20: Fluid Albumin 0.4 05/31/20 11:20: Fluid Glucose 119, Fluid Total Protein 0.8 06/01/20 11:15: POC Glucose 179 H 06/01/20 16:01: POC Glucose 176 H 06/01/20 20:55: POC Glucose 186 H 06/02/20 05:21: POC Glucose 202 H 06/02/20 06:07: WBC 13.9 H, RBC 3.56 L, Hgb 10.8 L, Hct 34.5 L, MCV 96.8, MCH 30.4, MCHC 31.4 L, RDW 19.0 H, Plt Count 31 L* D, MPV 14.5 H, Neut % (Auto) 80.1 H, Lymph % (Auto) 12.6, [place] % (Auto) 6.7, Eos % (Auto) 0.4, Baso % (Auto) 0.2, Neut # (Auto) 11.1 H, Lymph # (Auto) 1.8, [place] # (Auto) 0.9, Eos # (Auto) 0.1, Baso # (Auto) 0.0 06/02/20 06:07: Sodium 152 H*, Potassium 3.2 L, Chloride 117 H, Carbon Dioxide 31 H, Anion Gap 7.2, BUN 37 H, Creatinine 1.20 H, Estimated Creat Clear 41, Estimated GFR 45 L, Est GFR ( Amer) 55 L, Glucose 199 H, Calcium 9.1 I & O for Last 24 hours: Intake & Output 05/30/20 05/31/20 06/01/2006/02/21 11:59 11:59 11:59 11:59 Intake Total 650 / 650 0 / 0 1177 / 1177 2284 / 2284 Output Total 700 / 700 400 / 400 Balance 650 / 650 -700 / -700 1177 / 1177 1884 / 1884 Weight 259 lb 15.999 oz 260 lb 2.327 oz Microbiology Reports for the Last 24 Hours: Microbiology 05/31/20 11:20 Ascites Fluid Gram Stain - Final 05/31/20 11:20 Ascites Fluid Body Fluid Culture - Preliminary NO GROWTH AFTER 24 HOURS 05/30/20 05:00 Urine,Catheterized Urine Culture - Final Klebsiella pneumoniae 05/30/20 05:00 Blood Blood Culture - Preliminary NO GROWTH AFTER 48 HOURS 05/30/20 05:00 Blood Blood Culture - Preliminary NO GROWTH AFTER 48 HOURS - Constitutional Comments: Unable to follow commands but does grunt when questions are asked - *Routine Respiratory Exam Present: rhonchi, wheezes - *Routine Cardiovascular Exam Present: RRR - *Routine Abdominal Exam Present: soft, normoactive bowel sounds. Absent: tenderness - *Routine Extremities Exam Present: edema. Absent: cyanosis, clubbing - *Routine Skin Exam Present: warm. Absent: rash - *Routine Neurological Exam Present: motor deficit, altered mental status. Absent: oriented X3 Assessment and Plan (1) Pneumonia Status: Acute Category: Medical Code(s): J18.9 - Pneumonia, unspecified organism (2) Acute respiratory failure with hypoxia Start date: 05/30/20 Status: Acute Category: Medical Code(s): J96.01 - Acute respiratory failure with hypoxia (3) Non-STEMI (non-ST elevated myocardial infarction) Status: Acute Category: Medical Code(s): I21.4 - Non-ST elevation (NSTEMI) myocardial infarction (4) Altered mental state Status: Acute Category: Medical Code(s): R41.82 - Altered mental status, unspecified (5) Hypertension Status: Chronic Qualifiers: Hypertension type: essential hypertension Qualified Code(s): I10 - Essential (primary) hypertension Category: Medical Code(s): I10 - Essential (primary) hypertension (6) Type 2 diabetes mellitus Status: Chronic Qualifiers: 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
[2020-06-02 11:27] LABS: POC Glucose,Bedside 159 (70-110)
--- NOTE | 2020-06-02 11:41 | CT_ITS ---
PROCEDURE: CT ABDOMEN PELVIS WO CON CLINICAL INDICATION: abdominal distention Paracentesis 05/31/20 COMPARISON: CT CT ABDOMEN PELVIS WO CON from 05/22/2020 TECHNIQUE: Axial images obtained with sagittal and coronal reformats. All CT scans at the facility use one or more dose reduction, viz: automated exposure control, ma/kV adjustment per patient size (including targeted exams where dose is matched to indication, i.e. head), or iterative reconstruction technique. FINDINGS: LOWER THORAX: There are multifocal ground-glass infiltrates in the right middle lobe, inferior aspect of the right upper lobe, and lingula suspicious for Covid19 pneumonia. Coronary artery calcifications are present ABDOMEN & PELVIS: Moderate amount of ascites has reaccumulated. Cirrhotic appearance of the liver with splenomegaly at 16 cm. No intestinal obstruction or free air. There is some mild increased density noted within the peritoneal fat which may be related to the ascites and portal hypertension. Damon catheter is present. No evidence of appendicitis. There has been interval development diffuse thickening of the colon which may be secondary to hepatic colopathy. There is also thickening of the gastric wall which could be due to nondistention or portal hypertensive gastropathy. The adrenal glands pancreas, and kidneys have an unremarkable appearance. Numerous varices are present in the perigastric and perisplenic region. No acute bony finding. IMPRESSION: 1. Reaccumulation of moderate diffuse ascites with cirrhosis and portal hypertension. 2. Diffuse thickening of the colon which may be related to portal hypertensive colopathy and possible portal hypertensive gastropathy. 3. Scattered multifocal areas of ground-glass infiltrate in the right middle lobe right upper lobe and lingula. Commonly reported imaging features of Covid19 pneumonia are present. Other processes such is influenza pneumonia and organizing pneumonia, drug toxicity, connective tissue disease, and pulmonary hemorrhage can cause a similar imaging pattern. Dictated by: Kavin Vazquez MD 06/03/2020 06:50 Kavin Vazquez MD in [facility] 06/03/2020 06:50
--- NOTE | 2020-06-02 16:00 | PC.NURSE ---
PT IS RESTING IN BED. NO COMPLAINTS OF DISCOMFORT. ATTEMPTED TO GIVE PT A BITE OF APPLESAUCE THIS MORNING AND PT HELD THE APPLESAUCE IN HER MOUTH FOR 10 MIN. PT WAS ASSISTED WITH THE CHIN TUCK AND WAS ASKED TO SWALLOW MULTIPLE TIMES. PT STATED I'M TRYING AND WOULD GIGGLE BUT WAS NEVER ABLE TO SWALLOW. ORAL CARE PROVIDED. SUCTION SET UP IN THE ROOM. O2 SATURATION HAS MAINTAINED 95-98% ON ROOM AIR. PT HAS BEEN ALERT T/O THE SHIFT BUT HAS NOT BEEN ABLE TO FOLLOW COMMANDS. SCATTERED BRUISING NOTED TO BUE/BLE. 2 STAGE 2 NOTED TO BILATERAL BUTTOCKS WITH DRESSING C/D/I. TEDS AND HEEL PROTECTORS NOTED TO BLE. PT HAD 2 RUN OF IV K THIS SHIFT. TURNED AND REPOSITIONED FREQUENTLY. BLE ELEVATED. LUNG SOUNDS HAVE SCATTERED RHONCHI. ABDOMEN DISTENDED WITH HYPOACTIVE BOWEL SOUNDS. SKIN JAUNDICED. SPEECH IS MUMBLED. WILL CONTINUE TO MONITOR.
[2020-06-02 17:06] LABS: POC Glucose,Bedside 121 (70-110)
[2020-06-02 21:23] LABS: POC Glucose,Bedside 131 (70-110)
[2020-06-03] VITALS: BP 159/76; PULSE 91; RESP 21; TEMP 36.4; O2SAT 99
--- NOTE | 2020-06-03 03:21 | PC.NURSE ---
Addendum entered by Keshia Ang RN 06/03/20 05:08: pt turned off bottoms q2hr. Original Note: PT HAS RESTED AT INTERVALS THIS SHIFT. PT DOES NOT MAKE OUT SENTENCES. PT DOES RESPOND TO NAME AND FOLLOWS SOME COMMANDS. VSS. WILL CONT. TO MONITOR.
[2020-06-03 04:00] VITALS: BP 140/79; PULSE 94; RESP 21; TEMP 36.5; O2SAT 96
[2020-06-03 06:17] LABS: Basophils % 0.2 % (0.1-2.0); Eosinophils # 0.1 K/mm3 (0.0-0.4); Eosinophils % 1.2 % (0.1-12.0); Hematocrit 34.3 % (37.0-47.0); Hemoglobin 10.7 g/dL (12.2-16.2); Lymphocytes # 1.4 K/mm3 (0.7-4.5); Lymphocytes % 12.1 % (10-50); Mean Corpuscular HGB Conc 31.2 g/dL (31.8-35.4); Mean Corpuscular Hemoglobin 30.7 pg (27.0-31.2); Mean Corpuscular Volume 98.5 fl (81-99); Mean Platelet Volume 13.3 fl (7.4-10.4); Monocytes % 8.6 % (1.7-9.3); Neutrophils # 8.7 K/mm3 (1.8-7.8); Neutrophils % 77.9 % (37.0-80.0); Red Blood Count 3.48 M/mm3 (4.20-5.40); Red Cell Distribution Width 19.9 % (11.5-17.5); White Blood Count 11.2 K/mm3 (4.8-10.8)
[2020-06-03 06:22] LABS: Platelet Count 40 K/mm3 (142-424)
[2020-06-03 06:25] LABS: Blood Urea Nitrogen 33 mg/dl (7-17); Carbon Dioxide 28 mmol/L (22.0-30.0); Chloride 117 mmol/L (98-107); Creatinine Clearance Estimated 41 mL/min (50-200); Estimated Glomerular Filt Rate 45 ml/min (>60); GFR (African American) 55 ML/MIN (>60); Glucose 138 mg/dl (74-100)
[2020-06-03 06:28] LABS: Sodium 152 mmol/L (136-145)
[2020-06-03 06:37] LABS: POC Glucose,Bedside 128 (70-110)
--- NOTE | 2020-06-03 07:49 | PC.NURSE ---
labs reported to casandra smith rn for md ewing.
[2020-06-03 08:00] VITALS: BP 112/48; PULSE 95; RESP 18; TEMP 36.3; O2SAT 96
--- NOTE | 2020-06-03 08:42 | HMH.ACPN2 ---
<Kayce Steven - Last Filed: 06/03/20 08:42> Internal Medicine - PN: Subj *Date: 06/03/20 *Time: 08:42 Interval history: Patient does track with her eyes today and tries to answer questions, although her speech is still very garbled. Nursing states she has been moving her arms, although she was unable to do so when I was in the room. When asked if anything hurts, she does say her legs. Exam Vital signs and Labs for Last 24 Hours: Temp Pulse Resp BP Pulse Ox 97.7 F 94 H 21 140/79 96 06/03/20 04:00 06/03/20 04:00 06/03/20 04:00 06/03/20 04:00 06/03/20 04:00 Laboratory Results - last 24 hr 06/02/20 11:16: POC Glucose 159 H 06/02/20 16:53: POC Glucose 121 H 06/02/20 21:17: POC Glucose 131 H 06/03/20 05:35: POC Glucose 128 H 06/03/20 06:05: WBC 11.2 H, RBC 3.48 L, Hgb 10.7 L, Hct 34.3 L, MCV 98.5, MCH 30.7, MCHC 31.2 L, RDW 19.9 H, Plt Count 40 L* D, MPV 13.3 H, Neut % (Auto) 77.9, Lymph % (Auto) 12.1, [place] % (Auto) 8.6, Eos % (Auto) 1.2, Baso % (Auto) 0.2, Neut # (Auto) 8.7 H, Lymph # (Auto) 1.4, [place] # (Auto) 1.0, Eos # (Auto) 0.1, Baso # (Auto) 0.0 06/03/20 06:05: Sodium 152 H*, Potassium 4.0 D, Chloride 117 H, Carbon Dioxide 28, Anion Gap 11.0, BUN 33 H, Creatinine 1.20 H, Estimated Creat Clear 41, Estimated GFR 45 L, Est GFR ( Amer) 55 L, Glucose 138 H D, Calcium 9.0 I & O for Last 24 hours: Intake & Output 05/31/20 06/01/20 06/02/20 06/03/20 11:59 11:59 11:59 11:59 Intake Total 0 / 0 1177 / 1177 2284 / 2284 2492 / 2492 Output Total 700 / 700 400 / 400 580 / 580 Balance -700 / -700 1177 / 1177 1884 / 1884 191 / 191 Weight 260 lb 2.327 oz Microbiology Reports for the Last 24 Hours: Microbiology 05/31/20 11:20 Ascites Fluid Gram Stain - Final 05/31/20 11:20 Ascites Fluid Body Fluid Culture - Preliminary NO GROWTH AFTER 48 HOURS Radiology Reports for the Last 24 Hours: Abdominal/pelvic CT 1. Reaccumulation of moderate diffuse ascites with cirrhosis and portal hypertension. 2. Diffuse thickening of the colon which may be related to portal hypertensive colopathy and possible portal hypertensive gastropathy. 3. Scattered multifocal areas of ground-glass infiltrate in the right middle lobe right upper lobe and lingula. Commonly reported imaging features of Covid19 pneumonia are present. Other processes such is influenza pneumonia and organizing pneumonia, drug toxicity, connective tissue disease, and pulmonary hemorrhage can cause a similar imaging pattern. - Constitutional no acute distress - *Routine Respiratory Exam Present: rhonchi (bilaterally) - *Routine Cardiovascular Exam Present: RRR - *Routine Abdominal Exam Present: soft, normoactive bowel sounds, tenderness (diffuse), distended - *Routine Extremities Exam Present: edema. Absent: cyanosis, clubbing - *Routine Skin Exam Present: warm. Absent: rash - *Routine Neurological Exam Present: motor deficit, altered mental status speech is garbled Assessment and Plan (1) Pneumonia Status: Acute Category: Medical Code(s): J18.9 - Pneumonia, unspecified organism (2) Acute respiratory failure with hypoxia Start date: 05/30/20 Status: Acute Category: Medical Code(s): J96.01 - Acute respiratory failure with hypoxia (3) Non-STEMI (non-ST elevated myocardial infarction) Status: Acute Category: Medical Code(s): I21.4 - Non-ST elevation (NSTEMI) myocardial infarction (4) Altered mental state Status: Acute Category: Medical Code(s): R41.82 - Altered mental status, unspecified (5) Hypertension Status: Chronic Qualifiers: Hypertension type: essential hypertension Qualified Code(s): I10 - Essential (primary) hypertension Category: Medical Code(s): I10 - Essential (primary) hypertension (6) Type 2 diabetes mellitus Status: Chronic Qualifiers: Diabetes mellitus fdc insulin use: unspecified fdc insulin use statu
--- NOTE | 2020-06-03 08:50 | MR_ITS ---
PROCEDURE: MR HEAD/BRAIN WO CON CLINICAL INDICATION: possible CVA Altered mental status, altered level of consciousness COMPARISON: CT CT HEAD/BRAIN WO CON from 06/01/2020 TECHNIQUE: Routine multiplanar multi echo sequences are performed without gadolinium enhancement. FINDINGS: There is mild motion artifact which somewhat obscures fine detail. No midline shift, mass effect, intracranial hemorrhage, or hydrocephalus is evident. There is no evidence of acute infarction. No restricted diffusion is evident. There are scattered periventricular and subcortical T2 white matter hyperintensities including a T2 hyperintensity in the right basal ganglia. This however does not demonstrate restricted diffusion consistent with an old lacunar infarction. The cerebellopontine angle, cerebellum, and brainstem have an unremarkable appearance. Small amount fluid signal intensity is present in the mastoid sinuses. The pituitary, optic chiasm, corpus callosum, and craniocervical junction have an unremarkable appearance. IMPRESSION: 1. No acute intracranial findings. 2. Atrophy with chronic ischemic changes Dictated by: Kavin Vazquez MD 06/03/2020 12:17 Kavin Vazquez MD in [facility] 06/03/2020 12:17
[2020-06-03 10:22] LABS: Ammonia < 9 umol/L (9-30)
[2020-06-03 12:46] VITALS: BP 127/84; PULSE 96; TEMP 36.3; O2SAT 96
--- NOTE | 2020-06-03 13:50 | HMH.ACPN ---
Internal Medicine - PN: Subj *Date: 06/03/20 *Time: 13:50 Exam Vital signs and Labs for Last 24 Hours: Temp Pulse Resp BP Pulse Ox 97.4 F L 96 H 18 127/84 96 06/03/20 12:46 06/03/20 12:46 06/03/20 08:00 06/03/20 12:46 06/03/20 12:46 Laboratory Results - last 24 hr 06/02/20 16:53: POC Glucose 121 H 06/02/20 21:17: POC Glucose 131 H 06/03/20 05:35: POC Glucose 128 H 06/03/20 06:05: WBC 11.2 H, RBC 3.48 L, Hgb 10.7 L, Hct 34.3 L, MCV 98.5, MCH 30.7, MCHC 31.2 L, RDW 19.9 H, Plt Count 40 L* D, MPV 13.3 H, Neut % (Auto) 77.9, Lymph % (Auto) 12.1, [place] % (Auto) 8.6, Eos % (Auto) 1.2, Baso % (Auto) 0.2, Neut # (Auto) 8.7 H, Lymph # (Auto) 1.4, [place] # (Auto) 1.0, Eos # (Auto) 0.1, Baso # (Auto) 0.0 06/03/20 06:05: Sodium 152 H*, Potassium 4.0 D, Chloride 117 H, Carbon Dioxide 28, Anion Gap 11.0, BUN 33 H, Creatinine 1.20 H, Estimated Creat Clear 41, Estimated GFR 45 L, Est GFR ( Amer) 55 L, Glucose 138 H D, Calcium 9.0 06/03/20 10:08: Ammonia < 9 L I & O for Last 24 hours: Intake & Output 05/31/20 06/01/20 06/02/20 06/03/20 23:59 23:59 23:59 23:59 Intake Total 0 / 0 2277 / 2277 3676 / 3676 Output Total 300 / 300 800 / 800 180 / 180 Balance -300 / -300 2277 / 1877 2876 / 2876 -180 / -180 Microbiology Reports for the Last 24 Hours: Microbiology 06/03/20 09:13 Nasopharyngeal Coronavirus COVID-19 PCR - Final 05/31/20 11:20 Ascites Fluid Gram Stain - Final 05/31/20 11:20 Ascites Fluid Body Fluid Culture - Preliminary NO GROWTH AFTER 48 HOURS Assessment and Plan (1) Pneumonia Status: Acute Category: Medical Code(s): J18.9 - Pneumonia, unspecified organism (2) Acute respiratory failure with hypoxia Start date: 05/30/20 Status: Acute Category: Medical Code(s): J96.01 - Acute respiratory failure with hypoxia (3) Non-STEMI (non-ST elevated myocardial infarction) Status: Acute Category: Medical Code(s): I21.4 - Non-ST elevation (NSTEMI) myocardial infarction (4) Altered mental state Status: Acute Category: Medical Code(s): R41.82 - Altered mental status, unspecified (5) Hypertension Status: Chronic Qualifiers: Hypertension type: essential hypertension Qualified Code(s): I10 - Essential (primary) hypertension Category: Medical Code(s): I10 - Essential (primary) hypertension (6) Type 2 diabetes mellitus Status: Chronic Qualifiers: Diabetes mellitus chcf insulin use: unspecified chcf insulin use status Diabetes mellitus complication status: with other specified complication Qualified Code(s): E11.69 - Type 2 diabetes mellitus with other specified complication Category: Medical Code(s): E11.9 - Type 2 diabetes mellitus without complications (7) COPD (chronic obstructive pulmonary disease) Status: Chronic Qualifiers: COPD type: unspecified COPD Qualified Code(s): J44.9 - Chronic obstructive pulmonary disease, unspecified Category: Medical Code(s): J44.9 - Chronic obstructive pulmonary disease, unspecified (8) Sepsis Status: Resolved Category: Medical Code(s): A41.9 - Sepsis, unspecified organism (9) Elevated troponin Status: Acute Category: Medical Code(s): R79.89 - Other specified abnormal findings of blood chemistry (10) Elevated brain natriuretic peptide (BNP) level Status: Acute Category: Medical Code(s): R79.89 - Other specified abnormal findings of blood chemistry (11) Cirrhosis of liver with ascites Status: Chronic Qualifiers: Hepatic cirrhosis type: unspecified hepatic cirrhosis Qualified Code(s): K74.60 - Unspecified cirrhosis of liver; R18.8 - Other ascites Category: Medical Code(s): K74.60 - Unspecified cirrhosis of liver; R18.8 - Other ascites (12) Hypokalemia Status: Acute Category: Medical Code(s): E87.6 - Hypokalemia (13) Ascites Status: Chronic Qualifiers: Ascites type: other type Qualifie
--- NOTE | 2020-06-03 15:43 | PC.NURSE ---
SHE IS RESTING IN BED AND HAS FOR THE DURATION OF SHIFT, SHE IS NOT ABLE TO FOLLOW COMMANDS APPROPRIATELY AT THIS TIME, SHE HAS NOT BEEN ABLE TO TAKE PO MEDS OR TOLERATE ANY PO INTAKE RELATED TO HER INABILITY TO FOLLOW AND EXECUTE DIRECTIONS, HER SPEECH IS INCOHERENT AND MOSTLY INCOMPREHENSIBLE, SHE WAS TAKEN TO MRI THIS AFTERNOON WITH RESULTS PENDING, SHE HAS A GONZALEZ CATH IN PLACE DRAINING DARK URINE, SHE HAS BEEN BATHED AND TURNED THIS SHIFF WITH MOUTH CARE AT FREQUENT INTERVALS, SHE HAS TEDS IN PLACE, THE DSG ON HER COCCYX WAS CHANGED WITH HER BATH THIS AFTERNOON, NO DRAINAGE FROM WOUND NOTED, HER LUNG SOUNDS ARE DIMINISHED T/O WITH WHEEZES NOTED ON EXHALATION IN BILATERAL UPPER LOBES, SHE HAS TOLERATED RA WELL WITH VITAL SIGNS STABLE T/O SHIFT, SHE HAD ONE EPISODE OF BOWEL INCONTINENCE THIS SHIFT WHICH WAS LOOSE AND DARK, HER ABD IS SOFT AND NO EVIDENCE OF PAIN NOTED BASED ON PATIENT BODY LANGUAGE, NO NEEDS AT THIS TIME, WILL CONTINUE TO MONITOR.
[2020-06-03 16:00] VITALS: BP 127/73; PULSE 95; RESP 18; TEMP 36.4; O2SAT 95
[2020-06-03 18:50] LABS: POC Glucose,Bedside 111 (70-110)
[2020-06-03 20:00] VITALS: BP 135/74; PULSE 98; RESP 18; TEMP 37.2; O2SAT 97
[2020-06-03 21:00] LABS: POC Glucose,Bedside 109 (70-110)
[2020-06-03 22:14] LABS: POC Glucose,Bedside 108 (70-110)
[2020-06-04] VITALS: BP 146/83; PULSE 96; RESP 18; TEMP 36.5; O2SAT 95
--- NOTE | 2020-06-04 03:04 | PC.NURSE ---
Pt continues to tolerate RA appropriately w/ o2 sats between 95-97%. Pt has been a q2h turn this shift. Inspiratory and expiratory rhonchi heard bilaterally t/o all lung quintanilla. Damon cath remains intact and is draining pink-tinged urine w/ sediment per gravity. No other acute changes or complaints at this time.
[2020-06-04 03:52] VITALS: BP 128/80; PULSE 99; RESP 18; TEMP 36.3; O2SAT 96
[2020-06-04 06:56] LABS: POC Glucose,Bedside 111 (70-110)
[2020-06-04 08:00] VITALS: BP 144/78; PULSE 97; RESP 19; RESP 22; TEMP 36.3; O2SAT 94; O2SAT 99
--- NOTE | 2020-06-04 08:48 | HMH.ACPN2 ---
Internal Medicine - PN: Subj *Date: 06/04/20 *Time: 08:48 Interval history: She seems more alert and attempts to answer questions but speech is mostly unintelligible. She does not follow commands. Exam Vital signs and Labs for Last 24 Hours: Temp Pulse Resp BP Pulse Ox 97.4 F L 97 H 22 144/78 H 99 06/04/20 08:00 06/04/20 08:00 06/04/20 08:00 06/04/20 08:00 06/04/20 08:00 Laboratory Results - last 24 hr 06/03/20 10:08: Ammonia < 9 L 06/03/20 11:56: POC Glucose 109 06/03/20 17:13: POC Glucose 111 H 06/03/20 21:42: POC Glucose 108 06/04/20 06:48: POC Glucose 111 H I & O for Last 24 hours: Intake & Output 06/01/20 06/02/20 06/03/20 06/04/20 11:59 11:59 11:59 11:59 Intake Total 1177 / 1177 2284 / 2284 2492 / 2492 300 / 300 Output Total 400 / 400 580 / 580 325 / 325 Balance 1177 / 1177 1884 / 1884 191 / 1911 - Microbiology Reports for the Last 24 Hours: Microbiology 05/31/20 11:20 Ascites Fluid Gram Stain - Final 05/31/20 11:20 Ascites Fluid Body Fluid Culture - Preliminary NO GROWTH AFTER 72 HOURS 05/30/20 05:00 Blood Blood Culture - Final NO GROWTH AFTER 5 DAYS 05/30/20 05:00 Blood Blood Culture - Final NO GROWTH AFTER 5 DAYS 06/03/20 09:13 Nasopharyngeal Coronavirus COVID-19 PCR - Final Narrative: She is awake and alert but remains confused. Breath sounds are clear anteriorly but diminished in the bases. Heart is distant. Abdomen protuberant and soft with no apparent tenderness. Extremities no edema. BRANDON stockings in place. Assessment and Plan (1) Pneumonia Status: Acute Category: Medical Code(s): J18.9 - Pneumonia, unspecified organism (2) Acute respiratory failure with hypoxia Start date: 05/30/20 Status: Acute Category: Medical Code(s): J96.01 - Acute respiratory failure with hypoxia (3) Non-STEMI (non-ST elevated myocardial infarction) Status: Acute Category: Medical Code(s): I21.4 - Non-ST elevation (NSTEMI) myocardial infarction (4) Altered mental state Status: Acute Category: Medical Code(s): R41.82 - Altered mental status, unspecified (5) Hypertension Status: Chronic Qualifiers: Hypertension type: essential hypertension Qualified Code(s): I10 - Essential (primary) hypertension Category: Medical Code(s): I10 - Essential (primary) hypertension (6) Type 2 diabetes mellitus Status: Chronic Qualifiers: Diabetes mellitus supervisor intermediates insulin use: unspecified retirement insulin use status Diabetes mellitus complication status: with other specified complication Qualified Code(s): E11.69 - Type 2 diabetes mellitus with other specified complication Category: Medical Code(s): E11.9 - Type 2 diabetes mellitus without complications (7) COPD (chronic obstructive pulmonary disease) Status: Chronic Qualifiers: COPD type: unspecified COPD Qualified Code(s): J44.9 - Chronic obstructive pulmonary disease, unspecified Category: Medical Code(s): J44.9 - Chronic obstructive pulmonary disease, unspecified (8) Sepsis Status: Resolved Category: Medical Code(s): A41.9 - Sepsis, unspecified organism (9) Elevated troponin Status: Acute Category: Medical Code(s): R79.89 - Other specified abnormal findings of blood chemistry (10) Elevated brain natriuretic peptide (BNP) level Status: Acute Category: Medical Code(s): R79.89 - Other specified abnormal findings of blood chemistry (11) Cirrhosis of liver with ascites Status: Chronic Qualifiers: Hepatic cirrhosis type: unspecified hepatic cirrhosis Qualified Code(s): K74.60 - Unspecified cirrhosis of liver; R18.8 - Other ascites Category: Medical Code(s): K74.60 - Unspecified cirrhosis of liver; R18.8 - Other ascites (12) Hypokalemia Status: Acute Category: Medical Code(s): E87.6 - Hypokalemia (13) Ascites
[2020-06-04 12:00] VITALS: BP 151/92; PULSE 93; RESP 22; TEMP 36.9; O2SAT 99
[2020-06-04 16:00] VITALS: BP 141/94; PULSE 93; RESP 22; TEMP 36.8; O2SAT 95
[2020-06-04 16:24] LABS: POC Glucose,Bedside 92 (70-110)
[2020-06-04 17:05] LABS: POC Glucose,Bedside 94 (70-110)
[2020-06-04 18:52] LABS: Microscopic,Cath URINE MICROSCOPIC (MICROSCOPIC)
[2020-06-04 18:55] LABS: Appearance,Urine/Cath CLEAR (Clear); Blood, Urine/Cath 1+ (Negative); Color,Urine/Cath AMBER (Yellow); Glucose,Urine/Cath (UA) Negative (Negative); Ketones,Urine/Cath TRACE (Negative); Leukocyte Esterase,Cath Negative (Negative); Nitrate,Cath Negative (Negative); PH,Urine/Cath 5.5 (5.0-8.5); Protein,Urine/Cath TRACE (Negative); Specific Gravity, Urine/Cath >= 1.030 (1.005-1.030); Urobilinogen,Cath 0.2 EU/dl (0.2)
[2020-06-04 18:59] LABS: Bilirubin,Cath 1+ (Negative)
[2020-06-04 19:00] LABS: Amorphous Sediment,Ur/Cath 1+ /lpf; Uric Acid Crystals,Ur/Cath 4+ /lpf
[2020-06-04 20:00] VITALS: BP 149/89; PULSE 95; RESP 16; TEMP 36.9; O2SAT 93
[2020-06-05] VITALS (7 sets, daily range): BP systolic 120–183; BP diastolic 73–95; PULSE 88–101; RESP 17–20; TEMP 36.2–36.9; O2SAT 90–98
[2020-06-05 00:15] LABS: POC Glucose,Bedside 102 (70-110)
--- NOTE | 2020-06-05 05:32 | PC.NURSE ---
Pt remains confused, only responds to name but does not follow commands. Speech is incomprehensible. Pt slept thorugh the night, tolerating RA with sats in the mid 90s. Pt has been turned q2h, oral care done prn. Pt has slight jaundice of the sclera, abd is round and tender. UOP is inadequate and red tinged. Rhonchi noted throughout lung [place]an[place]. VSS, call light in reach, no concerns at this time.
--- NOTE | 2020-06-05 05:36 | PC.NURSE ---
Not able to obtain weight . Pt in a non-weighing bed
[2020-06-05 06:04] LABS: Basophils # 0.1 K/mm3 (0-0.2); Basophils % 0.5 % (0.1-2.0); Eosinophils # 0.2 K/mm3 (0.0-0.4); Eosinophils % 1.6 % (0.1-12.0); Hematocrit 35.5 % (37.0-47.0); Hemoglobin 10.8 g/dL (12.2-16.2); Lymphocytes # 1.5 K/mm3 (0.7-4.5); Lymphocytes % 11.7 % (10-50); Mean Corpuscular HGB Conc 30.5 g/dL (31.8-35.4); Mean Corpuscular Hemoglobin 30.8 pg (27.0-31.2); Mean Corpuscular Volume 101.1 fl (81-99); Mean Platelet Volume 12.9 fl (7.4-10.4); Monocytes # 1.1 K/mm3 (0.1-1.0); Monocytes % 8.8 % (1.7-9.3); Neutrophils % 77.3 % (37.0-80.0); Platelet Count 61 K/mm3 (142-424); Red Blood Count 3.51 M/mm3 (4.20-5.40); Red Cell Distribution Width 21.5 % (11.5-17.5)
[2020-06-05 06:17] LABS: Potassium 4.2 mmoL/L (3.5-5.1)
[2020-06-05 06:19] LABS: Blood Urea Nitrogen 40 mg/dl (7-17); Creatinine Clearance Estimated 35 mL/min (50-200); Estimated Glomerular Filt Rate 38 ml/min (>60); GFR (African American) 46 ML/MIN (>60)
[2020-06-05 06:20] LABS: Alanine Aminotransferase 37 U/L (12-78); Albumin Level 2.6 g/dl (3.5-5.0); Albumin/Globulin Ratio 0.7 (1.1-1.8); Alkaline Phosphatase 106 U/L (38-126); Aspartate Amino Transferase 51 U/L (14-36); Bilirubin,Total 3.9 mg/dl (0.2-1.3); Calcium 9.3 mg/dl (8.4-10.2); Carbon Dioxide 25 mmol/L (22.0-30.0); Globulin 3.6 g/dL (1.3-3.2); Glucose 109 mg/dl (74-100); Total Protein,Serum 6.2 g/dl (6.3-8.2)
[2020-06-05 06:22] LABS: Anion Gap 10.2 mEq/L (5-15); Chloride 121 mmol/L (98-107); Sodium 152 mmol/L (136-145)
[2020-06-05 06:38] LABS: POC Glucose,Bedside 99 (70-110)
--- NOTE | 2020-06-05 08:21 | HMH.ACPN2 ---
Internal Medicine - PN: Subj *Date: 06/05/20 *Time: 08:21 Interval history: Nursing notes reviewed. She apparently rested well through the night. She seemed less alert this morning. She does not focus and track very well. She is not taking anything by mouth. Urine output has decreased. Exam Vital signs and Labs for Last 24 Hours: Temp Pulse Resp BP Pulse Ox 98.4 F 97 H 18 151/73 H 94 L 06/05/20 04:00 06/05/20 04:00 06/05/20 04:00 06/05/20 04:00 06/05/20 04:00 Laboratory Results - last 24 hr 06/04/20 13:10: POC Glucose 92 06/04/20 16:56: POC Glucose 94 06/04/20 18:35: Urine Color [place], Urine Appearance Clear, Urine pH 5.5, Ur Specific [place] >= 1.030, Urine Protein Trace, Urine Glucose (UA) Negative, Urine Ketones Trace, Urine Blood 1+, Urine Nitrate Negative, Urine Bilirubin 1+ A, Urine Urobilinogen 0.2, Ur Leukocyte Esterase Negative, Urine RBC 5-10, Urine WBC 3-5, Ur Squamous Epith Cells 5-10, Uric Acid Crystals 4+ 06/04/20 20:09: POC Glucose 102 06/05/20 05:40: WBC 13.0 H, RBC 3.51 L, Hgb 10.8 L, Hct 35.5 L, MCV 101.1 H, MCH 30.8, MCHC 30.5 L, RDW 21.5 H, Plt Count 61 L D, MPV 12.9 H, Neut % (Auto) 77.3, Lymph % (Auto) 11.7, [place] % (Auto) 8.8, Eos % (Auto) 1.6, Baso % (Auto) 0.5, Neut # (Auto) 10.0 H, Lymph # (Auto) 1.5, [place] # (Auto) 1.1 H, Eos # (Auto) 0.2, Baso # (Auto) 0.1 06/05/20 05:40: Sodium 152 H*, Potassium 4.2, Chloride 121 H, Carbon Dioxide 25, Anion Gap 10.2, BUN 40 H, Creatinine 1.40 H, Estimated Creat Clear 35, Estimated GFR 38 L, Est GFR ( Amer) 46 L, Glucose 109 H, Calcium 9.3, Total Bilirubin 3.9 H, AST 51 H, ALT 37, Alkaline Phosphatase 106, Total Protein 6.2 L, Albumin 2.6 L, Globulin 3.6 H, Albumin/Globulin Ratio 0.7 L 06/05/20 06:32: POC Glucose 99 I & O for Last 24 hours: Intake & Output 06/02/20 06/03/20 06/04/20 06/05/20 11:59 11:59 11:59 11:59 Intake Total 2284 / 2284 2492 / 2492 300 / 300 100 / 100 Output Total 400 / 400 580 / 580 325 / 325 550 / 550 Balance 1884 / 1884 1912 / 1912 -25 / -25 -450 / -450 Microbiology Reports for the Last 24 Hours: Microbiology 05/31/20 11:20 Ascites Fluid Gram Stain - Final 05/31/20 11:20 Ascites Fluid Body Fluid Culture - Preliminary NO GROWTH AFTER 4 DAYS 05/30/20 05:00 Blood Blood Culture - Final NO GROWTH AFTER 5 DAYS 05/30/20 05:00 Blood Blood Culture - Final NO GROWTH AFTER 5 DAYS Narrative: She opens her eyes to voice but does not attempt to answer questions this morning. Mouth is dry. Lungs are clear anteriorly but diminished in the bases. Heart is regular. Abdomen is soft and distended. No apparent tenderness. Extremities no edema. Teds in place. Assessment and Plan (1) Pneumonia Status: Acute Category: Medical Code(s): J18.9 - Pneumonia, unspecified organism (2) Acute respiratory failure with hypoxia Start date: 05/30/20 Status: Acute Category: Medical Code(s): J96.01 - Acute respiratory failure with hypoxia (3) Non-STEMI (non-ST elevated myocardial infarction) Status: Acute Category: Medical Code(s): I21.4 - Non-ST elevation (NSTEMI) myocardial infarction (4) Altered mental state Status: Acute Category: Medical Code(s): R41.82 - Altered mental status, unspecified (5) Hypertension Status: Chronic Qualifiers: Hypertension type: essential hypertension Qualified Code(s): I10 - Essential (primary) hypertension Category: Medical Code(s): I10 - Essential (primary) hypertension (6) Type 2 diabetes mellitus Status: Chronic Qualifiers: Diabetes mellitus fdc insulin use: unspecified fdc insulin use status Diabetes mellitus complication status: with other specified complication Qualified Code(s): E11.69 - Type 2 diabetes mellitus with other specified complication Category: Medical Code(s): E11.9 - Type 2 diabetes mellitus without complica
--- NOTE | 2020-06-05 10:50 | PC.NURSE ---
RT GAVE PT HYPERTONIC SALINE NEB TO TRY AND PRODUCE A SPUTUM SAMPLE, PT UNABLE TO GIVE SAMPLE AT THIS TIME. CUP LEFT AT BEDSIDE.
[2020-06-05 16:30] LABS: POC Glucose,Bedside 95 (70-110)
[2020-06-05 22:15] LABS: POC Glucose,Bedside 89 (70-110)
[2020-06-05 22:15] LABS: POC Glucose,Bedside 65 (70-110)
[2020-06-06] VITALS (7 sets, daily range): BP systolic 137–156; BP diastolic 65–86; PULSE 90–103; RESP 14–19; TEMP 36–36.8; O2SAT 85–97
--- NOTE | 2020-06-06 05:24 | PC.NURSE ---
Unable to weigh patient due to not being in a weigh bed. Patient is not able to stand.
[2020-06-06 05:31] LABS: POC Glucose,Bedside 84 (70-110)
[2020-06-06 06:27] LABS: Basophils # 0.1 K/mm3 (0-0.2); Basophils % 0.5 % (0.1-2.0); Eosinophils # 0.3 K/mm3 (0.0-0.4); Eosinophils % 1.9 % (0.1-12.0); Hematocrit 36.8 % (37.0-47.0); Lymphocytes # 1.5 K/mm3 (0.7-4.5); Lymphocytes % 11.7 % (10-50); Mean Corpuscular HGB Conc 29.9 g/dL (31.8-35.4); Mean Corpuscular Hemoglobin 31.1 pg (27.0-31.2); Mean Corpuscular Volume 103.9 fl (81-99); Mean Platelet Volume 12.5 fl (7.4-10.4); Monocytes # 0.9 K/mm3 (0.1-1.0); Neutrophils # 10.3 K/mm3 (1.8-7.8); Neutrophils % 78.8 % (37.0-80.0); Platelet Count 66 K/mm3 (142-424); Red Blood Count 3.54 M/mm3 (4.20-5.40); Red Cell Distribution Width 22.3 % (11.5-17.5)
[2020-06-06 06:46] LABS: Alanine Aminotransferase 35 U/L (12-78); Albumin Level 2.7 g/dl (3.5-5.0); Albumin/Globulin Ratio 0.7 (1.1-1.8); Alkaline Phosphatase 111 U/L (38-126); Anion Gap 10.6 mEq/L (5-15); Aspartate Amino Transferase 52 U/L (14-36); Bilirubin,Total 3.9 mg/dl (0.2-1.3); Blood Urea Nitrogen 44 mg/dl (7-17); Calcium 9.5 mg/dl (8.4-10.2); Carbon Dioxide 24 mmol/L (22.0-30.0); Chloride 121 mmol/L (98-107); Creatinine Clearance Estimated 35 mL/min (50-200); Estimated Glomerular Filt Rate 38 ml/min (>60); GFR (African American) 46 ML/MIN (>60); Globulin 3.7 g/dL (1.3-3.2); Glucose 102 mg/dl (74-100); Potassium 4.6 mmoL/L (3.5-5.1); Total Protein,Serum 6.4 g/dl (6.3-8.2)
[2020-06-06 06:58] LABS: INR 1.43 (0.9-1.1); Prothrombin Time 15.4 seconds (9.4-11.8)
--- NOTE | 2020-06-06 07:40 | PC.NURSE ---
Pt. able to open eyes to name, mumbled incomprehensible speech. q2h t/r. Expiratory rhonchi t/o bilat lungs. FC draining les urine. Dsg to buttocks c/d/i.
[2020-06-06 07:45] LABS: Sodium 151 mmol/L (136-145)
--- NOTE | 2020-06-06 08:30 | PC.NURSE ---
RC NOTIFIED OF NA OF 151. NO NEW ORDERS.
--- NOTE | 2020-06-06 09:00 | HMH.ACPN2 ---
<Luanne Gracia - Last Filed: 06/06/20 09:00> Internal Medicine - PN: Subj *Date: 06/06/20 *Time: 09:00 Interval history: Patient does open eyes on command. She tries to answer questions and mumbles. She requires total care and is turned every 2 hours. Exam Vital signs and Labs for Last 24 Hours: Temp Pulse Resp BP Pulse Ox 97.5 F L 90 14 137/78 97 06/06/20 04:00 06/06/20 04:00 06/06/20 04:00 06/06/20 04:00 06/06/20 04:00 Laboratory Results - last 24 hr 06/05/20 12:14: POC Glucose 95 06/05/20 17:49: POC Glucose 65 L 06/05/20 22:01: POC Glucose 89 06/06/20 05:24: POC Glucose 84 06/06/20 06:14: WBC 13.0 H, RBC 3.54 L, Hgb 11.0 L, Hct 36.8 L, MCV 103.9 H, MCH 31.1, MCHC 29.9 L, RDW 22.3 H, Plt Count 66 L, MPV 12.5 H, Neut % (Auto) 78.8, Lymph % (Auto) 11.7, [place] % (Auto) 7.0, Eos % (Auto) 1.9, Baso % (Auto) 0.5, Neut # (Auto) 10.3 H, Lymph # (Auto) 1.5, [place] # (Auto) 0.9, Eos # (Auto) 0.3, Baso # (Auto) 0.1 06/06/20 06:14: PT 15.4 H, INR 1.43 H 06/06/20 06:14: Sodium 151 H*, Potassium 4.6, Chloride 121 H, Carbon Dioxide 24, Anion Gap 10.6, BUN 44 H, Creatinine 1.40 H, Estimated Creat Clear 35, Estimated GFR 38 L, Est GFR ( Amer) 46 L, Glucose 102 H, Calcium 9.5, Total Bilirubin 3.9 H, AST 52 H, ALT 35, Alkaline Phosphatase 111, Total Protein 6.4, Albumin 2.7 L, Globulin 3.7 H, Albumin/Globulin Ratio 0.7 L I & O for Last 24 hours: Intake & Output 06/03/20 06/04/20 06/05/20 06/06/20 11:59 11:59 11:59 11:59 Intake Total 2492 / 2492 300 / 300 100 / 100 1358 / 1358 Output Total 580 / 580 325 / 325 550 / 550 775 / 775 Balance 1911 / 1911 -25 / -25 -450 / -450 583 / 583 Microbiology Reports for the Last 24 Hours: Microbiology 05/31/20 11:20 Ascites Fluid Gram Stain - Final 05/31/20 11:20 Ascites Fluid Body Fluid Culture - Final NO GROWTH AFTER 5 DAYS - Constitutional no acute distress Comments: Awakened with exam and with turning. - *Routine Respiratory Exam Present: rhonchi Comments: Bilateral rhonchi posteriorly - *Routine Cardiovascular Exam Present: RRR - *Routine Abdominal Exam Present: soft, normoactive bowel sounds, distended - *Routine Extremities Exam Present: BRANDON stockings. Absent: edema - *Routine Neurological Exam Present: alert (With stimulation) Assessment and Plan (1) Pneumonia Status: Acute Category: Medical Code(s): J18.9 - Pneumonia, unspecified organism (2) Acute respiratory failure with hypoxia Start date: 05/30/20 Status: Acute Category: Medical Code(s): J96.01 - Acute respiratory failure with hypoxia (3) Non-STEMI (non-ST elevated myocardial infarction) Status: Acute Category: Medical Code(s): I21.4 - Non-ST elevation (NSTEMI) myocardial infarction (4) Altered mental state Status: Acute Category: Medical Code(s): R41.82 - Altered mental status, unspecified (5) Hypertension Status: Chronic Qualifiers: Hypertension type: essential hypertension Qualified Code(s): I10 - Essential (primary) hypertension Category: Medical Code(s): I10 - Essential (primary) hypertension (6) Type 2 diabetes mellitus Status: Chronic Qualifiers: Diabetes mellitus jail insulin use: unspecified termination clerk insulin use status Diabetes mellitus complication status: with other specified complication Qualified Code(s): E11.69 - Type 2 diabetes mellitus with other specified complication Category: Medical Code(s): E11.9 - Type 2 diabetes mellitus without complications (7) COPD (chronic obstructive pulmonary disease) Status: Chronic Qualifiers: COPD type: unspecified COPD Qualified Code(s): J44.9 - Chronic obstructive pulmonary disease, unspecified Category: Medical Code(s): J44.9 - Chronic obstructive pulmonary disease, unspecified (8) Sepsis Status: Resolved Category: Medical Code(s): A41.9 - Sepsis, unspecified organism (9) Elevated trop
--- NOTE | 2020-06-06 12:00 | PC.NURSE ---
SpO2 85% when obtaining vitals. Patient was snoring and laying on side. Patient's nurse notified who stated she would let the MD know. Patient repositioned and 2L/NC applied. SpO2 rechecked in 15 minutes and was 94%.
[2020-06-06 12:17] LABS: POC Glucose,Bedside 87 (70-110)
[2020-06-06 15:42] LABS: POC Glucose,Bedside 101 (70-110)
--- NOTE | 2020-06-06 15:51 | HMH.CONS ---
*Admission Date: 05/30/20 *Reason for consult:: decompensated liver cirrhosis *History of present illness: This is a 65-year-old female patient who is well-known to our office with a history of cirrhosis with ascites and encephalopathy and portal hypertension. She also has a history of diabetes and COPD. She was recently admitted inpatient through the ER for altered mental status, pneumonia with hypoxia, UTI, renal dysfunction, non-STEMI, and acute on chronic liver failure. The patient has been treated with spironolactone and Lasix at home for her ascites. She has been on Xifaxan and lactulose for her encephalopathy. Her best friend usually escorts her to her office visits and is in the room with the patient today as the patient is unable to answer any questions. Per this friend's report, Ms. Aguilera has had an altered mental status for couple of days. She notes that the patient does not take her medications as prescribed. She has struggled with continued ascites necessitating paracentesis and intermittent episodes of worsening hepatic encephalopathy with elevated ammonia levels over the past 1 to 2 years. She has maintained relatively normal LFTs for the past couple of years. Prior to this, she was maintaining a meld score equal to 8. Upon admission, she was noted to be in acute decompensated liver failure. She currently has a meld score equal to 19 points. She is mildly anemic with an H&H of 11/36.8, her ammonia level has been normal. However her bilirubin is up to 3.9 the very mild elevation in her AST of 52. ALT and alk phos are both within normal limits. She has chronic thrombocytopenia and has had it as low as 30s. Her platelets are currently 66. She required doptelet treatment prior to recent EGD with Dr. Arzate 03/2020 for chronic anemia. He noted grade 2 esophageal varices without stigmata at the time and mild to moderate portal gastropathy. She has been prescribed nadolol but we are unsure if she is taking that as well. CT abdomen pelvis notes reaccumulation of ascites with cirrhosis portal hypertension. She did have diffuse thickening of the colon possibly related to portal hypertensive colopathy/gastropathy. She has previously reported occasionally still drinking alcohol but her friend in the room reports that she has not had anything to drink for a long time and it was a rare occurrence prior to that. She does note that she previously took excessive amounts of Tylenol for many years and might drink more often when she was younger. Since admission she has been treated with IV fluids and antibiotics for both UTI and pneumonia. Cardiology has been consulted. She is unable to undergo heart cath to her altered mental status and liver decompensation. On exam today, the patient is awake but not alert. She does attempt to communicate at one point but has garbled speech and nonsensical responses to questions. She has already been on antibiotics for a few days without improvement of her mental status. She has had paracentesis with around 8 L of fluid removed and is currently distended with likely resurgence of ascites. Nursing does note that she has had black tarry stools and her friends report this has been going on for a few days along with some red discoloration of her urine. However she is only mildly anemic at this point. [facility] History Medical History: Reports:: Anxiety, Asthma, Congestive Heart Failure, Chronic Obstructive Pulmonary Disease (COPD), Cerebrovascular Accident, Depression, Diabetes Mellitus Type 2, Gastroesophageal Reflux Disease(GERD), Hepatitis, Home Oxygen, Hyperlipidemia, Hypertension, Lung Disease, Kidney Stones, Migraine Denies:: Cancer, Diabetes Mellitus Type 1, Internal Pacemaker, MRSA, Seizures *Have you ever received a pneumonia vaccine?: (unknown) *Have you received a flu vaccine this season?: (unknown) Other Medical History: Reports: Anemia, Arthritis, Fibromyalgia, Liver Disease (Hepatic failure.), Other. Denies: Bl
--- NOTE | 2020-06-06 19:00 | PC.NURSE ---
Addendum entered by Greta Urena RN 06/08/20 07:27: pt had to be placed on 2L NC after lunch due to low oxygen sat. pt tolerated well. Original Note: PT MUMBLES BUT UNABLE TO UNDERSTAND WHAT SHE IS SAYING. PT HAS TOLERATED RA WELL THROUGHOUT SHIFT. RESPIRATIONS REGULAR AND UNLABORED. EXPIRATORY RHONCHI NOTED THROUGHOUT. ACTIVE BOWEL SOUNDS HEARD IN ALL 4 QUADRANTS. LARGE, SOFT, ASCITIC ABDOMEN NOTED. NO BM THIS SHIFT. GONZALEZ CATH IN PLACE W PINKISH RED URINE NOTED. PT HAS SLEPT MOST OF SHIFT. DRESSING NOTED TO COCCXY AREA. CDI. NO EDEMA NOTED. PT TURNED Q2 HOURS TO PREVENT FURTHER SKIN BREAKDOWN. BED ALARM ON TO PROMOTE SAFETY. BED IN LOWEST POSITION. CALL LIGHT WITHIN REACH. VSS. WILL CONTINUE TO MONITOR.
[2020-06-06 20:16] LABS: POC Glucose,Bedside 98 (70-110)
[2020-06-07] VITALS (15 sets, daily range): BP systolic 122–168; BP diastolic 60–86; PULSE 92–100; RESP 16–24; TEMP 36.3–36.9; O2SAT 93–99
--- NOTE | 2020-06-07 03:43 | PC.NURSE ---
Pt. able to open eyes to name, still mumbles incomprehensible speech. q2h t/r. Expiratory and inspiratory rhonchi t/o bilat lungs. Intermittent nonproductive wet cough noted. 2l nc with o2 sat 90-93%. FC draining les urine. Dsg to buttocks c/d/i.
--- NOTE | 2020-06-07 05:20 | PC.NURSE ---
THE PATIENT IS UNABLE TO STAND AND BE WEIGHED AND SHE IS IN A NON WEIGHING BED
[2020-06-07 06:26] LABS: POC Glucose,Bedside 93 (70-110)
--- NOTE | 2020-06-07 08:43 | US_ITS ---
PROCEDURE: US PARACENTESIS CLINICAL INDICATION: cirrhosis with ascites Abdominal distension COMPARISON: No exams were available for comparison TECHNIQUE: Informed consent was obtain prior to procedure. After appropriate Time out, under aseptic conditions and local anesthesia with 1% buffered lidocaine using sonographic guidance a 6 Setswana Bsff-M-Yunxjgsm catheter was inserted into the largest pocket of fluid localized in the right lower quadrant. Approximately 7650 mL blood tinged fluid was drained. The patient tolerated the procedure well and left the radiology suite in stable condition. FINDINGS: Diffuse ascites IMPRESSION: Successful sonographic guided paracentesis without complication. Dictated by: Kavin Vazquez MD 06/07/2020 12:38 Kavin Vazquez MD in [facility] 06/07/2020 12:38
--- NOTE | 2020-06-07 09:34 | HMH.ACPN2 ---
<Luanne Gracia - Last Filed: 06/07/20 09:34> Internal Medicine - PN: Subj *Date: 06/07/20 *Time: 09:34 Interval history: Patient tries hard to communicate this morning. She will follow with her eyes and assist with some of the assessment. Some words are easy to understand but mostly it is garbled speech. She did smile once. She almost laughed. She is still unable to swallow pills and is not eating or drinking. She continues with Damon catheter to bedside drainage. She was seen by GI with the following: (18) End stage liver disease Status: Acute Category: Medical Code(s): K72.90 - Hepatic failure, unspecified without coma This patient is well-known to our office. She has chronic cirrhosis diagnosed several years ago prior to her referral to our practice but had been maintaining a meld score around 8 for the past couple of years with essentially normal liver enzymes but is currently in acute on chronic liver failure. She has a meld score= 19 and recurrent ascites even after recent paracentesis. Recommend repeat paracentesis with albumin per protocol to improve comfort. May add Lasix 40 mg IV daily. It will be hard to balance hydrating her and her kidneys and worsening her abdominal ascites with IV fluids. As she is unable to drink, may try decreasing IV fluids slightly. She is only mildly anemic currently but she does have known esophageal varices and known portal hypertension. With black stools and possible blood discoloration of her urine, would monitor her H&H regularly given her significant thrombocytopenia. However, she would not be a safe candidate for EGD given her severe thrombocytopenia. I am unsure that her acute confusion is just hepatic encephalopathy although sometimes the symptoms do not correlate with the ammonia levels. However even after multiple days of antibiotics, she has not had improvement of her mental status as the infections are treated. I discussed the severity of her liver dysfunction with her friend who I know well from previous office visits with Sadia Willy. The patient has always been clear that we can discuss all medical care with her. Patient has not been a candidate for liver transplant both due to low meld score prior to this but also her continued smoking and her lack of ability to take her medications as ordered. After discussion with Dr. Arzate, I do believe this patient is a candidate for hospice consult. I discussed with the family friend that her liver failure may not improve and taken in context with the non-STEMI, pneumonia with respiratory failure, this may be terminal. I recommend hospice consult DANNY with both her son and her friend to make decisions. Dr. Sebastian has discussed hospice care with family. Exam Vital signs and Labs for Last 24 Hours: Temp Pulse Resp BP Pulse Ox 97.3 F L 98 H 20 155/86 H 99 06/07/20 08:00 06/07/20 08:00 06/07/20 08:00 06/07/20 08:00 06/07/20 08:00 Laboratory Results - last 24 hr 06/06/20 11:58: POC Glucose 87 06/06/20 15:34: POC Glucose 101 06/06/20 20:06: POC Glucose 98 06/07/20 05:38: POC Glucose 93 I & O for Last 24 hours: Intake & Output 06/04/20 06/05/20 06/06/20 06/07/20 11:59 11:59 11:59 11:59 Intake Total 300 / 300 100 / 100 1358 / 1358 2172 / 2172 Output Total 325 / 325 550 / 550 775 / 775 Balance -25 / -25 -450 / -450 583 / 583 2172 / 2172 Microbiology Reports for the Last 24 Hours: Microbiology 05/31/20 11:20 Ascites Fluid Gram Stain - Final 05/31/20 11:20 Ascites Fluid Body Fluid Culture - Final NO GROWTH AFTER 5 DAYS - Constitutional no acute distress - *Routine Respiratory Exam Present: other Comments: Bilateral rhonchi posteriorly - *Routine Cardiovascular Exam Present: RRR - *Routine Abdominal Exam Present: soft, normoactive bowel sounds, distended. Absent: tenderness - *Routine Extremities Exam Present: BRANDON stockings. Absent: edema
[2020-06-07 12:28] LABS: POC Glucose,Bedside 84 (70-110)
[2020-06-07 17:34] LABS: POC Glucose,Bedside 90 (70-110)
--- NOTE | 2020-06-07 20:23 | PC.NURSE ---
PATIENT IS ALERT TO SELF, PULSES EQUAL, LUNGS: RHONCHI HEARD. PATIENT HAS INTERMITTENT RESPONSES TO THIS RN. PATIENT HAS RESPONDED TO NAME, ABLE TO TELL THIS RN IT IS COLD AND RESPONDED WHEN PAIN MEDICATION WAS OFFERED. PATIENT HAD 7480ML REMOVED THRU PARACENTISIS. PATIENT TOLERATED WELL. PATIENT WOULD TAKE SIPS OF WATER WHEN OFFERED. PATIENT WOULD NOT SWALLOW JELLO WHEN PROMPT TO.
[2020-06-07 22:21] LABS: POC Glucose,Bedside 85 (70-110)
--- NOTE | 2020-06-08 03:43 | PC.NURSE ---
All care and documentation for this patient provided by Manjeet whitfield RN, was under the direct supervision of Cintia Mckeon RN
[2020-06-08 04:00] VITALS: BP 146/66; PULSE 101; RESP 20; TEMP 37; O2SAT 96
[2020-06-08 06:11] LABS: POC Glucose,Bedside 81 (70-110)
--- NOTE | 2020-06-08 06:22 | PC.NURSE ---
shift summary pts lung sounds are diminished with some coarse crackles. pts sats maintained then 88% on 2lpm via NC. pt was turned every 2 hours to prevent skin breakdown. pt is alert and will occasionally talk to you but seems confused. pt has a briones in place, urine is clear but pink tinged in color.
[2020-06-08 08:00] VITALS: BP 153/81; PULSE 118; RESP 18; TEMP 36.6; O2SAT 93
--- NOTE | 2020-06-08 08:12 | HMH.ACPN2 ---
<Kayce Steven - Last Filed: 06/08/20 08:12> Internal Medicine - PN: Subj *Date: 06/08/20 *Time: 08:12 Interval history: Patient is more awake and alert today but still has difficulty responding. She denies any pain and states she was able to sleep last night. She had a thoracentesis yesterday with 7650 mL of fluid drained. She is not eating or drinking. Exam Vital signs and Labs for Last 24 Hours: Temp Pulse Resp BP Pulse Ox 98.6 F 101 H 20 146/66 H 96 06/08/20 04:00 06/08/20 04:00 06/08/20 04:00 06/08/20 04:00 06/08/20 04:00 Laboratory Results - last 24 hr 06/07/20 11:56: POC Glucose 84 06/07/20 17:01: POC Glucose 90 06/07/20 21:31: POC Glucose 85 06/08/20 06:04: POC Glucose 81 I & O for Last 24 hours: Intake & Output 06/05/20 06/06/20 06/07/20 06/08/20 11:59 11:59 11:59 11:59 Intake Total 100 / 100 1358 / 1358 2172 / 2172 1300 / 1300 Output Total 550 / 550 775 / 775 500 / 500 Balance -450 / -450 583 / 583 2172 / 2172 800 / 800 - Constitutional no acute distress - *Routine Respiratory Exam Present: CTA bilaterally - *Routine Cardiovascular Exam Present: RRR - *Routine Abdominal Exam Present: soft, normoactive bowel sounds. Absent: tenderness - *Routine Extremities Exam Absent: cyanosis, clubbing, edema - *Routine Skin Exam Present: warm. Absent: rash - *Routine Neurological Exam Present: altered mental status Assessment and Plan (1) Pneumonia Status: Acute Category: Medical Code(s): J18.9 - Pneumonia, unspecified organism (2) Acute respiratory failure with hypoxia Start date: 05/30/20 Status: Acute Category: Medical Code(s): J96.01 - Acute respiratory failure with hypoxia (3) Non-STEMI (non-ST elevated myocardial infarction) Status: Acute Category: Medical Code(s): I21.4 - Non-ST elevation (NSTEMI) myocardial infarction (4) Altered mental state Status: Acute Category: Medical Code(s): R41.82 - Altered mental status, unspecified (5) Hypertension Status: Chronic Qualifiers: Hypertension type: essential hypertension Qualified Code(s): I10 - Essential (primary) hypertension Category: Medical Code(s): I10 - Essential (primary) hypertension (6) Type 2 diabetes mellitus Status: Chronic Qualifiers: Diabetes mellitus 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 Diabetes mellitus complication status: with other specified complication Qualified Code(s): E11.69 - Type 2 diabetes mellitus with other specified complication Category: Medical Code(s): E11.9 - Type 2 diabetes mellitus without complications (7) COPD (chronic obstructive pulmonary disease) Status: Chronic Qualifiers: COPD type: unspecified COPD Qualified Code(s): J44.9 - Chronic obstructive pulmonary disease, unspecified Category: Medical Code(s): J44.9 - Chronic obstructive pulmonary disease, unspecified (8) Sepsis Status: Resolved Category: Medical Code(s): A41.9 - Sepsis, unspecified organism (9) Elevated troponin Status: Acute Category: Medical Code(s): R79.89 - Other specified abnormal findings of blood chemistry (10) Elevated brain natriuretic peptide (BNP) level Status: Acute Category: Medical Code(s): R79.89 - Other specified abnormal findings of blood chemistry (11) Cirrhosis of liver with ascites Status: Chronic Qualifiers: Hepatic cirrhosis type: unspecified hepatic cirrhosis Qualified Code(s): K74.60 - Unspecified cirrhosis of liver; R18.8 - Other ascites Category: Medical Code(s): K74.60 - Unspecified cirrhosis of liver; R18.8 - Other ascites (12) Hypokalemia Status: Acute Category: Medical Code(s): E87.6 - Hypokalemia (13) Ascites Status: Chronic Qualifiers: Ascites type: other type Qualified Code(s): R18.8 - Other ascites Category: Medical Code(s): R18.8 - Other ascites (14) Asthma Status: Chronic Category: Medical Co
--- NOTE | 2020-06-08 09:26 | HMH.DCSUM ---
General - General Admission date:: 05/30/20 <Say Sebastian - 06/21/20 14:48> 05/30/20 <Kayce Steven - 06/08/20 09:50> Discharge date: 06/08/20 <Kayce Steven - 06/08/20 09:50> HPI HPI: Ms. Aguilera is a 65-year-old female who has been residing at [facility] for rehab. She was noted to have a decline in her mental status with abnormal laboratory work. She was sent to the emergency room for evaluation. Patient has a rather extensive medical history to include hypertension, neuropathy, fibromyalgia, asthma, COPD, depression, esophageal reflux, chronic back pain, migraine headaches problem, kidney stones, thrombocytopenia, Cirrhosis/fatty liver, type 2 diabetes mellitus, and hepatic encephalopathy. She was hospitalized last 05/06/2020 to 05/11/2020. During that hospitalization she did have repeated ascites with paracentesis removal of 8600 mL of fluid. She was debilitated and was thus transferred to the nursing facility for ongoing rehab. Emergency rooms evaluation she was felt to have severe sepsis with acute organ dysfunction and a non-ST elevated myocardial infarction. She was noted to have a fever of 102.8 on admission. ABG showed a pH of 7.54 PCO2 of 34.4 PO2 of 68.2 and a bicarb of 29. She had a potassium of 2.7. BUN 36 and creatinine 1.6. Bilirubin was 3.4 with an AST elevated at 135 and ALT at 44. Alkaline phosphatase was 95. Troponin I was 8.50. Lactate was 2.9. Ammonia is less than 9. BNP was 20,900. Covid IgG and IgM were positive but with a negative PCR. U/A did reveal 2+ bacteria. CBC with a white blood cell count of 17,500, hemoglobin of 12.7 and hematocrit of 40.9. Platelet count of 44,000. Neutrophils were 79.5. Cultures at this time are pending. She was thus admitted Cardiology was consulted and wanted to obtain an echo. They wanted to defer heart cath due to AMS and respiratory status. Chest x-ray showed atelectatic change in the left lower lobe/lingula with atelectasis or infiltrate in the right suprahilar region <Kayce Steven - 06/08/20 09:50> Hospital Course Hospital Course: The patient's echo showed an EF of 45%. She was admitted and started on insulin per sliding scale and Rocephin pending her cultures. She was given a dose of IV potassium due to hypokalemia. The lactulose that she was taking for her encephalopathy was discontinued due to her low potassium. She received IV fluids in the emergency room as well. Her mental status was altered and her ammonia was normal, therefore it did not appear to be related to her encephalopathy. It was felt her right upper lobe infiltrate was the source of her fever and white blood cell count. Zithromax was added to her Rocephin. Her oxygen saturations were stable, but she was unable to give a clear verbal response. Her troponin began decreasing. A CT of the head was ordered due to her neurologic symptoms and she was given 3 rounds of IV potassium due to continued hypokalemia. She had a scheduled paracentesis and this was performed on 05/31/2020 with removal of 7600 mL of fluid. She had a repeat chest x-ray showing continued right upper lobe pneumonia. Her head CT showed nothing acute. She was unable to swallow her pills. She was not taking any food by mouth. Her urine culture grew Klebsiella pneumoniae with a colony count of [id number]. It was sensitive to Rocephin, therefore this was continued. Her blood cultures showed no growth. Her white blood cell count did begin to improve. She was continued on antibiotics and given more rounds of IV potassium. She began to try to carry on a conversation, but most of her speech was unintelligible. She had an abdominal pelvic CT on 06/02/2020 showing reaccumulation of her diffuse ascites. She had scattered multifocal areas of groundglass infiltrate in the right middle lobe and right upper lobe showing features of a COVID-19 pneumonia. Due to the findings on her CT of Covid pneumonia,
[2020-06-08 11:12] LABS: POC Glucose,Bedside 119 (70-110)
== END 2020-06-08 11:39 | DRG 280 ==
LOC: ER 08:29 → 2ND 11:18
PROVIDERS: Nurse Practitioner Family; Admitting Provider Family Medicine; Emergency Provider Emergency Medicine; PCP Family Medicine; Visit Provider Family Medicine
DX: I21.4 Non-ST elevation (NSTEMI) myocardial infarction (principal); K72.00 Acute and subacute hepatic failure without coma; J96.01 Acute respiratory failure with hypoxia; J18.9 Pneumonia, unspecified organism; Z68.41 Body mass index [BMI] 40.0-44.9, adult; E87.0 Hyperosmolality and hypernatremia; R18.8 Other ascites; E11.9 Type 2 diabetes mellitus without complications; I11.0 Hypertensive heart disease with heart failure; I50.9 Heart failure, unspecified; E66.01 Morbid (severe) obesity due to excess calories; J44.9 Chronic obstructive pulmonary disease, unspecified; Z99.81 Dependence on supplemental oxygen; Z79.51 Long term (current) use of inhaled steroids; Z79.84 Long term (current) use of oral hypoglycemic drugs; Z79.899 Other long term (current) drug therapy; Z88.2 Allergy status to sulfonamides; Z88.8 Allergy status to other drugs, medicaments and biological substances; Z72.0 Tobacco use; E87.6 Hypokalemia
CPT/HCPCS: 36415; 49083; 70450; 70551; 71045; 74176; 80048; 80053; 81001; 82042; 82140; 82150; 82803; 82945; 82962; 83605; 83690; 83735; 83880; 84145; 84155; 84484; 85007; 85025; 85610; 85651; 85730; 86140; 86328; 87040; 87070; 87086; 87088; 87186; 87205; 87581; 87633; 87798; 89051; 93005; 93306; 96365; 96367; 99285; J0456; J2405; P9047; U0003